=== PATIENT | male | born 1955 | race Caucasian/White ===

== ENCOUNTER 2016-07-30 19:26 | Inpatient (IN) | payer MEDICARE, MEDICAID ==
[~2016-07-30] VITALS: Ht 175.3 cm; Wt 71.2 kg
[~2016-07-30 19:26] MED LIST: ASACOL400 MG PO; COLCRYS0.6 M1 PO; D5 1/2NS 1,000 ML IV SCH; HYDROCODON-ACE1 EA15 ORAL; LAMICTAL25 MG PO; LIPITOR10 MG PO; NORCO 5-325 TA1 EACH ORAL; NORVIR100 MG PO; PREVACID15 MG PO; SERTRALINE HCL100 MG PO; WELLBUTRIN100 MG PO; [UNRECOGNIZED DRUG - OTHER] BC
[2016-07-30 20:40] VITALS: BP 137/92
[2016-07-30 21:03] LABS: ALBUMIN/GLOBULIN RATIO 0.7 (1.0-2.7); CALCIUM 9.9 mg/dL (8.6-10.2); CREATININE 1.8 mg/dL (0.7-1.2); GLOMERULAR FILTRATION RATE 38.3 mL/min (>60); POTASSIUM 4.4 mEQ/L (3.4-4.9); TOTAL PROTEIN 7.9 g/dL (6.6-8.7)
[2016-07-30 21:04] LABS: BASOPHILS % (AUTO) 0.8 % (0.0-2.0); EOSINOPHILS % (AUTO) 0.1 % (0.0-3.0); LYMPHOCYTES % (AUTO) 8.9 % (20.0-45.0); MEAN CORPUSCULAR HEMOGLOBIN 31.4 PG (27.0-31.0); MEAN CORPUSCULAR HGB CONC 34.1 G/DL (32.0-36.0); MEAN CORPUSCULAR VOLUME 92 FL (80-99); MEAN PLATELET VOLUME 6.9 FL (6.5-10.1); MONOCYTES % (AUTO) 8.9 % (1.0-10.0); NEUTROPHILS % (AUTO) 81.2 % (45.0-75.0); PLATELET COUNT 182 K/UL (150-450); RED BLOOD COUNT 4.84 M/UL (4.70-6.10); RED CELL DISTRIBUTION WIDTH 12.5 % (11.6-14.8); WHITE BLOOD COUNT 11.1 K/UL (4.8-10.8)
--- NOTE | 2016-07-30 21:12 | Emergency Room Report ---
History of Present Illness General Chief Complaint: Abdominal Pain Source: Patient (DILANCHUKC Mcclain D.O.) Present Illness HPI This patient presents with nausea, vomiting and abdominal pain. Shortly after arrival he also developed diffuse watery diarrhea. The patient states that one week ago he underwent an elective hernia repair at [facility]. He states that mesh was placed in his abdomen time. He states that about 2 days after being discharged he developed abdominal pain. He states that he then was seen at [facility] while hospital. He states he underwent a CT was told that his bowel was bruised and bleeding. He also states there was some finding on his heart. He states he was in a have to wear a mask for 2 days and so he left AGAINST MEDICAL ADVICE. (CHUCK KONG D.O.) Allergies: Coded Allergies: PENICILLINS (Verified Allergy, Intermediate, 07/30/16) SULFA (SULFONAMIDE ANTIBIOTICS) (Verified Allergy, Intermediate, ITCHING, 07/30/16) Patient History Past Medical History: see triage record, asthma, GERD, psych hx - Bipolar, HIV - viral load undetectable, CD4 300s Past Surgical History: other - hernia repair 1 week ago Social History: Denies: alcohol use, drug use, smoking Reviewed Nursing Documentation: PMH: Agreed, PSxH: Agreed (CHUCK KONG D.O. ) Nursing Documentation-PMH Hx Cardiac Problems: No - HIV+ Hx Hypertension: No - Gout Hx Asthma: Yes Hx Cancer: No Hx Neurological Problems: No (CHUCK KONG D.O.) Review of Systems All Other Systems: negative except mentioned in HPI (CHUCK KONG D.O.) Physical Exam Vital Signs Date Time Temp Pulse Resp B/P Pulse Ox O2 Delivery O2 Flow Rate FiO2 07/30/16 19:36 98.2 105 35 156/88 90 07/30/16 20:40 Nasal Cannula 2.0 Sp02 EP Interpretation: reviewed, normal General Appearance: no apparent distress, alert, GCS 15, non-toxic Head: normocephalic, atraumatic Eyes: bilateral eye PERRL, bilateral eye normal inspection ENT: hearing grossly normal, normal pharynx, no angioedema, normal voice Neck: full range of motion, supple/symm/no masses Respiratory: chest non-tender, lungs clear, normal breath sounds, speaking full sentences Cardiovascular #1: regular rate, rhythm, no edema Gastrointestinal: normal bowel sounds, distended, tenderness - diffusely. + ecchymosis, some erythema in upper abdomen Rectal: deferred Musculoskeletal: back normal, gait/station normal, normal range of motion, non- tender Neurologic: alert, oriented x3, responsive, motor strength/tone normal, sensory intact, speech normal Psychiatric: judgement/insight normal, memory normal, mood/affect normal, no suicidal/homicidal ideation Skin: normal color, no rash, warm/dry, well hydrated (CHUCK KONG D.O.) Medical Decision Making Diagnostic Impression: Primary Impression: Pancreatitis Qualified Codes: K85.80 - Other acute pancreatitis without necrosis or infection Additional Impressions: Pneumatosis intestinalis Ischemia, bowel ER Course This patient presents with abdominal pain, vomiting and diffuse diarrhea. And concerned about this patient's abdominal exam. He is tender to palpation and it is distended. The patient does have stable vital signs and a reassuring laboratory workup. Low, he does have an elevated lipase consistent with pancreatitis. However, very concerned abdominal exam on this patient. Especially, given his recent history of surgery an admission to another hospital and then leaving AGAINST MEDICAL ADVICE. He medical record from [facility] and [facility] has been requested but has not been obtained at the time of this dictation. Also, the patient is awaiting CT of the abdomen and pelvis at the time of this dictation. I did go ahead and give broad-spectrum antibiotics to cover anaerobes as a precaution. I also gave her IV fluids. Anticipate admission. Labs Test 07/30/16 20:34 White Blood Count 11.1 K/UL (4.8-10.8) Red Blood Count 4.84 M/UL (4.70-6.10) Hemoglobin 15.2 G/DL (14.2-18.0) Hematocrit 44.6 % (42.0-52.0) Mean Corpuscular Volume 92 FL (80-99) Mean Corpuscular Hemoglobin 31.4 PG (27.0-31.0) Mean Corpuscular Hemoglobin Concent 34.1 G/DL (32.0-36.0) Red Cell Distribution Width 12.5 % (11.6-14.8) Platelet Count 182 K/UL (150-450) Mean Platelet Volume 6.9 FL (6.5-10.1) Neutrophils (%) (Auto) 81.2 % (45.0-75.0) Lymphocytes (%) (Auto) 8.9 % (20.0-45.0) Monocytes (%) (Auto) 8.9 % (1.0-10.0) Eosinophils (%) (Auto) 0.1 % (0.0-3.0) Basophils (%) (Auto) 0.8 % (0.0-2.0) Sodium Level 135 mEQ/L (135-145) Potassium Level 4.4 mEQ/L (3.4-4.9) Chloride Level 93 mEQ/L (98-107) Carbon Dioxide Level 23 mEQ/L (20-30) Anion Gap 19 (5-15) Blood Urea Nitrogen 39 mg/dL (7-23) Creatinine 1.8 mg/dL (0.7-1.2) Estimat Glomerular Filtration Rate 38.3 mL/min (>60) Glucose Level 172 mg/dL (74-106) Calcium Level 9.9 mg/dL (8.6-10.2) Total Bilirubin 0.9 mg/dL (0.0-1.2) Aspartate Amino Transf (AST/SGOT) 30 U/L (5-40) Alanine Aminotransferase (ALT/SGPT) 15 U/L (3-41) Alkaline Phosphatase 68 U/L (40-129) Total Protein 7.9 g/dL (6.6-8.7) Albumin 3.4 g/dL (3.5-5.2) Globulin 4.5 g/dL Albumin/Globulin Ratio 0.7 (1.0-2.7) Lipase 440 U/L (< 60) (CHUCK KONG D.O.) ER Course Received signout from Dr Mota to followup CTAP Results from Dr Yne - pneumotosis intestinalis of prox small bowel, stomach, portal venous gas and mesnteric gas, bowel ischemia. Large anterior fluid follection I added on lactate Coags and T&S Ordered Dr Gilmore from [facility] consulted, is bedside at 10pm. Endorsed findings to Dr Brown as admitting hospitalist at 10pm as well. (ALESHIA MORILLO M.D.) Chest X-Ray Diagnostic Results Chest X-Ray Ordered: Yes # of Views/Limited/Complete: 1 View, Limited Interpretation: no consolidation, no effusion, no pneumothorax, no acute cardiopulmonary disease Indication: Other - pt reports "heart problem" Impression: No acute disease Date Electronically Signed: Jul 31, 2016 Time Electronically Signed: 07:08 Interpreting ER Physician: Sabina (CHUCK KONG D.O.) CT/MRI/US Diagnostic Results CT/MRI/US Diagnostic Results : Imaging Test Ordered: CT abd/pelvis Impression Pending. See official report. (CHUCK KONG D.O.) Last Vital Signs Date Time Temp Pulse Resp B/P Pulse Ox O2 Delivery O2 Flow Rate FiO2 07/30/16 20:40 98.2 97 23 137/92 90 Nasal Cannula 2.0 (CHUCK KONG D.O.) Status: improved (ALESHIA MORILLO M.D.) Disposition: ADMITTED INPATIENT Condition: Critical Referrals: NON PHYSICIAN (PCP) CHUCK KONG D.O. Jul 30, 2016 21:12 ALESHIA MORILLO M.D. Jul 30, 2016 22:23
[2016-07-30] MEDS ORDERED: metroNIDAZOLE 500mg 100 ML IVPB ONE (21:15)
[2016-07-30] MEDS ORDERED: Miralax 17gm pkt ORAL PRN (21:45)
[2016-07-30] MEDS ORDERED: Metoclopramide 10mg/2ml Inj IVP PRN (21:45)
[2016-07-30] MEDS ORDERED: Mylanta II UD 30ml ORAL PRN (21:45)
[2016-07-30] MEDS ORDERED: Morphine Sulfate 2mg/ml Inj IVP PRN (21:45)
[2016-07-30] MEDS ORDERED: LORazepam Inj 2mg/ml 1ml IV PRN (21:45)
[2016-07-30] MEDS ORDERED: Nitroglycerin Subl 0.4mg tab (Bottle Of 25) SL PRN (21:45)
[2016-07-30 21:55] VITALS: BP 128/94
[2016-07-30] MEDS ORDERED: Amikacin Rx to dose MISC PRN (22:15)
[2016-07-30 23:04] LABS: TROPONIN I < 0.30 ng/mL (<=0.30)
[2016-07-30 23:44] LABS: APPEARANCE,URINE CLEAR; KETONES,URINE NEGATIVE (NEGATIVE); LEUKOCYTE ESTERASE ,URINE 1+ (NEGATIVE); NITRITE,URINE NEGATIVE (NEGATIVE); PH,URINE 5 (4.5-8.0); PROTEIN,URINE 2+ (NEGATIVE); UROBILINOGEN,URINE 1 MG/DL (0.0-1.0)
[2016-07-30 23:54] LABS: BACTERIA,URINE FEW /HPF; RBC,URINE 0-2 /HPF (0 - 0); WBC,URINE 0-2 /HPF (0 - 0)
[2016-07-30 23:55] VITALS: BP 120/88
[2016-07-30 23:55] LABS: COARSE GRANULAR CASTS,URINE 0-2 /LPF; ICTOTEST NEGATIVE
--- NOTE | 2016-07-30 23:58 | General Progress Note ---
Progress Note Progress Note Chart reviewed, pt examined. Pt has probable intestinal ischemia and/or infarction. He will undergo an exploratory laparotomy, possible intestinal resection, possible colostomy. The nature, risks and benefits were discussed. Dejuan Gilmore MD Jul 30, 2016 23:58
[2016-07-31] VITALS (38 sets, daily range): BP systolic 87–166; BP diastolic 48–85
--- NOTE | 2016-07-31 00:46 | Pre-Procedure Note/Attestation ---
Pre-Procedure Note/Attestation Complete Prior to Procedure Planned Procedure: not applicable Procedure Narrative: exploratory laparotomy, intestinal resection, possible colostomy, possible open abdomen Indications for Procedure Pre-Operative Diagnosis: acute abdomen, pneumatosis intestinalis, pylephlebitis Attestation I attest that I discussed the nature of the procedure; its benefits; risks and complications; and alternatives (and the risks and benefits of such alternatives ), prior to the procedure, with the patient (or the patient's legal pharmaceutical representative). I attest that, if there was a reasonable possibility of needing a blood transfusion, the patient (or the patient's legal pharmaceutical representative) was given the [place] Department [employer] standardized written summary, pursuant to the Chema Amanda Blood Safety Act ([place] Health and Safety Code # 1645, as amended). I attest that I re-evaluated the patient just prior to the surgery and that there has been no change in the patient's H&P, except as documented below:none Dejuan Gilmore MD Jul 31, 2016 00:45
[2016-07-31] MEDS ORDERED: LR 1000ml ONE (00:55)
[2016-07-31] MEDS ORDERED: Propofol 10mg/ml 20ml IV ONE (00:55)
[2016-07-31] MEDS ORDERED: Ketamine 500mg Inj ONE (00:55)
[2016-07-31] MEDS ORDERED: Nimbex 2mg/ml Inj 10ML IVP ONE (00:55)
[2016-07-31] MEDS ORDERED: Lidocaine 1% MPF 10mg/ml 5ml ONE (00:55)
[2016-07-31] MEDS ORDERED: Midazolam 2mg/2ml Inj ONE (00:55)
[2016-07-31] MEDS ORDERED: NS IV SCH (01:00)
[2016-07-31] MEDS ORDERED: AMIKACIN IV SCH (01:00)
--- NOTE | 2016-07-31 01:40 | Anethesia Preoperative Eval ---
Anesthesia Pre-op PMH/ROS General Date of Evaluation: Jul 31, 2016 Time of Evaluation: 00:56 Anesthesiologist: Abbie ASA Score: ASA 4 - Emergency Mallampati Score Class I : Soft palate, uvula, fauces, pillars visible Class II: Soft palate, uvula, fauces visible Class III: Soft palate, base of uvula visible Class IV: Only hard plate visible Mallampati Classification: Class II Surgeon: Mando Diagnosis: Abd Pain Surgical Procedure: Exploratory Laprotomy Anesthesia History: none Family History: no anesthesia problems Allergies: Coded Allergies: PENICILLINS (Verified Allergy, Intermediate, 07/30/16) SULFA (SULFONAMIDE ANTIBIOTICS) (Verified Allergy, Intermediate, ITCHING, 07/30/16) Medications: see eMAR Past Medical History Cardiovascular: Reports: HTN, other - HL Pulmonary: Reports: asthma Gastrointestinal/Genitourinary: Reports: GERD Neurologic/Psychiatric: Reports: depression/anxiety HEENT: Reports: cataract (L), cataract (R) Hematology/Immune: Reports: other - HIV PSxH Narrative: B Cat Ext IOL, Bilateral Arthroscopy somewhere Anesthesia Pre-op Phys. Exam Physician Exam Last Vital Signs Date Time Temp Pulse Resp B/P Pulse Ox O2 Delivery O2 Flow Rate FiO2 07/31/16 01:02 98.2 90 23 120/88 96 Nasal Cannula 2.0 Constitutional: NAD Neurologic: CN 2-12 intact Cardiovascular: RRR Respiratory: CTA Gastrointestinal: S/NT/ND Airway Exam Mallampati Score: Class II MO: limited ROM: limited Teeth: intact Anesthesia Pre-op A/P Labs Hematology Test 07/30/16 20:34 White Blood Count 11.1 K/UL (4.8-10.8) H Red Blood Count 4.84 M/UL (4.70-6.10) Hemoglobin 15.2 G/DL (14.2-18.0) Hematocrit 44.6 % (42.0-52.0) Mean Corpuscular Volume 92 FL (80-99) Mean Corpuscular Hemoglobin 31.4 PG (27.0-31.0) H Mean Corpuscular Hemoglobin Concent 34.1 G/DL (32.0-36.0) Red Cell Distribution Width 12.5 % (11.6-14.8) Platelet Count 182 K/UL (150-450) Mean Platelet Volume 6.9 FL (6.5-10.1) Neutrophils (%) (Auto) 81.2 % (45.0-75.0) H Lymphocytes (%) (Auto) 8.9 % (20.0-45.0) L Monocytes (%) (Auto) 8.9 % (1.0-10.0) Eosinophils (%) (Auto) 0.1 % (0.0-3.0) Basophils (%) (Auto) 0.8 % (0.0-2.0) Chemistry Test 07/30/16 20:34 07/30/16 22:40 Sodium Level 135 mEQ/L (135-145) Potassium Level 4.4 mEQ/L (3.4-4.9) Chloride Level 93 mEQ/L (98-107) L Carbon Dioxide Level 23 mEQ/L (20-30) Anion Gap 19 (5-15) H Blood Urea Nitrogen 39 mg/dL (7-23) H Creatinine 1.8 mg/dL (0.7-1.2) H Estimat Glomerular Filtration Rate 38.3 mL/min (>60) Glucose Level 172 mg/dL (74-106) H Calcium Level 9.9 mg/dL (8.6-10.2) Total Bilirubin 0.9 mg/dL (0.0-1.2) Aspartate Amino Transf (AST/SGOT) 30 U/L (5-40) Alanine Aminotransferase (ALT/SGPT) 15 U/L (3-41) Alkaline Phosphatase 68 U/L (40-129) Troponin I < 0.30 ng/mL (<=0.30) Total Protein 7.9 g/dL (6.6-8.7) Albumin 3.4 g/dL (3.5-5.2) L Globulin 4.5 g/dL Albumin/Globulin Ratio 0.7 (1.0-2.7) L Lipase 440 U/L (< 60) H Lactic Acid Level 1.80 mmol/L (0.66-2.22) Risk Assessment & Plan Assessment: ASA 4E Plan: GA, BIS, Glidescope Status Change Before Surgery: No Pre-Antibiotics Dru Gram Ancef IV Given Within 1 Hr of Incision: Yes Time Given: 01:16 Fortino Leiva MD Jul 31, 2016 01:40
[2016-07-31] MEDS ORDERED: LR 1000ml 1,000 ML IVLG SCH (01:48)
[2016-07-31] MEDS ORDERED: NS Irrig 1000ml IRRIG ONE (01:52)
--- NOTE | 2016-07-31 01:55 | Immediate Post-Op Evaluation ---
Immediate Post-Op Evalulation Immediate Post-Op Evalulation Procedure: Exploratory Laparotomy, Small Bowel Resection Date of Evaluation: Jul 31, 2016 Time of Evaluation: 03:30 IV Fluids: 1000 LR Blood Products: 0 Estimated Blood Loss: 100 Urinary Output: 300 Blood Pressure Systolic: 135 Blood Pressure Diastolic: 76 Pulse Rate: 86 Respiratory Rate: 10 - Vent O2 Sat by Pulse Oximetry: 98 Temperature (Fahrenheit): 97.6 Pain Score (1-10): 0 Nausea: No Vomiting: No Complications 0 Patient Status: no response, patent, ventilated, none Hydration Status: adequate Dru Gram Ancef IV Given Within 1 Hr of Incision: Yes Time Given: 01:16 Fortino Leiva MD Jul 31, 2016 01:55
[2016-07-31] MEDS ORDERED: Norco 7.5mg/325mg tab ORAL PRN (02:00)
[2016-07-31] MEDS ORDERED: fentaNYL 100 mcg/2 mL IV PRN (02:00)
[2016-07-31] MEDS ORDERED: LORazepam Inj 2mg/ml 1ml IV PRN (02:00)
[2016-07-31] MEDS ORDERED: Midazolam 2mg/2ml Inj IVP PRN (02:00)
[2016-07-31] MEDS ORDERED: Oxycodone/Acetaminophen 5-325 ORAL PRN (02:00)
[2016-07-31] MEDS ORDERED: Meperidine 25mg/0.5ml Inj (FOR RIGORS ONLY) IV PRN (02:00)
[2016-07-31] MEDS ORDERED: Atropine Inj 1mg/10ml Syr IV PRN (02:00)
[2016-07-31] MEDS ORDERED: Norco 5mg/325mg tab ORAL PRN (02:00)
[2016-07-31] MEDS ORDERED: DiphenhydrAMINE 50mg/ml Inj IVP PRN (02:00)
[2016-07-31] MEDS ORDERED: D5 1/2NS w/KCl 20mEq 1,000 ML IV SCH (03:14)
--- NOTE | 2016-07-31 03:15 | Consultation ---
DATE OF CONSULTATION: 07/30/2016 SURGICAL CONSULTATION CONSULTING PHYSICIAN: Dejuan Gilmore M.D. REASON FOR CONSULTATION: Abdominal pain six days post laparoscopic inguinal hernia repair. HISTORY OF PRESENT ILLNESS: This 61-year-old white male with human immunodeficiency virus positive underwent a laparoscopic-robotic left inguinal hernia repaired six days ago. The patient discharged on the same day of surgery. He developed severe abdominal pain afterwards prompting admission to [facility]. At [facility], a CT scan of the abdomen allegedly showed some bruising and bleeding of the intestine. He was told he had some abnormality in his heart and was advised to wear mask for two days. The patient left against medical advice. Two days ago, he presented to the emergency room with symptoms of an intestinal obstruction to induce vomiting. He developed diarrhea earlier today. PAST MEDICAL HISTORY: Significant for bipolar disorder. He has been HIV positive for 35 years. His viral load is undetectable, CD4 is in the 300s. The patient also had back surgery seven weeks ago. ALLERGIES: To penicillin and sulfa. MEDICATIONS: Included Lipitor 10 mg daily, Wellbutrin 100 mg daily, colchicine 0.6 mg twice a day for gout, Captiva 5/325 mg q.6 hours as needed pain, Lamictal 25 mg daily, Prevacid 15 mg daily, Asacol 400 mg twice a day, Norvir 100 mg twice a day, and Zoloft mg daily. SOCIAL HISTORY: Tobacco, none. Alcohol, none. Occupation, disabled due to back problems. FAMILY HISTORY: Noncontributory. REVIEW OF SYSTEMS: Negative for asthma or angina. PHYSICAL EXAMINATION: GENERAL: Reveals a thin white male with abdominal distention. VITAL SIGNS: Temperature 98.2, blood pressure 128/94, pulse 94, and respirations 23. HEENT: Normocephalic. Pupils are equal and reactive to light. There is no scleral icterus. NECK: Supple without adenopathy. LUNGS: Clear. HEART: Showed a regular rhythm. ABDOMEN: Abdomen was distended. There is some erythema in the epigastric area. There are multiple laparoscopy puncture wounds noted. There was tenderness in the upper abdomen, the tenderness is less in the lower quadrant. EXTREMITIES: Showed no clubbing, cyanosis, or edema. LABORATORY AND DIAGNOSTIC DATA: Laboratory studies: CBC showed a white blood count of 11,100, hemoglobin 15.2 g%, hematocrit 44.6%, and platelet count 182,000. Clinical chemistry showed a sodium of 135, potassium 4.4, chloride 93, bicarbonate 23, BUN 39, creatinine 1.8, and glucose 172. Lactic acid is 1.8. Total bilirubin 0.9, SGOT 15, SGPT 30, and alkaline phosphatase 68. Lipase elevated to 440. CT scan of the abdomen and pelvis showed pneumatosis along the duodenum and proximal jejunum. There was air in the portal vein extending to the liver and there was a large fluid collection in the upper abdomen worrisome for an abscess. IMPRESSION: Six days status post laparoscopic-robotic left inguinal hernia repair, possible ischemic bowel, and possible intra-abdominal abscess. PLAN: The patient will be taken to the operating room for exploratory laparotomy and possible intestinal resection. He has also been counseled the need for a temporary colostomy ____ colon be involved in this process. The patient was also explained the possibility of bleeding the abdomen open temporarily for 24 to 48 hours if necessary. Dejuan Gilmore M.D. DR: CHERI JOB#: [id number] CC:
--- NOTE | 2016-07-31 03:25 | Brief Operative Note ---
Immediate Post Operative Note Operative Note Chief Complaint: severe abdominal pain, nausea, diarrhea Pre-op Diagnosis: Peritonitis, Intra-abdominal abscess, Sepsis, Pneumatosis Procedure: Exploratory laparotomy, abdominal washout, resection of infected omentum, small bowel resection, lysis of adhesions Post-op Diagnosis: intraabdominal abscess, small bowel obstruction, intraabdominal adhesions, small bowel perforation. Findings: other - large epigastric intra abdominal abscess which was walled off by omentum, mid small bowel obstruction secondary to adhesions formed by intestinal perforation, small bowel resection performed with side to side anastomosis, abdomen washed out. Surgeon: Mando Locksmith: Abril Anesthesiologist: Rey Anesthesia: general Specimen: yes - perforated small bowel / infected omentum Complications: none Condition: stable Fluids: see anesthesia records Estimated Blood Loss: volume - 100cc Drains: none Implant(s) used?: No Luis Felipe Samuels Jul 31, 2016 03:25
[2016-07-31] MEDS: Hydromorphone 0.5mg/0.5ml inj IVP PRN ×2 (03:47→04:41)
--- NOTE | 2016-07-31 04:30 | Operative Note - Dictated ---
DATE OF OPERATION: 07/31/2016 PREOPERATIVE DIAGNOSES: Acute abdomen, pneumatosis intestinalis and pylephlebitis. POSTOPERATIVE DIAGNOSES: Acute abdomen, pneumatosis intestinalis and pylephlebitis. PROCEDURE: Exploratory laparotomy, drainage of abdominal abscess, lysis of adhesions, partial omentectomy and partial small-bowel resection. SURGEON: Dejuan Gilmore M.D. CORE DRILLER HELPER: Luis Felipe Samuels M.D. ANESTHESIA: General endotracheal. ANESTHESIOLOGIST: Fortino Leiva M.D. INDICATIONS FOR SURGERY: This is a 61-year-old white male, underwent a laparoscopic-robotic left inguinal hernia repair six days prior to this surgery. The procedure was uneventful. The patient was discharged to home the same day. He developed severe abdominal pain shortly after discharge and presented to the [facility] emergency room where he was hospitalized for 4 days. He underwent a CT scan of the abdomen in that facility and was told he had some hemorrhage around the intestine. The patient was also told that he had some cardiac issue and it was recommended that he go on supplemental oxygen for 2 days. The patient left the hospital against medical advice. After 4 days, he had persistent pain as well as symptoms of intestinal obstruction. He tried to induce vomiting. He developed diarrhea shortly after arrival to the emergency room. A CT scan was taken in the emergency room showed evidence of pneumatosis intestinalis involving the duodenum and proximal jejunum. He was also found to have elements of pylephlebitis with air in the portal venous system extending into the liver. He was advised to undergo an exploratory laparotomy. OPERATIVE FINDINGS: Exploration of the abdominal cavity revealed a large abscess in the epigastric area and the abscess that formed a rind abutting the left subhepatic space. The proximal small bowel was dilated consistent with an obstruction. The mid small bowel had an area of matted intestines. The dissection of this area revealed an area of perforation. The remainder of the intestines appeared viable. There were no ischemic changes. The gallbladder had a pliable wall and there were some dusky changes on the left lobe of the liver consistent with the affect of the pylephlebitis. The cecum was viable. The appendix was normal in size and texture. There was no evidence of pelvic abscess. Inspection of the left side of the pelvis reveals a beautifully placed mesh. OPERATIVE TECHNIQUE: With the patient in the supine position after induction of adequate general endotracheal anesthesia, abdomen was prepped and draped in sterile fashion. A time-out was called. A midline incision was made in the upper abdomen. The subcutaneous tissue was divided by sharp dissection with a scalpel. Several bleeding points were cauterized. The rectus fascia was incised in the midline. The peritoneum was elevated and incised and causing entry into the abscess. Copious amounts of foul-smelling fluid were aspirated. Cultures were obtained. The incision was extended inferiorly below the umbilicus. The abscess rind was bluntly dissected. The involved omentum and the abscess was resected. The avascular plane off of the transverse colon was divided by electrocautery. The vascular strands off of the greater curvature of the stomach were clamped, divided and ligated with 2-0 silk. A generous portion of the omentum was excised. The transverse colon was mobilized superiorly. The small bowel was then carefully eviscerated and the proximal small bowel was quite dilated. There was a segment of matted small bowel in the distal jejunum. This was slowly dissected. The interloop adhesions were taken down. During this maneuver, the area of perforation was identified. The perforation was controlled with 3-0 silk and figure of 8 suture. The bowel was dissected distally until the terminal ileum was identified and a 15 cm segment of small bowel involving the area of perforation was excised. A functional end-to-end anastomosis was created with the GULSHAN stapler. The adjacent small bowel mesenteries intended for resection were carefully scored. Numerous vascular pedicles were clamped and divided. The segment of bowel was removed. The rent in the mesentery was closed with a running 3-0 silk suture. The anastomosis was inspected and was found to be patent. The abdomen was copiously irrigated with normal saline. The rectus fascia and peritoneum was reapproximated with a running #1 looped PDS suture. The subcutaneous tissue was irrigated. The skin was loosely approximated with stainless steel gely. Sterile dressings were applied. The needle, sponge and instrument counts were correct. The patient tolerated the procedure well and was returned to the intensive care unit intubated in stable condition. Estimated blood loss is 100 mL. Dejuan Gilmore M.D. DR: DELMI JOB#: [id number] CC:
[2016-07-31] MEDS ORDERED: Amikacin 500mg/2mL Inj ONE (05:22)
[2016-07-31 05:26] LABS: BASOPHILS % (AUTO) 0.5 % (0.0-2.0); EOSINOPHILS % (AUTO) 0.1 % (0.0-3.0); LYMPHOCYTES % (AUTO) 10.8 % (20.0-45.0); MEAN CORPUSCULAR HEMOGLOBIN 31.1 PG (27.0-31.0); MEAN CORPUSCULAR HGB CONC 33.2 G/DL (32.0-36.0); MEAN CORPUSCULAR VOLUME 94 FL (80-99); MEAN PLATELET VOLUME 7.2 FL (6.5-10.1); MONOCYTES % (AUTO) 5.9 % (1.0-10.0); NEUTROPHILS % (AUTO) 82.7 % (45.0-75.0); PLATELET COUNT 235 K/UL (150-450); RED BLOOD COUNT 5.02 M/UL (4.70-6.10); RED CELL DISTRIBUTION WIDTH 12.7 % (11.6-14.8); WHITE BLOOD COUNT 12.7 K/UL (4.8-10.8)
[2016-07-31 05:52] LABS: ALBUMIN/GLOBULIN RATIO 0.6 (1.0-2.7); CALCIUM 8.4 mg/dL (8.6-10.2); CREATININE 1.7 mg/dL (0.7-1.2); GLOMERULAR FILTRATION RATE 40.9 mL/min (>60); POTASSIUM 5.5 mEQ/L (3.4-4.9); TOTAL PROTEIN 5.9 g/dL (6.6-8.7)
[2016-07-31] MEDS ORDERED: Vancomycin 1 GM in D5W 275 ML IVPB SCH (06:00)
[2016-07-31] MEDS ORDERED: Aztreonam Inj 1 GM in NS 55 ML IVPB SCH (06:00)
[2016-07-31] MEDS ORDERED: metroNIDAZOLE 500mg 100 ML IVPB SCH (06:00)
[2016-07-31] MEDS: Vancomycin 1.5 GM in D5W 325 ML IVPB SCH ×3 (06:39→18:26)
--- NOTE | 2016-07-31 06:44 | 48 Hour Post Anesthesia Eval ---
Post Anesthesia Evaluation Procedure: Exploratory Laparotomy, Small Bowel Resection Date of Evaluation: Jul 31, 2016 Time of Evaluation: 06:42 Blood Pressure Systolic: 118 0: 72 Pulse Rate: 96 Respiratory Rate: 16 - Still intubated, Breathing on own. Temperature (Fahrenheit): 98.4 O2 Sat by Pulse Oximetry: 97 Airway: patent Nausea: No Vomiting: No Pain Intensity: 2 Hydration Status: adequate Cardiopulmonary Status: Stable Mental Status/LOC: patient returned to baseline Follow-up Care/Observations: 0 Post-Anesthesia Complications: 0 Follow-up care needed: N/A Fortino Leiva MD Jul 31, 2016 06:44
[2016-07-31 08:13] LABS: ABG PCO2 45.2 mmHg (35.0-45.0)
[2016-07-31 08:14] LABS: ABG BASE EXCESS -5.9
[2016-07-31 08:15] LABS: ABG ALLEN TEST POSITIVE
[2016-07-31] MEDS ORDERED: Heparin 2000 units/Ns 1000ml IV PRN (08:15)
[2016-07-31] MEDS ORDERED: Lidocaine 1% Plain 30 ml INJ PRN (08:15)
[2016-07-31] MEDS ORDERED: Sodium Bicarbonate 4% 2.4meq/5ml vial IV PRN (08:30)
[2016-07-31] MEDS: metroNIDAZOLE 500mg 100 ML IVPB SCH ×3 (08:38→23:34)
[2016-07-31] MEDS ORDERED: Heparin 5000 units/ml inj SUBQ SCH (09:00)
[2016-07-31] MEDS ORDERED: Pantoprazole Inj IV SCH (09:00)
--- NOTE | 2016-07-31 09:03 | Consultation ---
Consult Note Consult Note ID DIC # [id number] SANTANA HAGER M.D. Jul 31, 2016 09:03
--- NOTE | 2016-07-31 09:23 | Diagnostic Imaging Report ---
Indications: COUGH Technique: Portable AP chest Findings: Comparison: None Suboptimal inspiration limits evaluation. Linear densities in both lung bases. Cardiac silhouette obscured. Pulmonary vasculature within normal limits. No obvious pleural abnormality. Gaseous distention of stomach and bowel in upper abdomen. IMPRESSION: Pulmonary bibasal subsegmental atelectasis No other evidence of acute cardiopulmonary disease, limited as described. Basal abnormalities may be missed. Nonspecific gaseous distention of GI tract
[2016-07-31] MEDS: Morphine Sulfate 2mg/ml Inj IVP PRN ×4 (10:10→18:25)
[2016-07-31] MEDS: LORazepam Inj 2mg/ml 1ml IV PRN ×4 (10:10→18:25)
[2016-07-31] MEDS: Aztreonam Inj 1 GM in NS 55 ML IVPB SCH ×2 (10:11→18:26)
--- NOTE | 2016-07-31 10:32 | General Progress Note ---
Progress Note Progress Note Surgery: Patient seen and examined at bedside. Doing okay since surgery. Afebrile, tachycardic, boarder line BP. Likely hypovolemic and needs more fluid resuscitation. Appreciate ICU care and management NPO IV fluids IV Abx NG tube Owens Hold anti-coagulation for first 24hrs post op PRN dressing changes Wean vent as tolerated Luis Felipe Samuels Jul 31, 2016 10:32
--- NOTE | 2016-07-31 10:47 | History and Physical ---
History of Present Illness General Date patient seen: Jul 31, 2016 Reason for Hospitalization: Abdominal Pain Present Illness HPI 61 year male with hx of HIV , recent hernia repair at another facility, presented to [facility] with abdominal pain. He underwent laparotomy showing abscess formation around a rupture of small bowl. He is currently intubated, sedated in ICU. Allergies: Coded Allergies: PENICILLINS (Verified Allergy, Intermediate, 07/30/16) SULFA (SULFONAMIDE ANTIBIOTICS) (Verified Allergy, Intermediate, ITCHING, 07/30/16) Medication History Scheduled Atorvastatin Calcium* (Lipitor*), 10 MG PO DAILY, (Reported) Bupropion HCl (Wellbutrin), 150 MG PO DAILY, (Reported) Colchicine (Colcrys), 0.6 MG PO BID Lamotrigine* (Lamictal*), 25 MG PO DAILY, (Reported) Lansoprazole* (Prevacid*), 15 MG PO DAILY, (Reported) Mesalamine* (Asacol*), 400 MG PO BID, (Reported) Ritonavir* (Norvir*), 100 MG PO DAILY, (Reported) Sertraline Hcl* (Zoloft*), 200 MG PO DAILY, (Reported) Scheduled PRN Hydrocodone Bit/Acetaminophen 5-325* ([place] 5-325*), 1 TAB ORAL Q6H PRN for For Pain Hydrocodone/Acetaminophen 5-325* (Hydrocodone/Acetaminophen 5-325*), 1 TAB ORAL Q6H PRN for For Pain Miscellaneous Medications [Issentriss], BC, (Reported) Patient History Healthcare decision maker self Resuscitation status Full Code Advanced Directive on File No Past Medical/Surgical History Past Medical/Surgical History: (1) HIV disease Review of Systems All Other Systems: negative except mentioned in HPI Physical Exam General Appearance: WD/WN Lines, tubes and drains: peripheral, central line HEENT: normocephalic, atraumatic Neck: non-tender Respiratory/Chest: chest wall non-tender, lungs clear Cardiovascular/Chest: normal peripheral pulses, normal rate Abdomen: hypoactive bowel sounds Genitourinary/Rectal: normal genital exam, normal rectal exam, heme negative stool Extremities: normal range of motion, non-tender Skin Exam: normal pigmentation Last 24 Hour Vital Signs Date Time Temp Pulse Resp B/P Pulse Ox O2 Delivery O2 Flow Rate FiO2 07/31/16 10:00 114 39 146/78 98 Mechanical Ventilator 100 07/31/16 09:00 100 07/31/16 09:00 112 36 107/62 97 Mechanical Ventilator 100 07/31/16 08:34 113 32 100 07/31/16 08:00 112 07/31/16 08:00 98.7 112 32 114/58 98 Mechanical Ventilator 100 07/31/16 08:00 20 07/31/16 07:14 109 35 100 07/31/16 07:00 109 32 110/61 95 Mechanical Ventilator 100 07/31/16 07:00 20 07/31/16 06:45 110 32 115/75 95 Mechanical Ventilator 100 07/31/16 06:44 96 16 97 07/31/16 06:30 110 32 118/70 95 Mechanical Ventilator 100 07/31/16 06:15 105 28 110/68 95 Mechanical Ventilator 100 07/31/16 06:00 103 30 120/66 96 Mechanical Ventilator 100 07/31/16 06:00 26 07/31/16 05:30 106 25 113/60 96 Mechanical Ventilator 100 07/31/16 05:15 102 22 87/49 96 Mechanical Ventilator 100 07/31/16 05:01 25 07/31/16 05:00 105 26 127/51 95 Mechanical Ventilator 100 07/31/16 04:55 105 31 100 07/31/16 04:30 98.6 110 25 128/70 95 Mechanical Ventilator 100 07/31/16 04:16 110 32 100 07/31/16 04:08 102 26 121/73 96 Mechanical Ventilator 100 07/31/16 04:07 97.1 07/31/16 04:05 100.0 07/31/16 04:00 105 07/31/16 04:00 98.1 102 25 136/65 96 Mechanical Ventilator 100 07/31/16 04:00 100 07/31/16 03:55 102 20 147/71 97 Mechanical Ventilator 100 07/31/16 03:45 102 15 152/71 98 Mechanical Ventilator 100 07/31/16 03:40 103 14 166/70 98 Mechanical Ventilator 100 07/31/16 03:30 101 15 163/71 99 Mechanical Ventilator 100 07/31/16 03:20 101 10 157/72 98 Mechanical Ventilator 100 07/31/16 03:20 100.0 07/31/16 03:15 100 10 162/85 98 Mechanical Ventilator 100 07/31/16 03:14 86 10 98 07/31/16 03:09 40.0 07/31/16 03:09 98.4 102 10 126/55 98 Mechanical Ventilator 40 07/31/16 03:09 95 07/31/16 01:02 98.2 90 23 120/88 96 Nasal Cannula 2.0 07/30/16 23:55 98.2 90 23 120/88 96 Nasal Cannula 2.0 07/30/16 21:55 98.2 94 23 128/94 96 Nasal Cannula 2.0 07/30/16 20:40 98.2 97 23 137/92 90 Nasal Cannula 2.0 07/30/16 19:36 98.2 105 35 156/88 90 Intake and Output 07/30/16 07/31/16 19:00 07:00 Intake Total 3752.5 ml Output Total 380 ml Balance 3372.5 ml Intake IV Total 3752.5 ml Output Urine Total 280 ml Estimated Blood Loss 100 ml Laboratory Tests Test 07/30/16 20:34 07/30/16 22:40 07/30/16 23:30 07/31/16 04:30 White Blood Count 11.1 K/UL (4.8-10.8) H 12.7 K/UL (4.8-10.8) H Red Blood Count 4.84 M/UL (4.70-6.10) 5.02 M/UL (4.70-6.10) Hemoglobin 15.2 G/DL (14.2-18.0) 15.6 G/DL (14.2-18.0) Hematocrit 44.6 % (42.0-52.0) 47.0 % (42.0-52.0) Mean Corpuscular Volume 92 FL (80-99) 94 FL (80-99) Mean Corpuscular Hemoglobin 31.4 PG (27.0-31.0) H 31.1 PG (27.0-31.0) H Mean Corpuscular Hemoglobin Concent 34.1 G/DL (32.0-36.0) 33.2 G/DL (32.0-36.0) Red Cell Distribution Width 12.5 % (11.6-14.8) 12.7 % (11.6-14.8) Platelet Count 182 K/UL (150-450) 235 K/UL (150-450) Mean Platelet Volume 6.9 FL (6.5-10.1) 7.2 FL (6.5-10.1) Neutrophils (%) (Auto) 81.2 % (45.0-75.0) H 82.7 % (45.0-75.0) H Lymphocytes (%) (Auto) 8.9 % (20.0-45.0) L 10.8 % (20.0-45.0) L Monocytes (%) (Auto) 8.9 % (1.0-10.0) 5.9 % (1.0-10.0) Eosinophils (%) (Auto) 0.1 % (0.0-3.0) 0.1 % (0.0-3.0) Basophils (%) (Auto) 0.8 % (0.0-2.0) 0.5 % (0.0-2.0) Sodium Level 135 mEQ/L (135-145) 140 mEQ/L (135-145) Potassium Level 4.4 mEQ/L (3.4-4.9) 5.5 mEQ/L (3.4-4.9) H Chloride Level 93 mEQ/L (98-107) L 102 mEQ/L (98-107) Carbon Dioxide Level 23 mEQ/L (20-30) 20 mEQ/L (20-30) Anion Gap 19 (5-15) H 18 (5-15) H Blood Urea Nitrogen 39 mg/dL (7-23) H 39 mg/dL (7-23) H Creatinine 1.8 mg/dL (0.7-1.2) H 1.7 mg/dL (0.7-1.2) H Estimat Glomerular Filtration Rate 38.3 mL/min (>60) 40.9 mL/min (>60) Glucose Level 172 mg/dL (74-106) H 226 mg/dL (74-106) H Calcium Level 9.9 mg/dL (8.6-10.2) 8.4 mg/dL (8.6-10.2) L Total Bilirubin 0.9 mg/dL (0.0-1.2) 0.6 mg/dL (0.0-1.2) Aspartate Amino Transf (AST/SGOT) 30 U/L (5-40) 47 U/L (5-40) H Alanine Aminotransferase (ALT/SGPT) 15 U/L (3-41) 21 U/L (3-41) Alkaline Phosphatase 68 U/L (40-129) 55 U/L (40-129) Troponin I < 0.30 ng/mL (<=0.30) Total Protein 7.9 g/dL (6.6-8.7) 5.9 g/dL (6.6-8.7) L Albumin 3.4 g/dL (3.5-5.2) L 2.4 g/dL (3.5-5.2) L Globulin 4.5 g/dL 3.5 g/dL Albumin/Globulin Ratio 0.7 (1.0-2.7) L 0.6 (1.0-2.7) L Lipase 440 U/L (< 60) H 183 U/L (< 60) H Lactic Acid Level 1.80 mmol/L (0.66-2.22) Urine Color Yellow Urine Appearance Clear Urine pH 5 (4.5-8.0) Urine Specific [place] 1.025 (1.005-1.035) Urine Protein 2+ (NEGATIVE) H Urine Glucose (UA) Negative (NEGATIVE) Urine Ketones Negative (NEGATIVE) Urine Occult Blood Negative (NEGATIVE) Urine Nitrite Negative (NEGATIVE) Urine Bilirubin 1+ (NEGATIVE) H Urine Ictotest Negative Urine Urobilinogen 1 MG/DL (0.0-1.0) H Urine Leukocyte Esterase 1+ (NEGATIVE) H Urine RBC 0-2 /HPF (0 - 0) H Urine WBC 0-2 /HPF (0 - 0) Urine Squamous Epithelial Cells None /LPF (NONE/OCC) Urine Bacteria Few /HPF (NONE) Urine Coarse Granular Casts 0-2 /LPF (NONE) H Activated Partial Thromboplast Time 33 SEC (23-33) Triglycerides Level 98 mg/dL (< 150) Amylase Level 176 U/L (10-110) H Test 07/31/16 06:30 07/31/16 10:25 Arterial Blood pH 7.280 (7.350-7.450) Arterial Blood Partial Pressure CO2 45.2 mmHg (35.0-45.0) H Arterial Blood Partial Pressure O2 330.9 mmHg (75.0-100.0) H Arterial Blood HCO3 20.8 mmol/L (22.0-26.0) L Arterial Blood Oxygen Saturation 99.4 % (92.0-98.0) H Arterial Blood Base Excess -5.9 Romero Test Positive Vancomycin Level Trough Pending Microbiology Date/Time Source Procedure Growth Status 07/30/16 23:25 Stool Clostridium difficile Toxin Assay - Final Complete Height (Feet): 5 Height (Inches): 9.00 Weight (Pounds): 174 Medications Current Medications Medications (Trade) Dose Ordered Sig/Ernie Route PRN Reason Start Time Stop Time Status Last Admin Dose Admin Aztreonam 1 gm/ Sodium Chloride 55 ml @ 110 mls/hr Q8HR@0200,1000,1800 IVPB 07/31/16 10:00 08/07/16 09:59 07/31/16 10:11 Chlorhexidine Gluconate (Mame-Hex 2%) 1 applic DAILY TOPIC 07/31/16 18:00 08/30/16 17:59 Dextrose (Dextrose 50%) STAT PRN IV Hypoglycemia 07/30/16 21:45 08/29/16 21:44 Dextrose/ Electrolytes 1,000 ml @ 125 mls/hr Q8H IV 07/31/16 03:14 08/30/16 03:13 07/31/16 04:40 Heparin Sodium/ Sodium Chloride (Heparin 2000 units/Ns 1000ml premix) 2,000 unit ONCE PRN IV PICC PLACEMENT 07/31/16 08:15 08/01/16 23:59 Lidocaine HCl (Xylocaine 1% 30ml) 30 ml ONCE PRN INJ PICC PLACEMENT 07/31/16 08:15 08/01/16 23:59 Lorazepam (Ativan 2mg/ml 1ml) 2 mg Q2H PRN IV agitation 07/31/16 09:00 08/07/16 08:59 07/31/16 10:10 Metronidazole (Flagyl) 100 ml @ 100 mls/hr Q8HR@0730,1530,2330 IVPB 07/31/16 08:00 08/07/16 07:59 07/31/16 08:38 Morphine Sulfate (Morphine Sulfate) 2 mg Q2H PRN IVP Severe Pain (Pain Scale 7-10) 07/31/16 09:00 08/07/16 08:59 07/31/16 10:10 Nitroglycerin (Ntg) 0.4 mg Q5M X 3 DOSES PRN SL Prn Chest Pain 07/30/16 21:45 08/29/16 21:44 Ondansetron HCl (Zofran) 4 mg Q6H PRN IVP Nausea & Vomiting 07/30/16 21:45 08/29/16 21:44 Pantoprazole (Protonix) 40 mg DAILY IV 07/31/16 09:00 08/30/16 08:59 07/31/16 08:38 Promethazine HCl 25 mg 25 mg EVERY 8 HOURS PRN IV refractory nausea 07/30/16 21:45 08/29/16 21:44 Propofol 100 ml @ 0 mls/hr Q24H IV 07/31/16 03:30 08/02/16 03:29 07/31/16 05:01 Sodium Bicarbonate (Sodium Bicarbonate 4%) 5 ml ONCE PRN IV PICC PLACEMENT 07/31/16 08:30 08/01/16 23:59 Vancomycin HCl 1.5 gm/Dextrose 325 ml @ 162.5 mls/ hr Q12H IVPB 07/30/16 23:00 08/04/16 22:59 07/31/16 06:39 Assessment/Plan Problem List: (1) Acute respiratory failure ICD Codes: J96.00 - Acute respiratory failure, unspecified whether with hypoxia or hypercapnia SNOMED: 39081783 (2) Sepsis ICD Codes: A41.9 - Sepsis, unspecified organism SNOMED: 96487514 (3) Intra-abdominal abscess ICD Codes: K65.1 - Peritoneal abscess SNOMED: 48179336 (4) ATN (acute tubular necrosis) ICD Codes: N17.0 - Acute kidney failure with tubular necrosis SNOMED: 51201038 (5) HIV disease ICD Codes: B20 - Human immunodeficiency virus [HIV] disease SNOMED: 33427268 Assessment/Plan IV fluids IV antibioitcs support BP if needed dvt prophylaxis NG suction NPO pain management extubate when vital signs are more stable CHAS WALLACE Jul 31, 2016 10:47
[2016-07-31] MEDS: D5 1/2NS 1,000 ML IV SCH ×2 (11:00→18:26)
[2016-07-31] MEDS ORDERED: Vancomycin 1.5 GM in D5W 325 ML IVPB SCH (11:30)
--- NOTE | 2016-07-31 11:41 | GI Initial Consult Note ---
Lita Hebert NTomasz 07/31/16 1140: History of Present Illness General Date patient seen: Jul 31, 2016 Time patient seen: 11:39 Reason for Hospitalization: Abdominal Pain Referring physician: CHAS MORALES Reason for Consultation: ABDOMINAL PAIN Present Illness HPI This patient presents with nausea, vomiting and abdominal pain. Shortly after arrival he also developed diffuse watery diarrhea. The patient states that one week ago he underwent an elective hernia repair at [facility]. He states that mesh was placed in his abdomen time. He states that about 2 days after being discharged he developed abdominal pain. He states that he then was seen at [facility] while hospital. He states he underwent a CT was told that his bowel was bruised and bleeding. He also states there was some finding on his heart. He states he was in a have to wear a mask for 2 days and so he left AGAINST MEDICAL ADVICE. GI Consult. HPI as noted above. GI consulted for abdominal pain. ROS limited , patient presents today s/p SB resection currently in ICU being followed by surgery. Labs show leukocytosis and elevated lipase levels. Operative Note Chief Complaint: severe abdominal pain, nausea, diarrhea Pre-op Diagnosis: Peritonitis, Intra-abdominal abscess, Sepsis, Pneumatosis Procedure: Exploratory laparotomy, abdominal washout, resection of infected omentum, small bowel resection, lysis of adhesions Post-op Diagnosis: intraabdominal abscess, small bowel obstruction, intraabdominal adhesions, small bowel perforation. Luis Felipe Samuels - Jul 31, 2016 03:25 Home Meds Active Scripts Hydrocodone/Acetaminophen 5-325* (HYDROCODONE/ACETAMINOPHEN 5-325*) 1 Each Tablet, 1 TAB ORAL Q6H Y for For Pain, #30 TAB Prov:SANDRO HEBERT M.D. 01/11/15 Hydrocodone Bit/Acetaminophen 5-325* (NORCO 5-325*) 1 Each Tablet, 1 TAB ORAL Q6H Y for For Pain, #20 TAB Prov:BOOM CHAMPION M.D. 09/19/13 Colchicine (COLCRYS) 0.6 Mg Tablet, 0.6 MG PO BID, #30 TAB Prov:BOOM CHAMPION M.D. 09/19/13 Reported Medications Atorvastatin Calcium* (LIPITOR*) 10 Mg Tablet, 10 MG PO DAILY, #10 TAB Take 1 tablet by mouth every day. 12/29/11 Lansoprazole* (PREVACID*) 15 Mg Capsule.dr, 15 MG PO DAILY, #10 CAP Take 1 capsule by mouth every day. 12/29/11 Mesalamine* (ASACOL*) 400 Mg Tabec, 400 MG PO BID 12/29/11 Ritonavir* (NORVIR*) 100 Mg Capsule, 100 MG PO DAILY, #10 CAP Take 1 capsule by mouth 2 times a day. 12/29/11 [Issentriss] No Conflict Check, BC 12/29/11 Lamotrigine* (LAMICTAL*) 25 Mg Tablet, 25 MG PO DAILY, #10 TAB Take 1 tablet by mouth every day. 12/29/11 Bupropion HCl (Wellbutrin) 100 Mg Tab, 150 MG PO DAILY, #10 TAB Take 1 tablet by mouth every day. 12/29/11 Sertraline Hcl* (ZOLOFT*) 100 Mg Tablet, 200 MG PO DAILY 12/29/11 Med list reviewed/reconciled: Yes Allergies: Coded Allergies: PENICILLINS (Verified Allergy, Intermediate, 07/30/16) SULFA (SULFONAMIDE ANTIBIOTICS) (Verified Allergy, Intermediate, ITCHING, 07/30/16) Patient History Limited by: medical condition History Provided By: Medical Record PMH Narrative Past Medical History: see triage record, asthma, GERD, psych hx - Bipolar, HIV - viral load undetectable, CD4 300s Past Surgical History: other - hernia repair 1 week ago Social History: Denies: alcohol use, drug use, smoking Nursing Documentation-H Hx Cardiac Problems: No - HIV+ Hx Hypertension: No - Gout Hx Asthma: Yes Hx Cancer: No Hx Neurological Problems: No Review of Systems All Other Systems: limited Physical Exam Vital Signs Date Time Temp Pulse Resp B/P Pulse Ox O2 Delivery O2 Flow Rate FiO2 07/30/16 19:36 98.2 105 35 156/88 90 07/30/16 20:40 Nasal Cannula 2.0 07/31/16 03:09 40 Sp02 EP Interpretation: reviewed Labs Laboratory Tests Test 07/30/16 20:34 07/30/16 22:40 07/30/16 23:30 07/31/16 04:30 White Blood Count 11.1 K/UL (4.8-10.8) H 12.7 K/UL (4.8-10.8) H Red Blood Count 4.84 M/UL (4.70-6.10) 5.02 M/UL (4.70-6.10) Hemoglobin 15.2 G/DL (14.2-18.0) 15.6 G/DL (14.2-18.0) Hematocrit 44.6 % (42.0-52.0) 47.0 % (42.0-52.0) Mean Corpuscular Volume 92 FL (80-99) 94 FL (80-99) Mean Corpuscular Hemoglobin 31.4 PG (27.0-31.0) H 31.1 PG (27.0-31.0) H Mean Corpuscular Hemoglobin Concent 34.1 G/DL (32.0-36.0) 33.2 G/DL (32.0-36.0) Red Cell Distribution Width 12.5 % (11.6-14.8) 12.7 % (11.6-14.8) Platelet Count 182 K/UL (150-450) 235 K/UL (150-450) Mean Platelet Volume 6.9 FL (6.5-10.1) 7.2 FL (6.5-10.1) Neutrophils (%) (Auto) 81.2 % (45.0-75.0) H 82.7 % (45.0-75.0) H Lymphocytes (%) (Auto) 8.9 % (20.0-45.0) L 10.8 % (20.0-45.0) L Monocytes (%) (Auto) 8.9 % (1.0-10.0) 5.9 % (1.0-10.0) Eosinophils (%) (Auto) 0.1 % (0.0-3.0) 0.1 % (0.0-3.0) Basophils (%) (Auto) 0.8 % (0.0-2.0) 0.5 % (0.0-2.0) Sodium Level 135 mEQ/L (135-145) 140 mEQ/L (135-145) Potassium Level 4.4 mEQ/L (3.4-4.9) 5.5 mEQ/L (3.4-4.9) H Chloride Level 93 mEQ/L (98-107) L 102 mEQ/L (98-107) Carbon Dioxide Level 23 mEQ/L (20-30) 20 mEQ/L (20-30) Anion Gap 19 (5-15) H 18 (5-15) H Blood Urea Nitrogen 39 mg/dL (7-23) H 39 mg/dL (7-23) H Creatinine 1.8 mg/dL (0.7-1.2) H 1.7 mg/dL (0.7-1.2) H Estimat Glomerular Filtration Rate 38.3 mL/min (>60) 40.9 mL/min (>60) Glucose Level 172 mg/dL (74-106) H 226 mg/dL (74-106) H Calcium Level 9.9 mg/dL (8.6-10.2) 8.4 mg/dL (8.6-10.2) L Total Bilirubin 0.9 mg/dL (0.0-1.2) 0.6 mg/dL (0.0-1.2) Aspartate Amino Transf (AST/SGOT) 30 U/L (5-40) 47 U/L (5-40) H Alanine Aminotransferase (ALT/SGPT) 15 U/L (3-41) 21 U/L (3-41) Alkaline Phosphatase 68 U/L (40-129) 55 U/L (40-129) Troponin I < 0.30 ng/mL (<=0.30) Total Protein 7.9 g/dL (6.6-8.7) 5.9 g/dL (6.6-8.7) L Albumin 3.4 g/dL (3.5-5.2) L 2.4 g/dL (3.5-5.2) L Globulin 4.5 g/dL 3.5 g/dL Albumin/Globulin Ratio 0.7 (1.0-2.7) L 0.6 (1.0-2.7) L Lipase 440 U/L (< 60) H 183 U/L (< 60) H Lactic Acid Level 1.80 mmol/L (0.66-2.22) Urine Color Yellow Urine Appearance Clear Urine pH 5 (4.5-8.0) Urine Specific [place] 1.025 (1.005-1.035) Urine Protein 2+ (NEGATIVE) H Urine Glucose (UA) Negative (NEGATIVE) Urine Ketones Negative (NEGATIVE) Urine Occult Blood Negative (NEGATIVE) Urine Nitrite Negative (NEGATIVE) Urine Bilirubin 1+ (NEGATIVE) H Urine Ictotest Negative Urine Urobilinogen 1 MG/DL (0.0-1.0) H Urine Leukocyte Esterase 1+ (NEGATIVE) H Urine RBC 0-2 /HPF (0 - 0) H Urine WBC 0-2 /HPF (0 - 0) Urine Squamous Epithelial Cells None /LPF (NONE/OCC) Urine Bacteria Few /HPF (NONE) Urine Coarse Granular Casts 0-2 /LPF (NONE) H Activated Partial Thromboplast Time 33 SEC (23-33) Triglycerides Level 98 mg/dL (< 150) Amylase Level 176 U/L (10-110) H Test 07/31/16 06:30 07/31/16 10:25 Arterial Blood pH 7.280 (7.350-7.450) Arterial Blood Partial Pressure CO2 45.2 mmHg (35.0-45.0) H Arterial Blood Partial Pressure O2 330.9 mmHg (75.0-100.0) H Arterial Blood HCO3 20.8 mmol/L (22.0-26.0) L Arterial Blood Oxygen Saturation 99.4 % (92.0-98.0) H Arterial Blood Base Excess -5.9 Romero Test Positive Vancomycin Level Trough 13.6 ug/mL (5.0-12.0) H General Appearance: no apparent distress Head: normocephalic EENT: normal ENT inspection Neck: supple Respiratory: other - 2LNC Cardiovascular: normal rate Gastrointestinal: normal inspection, non tender, soft, ngt Rectal: deferred Neurologic: alert Skin: normal color, no rash, warm/dry Lymphatic: normal inspection, no adenopathy Current Medications Current Medications Medications (Trade) Dose Ordered Sig/Ernie Route PRN Reason Start Time Stop Time Status Last Admin Dose Admin Aztreonam 1 gm/ Sodium Chloride 55 ml @ 110 mls/hr Q8HR@0200,1000,1800 IVPB 07/31/16 10:00 08/07/16 09:59 07/31/16 10:11 Chlorhexidine Gluconate (Mame-Hex 2%) 1 applic DAILY TOPIC 07/31/16 18:00 08/30/16 17:59 Dextrose (Dextrose 50%) STAT PRN IV Hypoglycemia 07/30/16 21:45 08/29/16 21:44 Dextrose/Sodium Chloride 1,000 ml @ 125 mls/hr Q8H IV 07/31/16 11:00 08/30/16 10:59 07/31/16 11:00 Heparin Sodium/ Sodium Chloride (Heparin 2000 units/Ns 1000ml premix) 2,000 unit ONCE PRN IV PICC PLACEMENT 07/31/16 08:15 08/01/16 23:59 Lidocaine HCl (Xylocaine 1% 30ml) 30 ml ONCE PRN INJ PICC PLACEMENT 07/31/16 08:15 08/01/16 23:59 Lorazepam (Ativan 2mg/ml 1ml) 2 mg Q2H PRN IV agitation 07/31/16 09:00 08/07/16 08:59 07/31/16 10:10 Metronidazole (Flagyl) 100 ml @ 100 mls/hr Q8HR@0730,1530,2330 IVPB 07/31/16 08:00 08/07/16 07:59 07/31/16 08:38 Morphine Sulfate (Morphine Sulfate) 2 mg Q2H PRN IVP Severe Pain (Pain Scale 7-10) 07/31/16 09:00 08/07/16 08:59 07/31/16 10:10 Nitroglycerin (Ntg) 0.4 mg Q5M X 3 DOSES PRN SL Prn Chest Pain 07/30/16 21:45 08/29/16 21:44 Ondansetron HCl (Zofran) 4 mg Q6H PRN IVP Nausea & Vomiting 07/30/16 21:45 08/29/16 21:44 Pantoprazole (Protonix) 40 mg DAILY IV 07/31/16 09:00 08/30/16 08:59 07/31/16 08:38 Promethazine HCl 25 mg 25 mg EVERY 8 HOURS PRN IV refractory nausea 07/30/16 21:45 08/29/16 21:44 Propofol 100 ml @ 0 mls/hr Q24H IV 07/31/16 03:30 08/02/16 03:29 07/31/16 05:01 Sodium Bicarbonate 5 ml 5 ml ONCE PRN IV PICC PLACEMENT 07/31/16 08:30 08/01/16 23:59 Vancomycin HCl (Vanco rx to dose) 1 ea DAILY PRN MISC . 07/31/16 11:30 08/30/16 11:29 Vancomycin HCl/ Dextrose (Vancomycin/D5W) 325 ml @ 162.5 mls/ hr Q12HR@0600,1800 IVPB 07/31/16 18:00 08/05/16 17:59 GI: Plan Problems: (1) Intra-abdominal abscess (2) Pancreatitis (3) Ischemia, bowel Plan s/p Exploratory laparotomy, drainage of abdominal abscess, lysis of adhesions, partial omentectomy and partial small-bowel resection. cdiff negative defer GI procedures at this time fu with surgical recs NPO + IVFs abx NGT fu labs outpatient colonoscopy Discussed with Dr. Florence. Thank you for referring this patient, we will follow. ISRAEL FLORENCE 08/06/16 1234: History of Present Illness General Reason for Hospitalization: Abdominal Pain Present Illness Home Meds Active Scripts Hydrocodone/Acetaminophen 5-325* (HYDROCODONE/ACETAMINOPHEN 5-325*) 1 Each Tablet, 1 TAB ORAL Q6H Y for For Pain, #30 TAB Prov:SANDRO HEBERT M.D. 01/11/15 Hydrocodone Bit/Acetaminophen 5-325* (NORCO 5-325*) 1 Each Tablet, 1 TAB ORAL Q6H Y for For Pain, #20 TAB Prov:BOOM CHAMPION M.D. 09/19/13 Colchicine (COLCRYS) 0.6 Mg Tablet, 0.6 MG PO BID, #30 TAB Prov:BOOM CHAMPION M.D. 09/19/13 Reported Medications Atorvastatin Calcium* (LIPITOR*) 10 Mg Tablet, 10 MG PO DAILY, #10 TAB Take 1 tablet by mouth every day. 12/29/11 Lansoprazole* (PREVACID*) 15 Mg Capsule.dr, 15 MG PO DAILY, #10 CAP Take 1 capsule by mouth every day. 12/29/11 Mesalamine* (ASACOL*) 400 Mg Tabec, 400 MG PO BID 12/29/11 Ritonavir* (NORVIR*) 100 Mg Capsule, 100 MG PO DAILY, #10 CAP Take 1 capsule by mouth 2 times a day. 12/29/11 [Issentriss] No Conflict Check, BC 12/29/11 Lamotrigine* (LAMICTAL*) 25 Mg Tablet, 25 MG PO DAILY, #10 TAB Take 1 tablet by mouth every day. 12/29/11 Bupropion HCl (Wellbutrin) 100 Mg Tab, 150 MG PO DAILY, #10 TAB Take 1 tablet by mouth every day. 12/29/11 Sertraline Hcl* (ZOLOFT*) 100 Mg Tablet, 200 MG PO DAILY 12/29/11 Allergies: Coded Allergies: PENICILLINS (Verified Allergy, Intermediate, 07/30/16) SULFA (SULFONAMIDE ANTIBIOTICS) (Verified Allergy, Intermediate, ITCHING, 07/30/16) GI: Plan Plan The patient was seen and examined at bedside and all new and available data was reviewed in the patients chart. I agree with the above findings, impression and plan. (Patient seen earlier today. Signature stamp does not reflect patient encounter time.). -Lora Collins MDh Jacobo Barr Jul 31, 2016 11:40 ISRAEL FLORENCE Aug 06, 2016 12:34
[2016-07-31 12:24] LABS: ABG ALLEN TEST POSITIVE; ABG BASE EXCESS -6.4; ABG PCO2 40.2 mmHg (35.0-45.0)
--- NOTE | 2016-07-31 14:44 | Consultation ---
Consult Note Consult Note asked to eval for oliguria seen post op ICU Rm : B on vent Tachypneic Low BP Sedated Post-op Diagnosis: intraabdominal abscess, small bowel obstruction, intraabdominal adhesions, small bowel perforation. Findings: large epigastric intra abdominal abscess which was walled off by omentum, mid small bowel obstruction secondary to adhesions formed by intestinal perforation , small bowel resection performed with side to side anastomosis, abdomen washed out. . Assessment/Plan status: Acute renal failure and Oliguria due to low BP , post OP- Respiratory failure, on Vent intraabdominal abscess, small bowel obstruction, intraabdominal adhesions, small bowel perforation. Plan; Post Op care- Hydrate- Weaning as possible- Avoid nephrotoxics Per orders AYDE SERNA Jul 31, 2016 14:44
--- NOTE | 2016-07-31 18:15 | Consultation ---
DATE OF CONSULTATION: INFECTIOUS DISEASES CONSULTATION CONSULTING PHYSICIAN: Mauro White M.D. REQUESTING PHYSICIAN: Amanda Brown M.D REASON FOR CONSULTATION: Evaluation of the patient for intra-abdominal sepsis and antibiotic management. HISTORY OF PRESENT ILLNESS: The patient is a 61-year-old male, with multiple medical problems as listed below, who was admitted to this medical center for abdominal pain. The patient underwent laparoscopic-robotic left inguinal hernia repair six days ago and was discharged. Apparently, the patient was admitted later to [facility] with abdominal pain, was found to have some hemorrhage and the patient left the [facility] against medical advice. In the emergency room here, CT scan showed evidence of pneumatosis intestinalis, involving the duodenum and proximal jejunum and the patient underwent exploratory laparotomy and was found to have large abscess in the epigastric area and underwent partial omentectomy and partial small-bowel resection. The patient currently has been admitted in the ICU. Infectious Diseases consultation has been requested for further evaluation of the patient antibiotic management. PAST MEDICAL HISTORY: 1. Bipolar disorder. 2. HIV (reportedly the patient's undetectable viral load and CD4 count was 300). MEDICATIONS: Completely not available (apparently, the patient is on Isentress and ritonavir). In the hospital, the patient is receiving IV aztreonam, Flagyl and amikacin. ALLERGIES: To penicillin and sulfa. REVIEW OF SYSTEMS: Unobtainable. PHYSICAL EXAMINATION: GENERAL: Reveals a thin white male with abdominal distention. VITAL SIGNS: Temperature 98.3 degrees, pulse 86, respirations 18, blood pressure 118/70, and T-max 97.1 degrees. HEENT: Mild pale conjunctivae. No icterus. NECK: No lymphadenopathy. CHEST: Grossly intact. HEART: S1 and S2. ABDOMEN: The patient has a midline incision scar with dressing EXTREMITIES: No cyanosis at this time. NEUROLOGIC: Awake. LABORATORY AND DIAGNOSTIC DATA: White blood cell count of ___, hemoglobin 15.6, and platelet count 235,000. UA unremarkable. BUN [address] scan of the abdomen results is not available. Cultures from the abdominal abscess is pending. is pending. ASSESSMENT: The patient is a 61-year-old male with: 1. Intra-abdominal sepsis. 2. Status post perforation of small bowel. 3. Leukocytosis. 4. Rule out bacteremia. 5. Human immunodeficiency virus with undetectable viral load and CD4 count was 300. 6. Status post hernia repair. 7. Bipolar disorder. PLAN: 1. We will continue the patient on aztreonam, Flagyl and vancomycin, hold amikacin. 2. Monitor CBC. 3. Monitor BMP. 4. Monitor intra-abdominal abscess cultures. 5. Possible extubation today. 6. The patient's labs were reviewed for further recommendation. Thank you, Dr. Brown, for allowing me to participate in the care of this patient. I will follow the patient with you during this hospitalization. Mauro White M.D. DR: Barrera JOB#: [id number] CC:
[2016-07-31] MEDS: Dyna-Hex 2% Top Sol 8oz TOPIC SCH (18:25)
[2016-07-31] MEDS: Pantoprazole Inj IV SCH (18:25)
[2016-08-01] VITALS (44 sets, daily range): BP systolic 90–136; BP diastolic 46–93
[2016-08-01] MEDS: LORazepam Inj 2mg/ml 1ml IV PRN ×2 (01:05→07:51)
[2016-08-01] MEDS: Aztreonam Inj 1 GM in NS 55 ML IVPB SCH ×2 (02:03→11:38)
[2016-08-01] MEDS: D5 1/2NS 1,000 ML IV SCH ×3 (03:00→19:00)
[2016-08-01 05:27] LABS: MEAN CORPUSCULAR HEMOGLOBIN 30.2 PG (27.0-31.0); MEAN CORPUSCULAR HGB CONC 31.8 G/DL (32.0-36.0); MEAN CORPUSCULAR VOLUME 95 FL (80-99); MEAN PLATELET VOLUME 6.6 FL (6.5-10.1); PLATELET COUNT 141 K/UL (150-450); WHITE BLOOD COUNT 15.1 K/UL (4.8-10.8)
[2016-08-01 05:46] LABS: ALANINE AMINOTRANSFERASE 14 U/L (3-41); ALBUMIN/GLOBULIN RATIO 0.6 (1.0-2.7); ANION GAP 14 (5-15); ASPARTATE AMINO TRANSFERASE 35 U/L (5-40); CALCIUM 7.5 mg/dL (8.6-10.2); CARBON DIOXIDE 21 mEQ/L (20-30); CHLORIDE 106 mEQ/L (98-107); CHOLESTEROL 61 mg/dL (< 200); CHOLESTEROL/HDL RATIO 3.2 (3.3-4.4); CREATININE 2.3 mg/dL (0.7-1.2); CRP QUANT 34.5 mg/dL (< 0.5); GLOMERULAR FILTRATION RATE 28.9 mL/min (>60); HEMOLYSIS 5; LDL CHOLESTEROL (CALC.) 29 mg/dL (60-99); LIPASE 177 U/L (< 60); MAGNESIUM 1.9 mg/dL (1.7-2.5); PHOSPHORUS 3.9 mg/dL (2.5-4.8); POTASSIUM 5.6 mEQ/L (3.4-4.9); SODIUM 141 mEQ/L (135-145); TOTAL PROTEIN 5.5 g/dL (6.6-8.7); URIC ACID 10.3 mg/dL (3.0-7.5)
[2016-08-01 05:49] LABS: AMMONIA 48 umol/L (16-60)
[2016-08-01 05:51] LABS: TROPONIN I < 0.30 ng/mL (<=0.30)
[2016-08-01 05:58] LABS: THYROID STIMULATING HORMONE 0.925 uIU/mL (0.300-4.500)
[2016-08-01] MEDS: Vancomycin 1.5 GM in D5W 325 ML IVPB SCH (06:00)
[2016-08-01] MEDS ORDERED: Calcium Gluconate 1gm in NS 110ml IVPB ONE (06:45)
[2016-08-01 06:52] LABS: HEMOGLOBIN A1C 4.8 % (< 6.0)
[2016-08-01] MEDS ORDERED: Calcium Gluconate 1gm/10ml vial IVP ONE (07:00)
[2016-08-01] MEDS: metroNIDAZOLE 500mg 100 ML IVPB SCH ×3 (07:58→22:21)
[2016-08-01] MEDS: Pantoprazole Inj IV SCH ×2 (09:08→17:33)
[2016-08-01] MEDS: Dyna-Hex 2% Top Sol 8oz TOPIC SCH (09:08)
[2016-08-01] MEDS: Morphine Sulfate 2mg/ml Inj IVP PRN (09:10)
--- NOTE | 2016-08-01 09:13 | Pulmonolgy Critical Care Note ---
Critical Care - Asmt/Plan Problems: (1) Acute respiratory failure (2) Pneumatosis intestinalis (3) Anemia (4) ATN (acute tubular necrosis) (5) Sepsis (6) Intra-abdominal abscess (7) HIV disease Respiratory: monitor respiratory rate, adjust FIO2, CXR, ABG Cardiac: continue to monitor HR/BP Renal: F/U I&O, keep IV fluid Infectious Disease: check cultures Gastrointestinal: hold feedings Endocrine: check HgA1C, continue sliding scale insulin Hematologic: monitor H/H, transfuse if hgb<8.5 Neurologic: PRN Morphine, keep patient comfortable Affect: PRN ativan Prophylaxis: Protonix Notes Reviewed: cardio, renal Discussed with: nurses, consultants, case finisherlegal operations manager - Objective Last 24 Hour Vital Signs Date Time Temp Pulse Resp B/P Pulse Ox O2 Delivery O2 Flow Rate FiO2 08/01/16 08:00 114 08/01/16 08:00 114 38 122/67 96 Mechanical Ventilator 40 08/01/16 08:00 50 08/01/16 07:00 100.9 117 37 119/67 95 Mechanical Ventilator 40 08/01/16 06:02 114 34 118/65 97 Mechanical Ventilator 40 08/01/16 06:00 28 08/01/16 05:30 113 34 118/65 97 Mechanical Ventilator 40 08/01/16 05:01 112 38 40 08/01/16 05:00 113 34 118/65 97 Mechanical Ventilator 40 08/01/16 04:30 113 30 116/60 97 Mechanical Ventilator 40 08/01/16 04:00 100.4 116 30 136/65 97 Mechanical Ventilator 40 08/01/16 04:00 36 08/01/16 04:00 115 08/01/16 04:00 50 08/01/16 03:30 116 34 134/65 100 Mechanical Ventilator 40 08/01/16 03:26 115 37 40 08/01/16 03:00 34 08/01/16 03:00 114 28 125/61 97 Mechanical Ventilator 40 08/01/16 02:30 116 28 122/46 97 Mechanical Ventilator 40 08/01/16 02:00 114 28 116/46 97 Mechanical Ventilator 40 08/01/16 02:00 30 08/01/16 01:34 114 36 40 08/01/16 01:30 112 28 124/56 97 Mechanical Ventilator 40 08/01/16 01:00 100.0 115 28 120/65 97 Mechanical Ventilator 40 08/01/16 01:00 5 08/01/16 00:30 114 33 120/60 100 Mechanical Ventilator 40 08/01/16 00:00 115 08/01/16 00:00 50 08/01/16 00:00 30 08/01/16 00:00 114 28 114/68 97 Mechanical Ventilator 40 07/31/16 23:30 111 34 120/65 97 Mechanical Ventilator 40 07/31/16 23:20 112 35 40 07/31/16 23:00 111 28 112/67 97 Mechanical Ventilator 40 07/31/16 23:00 30 07/31/16 22:30 107 27 126/56 97 Mechanical Ventilator 40 07/31/16 22:00 107 27 117/68 97 Mechanical Ventilator 40 07/31/16 22:00 28 07/31/16 21:30 11 27 120/58 97 Mechanical Ventilator 40 07/31/16 21:27 99.0 07/31/16 21:02 103 28 40 07/31/16 21:00 104 27 104/58 97 Mechanical Ventilator 40 07/31/16 21:00 30 07/31/16 20:57 30 07/31/16 20:30 107 30 116/76 97 Mechanical Ventilator 40 07/31/16 20:00 99.0 107 30 116/76 97 Mechanical Ventilator 40 07/31/16 20:00 50 07/31/16 20:00 107 07/31/16 19:00 106 38 110/72 97 Mechanical Ventilator 40 07/31/16 18:43 107 38 40 07/31/16 18:00 105 39 121/82 97 Mechanical Ventilator 40 07/31/16 17:00 107 38 112/67 100 Mechanical Ventilator 40 07/31/16 16:39 109 40 40 07/31/16 16:00 50 07/31/16 16:00 99.1 115 41 116/70 92 Mechanical Ventilator 40 07/31/16 16:00 112 07/31/16 15:20 119 45 40 07/31/16 15:00 117 41 109/73 92 Mechanical Ventilator 40 07/31/16 14:00 114 35 104/69 93 Mechanical Ventilator 100 07/31/16 13:16 113 39 40 07/31/16 13:00 114 35 111/61 100 Mechanical Ventilator 100 07/31/16 12:00 98.9 114 41 116/48 100 Mechanical Ventilator 100 07/31/16 12:00 50 07/31/16 12:00 115 07/31/16 11:00 115 35 146/78 100 Mechanical Ventilator 100 07/31/16 10:53 115 39 100 07/31/16 10:00 114 39 146/78 98 Mechanical Ventilator 100 HEENT: atraumatic Neck: full ROM Lungs: chest wall tender Heart: HR/BP unstable Abdomen: soft, active bowel sounds Extremities: edema Decubiti: location Micro: Microbiology Date/Time Source Procedure Growth Status 07/30/16 23:25 Stool Clostridium difficile Toxin Assay - Final Complete 07/31/16 02:15 Abdominal Abscess Gram Stain - Final Resulted 07/31/16 02:15 Abdominal Abscess Aerobic Culture Pending Resulted 07/31/16 02:15 Abdominal Abscess Anaerobic Culture Pending Resulted Accucheck: 169 Critical Care - Subjective ROS Limited/Unobtainable: Yes Condition: critical EKG Rhythm: Sinus Rhythm FI02: 40 Vent Support Breath Rate: 10 Vent Support Mode: AC Vent Tidal Volume: 500 Sputum Amount: None PEEP: 5.0 PIP: 23 I&O: Intake and Output 07/31/16 08/01/16 19:00 07:00 Intake Total 1782.5 ml 1612 ml Output Total 940 ml 700 ml Balance 842.5 ml 912 ml Intake IV Total 1782.5 ml 1612 ml Output Urine Total 890 ml 700 ml Gastric Drainage Total 50 ml CXR: no change ET-Tube: 7.5 ET Position: 22 CHAS WALLACE Aug 01, 2016 09:13
--- NOTE | 2016-08-01 09:34 | Diagnostic Imaging Report ---
Indications: Long-term central IV access required for multiple medications. Technique: The procedure indications, risks, and alternatives were explained to the patient's family who understands and gives consent to proceed. Procedure was performed at bedside. Strict aseptic technique was utilized, including hand washing, use of hat and mask, use of sterile gown and gloves, sterile ultrasound gel and probe cover, prepping of right arm skin with 2% chlorhexidine solution, and application of full body sterile barrier over this area. Skin and subcutaneous soft tissues were infiltrated with 1% lidocaine and sodium bicarbonate. A small dermatotomy was made, through which the larger of two patent, adequate size right brachial veins was punctured percutaneously under direct sonographic guidance with a 21-gauge needle. Exchange was made over a 0.018 inch guidewire for a 5 Iranian peel-away sheath. A [employer] Power-PICC 5 Iranian dual lumen central venous catheter was cut to 40 cm, then advanced through the sheath over the guidewire. Guidewire and sheath were removed. Both catheter ports were aspirated, then flushed with heparinized saline. Catheter was secured the skin with adhesive dressing. Patient tolerated procedure well without immediate complications. Followup chest radiograph performed. Findings: Comparison: Chest radiograph 07/30/16 Both ports aspirate and flush freely. Followup chest radiograph demonstrates tip of PICC at or near the SVC-right atrial junction. Endotracheal tube has been placed, tip 8-9 cm above hetal. Nasogastric tube has been placed, tip off edge of image, well below diaphragm. Linear and patchy opacities persist in right lung base. Left costophrenic angle excluded from image. No other change. IMPRESSION: Bedside placement of peripherally inserted central venous catheter via right brachial vein, working well, adequately positioned, may be used Endotracheal tube placed, high in position, recommend advancement 3-4 cm Nasogastric tube in stomach Persistent atelectasis right lung base.
--- NOTE | 2016-08-01 09:34 | Diagnostic Imaging Report ---
Indications: Abdominal pain and distention, nausea and vomiting, diarrhea, status post herniorrhaphy one week prior Technique: Continuous helical CT imaging of the abdomen and pelvis was performed with automatic exposure control on a Siemens sensation [address] scanner. Axial, coronal, sagittal images reconstructed at 3 mm slice thickness. No IV contrast was administered due to elevated BUN and creatinine levels. No oral contrast was administered per requesting physician's order, reason unstated. CTDI volume(s): 16 mGy Total DLP: 1067 mGy-cm Findings: Comparison: None Lack of IV and currently administered oral contrast limits evaluation. Multiple proximal small bowel loops are dilated with diffuse intramural gas, intraluminal air-fluid levels. Distal small bowel loops are nondilated and without intramural gas. No obvious mural thickening. Stomach is distended, gas and fluid-filled. Large loculated gas and fluid collection resides in the anterior peritoneal cavity, extending from the epigastric region nearly to the level of the umbilicus. It measures 17 x 7.5 x 22 cm. Small amount of free fluid in pelvis. No free air demonstrated. Gas and feces, and oral contrast scattered throughout nondilated colon to rectum. Multiple colonic diverticula. No obvious mural thickening or pneumatosis. Gas is present extensively throughout the intrahepatic portal venous branches mild stranding surrounds both kidneys. Punctate calcification in lower pole of right kidney. Scattered arterial mural calcifications. Vascular patency indeterminate. Asymmetric soft tissue swelling and increased attenuation in subcutaneous soft tissues of the left inguinal region. Fusion hardware within the L3-4 disc space protrudes anteriorly. Bilateral pedicle screws at L3 and L4. Fusion hardware within L4-5 and L5-S1 disc spaces. Laminectomy defects at L4 and L5. Multilevel disc space narrowing with marginal osteophyte formation throughout the lumbar and lower thoracic spine. Remainder visualized abdominopelvic anatomy demonstrates no other obvious acute abnormality. Linear and patchy consolidative opacities in the dependent portions both lung bases. Small calcified nodule in right lung base. Small right pleural effusion. Impression: Small bowel findings suspicious for ischemia/infarction. Associated portal venous gas portends a poor prognosis. 22 cm loculated gas and fluid collection in anterior peritoneal cavity may represent contained perforation or abscess Minimal ascites likely secondary to above Small nonobstructing right kidney stone Bilateral perinephric stranding suggests nephropathy Colonic diverticulosis Soft tissue changes in left inguinal region compatible with given surgical history Degenerative spondylosis Previous lumbar fusions and laminectomies Pulmonary bibasal atelectasis. Superimposed pneumonia not excludable. Small right pleural effusion This correlates with Dr. Yen's preliminary report, which indicates that critical results were communicated to ER physician at time of report.
--- NOTE | 2016-08-01 10:00 | General Progress Note ---
Assessment/Plan Status: deteriorating - renal parameters Assessment/Plan status: Acute renal failure and Oliguria due to - low BP , post OP- Amikacin and VancoMycin- On going sepsis Respiratory failure, on Vent intraabdominal abscess, small bowel obstruction, intraabdominal adhesions, small bowel perforation. Plan; Post Op care- Hydrate- monitor renal parameters Weaning as possible- Avoid nephrotoxics Per orders Subjective ROS Limited/Unobtainable: Yes Allergies: Coded Allergies: PENICILLINS (Verified Allergy, Intermediate, 07/30/16) SULFA (SULFONAMIDE ANTIBIOTICS) (Verified Allergy, Intermediate, ITCHING, 07/30/16) Objective Last 24 Hour Vital Signs Date Time Temp Pulse Resp B/P Pulse Ox O2 Delivery O2 Flow Rate FiO2 08/01/16 09:15 121 37 40 08/01/16 08:00 114 08/01/16 08:00 114 38 122/67 96 Mechanical Ventilator 40 08/01/16 08:00 50 08/01/16 07:00 100.9 117 37 119/67 95 Mechanical Ventilator 40 08/01/16 06:55 117 37 40 08/01/16 06:02 114 34 118/65 97 Mechanical Ventilator 40 08/01/16 06:00 28 08/01/16 05:30 113 34 118/65 97 Mechanical Ventilator 40 08/01/16 05:01 112 38 40 08/01/16 05:00 113 34 118/65 97 Mechanical Ventilator 40 08/01/16 04:30 113 30 116/60 97 Mechanical Ventilator 40 08/01/16 04:00 100.4 116 30 136/65 97 Mechanical Ventilator 40 08/01/16 04:00 36 08/01/16 04:00 115 08/01/16 04:00 50 08/01/16 03:30 116 34 134/65 100 Mechanical Ventilator 40 08/01/16 03:26 115 37 40 08/01/16 03:00 34 08/01/16 03:00 114 28 125/61 97 Mechanical Ventilator 40 08/01/16 02:30 116 28 122/46 97 Mechanical Ventilator 40 08/01/16 02:00 114 28 116/46 97 Mechanical Ventilator 40 08/01/16 02:00 30 08/01/16 01:34 114 36 40 08/01/16 01:30 112 28 124/56 97 Mechanical Ventilator 40 08/01/16 01:00 100.0 115 28 120/65 97 Mechanical Ventilator 40 08/01/16 01:00 5 08/01/16 00:30 114 33 120/60 100 Mechanical Ventilator 40 08/01/16 00:00 115 08/01/16 00:00 50 08/01/16 00:00 30 08/01/16 00:00 114 28 114/68 97 Mechanical Ventilator 40 07/31/16 23:30 111 34 120/65 97 Mechanical Ventilator 40 07/31/16 23:20 112 35 40 07/31/16 23:00 111 28 112/67 97 Mechanical Ventilator 40 07/31/16 23:00 30 07/31/16 22:30 107 27 126/56 97 Mechanical Ventilator 40 07/31/16 22:00 107 27 117/68 97 Mechanical Ventilator 40 07/31/16 22:00 28 07/31/16 21:30 11 27 120/58 97 Mechanical Ventilator 40 07/31/16 21:27 99.0 07/31/16 21:02 103 28 40 07/31/16 21:00 104 27 104/58 97 Mechanical Ventilator 40 07/31/16 21:00 30 07/31/16 20:57 30 07/31/16 20:30 107 30 116/76 97 Mechanical Ventilator 40 07/31/16 20:00 99.0 107 30 116/76 97 Mechanical Ventilator 40 07/31/16 20:00 50 07/31/16 20:00 107 07/31/16 19:00 106 38 110/72 97 Mechanical Ventilator 40 07/31/16 18:43 107 38 40 07/31/16 18:00 105 39 121/82 97 Mechanical Ventilator 40 07/31/16 17:00 107 38 112/67 100 Mechanical Ventilator 40 07/31/16 16:39 109 40 40 07/31/16 16:00 50 07/31/16 16:00 99.1 115 41 116/70 92 Mechanical Ventilator 40 07/31/16 16:00 112 07/31/16 15:20 119 45 40 07/31/16 15:00 117 41 109/73 92 Mechanical Ventilator 40 07/31/16 14:00 114 35 104/69 93 Mechanical Ventilator 100 07/31/16 13:16 113 39 40 07/31/16 13:00 114 35 111/61 100 Mechanical Ventilator 100 07/31/16 12:00 98.9 114 41 116/48 100 Mechanical Ventilator 100 07/31/16 12:00 50 07/31/16 12:00 115 07/31/16 11:00 115 35 146/78 100 Mechanical Ventilator 100 07/31/16 10:53 115 39 100 07/31/16 10:00 114 39 146/78 98 Mechanical Ventilator 100 Intake and Output 07/31/16 08/01/16 19:00 07:00 Intake Total 1782.5 ml 1612 ml Output Total 940 ml 700 ml Balance 842.5 ml 912 ml Intake IV Total 1782.5 ml 1612 ml Output Urine Total 890 ml 700 ml Gastric Drainage Total 50 ml Laboratory Tests 07/31/16 10:25: Vancomycin Level Trough 13.6H 07/31/16 12:06: Arterial Blood pH 7.300L, Arterial Blood Partial Pressure CO2 40.2, Arterial Blood Partial Pressure O2 142.2H, Arterial Blood HCO3 19.5L, Arterial Blood Oxygen Saturation 98.5H, Arterial Blood Base Excess -6.4, Romero Test Positive 07/31/16 13:00: Amikacin Level Trough 8.0L 08/01/16 04:15: White Blood Count 15.1H, Red Blood Count 3.80L, Hemoglobin 11.5L, Hematocrit 36.1L, Mean Corpuscular Volume 95, Mean Corpuscular Hemoglobin 30.2, Mean Corpuscular Hemoglobin Concent 31.8L, Red Cell Distribution Width 13.0, Platelet Count 141L, Mean Platelet Volume 6.6, Neutrophils (%) (Auto) , Lymphocytes (%) (Auto) , Monocytes (%) (Auto) , Eosinophils (%) (Auto) , Basophils (%) (Auto) , Sodium Level 141, Potassium Level 5.6H, Chloride Level 106, Carbon Dioxide Level 21, Anion Gap 14, Blood Urea Nitrogen 55H, Creatinine 2.3H, Estimat Glomerular Filtration Rate 28.9, Glucose Level 169H, Hemoglobin A1c 4.8, Uric Acid 10.3H, Calcium Level 7.5L, Phosphorus Level 3.9, Magnesium Level 1.9, Total Bilirubin 0.4, Gamma Glutamyl Transpeptidase 11, Aspartate Amino Transf (AST/SGOT) 35, Alanine Aminotransferase (ALT/SGPT) 14, Alkaline Phosphatase 46, Ammonia 48, Total Creatine Kinase 126, Troponin I < 0.30, C- Reactive Protein, Quantitative 34.5H, Pro-B-Type Natriuretic Peptide 268H, Total Protein 5.5L, Albumin 2.1L, Globulin 3.4, Albumin/Globulin Ratio 0.6L, Triglycerides Level 66, Cholesterol Level 61, LDL Cholesterol 29L, HDL Cholesterol 19, Cholesterol/HDL Ratio 3.2L, Lipase 177H, Thyroid Stimulating Hormone (TSH) 0.925 Height (Feet): 5 Height (Inches): 9.00 Weight (Pounds): 175 General Appearance: mild distress, other - on vent Cardiovascular: bradycardia Respiratory/Chest: decreased breath sounds, other - tachypneic Abdomen: distended, other - silent AYDE SERNA Aug 01, 2016 10:00
[2016-08-01] MEDS ORDERED: Tubing IV Secondary IV ONE (10:24)
[2016-08-01] MEDS ORDERED: D5 1/2NS 1000ml IV ONE (10:24)
--- NOTE | 2016-08-01 10:49 | GI Progress Note ---
Assessment/Plan Problems: (1) Hypoalbuminemia ICD Codes: E88.09 - Other disorders of plasma-protein metabolism, not elsewhere classified SNOMED: 287030803 (2) Anemia ICD Codes: D64.9 - Anemia, unspecified SNOMED: 811093297 (3) Pancreatitis ICD Codes: K85.90 - Acute pancreatitis without necrosis or infection, unspecified SNOMED: 36130264 Qualifiers: Qualified Codes: K85.80 - Other acute pancreatitis without necrosis or infection (4) Intra-abdominal abscess ICD Codes: K65.1 - Peritoneal abscess SNOMED: 16751012 (5) Ischemia, bowel ICD Codes: K55.9 - Vascular disorder of intestine, unspecified SNOMED: 99503558 Status: unchanged Status Narrative Discussed with Dr. Sheikh. Assessment/Plan s/p Exploratory laparotomy, drainage of abdominal abscess, lysis of adhesions, partial omentectomy and partial small-bowel resection. cdiff negative defer GI procedures at this time fu with surgical recs NPO + IVFs abx ppi NGT fu labs outpatient colonoscopy Subjective Subjective limited Objective Last 24 Hour Vital Signs Date Time Temp Pulse Resp B/P Pulse Ox O2 Delivery O2 Flow Rate FiO2 08/01/16 10:39 117 36 40 08/01/16 09:15 121 37 40 08/01/16 08:00 114 08/01/16 08:00 114 38 122/67 96 Mechanical Ventilator 40 08/01/16 08:00 50 08/01/16 07:00 100.9 117 37 119/67 95 Mechanical Ventilator 40 08/01/16 06:55 117 37 40 08/01/16 06:02 114 34 118/65 97 Mechanical Ventilator 40 08/01/16 06:00 28 08/01/16 05:30 113 34 118/65 97 Mechanical Ventilator 40 08/01/16 05:01 112 38 40 08/01/16 05:00 113 34 118/65 97 Mechanical Ventilator 40 08/01/16 04:30 113 30 116/60 97 Mechanical Ventilator 40 08/01/16 04:00 100.4 116 30 136/65 97 Mechanical Ventilator 40 08/01/16 04:00 36 08/01/16 04:00 115 08/01/16 04:00 50 08/01/16 03:30 116 34 134/65 100 Mechanical Ventilator 40 08/01/16 03:26 115 37 40 08/01/16 03:00 34 08/01/16 03:00 114 28 125/61 97 Mechanical Ventilator 40 08/01/16 02:30 116 28 122/46 97 Mechanical Ventilator 40 08/01/16 02:00 114 28 116/46 97 Mechanical Ventilator 40 08/01/16 02:00 30 08/01/16 01:34 114 36 40 08/01/16 01:30 112 28 124/56 97 Mechanical Ventilator 40 08/01/16 01:00 100.0 115 28 120/65 97 Mechanical Ventilator 40 08/01/16 01:00 5 08/01/16 00:30 114 33 120/60 100 Mechanical Ventilator 40 08/01/16 00:00 115 08/01/16 00:00 50 08/01/16 00:00 30 08/01/16 00:00 114 28 114/68 97 Mechanical Ventilator 40 07/31/16 23:30 111 34 120/65 97 Mechanical Ventilator 40 07/31/16 23:20 112 35 40 07/31/16 23:00 111 28 112/67 97 Mechanical Ventilator 40 07/31/16 23:00 30 07/31/16 22:30 107 27 126/56 97 Mechanical Ventilator 40 07/31/16 22:00 107 27 117/68 97 Mechanical Ventilator 40 07/31/16 22:00 28 07/31/16 21:30 11 27 120/58 97 Mechanical Ventilator 40 07/31/16 21:27 99.0 07/31/16 21:02 103 28 40 07/31/16 21:00 104 27 104/58 97 Mechanical Ventilator 40 07/31/16 21:00 30 07/31/16 20:57 30 07/31/16 20:30 107 30 116/76 97 Mechanical Ventilator 40 07/31/16 20:00 99.0 107 30 116/76 97 Mechanical Ventilator 40 07/31/16 20:00 50 07/31/16 20:00 107 07/31/16 19:00 106 38 110/72 97 Mechanical Ventilator 40 07/31/16 18:43 107 38 40 07/31/16 18:00 105 39 121/82 97 Mechanical Ventilator 40 07/31/16 17:00 107 38 112/67 100 Mechanical Ventilator 40 07/31/16 16:39 109 40 40 07/31/16 16:00 50 07/31/16 16:00 99.1 115 41 116/70 92 Mechanical Ventilator 40 07/31/16 16:00 112 07/31/16 15:20 119 45 40 07/31/16 15:00 117 41 109/73 92 Mechanical Ventilator 40 07/31/16 14:00 114 35 104/69 93 Mechanical Ventilator 100 07/31/16 13:16 113 39 40 07/31/16 13:00 114 35 111/61 100 Mechanical Ventilator 100 07/31/16 12:00 98.9 114 41 116/48 100 Mechanical Ventilator 100 07/31/16 12:00 50 07/31/16 12:00 115 07/31/16 11:00 115 35 146/78 100 Mechanical Ventilator 100 07/31/16 10:53 115 39 100 Intake and Output 07/31/16 08/01/16 19:00 07:00 Intake Total 1782.5 ml 1612 ml Output Total 940 ml 700 ml Balance 842.5 ml 912 ml Intake IV Total 1782.5 ml 1612 ml Output Urine Total 890 ml 700 ml Gastric Drainage Total 50 ml Laboratory Tests Test 07/31/16 12:06 07/31/16 13:00 08/01/16 04:15 Arterial Blood pH 7.300 (7.350-7.450) Arterial Blood Partial Pressure CO2 40.2 mmHg (35.0-45.0) Arterial Blood Partial Pressure O2 142.2 mmHg (75.0-100.0) H Arterial Blood HCO3 19.5 mmol/L (22.0-26.0) L Arterial Blood Oxygen Saturation 98.5 % (92.0-98.0) H Arterial Blood Base Excess -6.4 Romero Test Positive Amikacin Level Trough 8.0 ug/mL (10.0-15.0) L White Blood Count 15.1 K/UL (4.8-10.8) H Red Blood Count 3.80 M/UL (4.70-6.10) L Hemoglobin 11.5 G/DL (14.2-18.0) L Hematocrit 36.1 % (42.0-52.0) L Mean Corpuscular Volume 95 FL (80-99) Mean Corpuscular Hemoglobin 30.2 PG (27.0-31.0) Mean Corpuscular Hemoglobin Concent 31.8 G/DL (32.0-36.0) L Red Cell Distribution Width 13.0 % (11.6-14.8) Platelet Count 141 K/UL (150-450) L Mean Platelet Volume 6.6 FL (6.5-10.1) Neutrophils (%) (Auto) % (45.0-75.0) Lymphocytes (%) (Auto) % (20.0-45.0) Monocytes (%) (Auto) % (1.0-10.0) Eosinophils (%) (Auto) % (0.0-3.0) Basophils (%) (Auto) % (0.0-2.0) Sodium Level 141 mEQ/L (135-145) Potassium Level 5.6 mEQ/L (3.4-4.9) H Chloride Level 106 mEQ/L (98-107) Carbon Dioxide Level 21 mEQ/L (20-30) Anion Gap 14 (5-15) Blood Urea Nitrogen 55 mg/dL (7-23) H Creatinine 2.3 mg/dL (0.7-1.2) H Estimat Glomerular Filtration Rate 28.9 mL/min (>60) Glucose Level 169 mg/dL (74-106) H Hemoglobin A1c 4.8 % (< 6.0) Uric Acid 10.3 mg/dL (3.0-7.5) H Calcium Level 7.5 mg/dL (8.6-10.2) L Phosphorus Level 3.9 mg/dL (2.5-4.8) Magnesium Level 1.9 mg/dL (1.7-2.5) Total Bilirubin 0.4 mg/dL (0.0-1.2) Gamma Glutamyl Transpeptidase 11 U/L (8-61) Aspartate Amino Transf (AST/SGOT) 35 U/L (5-40) Alanine Aminotransferase (ALT/SGPT) 14 U/L (3-41) Alkaline Phosphatase 46 U/L (40-129) Ammonia 48 umol/L (16-60) Total Creatine Kinase 126 U/L (38-174) Troponin I < 0.30 ng/mL (<=0.30) C-Reactive Protein, Quantitative 34.5 mg/dL (< 0.5) H Pro-B-Type Natriuretic Peptide 268 pg/mL (0-125) H Total Protein 5.5 g/dL (6.6-8.7) L Albumin 2.1 g/dL (3.5-5.2) L Globulin 3.4 g/dL Albumin/Globulin Ratio 0.6 (1.0-2.7) L Triglycerides Level 66 mg/dL (< 150) Cholesterol Level 61 mg/dL (< 200) LDL Cholesterol 29 mg/dL (60-99) L HDL Cholesterol 19 mg/dL (> 60) Cholesterol/HDL Ratio 3.2 (3.3-4.4) L Lipase 177 U/L (< 60) H Thyroid Stimulating Hormone (TSH) 0.925 uIU/mL (0.300-4.500) Height (Feet): 5 Height (Inches): 9.00 Weight (Pounds): 175 General Appearance: lethargic, mild distress Cardiovascular: normal rate Respiratory/Chest: other - mech vent Abdominal Exam: incision site Lita Parsons N.P. Aug 01, 2016 10:49
--- NOTE | 2016-08-01 11:20 | Diagnostic Imaging Report ---
Indications: DYSPNEA Technique: Portable AP chest Findings: Comparison: 07/30/16 Nasogastric tube has been placed, tip in the region of the proximal aspect of the stomach, proximal side-port in the region of the distal thoracic esophagus or esophagogastric junction. Gaseous distention of the stomach has resolved. PICC has been placed via right upper extremity, tip at level of SVC-right atrial junction. Bibasal linear densities, superimposed right basal patchy opacity persists, unchanged. Cardiomediastinal silhouette stable. No new abnormality identified. IMPRESSION: Placement of nasogastric tube, tip in stomach, bladder decompressed. Recommend advancement additional 5 cm. Placement of PICC, in good position Stable pulmonary bibasal subsegmental atelectasis. Superimposed pneumonia right lung base not excludable.
--- NOTE | 2016-08-01 12:13 | General Surgery Progress Note ---
General Surgery-Progress Note Subjective Symptoms: pain same Objective Last 24 Hour Vital Signs Date Time Temp Pulse Resp B/P Pulse Ox O2 Delivery O2 Flow Rate FiO2 08/01/16 11:00 114 38 113/52 96 Mechanical Ventilator 40 08/01/16 10:39 117 36 40 08/01/16 10:30 114 38 113/52 98 Mechanical Ventilator 40 08/01/16 10:00 114 38 111/57 98 Mechanical Ventilator 40 08/01/16 09:30 115 37 115/50 96 Mechanical Ventilator 40 08/01/16 09:15 121 37 40 08/01/16 09:00 116 38 111/55 96 Mechanical Ventilator 40 08/01/16 08:30 118 38 113/61 96 Mechanical Ventilator 40 08/01/16 08:00 114 08/01/16 08:00 114 38 122/67 96 Mechanical Ventilator 40 08/01/16 08:00 50 08/01/16 07:00 100.9 117 37 119/67 95 Mechanical Ventilator 40 08/01/16 06:55 117 37 40 08/01/16 06:02 114 34 118/65 97 Mechanical Ventilator 40 08/01/16 06:00 28 08/01/16 05:30 113 34 118/65 97 Mechanical Ventilator 40 08/01/16 05:01 112 38 40 08/01/16 05:00 113 34 118/65 97 Mechanical Ventilator 40 08/01/16 04:30 113 30 116/60 97 Mechanical Ventilator 40 08/01/16 04:00 100.4 116 30 136/65 97 Mechanical Ventilator 40 08/01/16 04:00 36 08/01/16 04:00 115 08/01/16 04:00 50 08/01/16 03:30 116 34 134/65 100 Mechanical Ventilator 40 08/01/16 03:26 115 37 40 08/01/16 03:00 34 08/01/16 03:00 114 28 125/61 97 Mechanical Ventilator 40 08/01/16 02:30 116 28 122/46 97 Mechanical Ventilator 40 08/01/16 02:00 114 28 116/46 97 Mechanical Ventilator 40 08/01/16 02:00 30 08/01/16 01:34 114 36 40 08/01/16 01:30 112 28 124/56 97 Mechanical Ventilator 40 08/01/16 01:00 100.0 115 28 120/65 97 Mechanical Ventilator 40 08/01/16 01:00 5 08/01/16 00:30 114 33 120/60 100 Mechanical Ventilator 40 08/01/16 00:00 115 08/01/16 00:00 50 08/01/16 00:00 30 08/01/16 00:00 114 28 114/68 97 Mechanical Ventilator 40 07/31/16 23:30 111 34 120/65 97 Mechanical Ventilator 40 07/31/16 23:20 112 35 40 07/31/16 23:00 111 28 112/67 97 Mechanical Ventilator 40 07/31/16 23:00 30 07/31/16 22:30 107 27 126/56 97 Mechanical Ventilator 40 07/31/16 22:00 107 27 117/68 97 Mechanical Ventilator 40 07/31/16 22:00 28 07/31/16 21:30 11 27 120/58 97 Mechanical Ventilator 40 07/31/16 21:27 99.0 07/31/16 21:02 103 28 40 07/31/16 21:00 104 27 104/58 97 Mechanical Ventilator 40 07/31/16 21:00 30 07/31/16 20:57 30 07/31/16 20:30 107 30 116/76 97 Mechanical Ventilator 40 07/31/16 20:00 99.0 107 30 116/76 97 Mechanical Ventilator 40 07/31/16 20:00 50 07/31/16 20:00 107 07/31/16 19:00 106 38 110/72 97 Mechanical Ventilator 40 07/31/16 18:43 107 38 40 07/31/16 18:00 105 39 121/82 97 Mechanical Ventilator 40 07/31/16 17:00 107 38 112/67 100 Mechanical Ventilator 40 07/31/16 16:39 109 40 40 07/31/16 16:00 50 07/31/16 16:00 99.1 115 41 116/70 92 Mechanical Ventilator 40 07/31/16 16:00 112 07/31/16 15:20 119 45 40 07/31/16 15:00 117 41 109/73 92 Mechanical Ventilator 40 07/31/16 14:00 114 35 104/69 93 Mechanical Ventilator 100 07/31/16 13:16 113 39 40 07/31/16 13:00 114 35 111/61 100 Mechanical Ventilator 100 I&O Intake and Output 07/31/16 08/01/16 19:00 07:00 Intake Total 1782.5 ml 1612 ml Output Total 940 ml 700 ml Balance 842.5 ml 912 ml Intake IV Total 1782.5 ml 1612 ml Output Urine Total 890 ml 700 ml Gastric Drainage Total 50 ml Dressing: dry Wound: clean Drains: none Cardiovascular: RSR Respiratory: clear Abdomen: soft Extremities: no edema Laboratory Tests Test 07/31/16 13:00 08/01/16 04:15 Amikacin Level Trough 8.0 ug/mL (10.0-15.0) L White Blood Count 15.1 K/UL (4.8-10.8) H Red Blood Count 3.80 M/UL (4.70-6.10) L Hemoglobin 11.5 G/DL (14.2-18.0) L Hematocrit 36.1 % (42.0-52.0) L Mean Corpuscular Volume 95 FL (80-99) Mean Corpuscular Hemoglobin 30.2 PG (27.0-31.0) Mean Corpuscular Hemoglobin Concent 31.8 G/DL (32.0-36.0) L Red Cell Distribution Width 13.0 % (11.6-14.8) Platelet Count 141 K/UL (150-450) L Mean Platelet Volume 6.6 FL (6.5-10.1) Neutrophils (%) (Auto) % (45.0-75.0) Lymphocytes (%) (Auto) % (20.0-45.0) Monocytes (%) (Auto) % (1.0-10.0) Eosinophils (%) (Auto) % (0.0-3.0) Basophils (%) (Auto) % (0.0-2.0) Sodium Level 141 mEQ/L (135-145) Potassium Level 5.6 mEQ/L (3.4-4.9) H Chloride Level 106 mEQ/L (98-107) Carbon Dioxide Level 21 mEQ/L (20-30) Anion Gap 14 (5-15) Blood Urea Nitrogen 55 mg/dL (7-23) H Creatinine 2.3 mg/dL (0.7-1.2) H Estimat Glomerular Filtration Rate 28.9 mL/min (>60) Glucose Level 169 mg/dL (74-106) H Hemoglobin A1c 4.8 % (< 6.0) Uric Acid 10.3 mg/dL (3.0-7.5) H Calcium Level 7.5 mg/dL (8.6-10.2) L Phosphorus Level 3.9 mg/dL (2.5-4.8) Magnesium Level 1.9 mg/dL (1.7-2.5) Total Bilirubin 0.4 mg/dL (0.0-1.2) Gamma Glutamyl Transpeptidase 11 U/L (8-61) Aspartate Amino Transf (AST/SGOT) 35 U/L (5-40) Alanine Aminotransferase (ALT/SGPT) 14 U/L (3-41) Alkaline Phosphatase 46 U/L (40-129) Ammonia 48 umol/L (16-60) Total Creatine Kinase 126 U/L (38-174) Troponin I < 0.30 ng/mL (<=0.30) C-Reactive Protein, Quantitative 34.5 mg/dL (< 0.5) H Pro-B-Type Natriuretic Peptide 268 pg/mL (0-125) H Total Protein 5.5 g/dL (6.6-8.7) L Albumin 2.1 g/dL (3.5-5.2) L Globulin 3.4 g/dL Albumin/Globulin Ratio 0.6 (1.0-2.7) L Triglycerides Level 66 mg/dL (< 150) Cholesterol Level 61 mg/dL (< 200) LDL Cholesterol 29 mg/dL (60-99) L HDL Cholesterol 19 mg/dL (> 60) Cholesterol/HDL Ratio 3.2 (3.3-4.4) L Lipase 177 U/L (< 60) H Thyroid Stimulating Hormone (TSH) 0.925 uIU/mL (0.300-4.500) Additional Comments Pt continues septic, now spiking temp to 103, C diff toxin from admission was negative Assessment Post-op Diagnosis small bowel perforation from laparoscopic hernia repair with resulting intraabdominal abscess and partial small bowel obstruction Additional Comments Pt has ongoing respiratory insufficiency and renal compromise Plan Additional Comments continue supportive measures, follow up on OR cultures Dejuan Gilmore MD Aug 01, 2016 12:13
[2016-08-01] MEDS: Acetaminophen (Non formulary) 100 ML IV SCH (17:33)
[2016-08-01] MEDS: Aztreonam Inj 0.5 GM in NS 55 ML IVPB SCH (18:21)
--- NOTE | 2016-08-01 21:15 | Infectious Diseases Prog Note ---
Assessment/Plan Assessment/Plan A: The patient is a 61-year-old male, with intra-abdominal sepsis / large abscess Leukocytosis SP laparoscopic-robotic left inguinal hernia repair six days ago Pneumatosis intestinalis ( duodenum and proximal jejunum ) SP exploratory laparotomy and partial omentectomy and partial small-bowel resection Bipolar disorder. HIV (reportedly the patient's undetectable viral load and CD4 count was 300). PLAN: 1. We will continue the patient on aztreonam, Flagyl and vancomycin d# 2 Monitor CBC Monitor BMP. Monitor intra-abdominal abscess cultures. . Subjective Allergies: Coded Allergies: PENICILLINS (Verified Allergy, Intermediate, 07/30/16) SULFA (SULFONAMIDE ANTIBIOTICS) (Verified Allergy, Intermediate, ITCHING, 07/30/16) Subjective fever is improving Objective Vital Signs Last 24 Hour Vital Signs Date Time Temp Pulse Resp B/P Pulse Ox O2 Delivery O2 Flow Rate FiO2 08/01/16 20:39 84 26 40 08/01/16 20:30 99.5 84 24 99/59 99 Mechanical Ventilator 40 08/01/16 20:00 50 08/01/16 20:00 99.5 90 24 103/58 99 Mechanical Ventilator 40 08/01/16 20:00 24 08/01/16 20:00 90 08/01/16 19:30 84 25 120/69 99 Mechanical Ventilator 40 08/01/16 19:00 84 25 99/59 99 Mechanical Ventilator 40 08/01/16 18:57 25 08/01/16 18:45 82 24 40 08/01/16 18:32 98.5 08/01/16 18:00 98.5 83 27 103/58 100 Mechanical Ventilator 40 08/01/16 17:33 99.0 08/01/16 17:00 84 24 40 08/01/16 17:00 96.6 84 24 104/66 100 Mechanical Ventilator 40 08/01/16 16:30 96.9 87 31 96/58 95 Mechanical Ventilator 40 08/01/16 16:00 97.1 87 31 91/73 95 Mechanical Ventilator 40 08/01/16 16:00 50 08/01/16 16:00 91 08/01/16 15:30 99.9 104 31 96/58 95 Mechanical Ventilator 40 08/01/16 15:17 110 34 40 08/01/16 15:00 100.0 102 33 106/58 95 Mechanical Ventilator 40 08/01/16 14:30 102.1 106 33 98/49 95 Mechanical Ventilator 40 08/01/16 14:00 104.3 111 34 98/49 95 Mechanical Ventilator 40 08/01/16 13:30 104.8 111 38 124/93 95 Mechanical Ventilator 40 08/01/16 13:04 117 38 40 08/01/16 13:00 106.0 114 38 97/50 95 Mechanical Ventilator 40 08/01/16 12:30 114 38 97/49 95 Mechanical Ventilator 40 08/01/16 12:00 114 08/01/16 12:00 50 08/01/16 12:00 103.0 115 38 99/50 95 Mechanical Ventilator 40 08/01/16 11:30 114 38 102/51 96 Mechanical Ventilator 40 08/01/16 11:00 114 38 113/52 96 Mechanical Ventilator 40 08/01/16 10:39 117 36 40 08/01/16 10:30 114 38 113/52 98 Mechanical Ventilator 40 08/01/16 10:00 114 38 111/57 98 Mechanical Ventilator 40 08/01/16 09:30 115 37 115/50 96 Mechanical Ventilator 40 08/01/16 09:15 121 37 40 08/01/16 09:00 116 38 111/55 96 Mechanical Ventilator 40 08/01/16 08:30 118 38 113/61 96 Mechanical Ventilator 40 08/01/16 08:00 114 08/01/16 08:00 114 38 122/67 96 Mechanical Ventilator 40 08/01/16 08:00 50 08/01/16 07:00 100.9 117 37 119/67 95 Mechanical Ventilator 40 08/01/16 06:55 117 37 40 08/01/16 06:02 114 34 118/65 97 Mechanical Ventilator 40 08/01/16 06:00 28 08/01/16 05:30 113 34 118/65 97 Mechanical Ventilator 40 08/01/16 05:01 112 38 40 08/01/16 05:00 113 34 118/65 97 Mechanical Ventilator 40 08/01/16 04:30 113 30 116/60 97 Mechanical Ventilator 40 08/01/16 04:00 100.4 116 30 136/65 97 Mechanical Ventilator 40 08/01/16 04:00 36 08/01/16 04:00 115 08/01/16 04:00 50 08/01/16 03:30 116 34 134/65 100 Mechanical Ventilator 40 08/01/16 03:26 115 37 40 08/01/16 03:00 34 08/01/16 03:00 114 28 125/61 97 Mechanical Ventilator 40 08/01/16 02:30 116 28 122/46 97 Mechanical Ventilator 40 08/01/16 02:00 114 28 116/46 97 Mechanical Ventilator 40 08/01/16 02:00 30 08/01/16 01:34 114 36 40 08/01/16 01:30 112 28 124/56 97 Mechanical Ventilator 40 08/01/16 01:00 100.0 115 28 120/65 97 Mechanical Ventilator 40 08/01/16 01:00 5 08/01/16 00:30 114 33 120/60 100 Mechanical Ventilator 40 08/01/16 00:00 115 08/01/16 00:00 50 08/01/16 00:00 30 08/01/16 00:00 114 28 114/68 97 Mechanical Ventilator 40 07/31/16 23:30 111 34 120/65 97 Mechanical Ventilator 40 07/31/16 23:20 112 35 40 07/31/16 23:00 111 28 112/67 97 Mechanical Ventilator 40 07/31/16 23:00 30 07/31/16 22:30 107 27 126/56 97 Mechanical Ventilator 40 07/31/16 22:00 107 27 117/68 97 Mechanical Ventilator 40 07/31/16 22:00 28 07/31/16 21:30 11 27 120/58 97 Mechanical Ventilator 40 07/31/16 21:27 99.0 Height (Feet): 5 Height (Inches): 9.00 Weight (Pounds): 175 HEENT: anicteric Respiratory/Chest: no respiratory distress Cardiovascular: regular rhythm Abdomen: soft, non tender Microbiology Date/Time Source Procedure Growth Status 07/30/16 23:25 Stool Clostridium difficile Toxin Assay - Final Complete 07/31/16 02:15 Abdominal Abscess Gram Stain - Final Resulted 07/31/16 02:15 Aerobic Culture - Preliminary Staphylococcus Sp Coag Neg Resulted 07/31/16 02:15 Abdominal Abscess Anaerobic Culture Pending Resulted 07/30/16 22:22 Rectum VRE Culture - Final NO VANCOMYCIN RESISTANT ENTEROCOCCUS ... Complete Laboratory Tests Test 08/01/16 04:15 White Blood Count 15.1 K/UL (4.8-10.8) H Red Blood Count 3.80 M/UL (4.70-6.10) L Hemoglobin 11.5 G/DL (14.2-18.0) L Hematocrit 36.1 % (42.0-52.0) L Mean Corpuscular Volume 95 FL (80-99) Mean Corpuscular Hemoglobin 30.2 PG (27.0-31.0) Mean Corpuscular Hemoglobin Concent 31.8 G/DL (32.0-36.0) L Red Cell Distribution Width 13.0 % (11.6-14.8) Platelet Count 141 K/UL (150-450) L Mean Platelet Volume 6.6 FL (6.5-10.1) Neutrophils (%) (Auto) % (45.0-75.0) Lymphocytes (%) (Auto) % (20.0-45.0) Monocytes (%) (Auto) % (1.0-10.0) Eosinophils (%) (Auto) % (0.0-3.0) Basophils (%) (Auto) % (0.0-2.0) Sodium Level 141 mEQ/L (135-145) Potassium Level 5.6 mEQ/L (3.4-4.9) H Chloride Level 106 mEQ/L (98-107) Carbon Dioxide Level 21 mEQ/L (20-30) Anion Gap 14 (5-15) Blood Urea Nitrogen 55 mg/dL (7-23) H Creatinine 2.3 mg/dL (0.7-1.2) H Estimat Glomerular Filtration Rate 28.9 mL/min (>60) Glucose Level 169 mg/dL (74-106) H Hemoglobin A1c 4.8 % (< 6.0) Uric Acid 10.3 mg/dL (3.0-7.5) H Calcium Level 7.5 mg/dL (8.6-10.2) L Phosphorus Level 3.9 mg/dL (2.5-4.8) Magnesium Level 1.9 mg/dL (1.7-2.5) Total Bilirubin 0.4 mg/dL (0.0-1.2) Gamma Glutamyl Transpeptidase 11 U/L (8-61) Aspartate Amino Transf (AST/SGOT) 35 U/L (5-40) Alanine Aminotransferase (ALT/SGPT) 14 U/L (3-41) Alkaline Phosphatase 46 U/L (40-129) Ammonia 48 umol/L (16-60) Total Creatine Kinase 126 U/L (38-174) Troponin I < 0.30 ng/mL (<=0.30) C-Reactive Protein, Quantitative 34.5 mg/dL (< 0.5) H Pro-B-Type Natriuretic Peptide 268 pg/mL (0-125) H Total Protein 5.5 g/dL (6.6-8.7) L Albumin 2.1 g/dL (3.5-5.2) L Globulin 3.4 g/dL Albumin/Globulin Ratio 0.6 (1.0-2.7) L Triglycerides Level 66 mg/dL (< 150) Cholesterol Level 61 mg/dL (< 200) LDL Cholesterol 29 mg/dL (60-99) L HDL Cholesterol 19 mg/dL (> 60) Cholesterol/HDL Ratio 3.2 (3.3-4.4) L Lipase 177 U/L (< 60) H Thyroid Stimulating Hormone (TSH) 0.925 uIU/mL (0.300-4.500) Current Medications Medications (Trade) Dose Ordered Sig/Ernie Route PRN Reason Start Time Stop Time Status Last Admin Dose Admin Acetaminophen (OFIRMEV IV (Non formulary)) 100 ml @ 400 mls/hr Q6HR IV 08/01/16 18:00 08/03/16 12:14 08/01/16 17:33 Aztreonam 0.5 gm/ Sodium Chloride 55 ml @ 110 mls/hr Q8HR@0200,1000,1800 IVPB 08/01/16 18:00 08/08/16 17:59 08/01/16 18:21 Chlorhexidine Gluconate 1 applic 1 applic DAILY TOPIC 07/31/16 18:00 08/30/16 17:59 08/01/16 09:08 Dextrose (Dextrose 50%) STAT PRN IV Hypoglycemia 07/30/16 21:45 08/29/16 21:44 Dextrose/Sodium Chloride (D5 0.45% NS) 1,000 ml @ 125 mls/hr Q8H IV 07/31/16 11:00 08/30/16 10:59 08/01/16 19:00 Fentanyl Citrate 1000 mcg/Sodium Chloride 100 ml @ 0 mls/hr Q24H IV 07/31/16 20:00 08/07/16 19:59 08/01/16 18:57 Lorazepam (Ativan 2mg/ml 1ml) 2 mg Q2H PRN IV agitation 07/31/16 09:00 08/07/16 08:59 08/01/16 07:51 Metronidazole 100 ml @ 100 mls/hr Q8HR IVPB 08/01/16 14:00 08/08/16 13:59 08/01/16 14:27 Morphine Sulfate (Morphine Sulfate) 2 mg Q2H PRN IVP Severe Pain (Pain Scale 7-10) 07/31/16 09:00 08/07/16 08:59 08/01/16 09:10 Nitroglycerin (Ntg) 0.4 mg Q5M X 3 DOSES PRN SL Prn Chest Pain 07/30/16 21:45 08/29/16 21:44 Ondansetron HCl (Zofran) 4 mg Q6H PRN IVP Nausea & Vomiting 07/30/16 21:45 08/29/16 21:44 07/31/16 18:25 Pantoprazole 40 mg 40 mg BID IV 07/31/16 18:00 08/30/16 17:59 08/01/16 17:33 Promethazine HCl (Phenergan) 25 mg EVERY 8 HOURS PRN IV refractory nausea 07/30/16 21:45 08/29/16 21:44 Vancomycin HCl (Vanco rx to dose) 1 ea DAILY PRN MISC . 07/31/16 11:30 08/30/16 11:29 SANTANA HAGER M.D. Aug 01, 2016 21:15
[2016-08-02] VITALS (47 sets, daily range): BP systolic 97–150; BP diastolic 51–72
[2016-08-02] MEDS: Acetaminophen (Non formulary) 100 ML IV SCH ×4 (00:24→17:57)
[2016-08-02] MEDS: Aztreonam Inj 0.5 GM in NS 55 ML IVPB SCH ×2 (01:52→09:50)
[2016-08-02] MEDS: D5 1/2NS 1,000 ML IV SCH ×3 (01:58→12:25)
[2016-08-02 05:07] LABS: MEAN CORPUSCULAR HEMOGLOBIN 32.5 PG (27.0-31.0); MEAN CORPUSCULAR VOLUME 96 FL (80-99); MEAN PLATELET VOLUME 7.5 FL (6.5-10.1); PLATELET COUNT 90 K/UL (150-450); RED BLOOD COUNT 2.83 M/UL (4.70-6.10); RED CELL DISTRIBUTION WIDTH 12.9 % (11.6-14.8); WHITE BLOOD COUNT 11.5 K/UL (4.8-10.8)
[2016-08-02] MEDS: Morphine Sulfate 2mg/ml Inj IVP PRN ×4 (05:23→22:40)
[2016-08-02 05:28] LABS: ALBUMIN/GLOBULIN RATIO 0.6 (1.0-2.7); CALCIUM 6.9 mg/dL (8.6-10.2); CREATININE 1.6 mg/dL (0.7-1.2); GLOMERULAR FILTRATION RATE 43.9 mL/min (>60); MAGNESIUM 2.2 mg/dL (1.7-2.5); PHOSPHORUS 2.9 mg/dL (2.5-4.8); POTASSIUM 4.4 mEQ/L (3.4-4.9); TOTAL PROTEIN 4.6 g/dL (6.6-8.7)
[2016-08-02] MEDS: metroNIDAZOLE 500mg 100 ML IVPB SCH ×3 (06:00→21:56)
[2016-08-02] MEDS ORDERED: Vancomycin 1250mg/D5W 275ml IVPB ONE ×2 (06:00)
--- NOTE | 2016-08-02 06:38 | Emergency Room Report ---
History of Present Illness General Chief Complaint: Abdominal Pain Source: Medical Record Present Illness HPI This patient was made it to ICU for ischemic bowel an exploratory surgery. He was intubated. I was called to evaluate the patient because he has bitten his ET tube. Respiratory therapist had a hard time suctioning it. On my arrival, it appeared that the tube was kinked and a suction catheter was unable to pass through it. I was able to pass a bougie through it however. Because of this, I elect to change the endotracheal tube. This was done over the bougie and patient tolerated procedure without a problem. Allergies: Coded Allergies: PENICILLINS (Verified Allergy, Intermediate, 07/30/16) SULFA (SULFONAMIDE ANTIBIOTICS) (Verified Allergy, Intermediate, ITCHING, 07/30/16) Nursing Documentation-[facility] Past Medical History Deferred: Pt Cognitively Impaired Hx Cardiac Problems: No Hx Hypertension: No - Gout Hx Asthma: Yes Hx Cancer: No Hx Gastrointestinal Problems: Yes Hx Neurological Problems: No Physical Exam Vital Signs Date Time Temp Pulse Resp B/P Pulse Ox O2 Delivery O2 Flow Rate FiO2 07/30/16 19:36 98.2 105 35 156/88 90 07/30/16 20:40 Nasal Cannula 2.0 07/31/16 03:09 40 Procedures Intubation Intubation : Consent: Emergent Intubation Method: orotracheal Tube Size (cm): 7.5 Medications: Etomidate, Succinylcholine Breath Sounds after Intubation: equal Intubation Complications: no complications Post Intubation Xray: Yes Progress/Xray Impression: Endotracheal tube in good position Attempts: One Patient Tolerated: Well Complications: None Progress Patient was given etomidate and succinylcholine. I inserted the bougie to the old endotracheal tube. Blue was deflated and then the tube removed. I placed another 7.5 endotracheal tube with a bougie. It was inflated and securing to place at a 4 cm the lip. There was good breath sounds bilaterally. There was condensation in the tube. No sound at the epigastric area. Good CO2 color changes. Chest x-ray ordered. She tolerated procedure without a problem. Medical Decision Making Diagnostic Impression: Primary Impression: Pancreatitis Qualified Codes: K85.80 - Other acute pancreatitis without necrosis or infection Additional Impressions: Ischemia, bowel Pneumatosis intestinalis Chest X-Ray Diagnostic Results Chest X-Ray Ordered: Yes # of Views/Limited/Complete: 1 View Interpretation: no effusion, no pneumothorax, other - Endotracheal tube in good position. Atelectasis versus infiltrate in The left lower lobe. Indication: Shortness of Breath Impression: Other - Successful endotracheal tube insertion. No pneumothorax. Date Electronically Signed: Aug 02, 2016 Time Electronically Signed: 06:37 Interpreting ER Physician: Duane Parsons MD Last Vital Signs Date Time Temp Pulse Resp B/P Pulse Ox O2 Delivery O2 Flow Rate FiO2 08/02/16 05:30 92 20 40 08/02/16 03:00 112/63 100 Mechanical Ventilator 08/02/16 00:24 97.5 07/31/16 04:05 100.0 Status: improved Disposition: ADMITTED INPATIENT Condition: Critical Referrals: NON PHYSICIAN (PCP) DUANE PARSONS M.D. Aug 02, 2016 06:38
[2016-08-02 07:54] LABS: ABG ALLEN TEST POSITIVE; ABG BASE EXCESS -3.3; ABG PCO2 42.1 mmHg (35.0-45.0)
[2016-08-02 08:05] LABS: BAND NEUTROPHILS % (MANUAL) 0 % (0-8); BASOPHILS % (MANUAL) 0 % (0-2); EOSINOPHILS % (MANUAL) 1 % (0-3); LYMPHOCYTES % (MANUAL) 9 % (20-45); NEUTROPHILS % (MANUAL) 88 % (45-75); PLATELET ESTIMATE DECREASED; PLATELET MORPHOLOGY NORMAL; TOTAL CELLS COUNTED 100
--- NOTE | 2016-08-02 08:40 | Pulmonolgy Critical Care Note ---
Critical Care - Asmt/Plan Assessment/Plan: ASSESSMENT acute respiratory failure requiring intubation sepsis intraabdominal abscess SB perforation 2 to recent laparoscopic hernia repair, resulting in intraabdominal abscess and SB obstruction SB obstruction s/p 07/31 exp lap with drainage of intraabdominal abscess, lysis of adhesions, partial omentectomy and partial SB resection hx of recent laparoscopic left inguinal hernia repair ARF possible PNA anemia pancreatitis HIV status bipolar disorder PLAN OF CARE ICU status IVF NPO NGT to suction -500 cc last night surgery follows, wound care abx, ID follows peritoneal fluid+ SCON abx as per ID management vent support, pulmonary toilet weaning when ready, but not now no signs of respiratory distress on current settings CXR with possible PNA, fup CXR and ABG in am pain management still on fentanyl gtt nephro follows renal parameters improving creat trending down but Na up monitor renal parameters and lytes, replace as needed avoid nephrotoxic GI follows defer any GI procedures at this time trend lipase stool C dif negative HH with trend down anemia work up stool OB monitor HH and transfuse prn outpt colonoscopy if survives ART therapy on hold, resume when start eating SCD for DVT prophylaxis case discussed and evaluated by supervising physician Critical Care - Objective Last 24 Hour Vital Signs Date Time Temp Pulse Resp B/P Pulse Ox O2 Delivery O2 Flow Rate FiO2 08/02/16 08:08 30 08/02/16 08:00 50 08/02/16 08:00 98.9 87 25 125/60 99 Mechanical Ventilator 40 08/02/16 08:00 82 08/02/16 07:30 82 21 112/61 98 Mechanical Ventilator 40 08/02/16 07:00 98.8 82 21 116/58 98 Mechanical Ventilator 40 08/02/16 07:00 23 08/02/16 06:47 83 21 40 08/02/16 06:30 88 26 107/56 100 Mechanical Ventilator 40 08/02/16 06:00 16 08/02/16 06:00 91 26 117/63 100 Mechanical Ventilator 40 08/02/16 05:30 92 20 40 08/02/16 05:30 93 26 125/72 100 Mechanical Ventilator 40 08/02/16 05:00 93 26 125/72 100 Mechanical Ventilator 40 08/02/16 05:00 22 08/02/16 04:30 78 21 122/65 100 Mechanical Ventilator 40 08/02/16 04:00 78 08/02/16 04:00 50 08/02/16 04:00 20 08/02/16 04:00 98.6 78 22 106/53 100 Mechanical Ventilator 40 08/02/16 03:30 78 20 104/60 100 Mechanical Ventilator 40 08/02/16 03:02 78 20 40 08/02/16 03:00 75 19 112/63 100 Mechanical Ventilator 40 08/02/16 03:00 20 08/02/16 02:30 75 19 103/54 100 Mechanical Ventilator 40 08/02/16 02:00 75 17 97/62 100 Mechanical Ventilator 40 08/02/16 02:00 17 08/02/16 01:30 76 17 100/51 100 Mechanical Ventilator 40 08/02/16 01:07 74 24 40 08/02/16 01:00 17 08/02/16 01:00 78 17 97/62 100 Mechanical Ventilator 40 08/02/16 00:30 79 19 112/67 100 Mechanical Ventilator 40 08/02/16 00:24 97.5 08/02/16 00:00 50 08/02/16 00:00 17 08/02/16 00:00 97.5 77 17 112/57 100 Mechanical Ventilator 40 08/02/16 00:00 77 08/01/16 23:30 77 18 105/47 100 Mechanical Ventilator 40 08/01/16 23:00 108 19 90/47 100 Mechanical Ventilator 40 08/01/16 23:00 107 16 40 08/01/16 23:00 20 08/01/16 22:30 80 19 90/47 100 Mechanical Ventilator 40 08/01/16 22:00 88 19 91/46 100 Mechanical Ventilator 40 08/01/16 22:00 22 08/01/16 21:30 93 19 99/59 100 Mechanical Ventilator 40 08/01/16 21:00 97.5 97 20 105/48 100 Mechanical Ventilator 40 08/01/16 21:00 20 08/01/16 20:39 84 26 40 08/01/16 20:30 99.5 84 24 99/59 99 Mechanical Ventilator 40 08/01/16 20:00 50 08/01/16 20:00 99.5 90 24 103/58 99 Mechanical Ventilator 40 08/01/16 20:00 24 08/01/16 20:00 90 08/01/16 19:30 84 25 120/69 99 Mechanical Ventilator 40 08/01/16 19:00 84 25 99/59 99 Mechanical Ventilator 40 1617 18:57 25 17 18:45 82 24 40 1617 18:32 98.5 08/01/16 18:00 98.5 83 27 103/58 100 Mechanical Ventilator 40 17 17:33 99.0 08/01/16 17:00 84 24 40 08/01/16 17:00 96.6 84 24 104/66 100 Mechanical Ventilator 40 08/01/16 16:30 96.9 87 31 96/58 95 Mechanical Ventilator 40 08/01/16 16:00 97.1 87 31 91/73 95 Mechanical Ventilator 40 08/01/16 16:00 50 08/01/16 16:00 91 08/01/16 15:30 99.9 104 31 96/58 95 Mechanical Ventilator 40 08/01/16 15:17 110 34 40 08/01/16 15:00 100.0 102 33 106/58 95 Mechanical Ventilator 40 08/01/16 14:30 102.1 106 33 98/49 95 Mechanical Ventilator 40 08/01/16 14:00 104.3 111 34 98/49 95 Mechanical Ventilator 40 08/01/16 13:30 104.8 111 38 124/93 95 Mechanical Ventilator 40 08/01/16 13:04 117 38 40 08/01/16 13:00 106.0 114 38 97/50 95 Mechanical Ventilator 40 08/01/16 12:30 114 38 97/49 95 Mechanical Ventilator 40 08/01/16 12:00 114 08/01/16 12:00 50 08/01/16 12:00 103.0 115 38 99/50 95 Mechanical Ventilator 40 08/01/16 11:30 114 38 102/51 96 Mechanical Ventilator 40 08/01/16 11:00 114 38 113/52 96 Mechanical Ventilator 40 08/01/16 10:39 117 36 40 08/01/16 10:30 114 38 113/52 98 Mechanical Ventilator 40 08/01/16 10:00 114 38 111/57 98 Mechanical Ventilator 40 08/01/16 09:30 115 37 115/50 96 Mechanical Ventilator 40 08/01/16 09:15 121 37 40 08/01/16 09:00 116 38 111/55 96 Mechanical Ventilator 40 08/01/16 08:30 118 38 113/61 96 Mechanical Ventilator 40 Status: sedated Condition: critical HEENT: atraumatic, normocephalic, other - OP with ET in palce, intact, NGT to suction Lungs: clear Heart: HR/BP stable, regular, other - RUE PICC intact Abdomen: soft, non-tender, other - surgical wound with dressing C/D/I Extremities: no C/C/E, other - SCD on Micro: Microbiology Date/Time Source Procedure Growth Status 07/30/16 23:25 Stool Clostridium difficile Toxin Assay - Final Complete 07/31/16 02:15 Abdominal Abscess Gram Stain - Final Resulted 07/31/16 02:15 Aerobic Culture - Preliminary Staphylococcus Sp Coag Neg Resulted 07/31/16 02:15 Abdominal Abscess Anaerobic Culture - Preliminary Resulted 07/30/16 22:22 Rectum VRE Culture - Final NO VANCOMYCIN RESISTANT ENTEROCOCCUS ... Complete Accucheck: 179 Critical Care - Subjective ROS Limited/Unobtainable: Yes Interval Events: leukocytosis trending down, 08/01 fevers up to 106, currently low garde 99.6 renal parameters improving, creat trending down, but Na up remains intubated, no signs of respiratory distress on current settings NGT-500 cc last night cooling blanket on Condition: critical IV Access: PICC - RUE EKG Rhythm: Sinus Rhythm FI02: 30 Vent Support Breath Rate: 10 Vent Support Mode: AC Vent Tidal Volume: 500 Sputum Amount: Scant PEEP: 5.0 PIP: 11 Fluids: D51/2 NS at 125 Drips: Fentanyl gtt at 60 mcg/hr I&O: Intake and Output 08/01/16 08/02/16 19:00 07:00 Intake Total 1036 ml 2027 ml Output Total 1080 ml 1270 ml Balance -44 ml 757 ml Intake IV Total 1036 ml 2027 ml Output Urine Total 1080 ml 1170 ml Gastric Drainage Total 100 ml CXR: CXR 08/01 Stable pulmonary bibasal subsegmental atelectasis. Superimposed pneumonia right lung base not excludable. CXR 08/02 Stable perihilar and basilar atelectasis versus infiltrates. Right PICC line tip projecting over the right atrium may be pulled back 9 cm. ET-Tube: 7.5 ET Position: 25 Licha Swartz NP ([facility]) Aug 02, 2016 08:40
[2016-08-02] MEDS: Dyna-Hex 2% Top Sol 8oz TOPIC SCH (08:52)
[2016-08-02] MEDS: Pantoprazole Inj IV SCH ×2 (08:52→18:00)
[2016-08-02] MEDS ORDERED: D5 1/2NS 1000ml IV ONE (09:33)
[2016-08-02] MEDS ORDERED: Sterile Water Irrig 1000ml IRRIG ONE (09:33)
--- NOTE | 2016-08-02 09:34 | Diagnostic Imaging Report ---
Indication: Abnormal chest sounds Technique: XRAY CHEST 1 V Comparison: 08/02/16 at 0605 hrs. Findings: Endotracheal tube, nasogastric tube and right PICC line are unchanged. The right PICC line projects over the right atrium. Cardiomediastinal silhouette is stable. Mild perihilar and basilar atelectasis versus infiltrates are again noted. Impression: Stable perihilar and basilar atelectasis versus infiltrates. Right PICC line tip projecting over the right atrium may be pulled back 9 cm. Other stable findings as above.
--- NOTE | 2016-08-02 09:53 | Diagnostic Imaging Report ---
Indication: Status post intubation Technique: XRAY CHEST 1 V Comparison: 08/01/16 Findings: Endotracheal tube is now present with tip 6 cm above the hetal and may be advanced 2 cm. Nasogastric tube is within the stomach. Right PICC line tip projects over the right atrium. The heart and lungs are stable. Impression: Status post intubation with endotracheal tube tip 6 cm above the hetal and may be advanced 2 cm. Right PICC line tip projecting over the right atrium should be pulled back approximately 9 cm.
[2016-08-02 10:21] LABS: HEMOLYSIS 1; IRON 10 ug/dL (59-158); TOTAL IRON BINDING CAPACITY 128 ug/dL (250-400)
[2016-08-02 10:34] LABS: FERRITIN 343 ng/mL (10-230)
[2016-08-02] MEDS ORDERED: DuoNeb 0.5-3(2.5)mg/3ml neb HHN PRN (13:00)
--- NOTE | 2016-08-02 13:42 | General Progress Note ---
Assessment/Plan Assessment/Plan Assessment (1) Hypoalbuminemia ICD Codes: E88.09 - Other disorders of plasma-protein metabolism, not elsewhere classified SNOMED: 652525406 (2) Anemia ICD Codes: D64.9 - Anemia, unspecified SNOMED: 632748579 (3) Pancreatitis ICD Codes: K85.90 - Acute pancreatitis without necrosis or infection, unspecified SNOMED: 77452890 Qualifiers: Qualified Codes: K85.80 - Other acute pancreatitis without necrosis or infection (4) Intra-abdominal abscess ICD Codes: K65.1 - Peritoneal abscess SNOMED: 55230421 (5) Ischemia, bowel ICD Codes: K55.9 - Vascular disorder of intestine, unspecified SNOMED: 73792409 Status: unchanged Recommendations s/p Exploratory laparotomy, drainage of abdominal abscess, lysis of adhesions, partial omentectomy and partial small-bowel resection. cdiff negative defer GI procedures at this time fu with surgical recs NPO + IVFs abx ppi NGT fu labs outpatient colonoscopy Subjective Allergies: Coded Allergies: PENICILLINS (Verified Allergy, Intermediate, 07/30/16) SULFA (SULFONAMIDE ANTIBIOTICS) (Verified Allergy, Intermediate, ITCHING, 07/30/16) Subjective Seen in ICU intubated d/w RN off of all pressors Objective Last 24 Hour Vital Signs Date Time Temp Pulse Resp B/P Pulse Ox O2 Delivery O2 Flow Rate FiO2 08/02/16 12:40 82 22 30 08/02/16 12:30 79 19 111/66 95 Mechanical Ventilator 30 08/02/16 12:00 82 08/02/16 12:00 50 08/02/16 11:00 82 20 107/56 97 Mechanical Ventilator 30 08/02/16 10:32 88 24 30 08/02/16 10:30 82 20 114/61 96 Mechanical Ventilator 30 08/02/16 10:00 95 22 116/67 95 Mechanical Ventilator 30 08/02/16 09:30 81 21 107/55 95 Mechanical Ventilator 30 08/02/16 09:00 82 22 107/54 95 Mechanical Ventilator 30 08/02/16 08:36 90 30 30 08/02/16 08:30 86 22 115/60 98 Mechanical Ventilator 30 08/02/16 08:08 30 08/02/16 08:00 50 08/02/16 08:00 98.9 87 25 125/60 99 Mechanical Ventilator 40 08/02/16 08:00 82 08/02/16 07:30 82 21 112/61 98 Mechanical Ventilator 40 08/02/16 07:00 98.8 82 21 116/58 98 Mechanical Ventilator 40 08/02/16 07:00 23 08/02/16 06:47 83 21 40 08/02/16 06:30 88 26 107/56 100 Mechanical Ventilator 40 08/02/16 06:00 16 08/02/16 06:00 91 26 117/63 100 Mechanical Ventilator 40 08/02/16 05:30 92 20 40 08/02/16 05:30 93 26 125/72 100 Mechanical Ventilator 40 08/02/16 05:00 93 26 125/72 100 Mechanical Ventilator 40 08/02/16 05:00 22 08/02/16 04:30 78 21 122/65 100 Mechanical Ventilator 40 08/02/16 04:00 78 08/02/16 04:00 50 08/02/16 04:00 20 08/02/16 04:00 98.6 78 22 106/53 100 Mechanical Ventilator 40 08/02/16 03:30 78 20 104/60 100 Mechanical Ventilator 40 08/02/16 03:02 78 20 40 08/02/16 03:00 75 19 112/63 100 Mechanical Ventilator 40 08/02/16 03:00 20 08/02/16 02:30 75 19 103/54 100 Mechanical Ventilator 40 08/02/16 02:00 75 17 97/62 100 Mechanical Ventilator 40 08/02/16 02:00 17 08/02/16 01:30 76 17 100/51 100 Mechanical Ventilator 40 08/02/16 01:07 74 24 40 08/02/16 01:00 17 08/02/16 01:00 78 17 97/62 100 Mechanical Ventilator 40 08/02/16 00:30 79 19 112/67 100 Mechanical Ventilator 40 08/02/16 00:24 97.5 08/02/16 00:00 50 08/02/16 00:00 17 08/02/16 00:00 97.5 77 17 112/57 100 Mechanical Ventilator 40 08/02/16 00:00 77 08/01/16 23:30 77 18 105/47 100 Mechanical Ventilator 40 08/01/16 23:00 108 19 90/47 100 Mechanical Ventilator 40 08/01/16 23:00 107 16 40 08/01/16 23:00 20 08/01/16 22:30 80 19 90/47 100 Mechanical Ventilator 40 08/01/16 22:00 88 19 91/46 100 Mechanical Ventilator 40 08/01/16 22:00 22 08/01/16 21:30 93 19 99/59 100 Mechanical Ventilator 40 08/01/16 21:00 97.5 97 20 105/48 100 Mechanical Ventilator 40 08/01/16 21:00 20 08/01/16 20:39 84 26 40 08/01/16 20:30 99.5 84 24 99/59 99 Mechanical Ventilator 40 08/01/16 20:00 50 08/01/16 20:00 99.5 90 24 103/58 99 Mechanical Ventilator 40 08/01/16 20:00 24 08/01/16 20:00 90 08/01/16 19:30 84 25 120/69 99 Mechanical Ventilator 40 08/01/16 19:00 84 25 99/59 99 Mechanical Ventilator 40 08/01/16 18:57 25 08/01/16 18:45 82 24 40 08/01/16 18:32 98.5 08/01/16 18:00 98.5 83 27 103/58 100 Mechanical Ventilator 40 08/01/16 17:33 99.0 08/01/16 17:00 84 24 40 08/01/16 17:00 96.6 84 24 104/66 100 Mechanical Ventilator 40 08/01/16 16:30 96.9 87 31 96/58 95 Mechanical Ventilator 40 08/01/16 16:00 97.1 87 31 91/73 95 Mechanical Ventilator 40 08/01/16 16:00 50 08/01/16 16:00 91 08/01/16 15:30 99.9 104 31 96/58 95 Mechanical Ventilator 40 08/01/16 15:17 110 34 40 08/01/16 15:00 100.0 102 33 106/58 95 Mechanical Ventilator 40 08/01/16 14:30 102.1 106 33 98/49 95 Mechanical Ventilator 40 08/01/16 14:00 104.3 111 34 98/49 95 Mechanical Ventilator 40 Intake and Output 08/01/16 08/02/16 19:00 07:00 Intake Total 1036 ml 2027 ml Output Total 1650 ml 1270 ml Balance -614 ml 757 ml Intake IV Total 1036 ml 2027 ml Output Urine Total 1150 ml 1170 ml Gastric Drainage Total 500 ml 100 ml Laboratory Tests 08/02/16 04:10: White Blood Count 11.5H, Red Blood Count 2.83L, Hemoglobin 9.2L, Hematocrit 27.0L, Mean Corpuscular Volume 96, Mean Corpuscular Hemoglobin 32.5H, Mean Corpuscular Hemoglobin Concent 34.0, Red Cell Distribution Width 12.9, Platelet Count 90L, Mean Platelet Volume 7.5, Neutrophils (%) (Auto) , Lymphocytes (%) ( Auto) , Monocytes (%) (Auto) , Eosinophils (%) (Auto) , Basophils (%) (Auto) , Neutrophils % (Manual) [Pending], Lymphocytes % (Manual) [Pending], Platelet Estimate [Pending], Platelet Morphology [Pending], Sodium Level 148H, Potassium Level 4.4, Chloride Level 113H, Carbon Dioxide Level 21, Anion Gap 14, Blood Urea Nitrogen 49H, Creatinine 1.6H, Estimat Glomerular Filtration Rate 43.9, Glucose Level 146H, Calcium Level 6.9L, Phosphorus Level 2.9, Magnesium Level 2.2, Total Bilirubin 0.3, Aspartate Amino Transf (AST/SGOT) 49H, Alanine Aminotransferase (ALT/SGPT) 14, Alkaline Phosphatase 37L, Total Protein 4.6L, Albumin 1.8L, Globulin 2.8, Albumin/Globulin Ratio 0.6L, Random Vancomycin Level 9.8 Height (Feet): 5 Height (Inches): 9.00 Weight (Pounds): 179 Objective WDWN NCAT supple CTA RRR flat abd, (+) midline surgical scar no edema neuro restrained MIKE HARRIS Aug 02, 2016 13:42
--- NOTE | 2016-08-02 14:17 | General Progress Note ---
Progress Note Progress Note Surgery: patient seen and examined at bedside. no acute events. alert, responsive, follows command. Intubated on vents. Mild sedation as appropriate for comfort. Afebrile now, HD stable, leukocytosis improved to 12k today, UOP improved, labs improving. NG tube output appropriate Midline wound c/d/i. abdomen soft, mild distention, tender on palpation as anticipated given recent surgery Continue current care and management NPO, IV fluids, IV Abx NG tube Owens for UOP monitoring Wean vent and sedation as tolerated Repeat AM labs. Luis Felipe Samuels Aug 02, 2016 14:17
--- NOTE | 2016-08-02 16:07 | General Progress Note ---
Assessment/Plan Status: unchanged Status Narrative Cr lower Assessment/Plan status: Acute renal failure and Oliguria due to - low BP , post OP- Amikacin and VancoMycin- Ongoing sepsis Respiratory failure, on Vent intraabdominal abscess, small bowel obstruction, intraabdominal adhesions, small bowel perforation. Plan; Post Op care- Hydrate- monitor renal parameters Weaning as possible- Avoid nephrotoxics Per orders Subjective ROS Limited/Unobtainable: Yes Allergies: Coded Allergies: PENICILLINS (Verified Allergy, Intermediate, 07/30/16) SULFA (SULFONAMIDE ANTIBIOTICS) (Verified Allergy, Intermediate, ITCHING, 07/30/16) Objective Last 24 Hour Vital Signs Date Time Temp Pulse Resp B/P Pulse Ox O2 Delivery O2 Flow Rate FiO2 08/02/16 15:30 88 29 123/56 94 Mechanical Ventilator 30 08/02/16 15:00 92 29 136/71 96 Mechanical Ventilator 30 08/02/16 14:48 94 30 30 08/02/16 14:30 79 27 131/65 96 Mechanical Ventilator 30 08/02/16 14:12 29 08/02/16 14:00 79 19 117/68 95 Mechanical Ventilator 30 08/02/16 13:30 79 19 118/61 95 Mechanical Ventilator 30 08/02/16 13:00 79 19 111/66 95 Mechanical Ventilator 30 08/02/16 12:40 82 22 30 08/02/16 12:30 79 19 111/66 95 Mechanical Ventilator 30 08/02/16 12:00 99.1 78 18 118/61 97 Mechanical Ventilator 30 08/02/16 12:00 82 08/02/16 12:00 50 08/02/16 11:30 76 18 97/67 97 Mechanical Ventilator 30 08/02/16 11:00 82 20 107/56 97 Mechanical Ventilator 30 08/02/16 10:32 88 24 30 08/02/16 10:30 82 20 114/61 96 Mechanical Ventilator 30 08/02/16 10:00 95 22 116/67 95 Mechanical Ventilator 30 08/02/16 09:30 81 21 107/55 95 Mechanical Ventilator 30 08/02/16 09:00 82 22 107/54 95 Mechanical Ventilator 30 08/02/16 08:36 90 30 30 08/02/16 08:30 86 22 115/60 98 Mechanical Ventilator 30 08/02/16 08:08 30 08/02/16 08:00 50 08/02/16 08:00 98.9 87 25 125/60 99 Mechanical Ventilator 40 08/02/16 08:00 82 08/02/16 07:30 82 21 112/61 98 Mechanical Ventilator 40 08/02/16 07:00 98.8 82 21 116/58 98 Mechanical Ventilator 40 08/02/16 07:00 23 08/02/16 06:47 83 21 40 08/02/16 06:30 88 26 107/56 100 Mechanical Ventilator 40 08/02/16 06:00 16 08/02/16 06:00 91 26 117/63 100 Mechanical Ventilator 40 08/02/16 05:30 92 20 40 08/02/16 05:30 93 26 125/72 100 Mechanical Ventilator 40 08/02/16 05:00 93 26 125/72 100 Mechanical Ventilator 40 08/02/16 05:00 22 08/02/16 04:30 78 21 122/65 100 Mechanical Ventilator 40 08/02/16 04:00 78 08/02/16 04:00 50 08/02/16 04:00 20 08/02/16 04:00 98.6 78 22 106/53 100 Mechanical Ventilator 40 08/02/16 03:30 78 20 104/60 100 Mechanical Ventilator 40 08/02/16 03:02 78 20 40 08/02/16 03:00 75 19 112/63 100 Mechanical Ventilator 40 08/02/16 03:00 20 08/02/16 02:30 75 19 103/54 100 Mechanical Ventilator 40 08/02/16 02:00 75 17 97/62 100 Mechanical Ventilator 40 08/02/16 02:00 17 08/02/16 01:30 76 17 100/51 100 Mechanical Ventilator 40 08/02/16 01:07 74 24 40 08/02/16 01:00 17 08/02/16 01:00 78 17 97/62 100 Mechanical Ventilator 40 08/02/16 00:30 79 19 112/67 100 Mechanical Ventilator 40 08/02/16 00:24 97.5 08/02/16 00:00 50 08/02/16 00:00 17 08/02/16 00:00 97.5 77 17 112/57 100 Mechanical Ventilator 40 08/02/16 00:00 77 08/01/16 23:30 77 18 105/47 100 Mechanical Ventilator 40 08/01/16 23:00 108 19 90/47 100 Mechanical Ventilator 40 08/01/16 23:00 107 16 40 08/01/16 23:00 20 08/01/16 22:30 80 19 90/47 100 Mechanical Ventilator 40 08/01/16 22:00 88 19 91/46 100 Mechanical Ventilator 40 08/01/16 22:00 22 08/01/16 21:30 93 19 99/59 100 Mechanical Ventilator 40 08/01/16 21:00 97.5 97 20 105/48 100 Mechanical Ventilator 40 08/01/16 21:00 20 08/01/16 20:39 84 26 40 08/01/16 20:30 99.5 84 24 99/59 99 Mechanical Ventilator 40 08/01/16 20:00 50 08/01/16 20:00 99.5 90 24 103/58 99 Mechanical Ventilator 40 08/01/16 20:00 24 08/01/16 20:00 90 08/01/16 19:30 84 25 120/69 99 Mechanical Ventilator 40 08/01/16 19:00 84 25 99/59 99 Mechanical Ventilator 40 08/01/16 18:57 25 08/01/16 18:45 82 24 40 08/01/16 18:32 98.5 08/01/16 18:00 98.5 83 27 103/58 100 Mechanical Ventilator 40 08/01/16 17:33 99.0 08/01/16 17:00 84 24 40 08/01/16 17:00 96.6 84 24 104/66 100 Mechanical Ventilator 40 08/01/16 16:30 96.9 87 31 96/58 95 Mechanical Ventilator 40 Intake and Output 08/01/16 08/02/16 19:00 07:00 Intake Total 1036 ml 2027 ml Output Total 1650 ml 1270 ml Balance -614 ml 757 ml Intake IV Total 1036 ml 2027 ml Output Urine Total 1150 ml 1170 ml Gastric Drainage Total 500 ml 100 ml Laboratory Tests 08/02/16 04:10: White Blood Count 11.5H, Red Blood Count 2.83L, Hemoglobin 9.2L, Hematocrit 27.0L, Mean Corpuscular Volume 96, Mean Corpuscular Hemoglobin 32.5H, Mean Corpuscular Hemoglobin Concent 34.0, Red Cell Distribution Width 12.9, Platelet Count 90L, Mean Platelet Volume 7.5, Neutrophils (%) (Auto) , Lymphocytes (%) ( Auto) , Monocytes (%) (Auto) , Eosinophils (%) (Auto) , Basophils (%) (Auto) , Neutrophils % (Manual) [Pending], Lymphocytes % (Manual) [Pending], Platelet Estimate [Pending], Platelet Morphology [Pending], Sodium Level 148H, Potassium Level 4.4, Chloride Level 113H, Carbon Dioxide Level 21, Anion Gap 14, Blood Urea Nitrogen 49H, Creatinine 1.6H, Estimat Glomerular Filtration Rate 43.9, Glucose Level 146H, Calcium Level 6.9L, Phosphorus Level 2.9, Magnesium Level 2.2, Total Bilirubin 0.3, Aspartate Amino Transf (AST/SGOT) 49H, Alanine Aminotransferase (ALT/SGPT) 14, Alkaline Phosphatase 37L, Total Protein 4.6L, Albumin 1.8L, Globulin 2.8, Albumin/Globulin Ratio 0.6L, Random Vancomycin Level 9.8 Height (Feet): 5 Height (Inches): 9.00 Weight (Pounds): 179 General Appearance: mild distress Cardiovascular: tachycardia Respiratory/Chest: decreased breath sounds Abdomen: distended AYDE SERNA Aug 02, 2016 16:07
[2016-08-02] MEDS: LORazepam Inj 2mg/ml 1ml IV PRN ×2 (16:57→21:01)
[2016-08-02] MEDS: Aztreonam Inj 1 GM in NS 55 ML IVPB SCH (17:58)
--- NOTE | 2016-08-02 19:45 | Infectious Diseases Prog Note ---
Assessment/Plan Assessment/Plan A: The patient is a 61-year-old male, with intra-abdominal sepsis / large abscess Wnd Cx : CoNS Leukocytosis improving SP laparoscopic-robotic left inguinal hernia repair six days ago Pneumatosis intestinalis ( duodenum and proximal jejunum ) SP exploratory laparotomy and partial omentectomy and partial small-bowel resection Bipolar disorder. HIV (reportedly the patient's undetectable viral load and CD4 count was 300). PLAN: 1. We will continue the patient on aztreonam, Flagyl and vancomycin d# 3 / 10 Monitor CBC Monitor BMP. Monitor intra-abdominal abscess cultures. . Subjective Allergies: Coded Allergies: PENICILLINS (Verified Allergy, Intermediate, 07/30/16) SULFA (SULFONAMIDE ANTIBIOTICS) (Verified Allergy, Intermediate, ITCHING, 07/30/16) Subjective on vent , SP low grade fever Objective Vital Signs Last 24 Hour Vital Signs Date Time Temp Pulse Resp B/P Pulse Ox O2 Delivery O2 Flow Rate FiO2 08/02/16 19:30 84 23 118/62 97 Mechanical Ventilator 30 08/02/16 19:11 86 22 30 08/02/16 19:00 89 24 122/61 97 Mechanical Ventilator 30 08/02/16 19:00 24 08/02/16 18:56 98.1 08/02/16 18:30 83 23 110/64 95 Mechanical Ventilator 30 08/02/16 17:57 100.0 08/02/16 17:30 85 21 111/61 93 Mechanical Ventilator 30 08/02/16 17:16 88 22 30 08/02/16 17:00 95 29 150/67 94 Mechanical Ventilator 30 08/02/16 16:30 89 25 118/60 96 Mechanical Ventilator 30 08/02/16 16:00 98.2 86 22 119/63 96 Mechanical Ventilator 30 08/02/16 16:00 30 08/02/16 16:00 83 08/02/16 15:30 88 29 123/56 94 Mechanical Ventilator 30 08/02/16 15:00 92 29 136/71 96 Mechanical Ventilator 30 08/02/16 14:48 94 30 30 08/02/16 14:30 79 27 131/65 96 Mechanical Ventilator 30 08/02/16 14:12 29 08/02/16 14:00 79 19 117/68 95 Mechanical Ventilator 30 08/02/16 13:30 79 19 118/61 95 Mechanical Ventilator 30 08/02/16 13:00 79 19 111/66 95 Mechanical Ventilator 30 08/02/16 12:40 82 22 30 08/02/16 12:30 79 19 111/66 95 Mechanical Ventilator 30 08/02/16 12:00 99.1 78 18 118/61 97 Mechanical Ventilator 30 08/02/16 12:00 82 08/02/16 12:00 50 08/02/16 11:30 76 18 97/67 97 Mechanical Ventilator 30 08/02/16 11:00 82 20 107/56 97 Mechanical Ventilator 30 08/02/16 10:32 88 24 30 08/02/16 10:30 82 20 114/61 96 Mechanical Ventilator 30 08/02/16 10:00 95 22 116/67 95 Mechanical Ventilator 30 08/02/16 09:30 81 21 107/55 95 Mechanical Ventilator 30 08/02/16 09:00 82 22 107/54 95 Mechanical Ventilator 30 08/02/16 08:36 90 30 30 08/02/16 08:30 86 22 115/60 98 Mechanical Ventilator 30 08/02/16 08:08 30 08/02/16 08:00 50 08/02/16 08:00 98.9 87 25 125/60 99 Mechanical Ventilator 40 08/02/16 08:00 82 08/02/16 07:30 82 21 112/61 98 Mechanical Ventilator 40 08/02/16 07:00 98.8 82 21 116/58 98 Mechanical Ventilator 40 08/02/16 07:00 23 08/02/16 06:47 83 21 40 08/02/16 06:30 88 26 107/56 100 Mechanical Ventilator 40 08/02/16 06:00 16 08/02/16 06:00 91 26 117/63 100 Mechanical Ventilator 40 08/02/16 05:30 92 20 40 08/02/16 05:30 93 26 125/72 100 Mechanical Ventilator 40 08/02/16 05:00 93 26 125/72 100 Mechanical Ventilator 40 08/02/16 05:00 22 08/02/16 04:30 78 21 122/65 100 Mechanical Ventilator 40 17 04:00 78 08/02/16 04:00 50 08/02/16 04:00 20 08/02/16 04:00 98.6 78 22 106/53 100 Mechanical Ventilator 40 08/02/16 03:30 78 20 104/60 100 Mechanical Ventilator 40 08/02/16 03:02 78 20 40 08/02/16 03:00 75 19 112/63 100 Mechanical Ventilator 40 08/02/16 03:00 20 08/02/16 02:30 75 19 103/54 100 Mechanical Ventilator 40 08/02/16 02:00 75 17 97/62 100 Mechanical Ventilator 40 08/02/16 02:00 17 08/02/16 01:30 76 17 100/51 100 Mechanical Ventilator 40 08/02/16 01:07 74 24 40 08/02/16 01:00 17 08/02/16 01:00 78 17 97/62 100 Mechanical Ventilator 40 08/02/16 00:30 79 19 112/67 100 Mechanical Ventilator 40 08/02/16 00:24 97.5 08/02/16 00:00 50 08/02/16 00:00 17 08/02/16 00:00 97.5 77 17 112/57 100 Mechanical Ventilator 40 08/02/16 00:00 77 08/01/16 23:30 77 18 105/47 100 Mechanical Ventilator 40 08/01/16 23:00 108 19 90/47 100 Mechanical Ventilator 40 08/01/16 23:00 107 16 40 08/01/16 23:00 20 08/01/16 22:30 80 19 90/47 100 Mechanical Ventilator 40 08/01/16 22:00 88 19 91/46 100 Mechanical Ventilator 40 08/01/16 22:00 22 08/01/16 21:30 93 19 99/59 100 Mechanical Ventilator 40 08/01/16 21:00 97.5 97 20 105/48 100 Mechanical Ventilator 40 08/01/16 21:00 20 08/01/16 20:39 84 26 40 08/01/16 20:30 99.5 84 24 99/59 99 Mechanical Ventilator 40 08/01/16 20:00 50 08/01/16 20:00 99.5 90 24 103/58 99 Mechanical Ventilator 40 08/01/16 20:00 24 08/01/16 20:00 90 Height (Feet): 5 Height (Inches): 9.00 Weight (Pounds): 179 HEENT: anicteric Respiratory/Chest: no respiratory distress Cardiovascular: regularly irregular Abdomen: non distended Microbiology Date/Time Source Procedure Growth Status 07/30/16 22:22 Nasal Nares MRSA Culture - Final NO METHICILLIN RESISTANT STAPH AUREUS... Complete 07/30/16 23:25 Stool Clostridium difficile Toxin Assay - Final Complete 07/31/16 02:15 Abdominal Abscess Gram Stain - Final Resulted 07/31/16 02:15 Aerobic Culture - Preliminary Staphylococcus Sp Coag Neg Resulted 07/31/16 02:15 Abdominal Abscess Anaerobic Culture - Preliminary Resulted 07/30/16 22:22 Rectum VRE Culture - Final NO VANCOMYCIN RESISTANT ENTEROCOCCUS ... Complete Laboratory Tests Test 08/02/16 04:10 08/02/16 07:45 08/02/16 10:25 White Blood Count 11.5 K/UL (4.8-10.8) H Red Blood Count 2.83 M/UL (4.70-6.10) L Hemoglobin 9.2 G/DL (14.2-18.0) L Hematocrit 27.0 % (42.0-52.0) L Mean Corpuscular Volume 96 FL (80-99) Mean Corpuscular Hemoglobin 32.5 PG (27.0-31.0) H Mean Corpuscular Hemoglobin Concent 34.0 G/DL (32.0-36.0) Red Cell Distribution Width 12.9 % (11.6-14.8) Platelet Count 90 K/UL (150-450) L Mean Platelet Volume 7.5 FL (6.5-10.1) Neutrophils (%) (Auto) % (45.0-75.0) Lymphocytes (%) (Auto) % (20.0-45.0) Monocytes (%) (Auto) % (1.0-10.0) Eosinophils (%) (Auto) % (0.0-3.0) Basophils (%) (Auto) % (0.0-2.0) Differential Total Cells Counted 100 Neutrophils % (Manual) 88 % (45-75) H Lymphocytes % (Manual) 9 % (20-45) L Monocytes % (Manual) 2 % (1-10) Eosinophils % (Manual) 1 % (0-3) Basophils % (Manual) 0 % (0-2) Band Neutrophils 0 % (0-8) Platelet Estimate Decreased L Platelet Morphology Normal Red Blood Cell Morphology Normal Sodium Level 148 mEQ/L (135-145) H Potassium Level 4.4 mEQ/L (3.4-4.9) Chloride Level 113 mEQ/L (98-107) H Carbon Dioxide Level 21 mEQ/L (20-30) Anion Gap 14 (5-15) Blood Urea Nitrogen 49 mg/dL (7-23) H Creatinine 1.6 mg/dL (0.7-1.2) H Estimat Glomerular Filtration Rate 43.9 mL/min (>60) Glucose Level 146 mg/dL (74-106) H Calcium Level 6.9 mg/dL (8.6-10.2) L Phosphorus Level 2.9 mg/dL (2.5-4.8) Magnesium Level 2.2 mg/dL (1.7-2.5) Iron Level 10 ug/dL (59-158) L Total Iron Binding Capacity 128 ug/dL (250-400) L Percent Iron Saturation 8 % (15-50) L Unsaturated Iron Binding 118 ug/dL (112-346) Ferritin 343 ng/mL (10-230) H Total Bilirubin 0.3 mg/dL (0.0-1.2) Aspartate Amino Transf (AST/SGOT) 49 U/L (5-40) H Alanine Aminotransferase (ALT/SGPT) 14 U/L (3-41) Alkaline Phosphatase 37 U/L (40-129) L Total Protein 4.6 g/dL (6.6-8.7) L Albumin 1.8 g/dL (3.5-5.2) L Globulin 2.8 g/dL Albumin/Globulin Ratio 0.6 (1.0-2.7) L Vitamin B12 Level 680 pg/mL (211-946) Random Vancomycin Level 9.8 ug/mL Arterial Blood pH 7.340 (7.350-7.450) Arterial Blood Partial Pressure CO2 42.1 mmHg (35.0-45.0) Arterial Blood Partial Pressure O2 117.4 mmHg (75.0-100.0) H Arterial Blood HCO3 22.3 mmol/L (22.0-26.0) Arterial Blood Oxygen Saturation 97.7 % (92.0-98.0) Arterial Blood Base Excess -3.3 Romero Test Positive RBC Folate Hemolysate Pending Red Blood Cell Folate Pending Current Medications Medications (Trade) Dose Ordered Sig/Ernie Route PRN Reason Start Time Stop Time Status Last Admin Dose Admin Acetaminophen (OFIRMEV IV (Non formulary)) 100 ml @ 400 mls/hr Q6HR IV 08/01/16 18:00 08/03/16 12:14 08/02/16 17:57 Albuterol/ Ipratropium 3 ml 3 ml Q4H PRN HHN Shortness of Breath 08/02/16 13:00 08/07/16 12:59 Aztreonam 1 gm/ Sodium Chloride 55 ml @ 110 mls/hr Q8HR@0200,1000,1800 IVPB 08/02/16 18:00 08/08/16 17:59 08/02/16 17:58 Chlorhexidine Gluconate 1 applic 1 applic DAILY TOPIC 07/31/16 18:00 08/30/16 17:59 08/02/16 08:52 Dextrose (Dextrose 50%) STAT PRN IV Hypoglycemia 07/30/16 21:45 08/29/16 21:44 Dextrose/Sodium Chloride (D5 0.45% NS) 1,000 ml @ 125 mls/hr Q8H IV 07/31/16 11:00 08/30/16 10:59 08/02/16 12:25 Fentanyl Citrate 1000 mcg/Sodium Chloride 100 ml @ 0 mls/hr Q24H IV 07/31/16 20:00 08/07/16 19:59 08/02/16 14:12 Lorazepam (Ativan 2mg/ml 1ml) 2 mg Q2H PRN IV agitation 07/31/16 09:00 08/07/16 08:59 08/02/16 16:57 Metronidazole 100 ml @ 100 mls/hr Q8HR IVPB 08/01/16 14:00 08/08/16 13:59 08/02/16 15:08 Morphine Sulfate (Morphine Sulfate) 2 mg Q2H PRN IVP Severe Pain (Pain Scale 7-10) 07/31/16 09:00 08/07/16 08:59 08/02/16 14:16 Nitroglycerin (Ntg) 0.4 mg Q5M X 3 DOSES PRN SL Prn Chest Pain 07/30/16 21:45 08/29/16 21:44 Ondansetron HCl (Zofran) 4 mg Q6H PRN IVP Nausea & Vomiting 07/30/16 21:45 08/29/16 21:44 07/31/16 18:25 Pantoprazole 40 mg 40 mg BID IV 07/31/16 18:00 08/30/16 17:59 08/02/16 18:00 Promethazine HCl (Phenergan) 25 mg EVERY 8 HOURS PRN IV refractory nausea 07/30/16 21:45 08/29/16 21:44 Vancomycin HCl (Vanco rx to dose) 1 ea DAILY PRN MISC . 07/31/16 11:30 08/30/16 11:29 Vancomycin HCl/ Dextrose (Vancomycin/D5W) 275 ml @ 183.708 mls/hr Q12HR@0800,1999 IVPB 08/02/16 20:00 08/07/16 19:59 SANTANA HAGER M.D. Aug 02, 2016 19:45
[2016-08-02] MEDS: Vancomycin 750mg/D5W 275ml IVPB SCH ×2 (20:36)
[2016-08-03] VITALS (45 sets, daily range): BP systolic 91–153; BP diastolic 41–84
[2016-08-03] MEDS: Acetaminophen (Non formulary) 100 ML IV SCH ×3 (00:18→12:00)
[2016-08-03] MEDS: LORazepam Inj 2mg/ml 1ml IV PRN ×6 (00:51→20:26)
[2016-08-03] MEDS: Aztreonam Inj 1 GM in NS 55 ML IVPB SCH ×3 (01:57→14:40)
[2016-08-03] MEDS: D5 1/2NS 1,000 ML IV SCH (02:57)
[2016-08-03] MEDS: Morphine Sulfate 2mg/ml Inj IVP PRN ×2 (03:12→18:36)
[2016-08-03 05:18] LABS: MEAN CORPUSCULAR HEMOGLOBIN 30.8 PG (27.0-31.0); MEAN CORPUSCULAR HGB CONC 32.2 G/DL (32.0-36.0); MEAN CORPUSCULAR VOLUME 96 FL (80-99); MEAN PLATELET VOLUME 6.9 FL (6.5-10.1); PLATELET COUNT 110 K/UL (150-450); RED BLOOD COUNT 3.08 M/UL (4.70-6.10); RED CELL DISTRIBUTION WIDTH 13.3 % (11.6-14.8); WHITE BLOOD COUNT 10.3 K/UL (4.8-10.8)
[2016-08-03 05:20] LABS: PHOSPHORUS 2.1 mg/dL (2.5-4.8); URIC ACID 8.1 mg/dL (3.0-7.5)
[2016-08-03 05:27] LABS: ALANINE AMINOTRANSFERASE 16 U/L (3-41); ALBUMIN/GLOBULIN RATIO 0.8 (1.0-2.7); ANION GAP 12 (5-15); ASPARTATE AMINO TRANSFERASE 45 U/L (5-40); CALCIUM 7.3 mg/dL (8.6-10.2); CARBON DIOXIDE 24 mEQ/L (20-30); CHLORIDE 111 mEQ/L (98-107); CREATININE 1.2 mg/dL (0.7-1.2); GLOMERULAR FILTRATION RATE > 60 mL/min (>60); HEMOLYSIS 3; POTASSIUM 4.1 mEQ/L (3.4-4.9); SODIUM 147 mEQ/L (135-145); TOTAL PROTEIN 4.4 g/dL (6.6-8.7)
[2016-08-03] MEDS: metroNIDAZOLE 500mg 100 ML IVPB SCH ×3 (05:58→21:41)
--- NOTE | 2016-08-03 07:24 | Infectious Diseases Prog Note ---
Assessment/Plan Assessment/Plan A; Intraabdominal abscess, Polymicrobial Small bowel perforation HIV Acute renal failure improving Anemia P; Continue Vancomycin, Flagyl & Azactam Subjective ROS Limited/Unobtainable: Yes Constitutional: Reports: fever, other - low grade [id number] Allergies: Coded Allergies: PENICILLINS (Verified Allergy, Intermediate, 07/30/16) SULFA (SULFONAMIDE ANTIBIOTICS) (Verified Allergy, Intermediate, ITCHING, 07/30/16) Objective Vital Signs Last 24 Hour Vital Signs Date Time Temp Pulse Resp B/P Pulse Ox O2 Delivery O2 Flow Rate FiO2 08/03/16 06:54 95 23 30 08/03/16 06:30 95 22 128/62 96 Mechanical Ventilator 30 08/03/16 06:00 95 22 111/63 96 Mechanical Ventilator 30 08/03/16 06:00 22 08/03/16 05:57 99.6 08/03/16 05:30 93 23 128/62 95 Mechanical Ventilator 30 08/03/16 05:26 98 29 30 08/03/16 05:12 99.6 08/03/16 05:00 29 08/03/16 05:00 98 29 153/84 93 Mechanical Ventilator 30 08/03/16 04:37 26 08/03/16 04:30 91 24 114/59 93 Mechanical Ventilator 30 08/03/16 04:00 99.6 91 24 114/62 93 Mechanical Ventilator 30 08/03/16 04:00 22 08/03/16 04:00 91 08/03/16 04:00 30 08/03/16 03:30 93 21 128/65 94 Mechanical Ventilator 30 08/03/16 03:27 98.0 08/03/16 03:20 103 31 30 08/03/16 03:00 98 32 135/75 94 Mechanical Ventilator 30 08/03/16 03:00 28 08/03/16 02:30 98 26 124/62 99 Mechanical Ventilator 30 08/03/16 02:00 84 21 108/56 95 Mechanical Ventilator 30 08/03/16 02:00 22 08/03/16 01:30 87 23 113/43 97 Mechanical Ventilator 30 08/03/16 01:21 85 21 30 08/03/16 01:00 26 08/03/16 01:00 86 23 101/60 96 Mechanical Ventilator 30 08/03/16 00:50 98.0 6/18/17 00:30 86 21 109/53 97 Mechanical Ventilator 30 18/17 00:18 98.0 1817 00:00 97.8 92 24 115/65 96 Mechanical Ventilator 30 1817 00:00 92 1817 00:00 30 17 00:00 24 08/02/16 23:30 92 25 124/57 96 Mechanical Ventilator 30 08/02/16 23:26 90 28 30 17 23:00 92 24 128/63 97 Mechanical Ventilator 30 17 23:00 24 08/02/16 22:30 85 21 108/59 97 Mechanical Ventilator 30 08/02/16 22:00 84 22 108/59 96 Mechanical Ventilator 30 08/02/16 21:30 86 21 111/57 96 Mechanical Ventilator 30 08/02/16 21:06 91 22 30 08/02/16 21:00 29 08/02/16 21:00 91 29 115/59 100 Mechanical Ventilator 30 08/02/16 20:30 89 24 127/62 96 Mechanical Ventilator 30 08/02/16 20:00 98.0 85 24 111/60 94 Mechanical Ventilator 30 08/02/16 20:00 24 17 20:00 85 08/02/16 20:00 30 08/02/16 19:30 84 23 118/62 97 Mechanical Ventilator 30 08/02/16 19:11 86 22 30 17 19:00 89 24 122/61 97 Mechanical Ventilator 30 17 19:00 24 08/02/16 18:30 83 23 110/64 95 Mechanical Ventilator 30 17 17:57 100.0 17 17:30 85 21 111/61 93 Mechanical Ventilator 30 08/02/17 17:16 88 22 30 08/02/17 17:00 95 29 150/67 94 Mechanical Ventilator 30 17 16:30 89 25 118/60 96 Mechanical Ventilator 30 17 16:00 98.2 86 22 119/63 96 Mechanical Ventilator 30 17/17 16:00 30 17/17 16:00 83 1717 15:30 88 29 123/56 94 Mechanical Ventilator 30 17/17 15:00 92 29 136/71 96 Mechanical Ventilator 30 6/17/17 14:48 94 30 30 08/02/16 14:30 79 27 131/65 96 Mechanical Ventilator 30 08/02/16 14:12 29 08/02/16 14:00 79 19 117/68 95 Mechanical Ventilator 30 08/02/16 13:30 79 19 118/61 95 Mechanical Ventilator 30 08/02/16 13:00 79 19 111/66 95 Mechanical Ventilator 30 08/02/16 12:40 82 22 30 08/02/16 12:30 79 19 111/66 95 Mechanical Ventilator 30 08/02/16 12:00 99.1 78 18 118/61 97 Mechanical Ventilator 30 08/02/16 12:00 82 08/02/16 12:00 50 08/02/16 11:30 76 18 97/67 97 Mechanical Ventilator 30 08/02/16 11:00 82 20 107/56 97 Mechanical Ventilator 30 08/02/16 10:32 88 24 30 08/02/16 10:30 82 20 114/61 96 Mechanical Ventilator 30 08/02/16 10:00 95 22 116/67 95 Mechanical Ventilator 30 08/02/16 09:30 81 21 107/55 95 Mechanical Ventilator 30 08/02/16 09:00 82 22 107/54 95 Mechanical Ventilator 30 08/02/16 08:36 90 30 30 08/02/16 08:30 86 22 115/60 98 Mechanical Ventilator 30 08/02/16 08:08 30 08/02/16 08:00 50 08/02/16 08:00 98.9 87 25 125/60 99 Mechanical Ventilator 40 08/02/16 08:00 82 08/02/16 07:30 82 21 112/61 98 Mechanical Ventilator 40 Height (Feet): 5 Height (Inches): 9.00 Weight (Pounds): 195 HEENT: other - orally intubated Respiratory/Chest: lungs clear, other - on ventilator Cardiovascular: normal rate Abdomen: distended, other - NG tube, midline surgical gely are clean Extremities: no edema, other - R arm PICC line Neurologic/Psychiatric: disoriented, other - on restraint Microbiology Date/Time Source Procedure Growth Status 08/01/16 16:55 Blood Blood Culture - Preliminary NO GROWTH AFTER 24 HOURS Resulted 08/01/16 16:30 Blood Blood Culture - Preliminary NO GROWTH AFTER 24 HOURS Resulted Laboratory Tests Test 08/02/16 07:45 08/02/16 10:25 08/03/16 04:00 Arterial Blood pH 7.340 (7.350-7.450) Arterial Blood Partial Pressure CO2 42.1 mmHg (35.0-45.0) Arterial Blood Partial Pressure O2 117.4 mmHg (75.0-100.0) H Arterial Blood HCO3 22.3 mmol/L (22.0-26.0) Arterial Blood Oxygen Saturation 97.7 % (92.0-98.0) Arterial Blood Base Excess -3.3 Romero Test Positive RBC Folate Hemolysate Pending Red Blood Cell Folate Pending White Blood Count 10.3 K/UL (4.8-10.8) Red Blood Count 3.08 M/UL (4.70-6.10) L Hemoglobin 9.5 G/DL (14.2-18.0) L Hematocrit 29.4 % (42.0-52.0) L Mean Corpuscular Volume 96 FL (80-99) Mean Corpuscular Hemoglobin 30.8 PG (27.0-31.0) Mean Corpuscular Hemoglobin Concent 32.2 G/DL (32.0-36.0) Red Cell Distribution Width 13.3 % (11.6-14.8) Platelet Count 110 K/UL (150-450) L Mean Platelet Volume 6.9 FL (6.5-10.1) Neutrophils (%) (Auto) % (45.0-75.0) Lymphocytes (%) (Auto) % (20.0-45.0) Monocytes (%) (Auto) % (1.0-10.0) Eosinophils (%) (Auto) % (0.0-3.0) Basophils (%) (Auto) % (0.0-2.0) Neutrophils % (Manual) Pending Lymphocytes % (Manual) Pending Platelet Estimate Pending Platelet Morphology Pending Sodium Level 147 mEQ/L (135-145) H Potassium Level 4.1 mEQ/L (3.4-4.9) Chloride Level 111 mEQ/L (98-107) H Carbon Dioxide Level 24 mEQ/L (20-30) Anion Gap 12 (5-15) Blood Urea Nitrogen 24 mg/dL (7-23) #H Creatinine 1.2 mg/dL (0.7-1.2) Estimat Glomerular Filtration Rate > 60 mL/min (>60) Glucose Level 137 mg/dL (74-106) H Uric Acid 8.1 mg/dL (3.0-7.5) H Calcium Level 7.3 mg/dL (8.6-10.2) L Phosphorus Level 2.1 mg/dL (2.5-4.8) L Magnesium Level 2.0 mg/dL (1.7-2.5) Total Bilirubin 0.4 mg/dL (0.0-1.2) Aspartate Amino Transf (AST/SGOT) 45 U/L (5-40) H Alanine Aminotransferase (ALT/SGPT) 16 U/L (3-41) Alkaline Phosphatase 48 U/L (40-129) C-Reactive Protein, Quantitative 14.0 mg/dL (< 0.5) H Pro-B-Type Natriuretic Peptide 967 pg/mL (0-125) H Total Protein 4.4 g/dL (6.6-8.7) L Albumin 2.0 g/dL (3.5-5.2) L Globulin 2.4 g/dL Albumin/Globulin Ratio 0.8 (1.0-2.7) L Current Medications Medications (Trade) Dose Ordered Sig/Ernie Route PRN Reason Start Time Stop Time Status Last Admin Dose Admin Acetaminophen (OFIRMEV IV (Non formulary)) 100 ml @ 400 mls/hr Q6HR IV 08/01/16 18:00 08/03/16 12:14 08/03/16 05:57 Albuterol/ Ipratropium 3 ml 3 ml Q4H PRN HHN Shortness of Breath 08/02/16 13:00 08/07/16 12:59 Aztreonam 1 gm/ Sodium Chloride 55 ml @ 110 mls/hr Q8HR@0200,1000,1800 IVPB 08/02/16 18:00 08/08/16 17:59 08/03/16 01:57 Chlorhexidine Gluconate 1 applic 1 applic DAILY TOPIC 07/31/16 18:00 08/30/16 17:59 08/02/16 08:52 Dextrose (Dextrose 50%) STAT PRN IV Hypoglycemia 07/30/16 21:45 08/29/16 21:44 Dextrose/Sodium Chloride (D5 0.45% NS) 1,000 ml @ 125 mls/hr Q8H IV 07/31/16 11:00 08/30/16 10:59 08/03/16 02:57 Fentanyl Citrate 1000 mcg/Sodium Chloride 100 ml @ 0 mls/hr Q24H IV 07/31/16 20:00 08/07/16 19:59 08/03/16 04:37 Lorazepam (Ativan 2mg/ml 1ml) 2 mg Q2H PRN IV agitation 07/31/16 09:00 08/07/16 08:59 08/03/16 03:27 Metronidazole 100 ml @ 100 mls/hr Q8HR IVPB 08/01/16 14:00 08/08/16 13:59 08/03/16 05:58 Morphine Sulfate (Morphine Sulfate) 2 mg Q2H PRN IVP Severe Pain (Pain Scale 7-10) 07/31/16 09:00 08/07/16 08:59 08/03/16 03:12 Nitroglycerin (Ntg) 0.4 mg Q5M X 3 DOSES PRN SL Prn Chest Pain 07/30/16 21:45 08/29/16 21:44 Ondansetron HCl (Zofran) 4 mg Q6H PRN IVP Nausea & Vomiting 07/30/16 21:45 08/29/16 21:44 07/31/16 18:25 Pantoprazole 40 mg 40 mg BID IV 07/31/16 18:00 08/30/16 17:59 08/02/16 18:00 Promethazine HCl (Phenergan) 25 mg EVERY 8 HOURS PRN IV refractory nausea 07/30/16 21:45 08/29/16 21:44 Vancomycin HCl (Vanco rx to dose) 1 ea DAILY PRN MISC . 07/31/16 11:30 08/30/16 11:29 Vancomycin HCl/ Dextrose (Vancomycin/D5W) 275 ml @ 183.708 mls/hr Q12HR@0800,2000 IVPB 08/02/16 20:00 08/07/16 19:59 08/02/16 20:36 ADRIAN BAY Aug 03, 2016 07:24
--- NOTE | 2016-08-03 09:12 | Pulmonolgy Critical Care Note ---
Critical Care - Asmt/Plan Assessment/Plan: ASSESSMENT acute respiratory failure requiring intubation sepsis intraabdominal abscess SB perforation 2 to recent laparoscopic hernia repair, resulting in intraabdominal abscess and SB obstruction SB obstruction s/p 07/31 exp lap with drainage of intraabdominal abscess, lysis of adhesions, partial omentectomy and partial SB resection hx of recent laparoscopic left inguinal hernia repair ARF possible PNA anemia pancreatitis HIV status bipolar disorder PLAN OF CARE ICU status IVF NPO NGT to suction -200 cc last night surgery follows, wound care abx, ID follows fup with final results of peritoneal fluid cx abx as per ID management vent support, pulmonary toilet weaning when ready, but not now no signs of respiratory distress on current settings CXR with possible PNA, ABG this am stable on current settings, keep as is and titrate as needed fup CXR and ABG in am pain management still on fentanyl gtt nephro follows renal parameters improving creat trending down monitor renal parameters and lytes, replace as needed avoid nephrotoxic GI follows defer any GI procedures at this time trend lipase stool C dif negative HH with trend down anemia work up with low iron, Venofer x 1 today monitor HH, transfuse prn, stable this am , no further trend down stool OB outpt colonoscopy if survives ART therapy on hold, resume when start eating SCD for DVT prophylaxis case discussed and evaluated by supervising physician Critical Care - Objective Last 24 Hour Vital Signs Date Time Temp Pulse Resp B/P Pulse Ox O2 Delivery O2 Flow Rate FiO2 08/03/16 09:01 102 26 30 08/03/16 08:01 99.8 95 21 115/59 99 Mechanical Ventilator 10.0 30 95 08/03/16 08:00 96 08/03/16 08:00 30 08/03/16 06:54 95 23 30 08/03/16 06:30 95 22 128/62 96 Mechanical Ventilator 30 08/03/16 06:00 95 22 111/63 96 Mechanical Ventilator 30 08/03/16 06:00 22 08/03/16 05:57 99.6 08/03/16 05:30 93 23 128/62 95 Mechanical Ventilator 30 08/03/16 05:26 98 29 30 08/03/16 05:12 99.6 08/03/16 05:00 29 08/03/16 05:00 98 29 153/84 93 Mechanical Ventilator 30 08/03/16 04:37 26 18 04:30 91 24 114/59 93 Mechanical Ventilator 30 1817 04:00 99.6 91 24 114/62 93 Mechanical Ventilator 30 18/17 04:00 22 1817 04:00 91 1817 04:00 30 08/03/16 03:30 93 21 128/65 94 Mechanical Ventilator 30 18 03:27 98.0 18 03:20 103 31 30 08/03/16 03:00 98 32 135/75 94 Mechanical Ventilator 30 1817 03:00 28 08/03/16 02:30 98 26 124/62 99 Mechanical Ventilator 30 08/03/16 02:00 84 21 108/56 95 Mechanical Ventilator 30 08/03/16 02:00 22 08/03/16 01:30 87 23 113/43 97 Mechanical Ventilator 30 08/03/16 01:21 85 21 30 17 01:00 26 08/03/16 01:00 86 23 101/60 96 Mechanical Ventilator 30 08/03/16 00:50 98.0 08/03/16 00:30 86 21 109/53 97 Mechanical Ventilator 30 08/03/16 00:18 98.0 08/03/16 00:00 97.8 92 24 115/65 96 Mechanical Ventilator 30 08/03/16 00:00 92 18 00:00 30 08/03/16 00:00 24 08/02/16 23:30 92 25 124/57 96 Mechanical Ventilator 30 08/02/16 23:26 90 28 30 08/02/16 23:00 92 24 128/63 97 Mechanical Ventilator 30 08/02/16 23:00 24 08/02/16 22:30 85 21 108/59 97 Mechanical Ventilator 30 08/02/16 22:00 84 22 108/59 96 Mechanical Ventilator 30 08/02/16 21:30 86 21 111/57 96 Mechanical Ventilator 30 08/02/16 21:06 91 22 30 08/02/16 21:00 29 08/02/16 21:00 91 29 115/59 100 Mechanical Ventilator 30 08/02/ 20:30 89 24 127/62 96 Mechanical Ventilator 30 08/02/16 20:00 98.0 85 24 111/60 94 Mechanical Ventilator 30 08/02/16 20:00 24 08/02/16 20:00 85 08/02/16 20:00 30 08/02/16 19:30 84 23 118/62 97 Mechanical Ventilator 30 08/02/16 19:11 86 22 30 08/02/16 19:00 89 24 122/61 97 Mechanical Ventilator 30 08/02/16 19:00 24 08/02/16 18:30 83 23 110/64 95 Mechanical Ventilator 30 08/02/16 17:57 100.0 08/02/16 17:30 85 21 111/61 93 Mechanical Ventilator 30 08/02/16 17:16 88 22 30 08/02/16 17:00 95 29 150/67 94 Mechanical Ventilator 30 08/02/16 16:30 89 25 118/60 96 Mechanical Ventilator 30 08/02/16 16:00 98.2 86 22 119/63 96 Mechanical Ventilator 30 08/02/16 16:00 30 08/02/16 16:00 83 08/02/16 15:30 88 29 123/56 94 Mechanical Ventilator 30 08/02/16 15:00 92 29 136/71 96 Mechanical Ventilator 30 08/02/16 14:48 94 30 30 08/02/16 14:30 79 27 131/65 96 Mechanical Ventilator 30 08/02/16 14:12 29 08/02/16 14:00 79 19 117/68 95 Mechanical Ventilator 30 08/02/16 13:30 79 19 118/61 95 Mechanical Ventilator 30 08/02/16 13:00 79 19 111/66 95 Mechanical Ventilator 30 08/02/16 12:40 82 22 30 08/02/16 12:30 79 19 111/66 95 Mechanical Ventilator 30 08/02/16 12:00 99.1 78 18 118/61 97 Mechanical Ventilator 30 08/02/16 12:00 82 08/02/16 12:00 50 08/02/16 11:30 76 18 97/67 97 Mechanical Ventilator 30 08/02/16 11:00 82 20 107/56 97 Mechanical Ventilator 30 08/02/16 10:32 88 24 30 08/02/16 10:30 82 20 114/61 96 Mechanical Ventilator 30 08/02/16 10:00 95 22 116/67 95 Mechanical Ventilator 30 08/02/16 09:30 81 21 107/55 95 Mechanical Ventilator 30 Objective: Status: sedated Condition: critical HEENT: atraumatic, normocephalic, OP with ET in place, intact, NGT to suction Lungs: clear Heart: HR/BP stable, regular, RUE PICC intact Abdomen: soft, non-tender, surgical wound with dressing C/D/I Extremities: no C/C/E, other - SCD on Micro: Microbiology Date/Time Source Procedure Growth Status 08/01/16 16:55 Blood Blood Culture - Preliminary NO GROWTH AFTER 24 HOURS Resulted 08/01/16 16:30 Blood Blood Culture - Preliminary NO GROWTH AFTER 24 HOURS Resulted Accucheck: 179 Critical Care - Subjective ROS Limited/Unobtainable: Yes Interval Events: still intermittent fevers, leukocytosis resolved ABG this am stable no signs of respiratory distress on current settings Condition: critical IV Access: PICC - RUE intact EKG Rhythm: Sinus Rhythm FI02: 30 Vent Support Breath Rate: 10 Vent Support Mode: AC Vent Tidal Volume: 500 Sputum Amount: Small PEEP: 5.0 PIP: 8 Fluids: D51/2 NS at 125 Drips: fentanyl gtt at 60 I&O: Intake and Output 08/02/16 08/03/16 19:00 07:00 Intake Total 359 ml 1940.000 ml Output Total 1305 ml 1040 ml Balance -946 ml 900.000 ml Intake IV Total 359 ml 1940.000 ml Output Urine Total 1305 ml 840 ml Gastric Drainage Total 200 ml CXR: 08/02 Stable perihilar and basilar atelectasis versus infiltrates. ET-Tube: 7.5 ET Position: 25 Maxime (Randyvirt[facility] voorheesLicha Jackson NP Aug 03, 2016 09:12
[2016-08-03] MEDS: Vancomycin 750mg/D5W 275ml IVPB SCH ×4 (09:20→20:26)
[2016-08-03] MEDS ORDERED: Sodium Phosphate 30 MM in NS 275 ML IVPB ONE (09:30)
[2016-08-03] MEDS: Pantoprazole Inj IV SCH ×2 (09:37→17:41)
[2016-08-03] MEDS: Dyna-Hex 2% Top Sol 8oz TOPIC SCH (09:38)
[2016-08-03 09:47] LABS: ABG ALLEN TEST POSITIVE; ABG BASE EXCESS 1.9
[2016-08-03 10:23] LABS: LYMPHOCYTES % (MANUAL) 4 % (20-45); NEUTROPHILS % (MANUAL) 94 % (45-75); TOTAL CELLS COUNTED 100
[2016-08-03 10:26] LABS: BAND NEUTROPHILS % (MANUAL) 0 % (0-8); BASOPHILS % (MANUAL) 0 % (0-2); EOSINOPHILS % (MANUAL) 0 % (0-3); HYPOCHROMASIA 1+; PLATELET ESTIMATE DECREASED; PLATELET MORPHOLOGY NORMAL
[2016-08-03] MEDS ORDERED: Iron Sucrose 100 MG in NS 55 ML IVPB ONE (11:00)
--- NOTE | 2016-08-03 11:07 | General Progress Note ---
Assessment/Plan Assessment/Plan Assessment (1) Hypoalbuminemia ICD Codes: E88.09 - Other disorders of plasma-protein metabolism, not elsewhere classified SNOMED: 456658800 (2) Anemia ICD Codes: D64.9 - Anemia, unspecified SNOMED: 572156431 (3) Pancreatitis ICD Codes: K85.90 - Acute pancreatitis without necrosis or infection, unspecified SNOMED: 68293382 Qualifiers: Qualified Codes: K85.80 - Other acute pancreatitis without necrosis or infection (4) Intra-abdominal abscess ICD Codes: K65.1 - Peritoneal abscess SNOMED: 89503077 (5) Ischemia, bowel ICD Codes: K55.9 - Vascular disorder of intestine, unspecified SNOMED: 34998404 Status: unchanged Recommendations s/p Exploratory laparotomy, drainage of abdominal abscess, lysis of adhesions, partial omentectomy and partial small-bowel resection. c diff negative defer GI procedures at this time fu with surgical recs NPO + IVFs abx ppi NGT -- eventual diet per surgery fu labs outpatient colonoscopy Subjective Allergies: Coded Allergies: PENICILLINS (Verified Allergy, Intermediate, 07/30/16) SULFA (SULFONAMIDE ANTIBIOTICS) (Verified Allergy, Intermediate, ITCHING, 07/30/16) Subjective Seen in ICU intubated d/w RN agitated Objective Last 24 Hour Vital Signs Date Time Temp Pulse Resp B/P Pulse Ox O2 Delivery O2 Flow Rate FiO2 08/03/16 10:30 107 30 138/76 96 Mechanical Ventilator 10.0 30 08/03/16 10:00 106 28 126/69 96 Mechanical Ventilator 10.0 30 08/03/16 09:30 101 25 123/72 96 Mechanical Ventilator 10.0 30 101 08/03/16 09:10 101 26 125/76 96 Mechanical Ventilator 10.0 30 101 08/03/16 09:01 102 26 30 08/03/16 08:01 99.8 95 21 115/59 99 Mechanical Ventilator 10.0 30 95 08/03/16 08:00 96 08/03/16 08:00 30 08/03/16 06:54 95 23 30 08/03/16 06:30 95 22 128/62 96 Mechanical Ventilator 30 08/03/16 06:00 95 22 111/63 96 Mechanical Ventilator 30 08/03/16 06:00 22 08/03/16 05:57 99.6 08/03/16 05:30 93 23 128/62 95 Mechanical Ventilator 30 6/18/17 05:26 98 29 30 6/18/17 05:12 99.6 6/18/17 05:00 29 618/17 05:00 98 29 153/84 93 Mechanical Ventilator 30 6/18/17 04:37 26 6/18/17 04:30 91 24 114/59 93 Mechanical Ventilator 30 618/17 04:00 99.6 91 24 114/62 93 Mechanical Ventilator 30 618/17 04:00 22 618/17 04:00 91 618/17 04:00 30 618/17 03:30 93 21 128/65 94 Mechanical Ventilator 30 618/17 03:27 98.0 618/17 03:20 103 31 30 618/17 03:00 98 32 135/75 94 Mechanical Ventilator 30 618/17 03:00 28 08/03/17 02:30 98 26 124/62 99 Mechanical Ventilator 30 618/17 02:00 84 21 108/56 95 Mechanical Ventilator 30 618/17 02:00 22 618/17 01:30 87 23 113/43 97 Mechanical Ventilator 30 618/17 01:21 85 21 30 618/17 01:00 26 618/17 01:00 86 23 101/60 96 Mechanical Ventilator 30 618/17 00:50 98.0 618/17 00:30 86 21 109/53 97 Mechanical Ventilator 30 618/17 00:18 98.0 18/17 00:00 97.8 92 24 115/65 96 Mechanical Ventilator 30 618/17 00:00 92 618/17 00:00 30 618/17 00:00 24 08/02/16 23:30 92 25 124/57 96 Mechanical Ventilator 30 6/17 23:26 90 28 30 6/17 23:00 92 24 128/63 97 Mechanical Ventilator 30 6/ 23:00 24 617 22:30 85 21 108/59 97 Mechanical Ventilator 30 6/ 22:00 84 22 108/59 96 Mechanical Ventilator 30 6/ 21:30 86 21 111/57 96 Mechanical Ventilator 30 6/ 21:06 91 22 30 6/ 21:00 29 08/02/16 21:00 91 29 115/59 100 Mechanical Ventilator 30 08/02/16 20:30 89 24 127/62 96 Mechanical Ventilator 30 08/02/16 20:00 98.0 85 24 111/60 94 Mechanical Ventilator 30 08/02/16 20:00 24 08/02/16 20:00 85 08/02/16 20:00 30 08/02/16 19:30 84 23 118/62 97 Mechanical Ventilator 30 08/02/16 19:11 86 22 30 08/02/16 19:00 89 24 122/61 97 Mechanical Ventilator 30 08/02/16 19:00 24 08/02/16 18:30 83 23 110/64 95 Mechanical Ventilator 30 08/02/16 17:57 100.0 08/02/16 17:30 85 21 111/61 93 Mechanical Ventilator 30 08/02/16 17:16 88 22 30 08/02/16 17:00 95 29 150/67 94 Mechanical Ventilator 30 08/02/16 16:30 89 25 118/60 96 Mechanical Ventilator 30 08/02/16 16:00 98.2 86 22 119/63 96 Mechanical Ventilator 30 08/02/16 16:00 30 08/02/16 16:00 83 08/02/16 15:30 88 29 123/56 94 Mechanical Ventilator 30 08/02/16 15:00 92 29 136/71 96 Mechanical Ventilator 30 08/02/16 14:48 94 30 30 08/02/16 14:30 79 27 131/65 96 Mechanical Ventilator 30 08/02/16 14:12 29 08/02/16 14:00 79 19 117/68 95 Mechanical Ventilator 30 08/02/16 13:30 79 19 118/61 95 Mechanical Ventilator 30 08/02/16 13:00 79 19 111/66 95 Mechanical Ventilator 30 08/02/16 12:40 82 22 30 08/02/16 12:30 79 19 111/66 95 Mechanical Ventilator 30 08/02/16 12:00 99.1 78 18 118/61 97 Mechanical Ventilator 30 08/02/16 12:00 82 08/02/16 12:00 50 08/02/16 11:30 76 18 97/67 97 Mechanical Ventilator 30 Intake and Output 08/02/16 08/03/16 19:00 07:00 Intake Total 359 ml 1940.000 ml Output Total 1305 ml 940 ml Balance -946 ml 1000.000 ml Intake IV Total 359 ml 1940.000 ml Output Urine Total 1305 ml 840 ml Gastric Drainage Total 100 ml Laboratory Tests 08/03/16 04:00: White Blood Count 10.3, Red Blood Count 3.08L, Hemoglobin 9.5L, Hematocrit 29.4L , Mean Corpuscular Volume 96, Mean Corpuscular Hemoglobin 30.8, Mean Corpuscular Hemoglobin Concent 32.2, Red Cell Distribution Width 13.3, Platelet Count 110L, Mean Platelet Volume 6.9, Neutrophils (%) (Auto) , Lymphocytes (%) ( Auto) , Monocytes (%) (Auto) , Eosinophils (%) (Auto) , Basophils (%) (Auto) , Differential Total Cells Counted 100, Neutrophils % (Manual) 94H, Lymphocytes % (Manual) 4L, Monocytes % (Manual) 2, Eosinophils % (Manual) 0, Basophils % ( Manual) 0, Band Neutrophils 0, Platelet Estimate DecreasedL, Platelet Morphology Normal, Hypochromasia 1+, Sodium Level 147H, Potassium Level 4.1, Chloride Level 111H, Carbon Dioxide Level 24, Anion Gap 12, Blood Urea Nitrogen 24#H, Creatinine 1.2, Estimat Glomerular Filtration Rate > 60, Glucose Level 137H, Uric Acid 8.1H, Calcium Level 7.3L, Phosphorus Level 2.1L, Magnesium Level 2.0, Total Bilirubin 0.4, Aspartate Amino Transf (AST/SGOT) 45H, Alanine Aminotransferase (ALT/SGPT) 16, Alkaline Phosphatase 48, C-Reactive Protein, Quantitative 14.0H, Pro-B-Type Natriuretic Peptide 967H, Total Protein 4.4L, Albumin 2.0L, Globulin 2.4, Albumin/Globulin Ratio 0.8L 08/03/16 09:15: Arterial Blood pH 7.451H, Arterial Blood Partial Pressure CO2 38.0, Arterial Blood Partial Pressure O2 87.3, Arterial Blood HCO3 25.9, Arterial Blood Oxygen Saturation 96.0, Arterial Blood Base Excess 1.9, Romero Test Positive Height (Feet): 5 Height (Inches): 9.00 Weight (Pounds): 195 Objective WDWN NCAT supple CTA RRR flat abd, (+) midline surgical scar no edema neuro restrained MIKE HARRIS Aug 03, 2016 11:07
[2016-08-03] MEDS ORDERED: Zemuron 50mg/5ml Inj IV ONE (11:26)
--- NOTE | 2016-08-03 13:47 | General Progress Note ---
Progress Note Progress Note Surgery: Patient seen and examined at bedside. No acute events. low grade fever 100.6. labs improving (leukocytosis resolved, Cr improved), exam stable. ABG good. Midline wound with some erythema so gely removed to evaluate wound. wound clean, fascia intact, no drainage noted. packing and dressings applied. s/p ex-lap with evacuation of abscess, abdominal washout, small bowel resection , partial omentectomy for perforated viscus -Continue with ICU care and management. appreciate ICU team care -NPO with IV fluids -IV Abx -wean vent and sedation as tolerated -packing and dressings to midline wound BID. Luis Felipe Samuels Aug 03, 2016 13:47
[2016-08-03] MEDS ORDERED: Tubing IV Secondary IV ONE ×2 (15:55→16:04)
[2016-08-03] MEDS ORDERED: D5 1/2NS 1000ml IV ONE (15:55)
--- NOTE | 2016-08-03 18:00 | Cardiology Report ---
APPROVED REPORT EXAM: Two-dimensional and M-mode echocardiogram with Doppler and color Doppler. INDICATION Tachycardia M-Mode DIMENSIONS IVSd0.8 (0.7-1.1cm)Left Atrium (MM)4.1 (1.6-4.0cm) LVDd3.9 (3.5-5.6cm)Aortic Root3.2 (2.0-3.7cm) PWd0.8 (0.7-1.1cm)Aortic Cusp Exc.1.8 (1.5-2.0cm) LVDs2.5 (2.5-4.0cm) PWs0.9 cm Technically difficult study due to poor acoustic windows. Normal left ventricular chamber size, systolic function and wall motion. Left ventricular ejection fraction estimated to be 60-65%. Mild left ventricular hypertrophy. No evidence of pericardial fat or effusion. Right cardiac chamber sizes are within normal limits. Mild left atrial enlargement by 2D. Focal aortic valve sclerosis with adequate cusp excursion Thickened mitral valve leaflets with normal excursion. Mild mitral annulus and aortic root calcification. Pulmonic valve not well visualized. Normal tricuspid valve structure. IVC not obtainable. A color flow and spectral Doppler study was performed and revealed: No aortic regurgitation. No mitral regurgitation. Left ventricular diastolic dysfunction grade 1. No tricuspid regurgitation. Tricuspid systolic velocities suggests peak right ventricular systolic pressure of 16 mmHg
[2016-08-03] MEDS ORDERED: Acetaminophen (Non formulary) 100 ML IV SCH (20:00)
[2016-08-04] VITALS (47 sets, daily range): BP systolic 90–161; BP diastolic 47–89
[2016-08-04] MEDS: Aztreonam Inj 1 GM in NS 55 ML IVPB SCH ×3 (02:16→17:12)
[2016-08-04] MEDS: LORazepam Inj 2mg/ml 1ml IV PRN ×4 (03:34→23:04)
[2016-08-04] MEDS: Morphine Sulfate 2mg/ml Inj IVP PRN ×2 (03:42→18:43)
[2016-08-04] MEDS: Dyna-Hex 2% Top Sol 8oz TOPIC SCH ×2 (04:28→20:13)
[2016-08-04 05:15] LABS: MEAN CORPUSCULAR HEMOGLOBIN 30.8 PG (27.0-31.0); MEAN CORPUSCULAR HGB CONC 32.6 G/DL (32.0-36.0); MEAN CORPUSCULAR VOLUME 94 FL (80-99); MEAN PLATELET VOLUME 7.6 FL (6.5-10.1); PLATELET COUNT 194 K/UL (150-450); RED BLOOD COUNT 3.55 M/UL (4.70-6.10); RED CELL DISTRIBUTION WIDTH 13.5 % (11.6-14.8)
[2016-08-04 05:21] LABS: WHITE BLOOD COUNT 27.1 K/UL (4.8-10.8)
[2016-08-04 05:24] LABS: ALANINE AMINOTRANSFERASE 18 U/L (3-41); ALBUMIN/GLOBULIN RATIO 0.6 (1.0-2.7); ANION GAP 10 (5-15); ASPARTATE AMINO TRANSFERASE 48 U/L (5-40); CALCIUM 7.5 mg/dL (8.6-10.2); CARBON DIOXIDE 27 mEQ/L (20-30); CHLORIDE 110 mEQ/L (98-107); CREATININE 1.1 mg/dL (0.7-1.2); GLOMERULAR FILTRATION RATE > 60 mL/min (>60); HEMOLYSIS 3; SODIUM 147 mEQ/L (135-145); TOTAL PROTEIN 5.6 g/dL (6.6-8.7)
[2016-08-04] MEDS: metroNIDAZOLE 500mg 100 ML IVPB SCH ×3 (05:33→22:03)
[2016-08-04] MEDS: Vancomycin 1250mg in D5W 275ml IVPB SCH ×2 (05:55→17:12)
[2016-08-04] MEDS: Pantoprazole Inj IV SCH ×2 (08:33→17:12)
[2016-08-04 08:34] LABS: BAND NEUTROPHILS % (MANUAL) 0 % (0-8); BASOPHILS % (MANUAL) 0 % (0-2); EOSINOPHILS % (MANUAL) 2 % (0-3); HYPOCHROMASIA 1+; LYMPHOCYTES % (MANUAL) 6 % (20-45); NEUTROPHILS % (MANUAL) 87 % (45-75); PLATELET ESTIMATE ADEQUATE; PLATELET MORPHOLOGY NORMAL; TOTAL CELLS COUNTED 100
--- NOTE | 2016-08-04 08:41 | Diagnostic Imaging Report ---
Indication: Chest pain Technique: XRAY CHEST 1 V Comparison: 08/02/16 Findings: Endotracheal tube, nasogastric tube and right PICC line are again noted. The right PICC line has been repositioned now with tip projecting over the SVC/atrial junction. There is atelectasis or infiltrate in the right base. Left basilar atelectasis is noted. Osseous structures are stable. Impression: Satisfactory repositioning of the right PICC line. Redemonstration of right basilar atelectasis versus infiltrate.
[2016-08-04 09:04] LABS: ABG ALLEN TEST POSITIVE; ABG BASE EXCESS 3.2; ABG PCO2 42.3 mmHg (35.0-45.0)
--- NOTE | 2016-08-04 09:17 | Infectious Diseases Prog Note ---
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 HIV (reportedly the patient's undetectable viral load and CD4 count was 300). PLAN: l continue the patient on aztreonam, Flagyl and vancomycin d# 5 / 10 Monitor CBC Monitor BMP. Monitor cx ( Bl, Ur, SP ) CT of C/A/P w contrast ro Abscess DW Nephro . Subjective Allergies: Coded Allergies: PENICILLINS (Verified Allergy, Intermediate, 07/30/16) SULFA (SULFONAMIDE ANTIBIOTICS) (Verified Allergy, Intermediate, ITCHING, 07/30/16) Subjective on vent , WBC increased Objective Vital Signs Last 24 Hour Vital Signs Date Time Temp Pulse Resp B/P Pulse Ox O2 Delivery O2 Flow Rate FiO2 08/04/16 08:33 89 17 30 08/04/16 08:30 88 20 93/60 96 Mechanical Ventilator 30 08/04/16 08:00 90 08/04/16 08:00 30 08/04/16 08:00 20 08/04/16 08:00 99.0 87 19 100/56 98 Mechanical Ventilator 30 08/04/16 07:30 120 20 110/57 96 Mechanical Ventilator 30 08/04/16 07:00 90 19 104/57 96 Mechanical Ventilator 30 08/04/16 07:00 23 08/04/16 07:00 21 08/04/16 06:32 95 19 30 08/04/16 06:30 87 19 100/54 96 Mechanical Ventilator 30 08/04/16 06:00 90 20 100/54 96 Mechanical Ventilator 30 08/04/16 06:00 24 08/04/16 05:30 94 21 99/57 95 Mechanical Ventilator 30 08/04/16 05:05 114 30 30 08/04/16 05:00 24 08/04/16 05:00 103 24 104/57 95 Mechanical Ventilator 30 08/04/16 04:30 98.7 103 24 119/76 93 Mechanical Ventilator 30 08/04/16 04:12 97.8 08/04/16 04:00 102 26 154/89 98 Mechanical Ventilator 30 08/04/16 04:00 23 08/04/16 04:00 91 08/04/16 04:00 30 08/04/16 03:30 102 26 154/89 98 Mechanical Ventilator 30 08/04/16 03:18 103 31 30 08/04/16 03:00 103 26 154/89 98 Mechanical Ventilator 30 08/04/16 03:00 23 08/04/16 02:30 100 26 129/79 98 Mechanical Ventilator 30 08/04/16 02:00 100 26 129/79 97 Mechanical Ventilator 30 08/04/16 02:00 22 08/04/16 01:30 100 26 99/56 96 Mechanical Ventilator 30 08/04/16 01:00 23 08/04/16 01:00 100 25 100/52 96 Mechanical Ventilator 30 08/04/16 00:43 104 24 30 08/04/16 00:30 99 25 98/55 96 Mechanical Ventilator 30 08/04/16 00:00 97.8 88 23 90/47 96 Mechanical Ventilator 30 08/04/16 00:00 30 08/04/16 00:00 26 08/04/16 00:00 90 08/03/16 23:30 87 23 91/41 95 Mechanical Ventilator 30 08/03/16 23:00 87 24 101/50 95 Mechanical Ventilator 30 08/03/16 23:00 25 08/03/16 22:50 88 25 30 08/03/16 22:30 87 24 95/49 94 Mechanical Ventilator 30 08/03/16 22:12 97.5 08/03/16 22:00 87 25 95/49 93 Mechanical Ventilator 30 08/03/16 22:00 26 17 21:42 20 61817 21:30 85 25 95/58 96 Mechanical Ventilator 30 08/03/16 21:25 97.5 61817 21:07 86 24 30 1817 21:00 86 25 95/58 94 Mechanical Ventilator 30 08/03/16 21:00 26 17 20:30 92 25 93/56 94 Mechanical Ventilator 30 18 20:26 98.0 618/17 20:00 30 1817 20:00 25 61817 20:00 117 1817 20:00 98.0 117 24 111/61 94 Mechanical Ventilator 30 6/18/17 19:30 109 24 130/59 94 Mechanical Ventilator 30 6/18/17 19:05 107 32 30 6/18/17 19:00 108 32 151/68 92 Mechanical Ventilator 30 6/18/17 19:00 24 6/18/17 18:30 122 35 146/78 97 Mechanical Ventilator 30 6/18/17 18:00 89 21 123/64 99 Mechanical Ventilator 30 6/18/17 18:00 25 6/18/17 17:30 88 24 116/66 97 Mechanical Ventilator 30 6/18/17 17:06 88 23 30 6/18/17 17:00 90 23 111/65 100 Mechanical Ventilator 30 6/18/17 17:00 24 6/18/17 16:30 90 25 111/65 98 Mechanical Ventilator 30 6/18/17 16:00 30 6/18/17 16:00 24 6/18/17 16:00 89 6/18/17 16:00 98.1 88 24 112/61 98 Mechanical Ventilator 30 6/18/17 15:30 100 19 126/70 98 Mechanical Ventilator 30 6/18/17 15:12 83 21 30 6/18/17 15:00 84 20 122/63 100 Mechanical Ventilator 30 6/18/17 15:00 23 6/18/17 14:30 102 27 112/57 97 Mechanical Ventilator 30 6/18/17 14:00 31 6/18/17 14:00 101 26 118/68 97 Mechanical Ventilator 30 6/18/17 13:30 112 32 122/68 95 Mechanical Ventilator 30 6/18/17 13:00 98 30 122/63 95 Mechanical Ventilator 30 6/18/17 13:00 31 6/18/17 12:59 104 33 30 6/18/17 12:30 100.6 101 30 130/67 95 Mechanical Ventilator 30 6/18/17 12:00 102 28 117/63 95 Mechanical Ventilator 30 6/18/17 12:00 90 6/18/17 12:00 30 6/18/17 12:00 29 6/18/17 11:30 101 30 115/64 95 Mechanical Ventilator 30 6/18/17 11:29 102 35 30 6/18/17 11:00 30 6/18/17 11:00 102 28 132/63 95 Mechanical Ventilator 30 6/18/17 10:30 107 30 138/76 96 Mechanical Ventilator 10.0 30 08/03/16 10:00 106 28 126/69 96 Mechanical Ventilator 10.0 30 08/03/16 10:00 25 08/03/16 09:30 101 25 123/72 96 Mechanical Ventilator 10.0 30 101 Height (Feet): 5 Height (Inches): 9.00 Weight (Pounds): 187 HEENT: anicteric Respiratory/Chest: lungs clear Cardiovascular: normal rate Abdomen: no organomegaly Microbiology Date/Time Source Procedure Growth Status 08/01/16 16:55 Blood Blood Culture - Preliminary NO GROWTH AFTER 48 HOURS Resulted 08/01/16 16:30 Blood Blood Culture - Preliminary NO GROWTH AFTER 48 HOURS Resulted Laboratory Tests Test 08/03/16 19:40 08/04/16 04:30 08/04/16 08:33 Vancomycin Level Trough 7.4 ug/mL (5.0-12.0) White Blood Count 27.1 K/UL (4.8-10.8) #*H Red Blood Count 3.55 M/UL (4.70-6.10) L Hemoglobin 10.9 G/DL (14.2-18.0) L Hematocrit 33.6 % (42.0-52.0) L Mean Corpuscular Volume 94 FL (80-99) Mean Corpuscular Hemoglobin 30.8 PG (27.0-31.0) Mean Corpuscular Hemoglobin Concent 32.6 G/DL (32.0-36.0) Red Cell Distribution Width 13.5 % (11.6-14.8) Platelet Count 194 K/UL (150-450) # Mean Platelet Volume 7.6 FL (6.5-10.1) Neutrophils (%) (Auto) % (45.0-75.0) Lymphocytes (%) (Auto) % (20.0-45.0) Monocytes (%) (Auto) % (1.0-10.0) Eosinophils (%) (Auto) % (0.0-3.0) Basophils (%) (Auto) % (0.0-2.0) Differential Total Cells Counted 100 Neutrophils % (Manual) 87 % (45-75) H Lymphocytes % (Manual) 6 % (20-45) L Monocytes % (Manual) 5 % (1-10) Eosinophils % (Manual) 2 % (0-3) Basophils % (Manual) 0 % (0-2) Band Neutrophils 0 % (0-8) Platelet Estimate Adequate Platelet Morphology Normal Hypochromasia 1+ Sodium Level 147 mEQ/L (135-145) H Potassium Level 4.0 mEQ/L (3.4-4.9) Chloride Level 110 mEQ/L (98-107) H Carbon Dioxide Level 27 mEQ/L (20-30) Anion Gap 10 (5-15) Blood Urea Nitrogen 18 mg/dL (7-23) Creatinine 1.1 mg/dL (0.7-1.2) Estimat Glomerular Filtration Rate > 60 mL/min (>60) Glucose Level 130 mg/dL (74-106) H Calcium Level 7.5 mg/dL (8.6-10.2) L Total Bilirubin 0.5 mg/dL (0.0-1.2) Aspartate Amino Transf (AST/SGOT) 48 U/L (5-40) H Alanine Aminotransferase (ALT/SGPT) 18 U/L (3-41) Alkaline Phosphatase 71 U/L (40-129) Total Protein 5.6 g/dL (6.6-8.7) L Albumin 2.2 g/dL (3.5-5.2) L Globulin 3.4 g/dL Albumin/Globulin Ratio 0.6 (1.0-2.7) L Arterial Blood pH 7.427 (7.350-7.450) Arterial Blood Partial Pressure CO2 42.3 mmHg (35.0-45.0) Arterial Blood Partial Pressure O2 306.0 mmHg (75.0-100.0) H Arterial Blood HCO3 27.9 mmol/L (22.0-26.0) H Arterial Blood Oxygen Saturation 98.8 % (92.0-98.0) H Arterial Blood Base Excess 3.2 Romero Test Positive Current Medications Medications (Trade) Dose Ordered Sig/Ernie Route PRN Reason Start Time Stop Time Status Last Admin Dose Admin Albuterol/ Ipratropium 3 ml 3 ml Q4H PRN HHN Shortness of Breath 08/02/16 13:00 08/07/16 12:59 Aztreonam 1 gm/ Sodium Chloride 55 ml @ 110 mls/hr Q8HR@0200,1000,1800 IVPB 08/02/16 18:00 08/08/16 17:59 08/04/16 02:16 Chlorhexidine Gluconate (Mame-Hex 2%) 1 applic DAILY TOPIC 07/31/16 18:00 08/30/16 17:59 08/04/16 04:28 Dextrose 1,000 ml @ 75 mls/hr [id number] IV 08/03/16 08:15 09/02/16 08:14 08/03/16 21:35 Dextrose (Dextrose 50%) STAT PRN IV Hypoglycemia 07/30/16 21:45 08/29/16 21:44 Fentanyl Citrate 1000 mcg/Sodium Chloride 100 ml @ 0 mls/hr Q24H IV 07/31/16 20:00 08/07/16 19:59 08/03/16 21:42 Lorazepam (Ativan 2mg/ml 1ml) 2 mg Q2H PRN IV agitation 07/31/16 09:00 08/07/16 08:59 08/04/16 03:34 Metronidazole (Flagyl) 100 ml @ 100 mls/hr Q8HR IVPB 08/01/16 14:00 08/08/16 13:59 08/04/16 05:33 Morphine Sulfate (Morphine Sulfate) 2 mg Q2H PRN IVP Severe Pain (Pain Scale 7-10) 07/31/16 09:00 08/07/16 08:59 08/04/16 03:42 Nitroglycerin (Ntg) 0.4 mg Q5M X 3 DOSES PRN SL Prn Chest Pain 07/30/16 21:45 08/29/16 21:44 Ondansetron HCl (Zofran) 4 mg Q6H PRN IVP Nausea & Vomiting 07/30/16 21:45 08/29/16 21:44 07/31/16 18:25 Pantoprazole 40 mg 40 mg BID IV 07/31/16 18:00 08/30/16 17:59 08/04/16 08:33 Promethazine HCl (Phenergan) 25 mg EVERY 8 HOURS PRN IV refractory nausea 07/30/16 21:45 08/29/16 21:44 Vancomycin HCl (Vanco rx to dose) 1 ea DAILY PRN MISC . 07/31/16 11:30 08/30/16 11:29 Vancomycin HCl/ Dextrose (Vancomycin/D5W) 275 ml @ 183.708 mls/hr Q12H IVPB 08/04/16 06:00 08/09/16 05:59 08/04/16 05:55 SANTANA HAGER M.D. Aug 04, 2016 09:17
[2016-08-04 10:14] LABS: MAGNESIUM 1.9 mg/dL (1.7-2.5); PHOSPHORUS 3.2 mg/dL (2.5-4.8); URIC ACID 6.4 mg/dL (3.0-7.5)
--- NOTE | 2016-08-04 10:27 | GI Progress Note ---
Assessment/Plan Problems: (1) Hypoalbuminemia ICD Codes: E88.09 - Other disorders of plasma-protein metabolism, not elsewhere classified SNOMED: 758008515 (2) Anemia ICD Codes: D64.9 - Anemia, unspecified SNOMED: 406119468 (3) Pancreatitis ICD Codes: K85.90 - Acute pancreatitis without necrosis or infection, unspecified SNOMED: 96321882 Qualifiers: Qualified Codes: K85.80 - Other acute pancreatitis without necrosis or infection (4) Intra-abdominal abscess ICD Codes: K65.1 - Peritoneal abscess SNOMED: 29812783 (5) Ischemia, bowel ICD Codes: K55.9 - Vascular disorder of intestine, unspecified SNOMED: 12562795 Status: unchanged Status Narrative Discussed with Dr. Sheikh. Assessment/Plan s/p Exploratory laparotomy, drainage of abdominal abscess, lysis of adhesions, partial omentectomy and partial small-bowel resection. cdiff negative defer GI procedures at this time fu with surgical recs NPO + IVFs abx ppi NGT -- per surgery fu labs outpatient colonoscopy Subjective Subjective limited Objective Last 24 Hour Vital Signs Date Time Temp Pulse Resp B/P Pulse Ox O2 Delivery O2 Flow Rate FiO2 08/04/16 10:00 88 20 105/58 98 Mechanical Ventilator 30 08/04/16 09:30 89 21 101/60 98 Mechanical Ventilator 30 08/04/16 09:00 87 21 98/65 95 Mechanical Ventilator 30 08/04/16 08:33 89 17 30 08/04/16 08:30 88 20 93/60 96 Mechanical Ventilator 30 08/04/16 08:00 90 08/04/16 08:00 30 08/04/16 08:00 20 08/04/16 08:00 99.0 87 19 100/56 98 Mechanical Ventilator 30 08/04/16 07:30 120 20 110/57 96 Mechanical Ventilator 30 08/04/16 07:00 90 19 104/57 96 Mechanical Ventilator 30 08/04/16 07:00 23 08/04/16 07:00 21 08/04/16 06:32 95 19 30 08/04/16 06:30 87 19 100/54 96 Mechanical Ventilator 30 08/04/16 06:00 90 20 100/54 96 Mechanical Ventilator 30 08/04/16 06:00 24 08/04/16 05:30 94 21 99/57 95 Mechanical Ventilator 30 08/04/16 05:05 114 30 30 08/04/16 05:00 24 08/04/16 05:00 103 24 104/57 95 Mechanical Ventilator 30 08/04/16 04:30 98.7 103 24 119/76 93 Mechanical Ventilator 30 08/04/16 04:12 97.8 08/04/16 04:00 102 26 154/89 98 Mechanical Ventilator 30 08/04/16 04:00 23 08/04/16 04:00 91 08/04/16 04:00 30 08/04/16 03:30 102 26 154/89 98 Mechanical Ventilator 30 08/04/16 03:18 103 31 30 08/04/16 03:00 103 26 154/89 98 Mechanical Ventilator 30 08/04/16 03:00 23 08/04/16 02:30 100 26 129/79 98 Mechanical Ventilator 30 08/04/16 02:00 100 26 129/79 97 Mechanical Ventilator 30 08/04/16 02:00 22 08/04/16 01:30 100 26 99/56 96 Mechanical Ventilator 30 08/04/16 01:00 23 08/04/16 01:00 100 25 100/52 96 Mechanical Ventilator 30 08/04/16 00:43 104 24 30 08/04/16 00:30 99 25 98/55 96 Mechanical Ventilator 30 08/04/16 00:00 97.8 88 23 90/47 96 Mechanical Ventilator 30 08/04/16 00:00 30 08/04/16 00:00 26 08/04/16 00:00 90 08/03/16 23:30 87 23 91/41 95 Mechanical Ventilator 30 08/03/16 23:00 87 24 101/50 95 Mechanical Ventilator 30 08/03/16 23:00 25 08/03/16 22:50 88 25 30 08/03/16 22:30 87 24 95/49 94 Mechanical Ventilator 30 08/03/16 22:12 97.5 08/03/16 22:00 87 25 95/49 93 Mechanical Ventilator 30 08/03/16 22:00 26 08/03/16 21:42 20 08/03/16 21:30 85 25 95/58 96 Mechanical Ventilator 30 08/03/16 21:25 97.5 08/03/16 21:07 86 24 30 08/03/16 21:00 86 25 95/58 94 Mechanical Ventilator 30 6/18/17 21:00 26 6/18/17 20:30 92 25 93/56 94 Mechanical Ventilator 30 6/18/17 20:26 98.0 6/18/17 20:00 30 6/18/17 20:00 25 6/18/17 20:00 117 6/18/17 20:00 98.0 117 24 111/61 94 Mechanical Ventilator 30 6/18/17 19:30 109 24 130/59 94 Mechanical Ventilator 30 6/18/17 19:05 107 32 30 6/18/17 19:00 108 32 151/68 92 Mechanical Ventilator 30 6/18/17 19:00 24 6/18/17 18:30 122 35 146/78 97 Mechanical Ventilator 30 6/18/17 18:00 89 21 123/64 99 Mechanical Ventilator 30 6/18/17 18:00 25 6/18/17 17:30 88 24 116/66 97 Mechanical Ventilator 30 6/18/17 17:06 88 23 30 6/18/17 17:00 90 23 111/65 100 Mechanical Ventilator 30 6/18/17 17:00 24 6/18/17 16:30 90 25 111/65 98 Mechanical Ventilator 30 6/18/17 16:00 30 6/18/17 16:00 24 6/18/17 16:00 89 6/18/17 16:00 98.1 88 24 112/61 98 Mechanical Ventilator 30 6/18/17 15:30 100 19 126/70 98 Mechanical Ventilator 30 6/18/17 15:12 83 21 30 6/18/17 15:00 84 20 122/63 100 Mechanical Ventilator 30 6/18/17 15:00 23 6/18/17 14:30 102 27 112/57 97 Mechanical Ventilator 30 6/18/17 14:00 31 6/18/17 14:00 101 26 118/68 97 Mechanical Ventilator 30 6/18/17 13:30 112 32 122/68 95 Mechanical Ventilator 30 6/18/17 13:00 98 30 122/63 95 Mechanical Ventilator 30 6/18/17 13:00 31 6/18/17 12:59 104 33 30 6/18/17 12:30 100.6 101 30 130/67 95 Mechanical Ventilator 30 6/18/17 12:00 102 28 117/63 95 Mechanical Ventilator 30 6/18/17 12:00 90 6/18/17 12:00 30 08/03/16 12:00 29 08/03/16 11:30 101 30 115/64 95 Mechanical Ventilator 30 08/03/16 11:29 102 35 30 08/03/16 11:00 30 08/03/16 11:00 102 28 132/63 95 Mechanical Ventilator 30 08/03/16 10:30 107 30 138/76 96 Mechanical Ventilator 10.0 30 Intake and Output 08/03/16 08/04/16 19:00 07:00 Intake Total 1219.0 ml 1797.708 ml Output Total 595 ml 450 ml Balance 624.0 ml 1347.708 ml Intake IV Total 1219.0 ml 1797.708 ml Output Urine Total 595 ml 450 ml Laboratory Tests Test 08/03/16 19:40 08/04/16 04:30 08/04/16 08:33 Vancomycin Level Trough 7.4 ug/mL (5.0-12.0) White Blood Count 27.1 K/UL (4.8-10.8) #*H Red Blood Count 3.55 M/UL (4.70-6.10) L Hemoglobin 10.9 G/DL (14.2-18.0) L Hematocrit 33.6 % (42.0-52.0) L Mean Corpuscular Volume 94 FL (80-99) Mean Corpuscular Hemoglobin 30.8 PG (27.0-31.0) Mean Corpuscular Hemoglobin Concent 32.6 G/DL (32.0-36.0) Red Cell Distribution Width 13.5 % (11.6-14.8) Platelet Count 194 K/UL (150-450) # Mean Platelet Volume 7.6 FL (6.5-10.1) Neutrophils (%) (Auto) % (45.0-75.0) Lymphocytes (%) (Auto) % (20.0-45.0) Monocytes (%) (Auto) % (1.0-10.0) Eosinophils (%) (Auto) % (0.0-3.0) Basophils (%) (Auto) % (0.0-2.0) Differential Total Cells Counted 100 Neutrophils % (Manual) 87 % (45-75) H Lymphocytes % (Manual) 6 % (20-45) L Monocytes % (Manual) 5 % (1-10) Eosinophils % (Manual) 2 % (0-3) Basophils % (Manual) 0 % (0-2) Band Neutrophils 0 % (0-8) Platelet Estimate Adequate Platelet Morphology Normal Hypochromasia 1+ Sodium Level 147 mEQ/L (135-145) H Potassium Level 4.0 mEQ/L (3.4-4.9) Chloride Level 110 mEQ/L (98-107) H Carbon Dioxide Level 27 mEQ/L (20-30) Anion Gap 10 (5-15) Blood Urea Nitrogen 18 mg/dL (7-23) Creatinine 1.1 mg/dL (0.7-1.2) Estimat Glomerular Filtration Rate > 60 mL/min (>60) Glucose Level 130 mg/dL (74-106) H Uric Acid 6.4 mg/dL (3.0-7.5) Calcium Level 7.5 mg/dL (8.6-10.2) L Phosphorus Level 3.2 mg/dL (2.5-4.8) Magnesium Level 1.9 mg/dL (1.7-2.5) Total Bilirubin 0.5 mg/dL (0.0-1.2) Aspartate Amino Transf (AST/SGOT) 48 U/L (5-40) H Alanine Aminotransferase (ALT/SGPT) 18 U/L (3-41) Alkaline Phosphatase 71 U/L (40-129) Total Protein 5.6 g/dL (6.6-8.7) L Albumin 2.2 g/dL (3.5-5.2) L Globulin 3.4 g/dL Albumin/Globulin Ratio 0.6 (1.0-2.7) L Arterial Blood pH 7.427 (7.350-7.450) Arterial Blood Partial Pressure CO2 42.3 mmHg (35.0-45.0) Arterial Blood Partial Pressure O2 306.0 mmHg (75.0-100.0) H Arterial Blood HCO3 27.9 mmol/L (22.0-26.0) H Arterial Blood Oxygen Saturation 98.8 % (92.0-98.0) H Arterial Blood Base Excess 3.2 Romero Test Positive Height (Feet): 5 Height (Inches): 9.00 Weight (Pounds): 187 General Appearance: no apparent distress Cardiovascular: normal rate Respiratory/Chest: other - mech vent Abdominal Exam: incision site - surgical Parsons,Lita Jacobo N.P. Aug 04, 2016 10:27
--- NOTE | 2016-08-04 10:53 | General Progress Note ---
Assessment/Plan Status: stable - from renal stand, deteriorating - from infectious stand Status Narrative sharp rise in WBCs Assessment/Plan status: Acute renal failure and Oliguria due to - low BP , post OP- Amikacin and VancoMycin- Ongoing sepsis Respiratory failure, on Vent intraabdominal abscess, small bowel obstruction, intraabdominal adhesions, small bowel perforation. Plan; Post Op care- Hydrate- monitor renal parameters- Per ID- Weaning as possible- Avoid nephrotoxics Per orders Subjective ROS Limited/Unobtainable: Yes Allergies: Coded Allergies: PENICILLINS (Verified Allergy, Intermediate, 07/30/16) SULFA (SULFONAMIDE ANTIBIOTICS) (Verified Allergy, Intermediate, ITCHING, 07/30/16) Objective Last 24 Hour Vital Signs Date Time Temp Pulse Resp B/P Pulse Ox O2 Delivery O2 Flow Rate FiO2 08/04/16 10:30 88 19 104/66 98 Mechanical Ventilator 30 08/04/16 10:00 18 08/04/16 10:00 88 20 105/58 98 Mechanical Ventilator 30 08/04/16 09:30 89 21 101/60 98 Mechanical Ventilator 30 08/04/16 09:00 87 21 98/65 95 Mechanical Ventilator 30 08/04/16 09:00 19 08/04/16 08:33 89 17 30 08/04/16 08:30 88 20 93/60 96 Mechanical Ventilator 30 08/04/16 08:00 90 08/04/16 08:00 30 08/04/16 08:00 20 08/04/16 08:00 99.0 87 19 100/56 98 Mechanical Ventilator 30 08/04/16 07:30 120 20 110/57 96 Mechanical Ventilator 30 08/04/16 07:00 90 19 104/57 96 Mechanical Ventilator 30 08/04/16 07:00 23 08/04/16 07:00 21 08/04/16 06:32 95 19 30 08/04/16 06:30 87 19 100/54 96 Mechanical Ventilator 30 08/04/16 06:00 90 20 100/54 96 Mechanical Ventilator 30 08/04/16 06:00 24 08/04/16 05:30 94 21 99/57 95 Mechanical Ventilator 30 08/04/16 05:05 114 30 30 08/04/16 05:00 24 08/04/16 05:00 103 24 104/57 95 Mechanical Ventilator 30 08/04/16 04:30 98.7 103 24 119/76 93 Mechanical Ventilator 30 08/04/16 04:12 97.8 08/04/16 04:00 102 26 154/89 98 Mechanical Ventilator 30 08/04/16 04:00 23 08/04/16 04:00 91 08/04/16 04:00 30 08/04/16 03:30 102 26 154/89 98 Mechanical Ventilator 30 08/04/16 03:18 103 31 30 08/04/16 03:00 103 26 154/89 98 Mechanical Ventilator 30 08/04/16 03:00 23 08/04/16 02:30 100 26 129/79 98 Mechanical Ventilator 30 08/04/16 02:00 100 26 129/79 97 Mechanical Ventilator 30 08/04/16 02:00 22 08/04/16 01:30 100 26 99/56 96 Mechanical Ventilator 30 08/04/16 01:00 23 08/04/16 01:00 100 25 100/52 96 Mechanical Ventilator 30 08/04/16 00:43 104 24 30 08/04/16 00:30 99 25 98/55 96 Mechanical Ventilator 30 08/04/16 00:00 97.8 88 23 90/47 96 Mechanical Ventilator 30 08/04/16 00:00 30 08/04/16 00:00 26 08/04/16 00:00 90 18 23:30 87 23 91/41 95 Mechanical Ventilator 30 08/03/16 23:00 87 24 101/50 95 Mechanical Ventilator 30 1817 23:00 25 1817 22:50 88 25 30 17 22:30 87 24 95/49 94 Mechanical Ventilator 30 08/03/16 22:12 97.5 61817 22:00 87 25 95/49 93 Mechanical Ventilator 30 1817 22:00 26 618/17 21:42 20 618/17 21:30 85 25 95/58 96 Mechanical Ventilator 30 61817 21:25 97.5 618/17 21:07 86 24 30 618/17 21:00 86 25 95/58 94 Mechanical Ventilator 30 618/17 21:00 26 618/17 20:30 92 25 93/56 94 Mechanical Ventilator 30 618/17 20:26 98.0 618/17 20:00 30 6/18/17 20:00 25 6/18/17 20:00 117 6/18/17 20:00 98.0 117 24 111/61 94 Mechanical Ventilator 30 6/18/17 19:30 109 24 130/59 94 Mechanical Ventilator 30 6/18/17 19:05 107 32 30 6/18/17 19:00 108 32 151/68 92 Mechanical Ventilator 30 6/18/17 19:00 24 6/18/17 18:30 122 35 146/78 97 Mechanical Ventilator 30 6/18/17 18:00 89 21 123/64 99 Mechanical Ventilator 30 6/18/17 18:00 25 6/18/17 17:30 88 24 116/66 97 Mechanical Ventilator 30 6/18/17 17:06 88 23 30 6/18/17 17:00 90 23 111/65 100 Mechanical Ventilator 30 6/18/17 17:00 24 6/18/17 16:30 90 25 111/65 98 Mechanical Ventilator 30 6/18/17 16:00 30 6/18/17 16:00 24 6/18/17 16:00 89 6/18/17 16:00 98.1 88 24 112/61 98 Mechanical Ventilator 30 6/18/17 15:30 100 19 126/70 98 Mechanical Ventilator 30 6/18/17 15:12 83 21 30 6/18/17 15:00 84 20 122/63 100 Mechanical Ventilator 30 6/18/17 15:00 23 6/18/17 14:30 102 27 112/57 97 Mechanical Ventilator 30 6/18/17 14:00 31 6/18/17 14:00 101 26 118/68 97 Mechanical Ventilator 30 6/18/17 13:30 112 32 122/68 95 Mechanical Ventilator 30 6/18/17 13:00 98 30 122/63 95 Mechanical Ventilator 30 6/18/17 13:00 31 6/18/17 12:59 104 33 30 6/18/17 12:30 100.6 101 30 130/67 95 Mechanical Ventilator 30 6/18/17 12:00 102 28 117/63 95 Mechanical Ventilator 30 6/18/17 12:00 90 6/18/17 12:00 30 6/18/17 12:00 29 6/18/17 11:30 101 30 115/64 95 Mechanical Ventilator 30 6/18/17 11:29 102 35 30 6/18/17 11:00 30 6/18/17 11:00 102 28 132/63 95 Mechanical Ventilator 30 Intake and Output 08/03/16 08/04/16 19:00 07:00 Intake Total 1219.0 ml 1797.708 ml Output Total 595 ml 450 ml Balance 624.0 ml 1347.708 ml Intake IV Total 1219.0 ml 1797.708 ml Output Urine Total 595 ml 450 ml Laboratory Tests 08/03/16 19:40: Vancomycin Level Trough 7.4 08/04/16 04:30: White Blood Count 27.1#*H, Red Blood Count 3.55L, Hemoglobin 10.9L, Hematocrit 33.6L, Mean Corpuscular Volume 94, Mean Corpuscular Hemoglobin 30.8, Mean Corpuscular Hemoglobin Concent 32.6, Red Cell Distribution Width 13.5, Platelet Count 194#, Mean Platelet Volume 7.6, Neutrophils (%) (Auto) , Lymphocytes (%) ( Auto) , Monocytes (%) (Auto) , Eosinophils (%) (Auto) , Basophils (%) (Auto) , Differential Total Cells Counted 100, Neutrophils % (Manual) 87H, Lymphocytes % (Manual) 6L, Monocytes % (Manual) 5, Eosinophils % (Manual) 2, Basophils % ( Manual) 0, Band Neutrophils 0, Platelet Estimate Adequate, Platelet Morphology Normal, Hypochromasia 1+, Sodium Level 147H, Potassium Level 4.0, Chloride Level 110H, Carbon Dioxide Level 27, Anion Gap 10, Blood Urea Nitrogen 18, Creatinine 1.1, Estimat Glomerular Filtration Rate > 60, Glucose Level 130H, Uric Acid 6.4, Calcium Level 7.5L, Phosphorus Level 3.2, Magnesium Level 1.9, Total Bilirubin 0.5, Aspartate Amino Transf (AST/SGOT) 48H, Alanine Aminotransferase (ALT/SGPT) 18, Alkaline Phosphatase 71, Total Protein 5.6L, Albumin 2.2L, Globulin 3.4, Albumin/Globulin Ratio 0.6L 08/04/16 08:33: Arterial Blood pH 7.427, Arterial Blood Partial Pressure CO2 42.3, Arterial Blood Partial Pressure O2 306.0H, Arterial Blood HCO3 27.9H, Arterial Blood Oxygen Saturation 98.8H, Arterial Blood Base Excess 3.2, Romero Test Positive Height (Feet): 5 Height (Inches): 9.00 Weight (Pounds): 187 General Appearance: no apparent distress, lethargic Cardiovascular: tachycardia Respiratory/Chest: decreased breath sounds Abdomen: distended Objective no other changes in PE AYDE SERNA Aug 04, 2016 10:53
--- NOTE | 2016-08-04 11:09 | General Progress Note ---
Progress Note Progress Note Surgery: patient seen and examined at bedside. no acute events. resting on vent. responsive to commands. Afebrile, HD stable, NG tube output minimal, UOP good. Midline wound clean and dry with dressings Significant jump in leukocytosis today to 27k. etiology unknown at this time. Continue current care NPO IV fluids IV Abx NG tube wet to dry BID to midline wound trend labs wean to extubate today. Luis Felipe Samuels Aug 04, 2016 11:09
--- NOTE | 2016-08-04 11:13 | Pulmonolgy Critical Care Note ---
Critical Care - Asmt/Plan Problems: (1) Sepsis (2) ATN (acute tubular necrosis) (3) Acute respiratory failure (4) Intra-abdominal abscess (5) HIV disease (6) Pneumatosis intestinalis Respiratory: monitor respiratory rate, adjust FIO2, CXR, weaning trial Cardiac: continue to monitor HR/BP Renal: F/U I&O, keep IV fluid, increase IV fluid, check electrolytes Infectious Disease: check cultures, continue antibiotics, other - continue Aztreonam, flagyl, vanco for now Gastrointestinal: continue feedings/current rate Endocrine: monitor blood sugar, oral diabetic meds, oral thyroid meds Hematologic: monitor H/H, transfuse if hgb<8.5 Neurologic: PRN Morphine, keep patient comfortable Affect: PRN ativan Notes Reviewed: deli/bakery associate, cardio, renal Discussed with: nurses, consultants, window caseroff track betting manager - Objective Last 24 Hour Vital Signs Date Time Temp Pulse Resp B/P Pulse Ox O2 Delivery O2 Flow Rate FiO2 08/04/16 11:04 29 08/04/16 11:01 30 08/04/16 11:00 90 23 129/60 98 Mechanical Ventilator 30 08/04/16 10:30 88 19 104/66 98 Mechanical Ventilator 30 08/04/16 10:00 18 08/04/16 10:00 88 20 105/58 98 Mechanical Ventilator 30 08/04/16 09:30 89 21 101/60 98 Mechanical Ventilator 30 08/04/16 09:00 87 21 98/65 95 Mechanical Ventilator 30 08/04/16 09:00 19 08/04/16 08:33 89 17 30 08/04/16 08:30 88 20 93/60 96 Mechanical Ventilator 30 08/04/16 08:00 90 08/04/16 08:00 30 08/04/16 08:00 20 08/04/16 08:00 99.0 87 19 100/56 98 Mechanical Ventilator 30 08/04/16 07:30 120 20 110/57 96 Mechanical Ventilator 30 08/04/16 07:00 90 19 104/57 96 Mechanical Ventilator 30 08/04/16 07:00 23 08/04/16 07:00 21 08/04/16 06:32 95 19 30 08/04/16 06:30 87 19 100/54 96 Mechanical Ventilator 30 08/04/16 06:00 90 20 100/54 96 Mechanical Ventilator 30 08/04/16 06:00 24 08/04/16 05:30 94 21 99/57 95 Mechanical Ventilator 30 08/04/16 05:05 114 30 30 08/04/16 05:00 24 08/04/16 05:00 103 24 104/57 95 Mechanical Ventilator 30 08/04/16 04:30 98.7 103 24 119/76 93 Mechanical Ventilator 30 08/04/16 04:12 97.8 08/04/16 04:00 102 26 154/89 98 Mechanical Ventilator 30 08/04/16 04:00 23 08/04/16 04:00 91 08/04/16 04:00 30 08/04/16 03:30 102 26 154/89 98 Mechanical Ventilator 30 08/04/16 03:18 103 31 30 08/04/16 03:00 103 26 154/89 98 Mechanical Ventilator 30 08/04/16 03:00 23 08/04/16 02:30 100 26 129/79 98 Mechanical Ventilator 30 08/04/16 02:00 100 26 129/79 97 Mechanical Ventilator 30 08/04/16 02:00 22 08/04/16 01:30 100 26 99/56 96 Mechanical Ventilator 30 08/04/16 01:00 23 08/04/16 01:00 100 25 100/52 96 Mechanical Ventilator 30 08/04/16 00:43 104 24 30 08/04/16 00:30 99 25 98/55 96 Mechanical Ventilator 30 08/04/16 00:00 97.8 88 23 90/47 96 Mechanical Ventilator 30 08/04/16 00:00 30 08/04/16 00:00 26 08/04/16 00:00 90 08/03/16 23:30 87 23 91/41 95 Mechanical Ventilator 30 08/03/16 23:00 87 24 101/50 95 Mechanical Ventilator 30 08/03/16 23:00 25 08/03/16 22:50 88 25 30 08/03/16 22:30 87 24 95/49 94 Mechanical Ventilator 30 08/03/16 22:12 97.5 08/03/16 22:00 87 25 95/49 93 Mechanical Ventilator 30 08/03/16 22:00 26 08/03/16 21:42 20 08/03/16 21:30 85 25 95/58 96 Mechanical Ventilator 30 08/03/16 21:25 97.5 6/18/17 21:07 86 24 30 6/18/17 21:00 86 25 95/58 94 Mechanical Ventilator 30 6/18/17 21:00 26 6/18/17 20:30 92 25 93/56 94 Mechanical Ventilator 30 6/18/17 20:26 98.0 6/18/17 20:00 30 6/18/17 20:00 25 6/18/17 20:00 117 6/18/17 20:00 98.0 117 24 111/61 94 Mechanical Ventilator 30 6/18/17 19:30 109 24 130/59 94 Mechanical Ventilator 30 6/18/17 19:05 107 32 30 6/18/17 19:00 108 32 151/68 92 Mechanical Ventilator 30 6/18/17 19:00 24 6/18/17 18:30 122 35 146/78 97 Mechanical Ventilator 30 6/18/17 18:00 89 21 123/64 99 Mechanical Ventilator 30 6/18/17 18:00 25 6/18/17 17:30 88 24 116/66 97 Mechanical Ventilator 30 6/18/17 17:06 88 23 30 6/18/17 17:00 90 23 111/65 100 Mechanical Ventilator 30 6/18/17 17:00 24 6/18/17 16:30 90 25 111/65 98 Mechanical Ventilator 30 6/18/17 16:00 30 6/18/17 16:00 24 6/18/17 16:00 89 6/18/17 16:00 98.1 88 24 112/61 98 Mechanical Ventilator 30 6/18/17 15:30 100 19 126/70 98 Mechanical Ventilator 30 6/18/17 15:12 83 21 30 6/18/17 15:00 84 20 122/63 100 Mechanical Ventilator 30 6/18/17 15:00 23 6/18/17 14:30 102 27 112/57 97 Mechanical Ventilator 30 6/18/17 14:00 31 6/18/17 14:00 101 26 118/68 97 Mechanical Ventilator 30 6/18/17 13:30 112 32 122/68 95 Mechanical Ventilator 30 6/18/17 13:00 98 30 122/63 95 Mechanical Ventilator 30 6/18/17 13:00 31 6/18/17 12:59 104 33 30 6/18/17 12:30 100.6 101 30 130/67 95 Mechanical Ventilator 30 6/18/17 12:00 102 28 117/63 95 Mechanical Ventilator 30 08/03/16 12:00 90 08/03/16 12:00 30 08/03/16 12:00 29 08/03/16 11:30 101 30 115/64 95 Mechanical Ventilator 30 08/03/16 11:29 102 35 30 Status: sedated Condition: critical HEENT: atraumatic Neck: full ROM Heart: HR/BP stable, regular Abdomen: non-tender, active bowel sounds Extremities: no C/C/E, edema Decubiti: stage Micro: Microbiology Date/Time Source Procedure Growth Status 08/01/16 16:55 Blood Blood Culture - Preliminary NO GROWTH AFTER 48 HOURS Resulted 08/01/16 16:30 Blood Blood Culture - Preliminary NO GROWTH AFTER 48 HOURS Resulted Accucheck: 179 Critical Care - Subjective ROS Limited/Unobtainable: No ICU Day: 5 Intubation Day: 5 Condition: critical EKG Rhythm: Sinus Rhythm FI02: 30 Vent Support Breath Rate: 10 Vent Support Mode: CPAP Vent Tidal Volume: 500 Sputum Amount: Moderate PEEP: 5.0 PIP: 11 Fluids: 1/2 NS 75 cc.hour Drips: Fentanyl I&O: Intake and Output 08/03/16 08/04/16 19:00 07:00 Intake Total 1219.0 ml 1797.708 ml Output Total 595 ml 450 ml Balance 624.0 ml 1347.708 ml Intake IV Total 1219.0 ml 1797.708 ml Output Urine Total 595 ml 450 ml CXR: ET tube in good position ET-Tube: 7.5 ET Position: 24 Labs: Laboratory Tests Test 08/03/16 19:40 08/04/16 04:30 08/04/16 08:33 Vancomycin Level Trough 7.4 ug/mL (5.0-12.0) White Blood Count 27.1 K/UL (4.8-10.8) #*H Red Blood Count 3.55 M/UL (4.70-6.10) L Hemoglobin 10.9 G/DL (14.2-18.0) L Hematocrit 33.6 % (42.0-52.0) L Mean Corpuscular Volume 94 FL (80-99) Mean Corpuscular Hemoglobin 30.8 PG (27.0-31.0) Mean Corpuscular Hemoglobin Concent 32.6 G/DL (32.0-36.0) Red Cell Distribution Width 13.5 % (11.6-14.8) Platelet Count 194 K/UL (150-450) # Mean Platelet Volume 7.6 FL (6.5-10.1) Neutrophils (%) (Auto) % (45.0-75.0) Lymphocytes (%) (Auto) % (20.0-45.0) Monocytes (%) (Auto) % (1.0-10.0) Eosinophils (%) (Auto) % (0.0-3.0) Basophils (%) (Auto) % (0.0-2.0) Differential Total Cells Counted 100 Neutrophils % (Manual) 87 % (45-75) H Lymphocytes % (Manual) 6 % (20-45) L Monocytes % (Manual) 5 % (1-10) Eosinophils % (Manual) 2 % (0-3) Basophils % (Manual) 0 % (0-2) Band Neutrophils 0 % (0-8) Platelet Estimate Adequate Platelet Morphology Normal Hypochromasia 1+ Sodium Level 147 mEQ/L (135-145) H Potassium Level 4.0 mEQ/L (3.4-4.9) Chloride Level 110 mEQ/L (98-107) H Carbon Dioxide Level 27 mEQ/L (20-30) Anion Gap 10 (5-15) Blood Urea Nitrogen 18 mg/dL (7-23) Creatinine 1.1 mg/dL (0.7-1.2) Estimat Glomerular Filtration Rate > 60 mL/min (>60) Glucose Level 130 mg/dL (74-106) H Uric Acid 6.4 mg/dL (3.0-7.5) Calcium Level 7.5 mg/dL (8.6-10.2) L Phosphorus Level 3.2 mg/dL (2.5-4.8) Magnesium Level 1.9 mg/dL (1.7-2.5) Total Bilirubin 0.5 mg/dL (0.0-1.2) Aspartate Amino Transf (AST/SGOT) 48 U/L (5-40) H Alanine Aminotransferase (ALT/SGPT) 18 U/L (3-41) Alkaline Phosphatase 71 U/L (40-129) Total Protein 5.6 g/dL (6.6-8.7) L Albumin 2.2 g/dL (3.5-5.2) L Globulin 3.4 g/dL Albumin/Globulin Ratio 0.6 (1.0-2.7) L Arterial Blood pH 7.427 (7.350-7.450) Arterial Blood Partial Pressure CO2 42.3 mmHg (35.0-45.0) Arterial Blood Partial Pressure O2 306.0 mmHg (75.0-100.0) H Arterial Blood HCO3 27.9 mmol/L (22.0-26.0) H Arterial Blood Oxygen Saturation 98.8 % (92.0-98.0) H Arterial Blood Base Excess 3.2 Romero Test Positive CHAS WALLACE Aug 04, 2016 11:13
--- NOTE | 2016-08-04 12:26 | Diagnostic Imaging Report ---
Indications: Shortness of breath Technique: Portable AP chest Findings: Comparison: 08/03/16 Linear and hazy opacities persist in the right lung base, decreased. Right costophrenic angle blunting decreased. Left lung and pleura remain clear. Cardiomediastinal silhouette stable. Lines and tubes remain in place.. IMPRESSION: Decrease in right lung base atelectasis and superimposed infiltrate, adjacent pleural effusion compatible with resolving pneumonia
[2016-08-04 15:15] LABS: APPEARANCE,URINE SLIGHTLY CLOUDY; KETONES,URINE 1+ (NEGATIVE); LEUKOCYTE ESTERASE ,URINE 2+ (NEGATIVE); NITRITE,URINE NEGATIVE (NEGATIVE); PH,URINE 5 (4.5-8.0); PROTEIN,URINE 2+ (NEGATIVE); UROBILINOGEN,URINE NORMAL MG/DL (0.0-1.0)
[2016-08-04 15:23] LABS: ICTOTEST NEGATIVE
[2016-08-04 15:36] LABS: BACTERIA,URINE MODERATE /HPF
[2016-08-04] MEDS ORDERED: Tubing IV Secondary IV ONE ×2 (15:52→16:32)
[2016-08-04] MEDS ORDERED: D5 1/2NS 1000ml IV ONE (16:32)
[2016-08-04 18:30] LABS: MEAN CORPUSCULAR HEMOGLOBIN 30.6 PG (27.0-31.0); MEAN CORPUSCULAR HGB CONC 32.8 G/DL (32.0-36.0); MEAN CORPUSCULAR VOLUME 94 FL (80-99); MEAN PLATELET VOLUME 7.9 FL (6.5-10.1); PLATELET COUNT 138 K/UL (150-450); RED BLOOD COUNT 3.08 M/UL (4.70-6.10); RED CELL DISTRIBUTION WIDTH 13.2 % (11.6-14.8); WHITE BLOOD COUNT 16.6 K/UL (4.8-10.8)
[2016-08-04 18:31] LABS: BASOPHILS % (AUTO) 0.3 % (0.0-2.0); EOSINOPHILS % (AUTO) 0.4 % (0.0-3.0); LYMPHOCYTES % (AUTO) 5.5 % (20.0-45.0); MONOCYTES % (AUTO) 2.2 % (1.0-10.0); NEUTROPHILS % (AUTO) 91.6 % (45.0-75.0)
[2016-08-04] MEDS: Heparin 5000 units/ml inj SUBQ SCH (20:53)
[2016-08-05] VITALS (48 sets, daily range): BP systolic 90–167; BP diastolic 45–79
[2016-08-05] MEDS: Aztreonam Inj 1 GM in NS 55 ML IVPB SCH ×3 (02:07→18:18)
[2016-08-05 04:55] LABS: MEAN CORPUSCULAR HEMOGLOBIN 30.1 PG (27.0-31.0); MEAN CORPUSCULAR HGB CONC 31.9 G/DL (32.0-36.0); MEAN CORPUSCULAR VOLUME 94 FL (80-99); MEAN PLATELET VOLUME 7.9 FL (6.5-10.1); PLATELET COUNT 171 K/UL (150-450); RED BLOOD COUNT 2.99 M/UL (4.70-6.10); RED CELL DISTRIBUTION WIDTH 13.5 % (11.6-14.8)
[2016-08-05 05:18] LABS: MAGNESIUM 1.9 mg/dL (1.7-2.5)
[2016-08-05 05:20] LABS: ALANINE AMINOTRANSFERASE 16 U/L (3-41); ALBUMIN/GLOBULIN RATIO 0.5 (1.0-2.7); ANION GAP 12 (5-15); ASPARTATE AMINO TRANSFERASE 39 U/L (5-40); CALCIUM 7.2 mg/dL (8.6-10.2); CARBON DIOXIDE 27 mEQ/L (20-30); CHLORIDE 108 mEQ/L (98-107); GLOMERULAR FILTRATION RATE > 60 mL/min (>60); HEMOLYSIS 2; POTASSIUM 3.9 mEQ/L (3.4-4.9); SODIUM 147 mEQ/L (135-145); TOTAL PROTEIN 4.9 g/dL (6.6-8.7)
[2016-08-05] MEDS: LORazepam Inj 2mg/ml 1ml IV PRN ×2 (05:22→22:47)
[2016-08-05] MEDS: Vancomycin 1250mg in D5W 275ml IVPB SCH ×2 (05:51→18:20)
[2016-08-05] MEDS: metroNIDAZOLE 500mg 100 ML IVPB SCH ×3 (05:51→22:16)
[2016-08-05 08:09] LABS: ABG ALLEN TEST POSITIVE; ABG BASE EXCESS 2.7; ABG PCO2 42.6 mmHg (35.0-45.0)
[2016-08-05] MEDS ORDERED: Haloperidol 5mg/ml Inj IVPB PRN (08:45)
[2016-08-05] MEDS: Pantoprazole Inj IV SCH ×2 (08:48→18:20)
[2016-08-05] MEDS: Heparin 5000 units/ml inj SUBQ SCH ×2 (08:49→20:40)
--- NOTE | 2016-08-05 09:03 | Pulmonolgy Critical Care Note ---
Critical Care - Asmt/Plan Problems: (1) Acute respiratory failure (2) Pneumatosis intestinalis (3) Anemia (4) ATN (acute tubular necrosis) (5) Sepsis (6) Intra-abdominal abscess (7) HIV disease Respiratory: monitor respiratory rate, adjust FIO2, CXR, weaning trial - today , other Cardiac: continue to monitor HR/BP Renal: F/U I&O, keep IV fluid Infectious Disease: check cultures Gastrointestinal: continue feedings/current rate Endocrine: monitor blood sugar, check HgA1C, continue sliding scale insulin Hematologic: monitor H/H, transfuse if hgb<8.5 Neurologic: PRN Ativan, keep patient comfortable Prophylaxis: Protonix, Heparin Notes Reviewed: feather separator, ID Discussed with: nurses, consultants, trimming casersupplier quality engineering manager - Objective Last 24 Hour Vital Signs Date Time Temp Pulse Resp B/P Pulse Ox O2 Delivery O2 Flow Rate FiO2 08/05/16 08:45 117 26 30 08/05/16 08:30 49 20 123/57 96 Mechanical Ventilator 30 08/05/16 08:00 102 08/05/16 08:00 30 08/05/16 08:00 99.5 102 28 123/57 96 Mechanical Ventilator 30 08/05/16 07:30 115 22 146/70 94 Mechanical Ventilator 30 08/05/16 07:10 101 30 30 08/05/16 07:00 103 20 126/65 96 Mechanical Ventilator 30 08/05/16 06:30 103 20 123/64 94 Mechanical Ventilator 30 08/05/16 06:00 106 23 123/64 94 Mechanical Ventilator 30 08/05/16 05:35 109 32 30 08/05/16 05:30 108 23 119/70 96 Mechanical Ventilator 30 08/05/16 05:00 107 22 144/79 99 Mechanical Ventilator 30 08/05/16 04:30 97 24 134/70 99 Mechanical Ventilator 30 08/05/16 04:00 30 08/05/16 04:00 97.7 89 23 112/46 99 Mechanical Ventilator 30 08/05/16 04:00 91 08/05/16 03:30 89 23 121/55 99 Mechanical Ventilator 30 08/05/16 03:00 22 08/05/16 03:00 87 21 114/45 99 Mechanical Ventilator 30 08/05/16 02:43 84 19 30 08/05/16 02:38 97.7 08/05/16 02:30 86 21 115/60 100 Mechanical Ventilator 30 08/05/16 02:08 20 08/05/16 02:00 86 21 114/67 100 Mechanical Ventilator 30 08/05/16 02:00 22 08/05/16 01:30 81 19 108/57 100 Mechanical Ventilator 30 08/05/16 01:16 91 20 30 08/05/16 01:00 83 19 91/55 98 Mechanical Ventilator 30 08/05/16 01:00 20 08/05/16 00:30 83 20 106/56 98 Mechanical Ventilator 30 08/05/16 00:00 30 08/05/16 00:00 22 08/05/16 00:00 97.6 87 21 100/55 97 Mechanical Ventilator 30 08/05/16 00:00 88 08/04/16 23:32 89 21 30 08/04/16 23:30 88 21 113/59 97 Mechanical Ventilator 30 08/04/16 23:00 90 20 152/67 96 Mechanical Ventilator 30 08/04/16 23:00 24 08/04/16 22:30 94 24 152/67 99 Mechanical Ventilator 30 08/04/16 22:03 102 20 30 08/04/16 22:00 97.9 82 19 131/58 98 Mechanical Ventilator 30 08/04/16 22:00 19 08/04/16 21:30 83 19 102/57 98 Mechanical Ventilator 30 08/04/16 21:00 99.5 87 21 96/60 96 Mechanical Ventilator 30 08/04/16 21:00 21 08/04/16 20:30 95 21 98/59 95 Mechanical Ventilator 30 08/04/16 20:03 114 32 30 08/04/16 20:00 30 08/04/16 20:00 33 08/04/16 20:00 100.0 105 21 103/58 95 Mechanical Ventilator 30 08/04/16 20:00 117 08/04/16 19:30 119 21 157/58 95 Mechanical Ventilator 30 08/04/16 19:13 99.0 08/04/16 19:00 99 19 161/71 99 Mechanical Ventilator 30 08/04/16 19:00 18 08/04/16 18:30 99 19 125/55 99 Mechanical Ventilator 30 08/04/16 18:00 17 08/04/16 18:00 97 20 108/60 99 Mechanical Ventilator 30 08/04/16 17:30 96 21 106/59 99 Mechanical Ventilator 30 08/04/16 17:03 83 19 30 08/04/16 17:00 84 19 114/58 98 Mechanical Ventilator 30 08/04/16 17:00 20 08/04/16 16:30 85 19 106/55 98 Mechanical Ventilator 30 08/04/16 16:00 30 08/04/16 16:00 99.2 82 20 108/57 99 Mechanical Ventilator 30 08/04/16 16:00 20 08/04/16 16:00 82 08/04/16 15:30 84 19 101/52 98 Mechanical Ventilator 30 08/04/16 15:00 20 08/04/16 15:00 80 20 121/64 98 Mechanical Ventilator 30 08/04/16 14:42 92 20 30 08/04/16 14:30 93 21 118/68 98 Mechanical Ventilator 30 08/04/16 14:00 24 08/04/16 14:00 109 20 128/77 98 Mechanical Ventilator 30 08/04/16 13:30 126 21 139/77 98 Mechanical Ventilator 30 08/04/16 13:00 25 08/04/16 13:00 99.4 82 21 139/77 98 Mechanical Ventilator 30 08/04/16 12:30 80 22 149/81 98 Mechanical Ventilator 30 08/04/16 12:15 109 28 30 08/04/16 12:00 30 08/04/16 12:00 19 08/04/16 12:00 86 08/04/16 11:30 95 23 121/66 98 Mechanical Ventilator 30 08/04/16 11:04 29 08/04/16 11:01 30 08/04/16 11:00 89 23 30 08/04/16 11:00 90 23 129/60 98 Mechanical Ventilator 30 08/04/16 10:30 88 19 104/66 98 Mechanical Ventilator 30 08/04/16 10:00 18 08/04/16 10:00 88 20 105/58 98 Mechanical Ventilator 30 08/04/16 09:30 89 21 101/60 98 Mechanical Ventilator 30 Status: awake Condition: critical Lungs: clear Heart: HR/BP stable, HR/BP unstable Abdomen: soft, non-tender, feeding tube Extremities: edema Decubiti: location Micro: Microbiology Date/Time Source Procedure Growth Status 08/04/16 15:00 Urine,Clean Catch Urine Culture - Preliminary NO GROWTH Resulted Accucheck: 179 Critical Care - Subjective ICU Day: 6 Condition: critical EKG Rhythm: Sinus Rhythm FI02: 30 Vent Support Breath Rate: 10 Vent Support Mode: AC Vent Tidal Volume: 500 Sputum Amount: Moderate PEEP: 5.0 PIP: 15 Fluids: d5w at 75 cc.hour Drips: fentanyl drip I&O: Intake and Output 08/04/16 08/05/16 19:00 07:00 Intake Total 1475.29 ml 1422.708 ml Output Total 740 ml 570 ml Balance 735.29 ml 852.708 ml Intake IV Total 1475.29 ml 1422.708 ml Output Urine Total 740 ml 570 ml CXR: ET in good position ET-Tube: 7.5 ET Position: 25 Labs: Laboratory Tests Test 08/04/16 15:00 08/04/16 18:00 08/05/16 04:00 08/05/16 08:02 Urine Color Brown Urine Appearance Slightly cloudy Urine pH 5 (4.5-8.0) Urine Specific [place] 1.015 (1.005-1.035) Urine Protein 2+ (NEGATIVE) H Urine Glucose (UA) Negative (NEGATIVE) Urine Ketones 1+ (NEGATIVE) H Urine Occult Blood 2+ (NEGATIVE) H Urine Nitrite Negative (NEGATIVE) Urine Bilirubin 1+ (NEGATIVE) H Urine Ictotest Negative Urine Urobilinogen Normal MG/DL (0.0-1.0) Urine Leukocyte Esterase 2+ (NEGATIVE) H Urine RBC 5-10 /HPF (0 - 0) H Urine WBC 2-4 /HPF (0 - 0) Urine Squamous Epithelial Cells None /LPF (NONE/OCC) Urine Bacteria Moderate /HPF (NONE) H White Blood Count 16.6 K/UL (4.8-10.8) H 12.0 K/UL (4.8-10.8) H Red Blood Count 3.08 M/UL (4.70-6.10) L 2.99 M/UL (4.70-6.10) L Hemoglobin 9.4 G/DL (14.2-18.0) L 9.0 G/DL (14.2-18.0) L Hematocrit 28.8 % (42.0-52.0) L 28.2 % (42.0-52.0) L Mean Corpuscular Volume 94 FL (80-99) 94 FL (80-99) Mean Corpuscular Hemoglobin 30.6 PG (27.0-31.0) 30.1 PG (27.0-31.0) Mean Corpuscular Hemoglobin Concent 32.8 G/DL (32.0-36.0) 31.9 G/DL (32.0-36.0) L Red Cell Distribution Width 13.2 % (11.6-14.8) 13.5 % (11.6-14.8) Platelet Count 138 K/UL (150-450) L 171 K/UL (150-450) Mean Platelet Volume 7.9 FL (6.5-10.1) 7.9 FL (6.5-10.1) Neutrophils (%) (Auto) 91.6 % (45.0-75.0) H % (45.0-75.0) Lymphocytes (%) (Auto) 5.5 % (20.0-45.0) L % (20.0-45.0) Monocytes (%) (Auto) 2.2 % (1.0-10.0) % (1.0-10.0) Eosinophils (%) (Auto) 0.4 % (0.0-3.0) % (0.0-3.0) Basophils (%) (Auto) 0.3 % (0.0-2.0) % (0.0-2.0) Sodium Level 147 mEQ/L (135-145) H Potassium Level 3.9 mEQ/L (3.4-4.9) Chloride Level 108 mEQ/L (98-107) H Carbon Dioxide Level 27 mEQ/L (20-30) Anion Gap 12 (5-15) Blood Urea Nitrogen 16 mg/dL (7-23) Creatinine 1.0 mg/dL (0.7-1.2) Estimat Glomerular Filtration Rate > 60 mL/min (>60) Glucose Level 117 mg/dL (74-106) H Calcium Level 7.2 mg/dL (8.6-10.2) L Phosphorus Level 2.0 mg/dL (2.5-4.8) L Magnesium Level 1.9 mg/dL (1.7-2.5) Total Bilirubin 0.4 mg/dL (0.0-1.2) Aspartate Amino Transf (AST/SGOT) 39 U/L (5-40) Alanine Aminotransferase (ALT/SGPT) 16 U/L (3-41) Alkaline Phosphatase 58 U/L (40-129) Total Protein 4.9 g/dL (6.6-8.7) L Albumin 1.8 g/dL (3.5-5.2) L Globulin 3.1 g/dL Albumin/Globulin Ratio 0.5 (1.0-2.7) L Arterial Blood pH 7.426 (7.350-7.450) Arterial Blood Partial Pressure CO2 42.6 mmHg (35.0-45.0) Arterial Blood Partial Pressure O2 80.7 mmHg (75.0-100.0) Arterial Blood HCO3 27.4 mmol/L (22.0-26.0) H Arterial Blood Oxygen Saturation 95.6 % (92.0-98.0) Arterial Blood Base Excess 2.7 Romero Test Positive CHAS WALLACE Aug 05, 2016 09:03
[2016-08-05] MEDS: Morphine Sulfate 2mg/ml Inj IVP PRN ×2 (09:09→18:08)
--- NOTE | 2016-08-05 09:34 | General Progress Note ---
Assessment/Plan Status: unchanged Status Narrative WBC lower- Cr stable Assessment/Plan Status: Acute renal failure and Oliguria due to - low BP , post OP- Amikacin and VancoMycin- Ongoing sepsis Respiratory failure, on Vent intraabdominal abscess, small bowel obstruction, intraabdominal adhesions, small bowel perforation. Plan; K Phos IV Post Op care- Hydrate- monitor renal parameters- Per ID- Weaning as possible- Avoid nephrotoxics Per orders Subjective ROS Limited/Unobtainable: Yes Allergies: Coded Allergies: PENICILLINS (Verified Allergy, Intermediate, 07/30/16) SULFA (SULFONAMIDE ANTIBIOTICS) (Verified Allergy, Intermediate, ITCHING, 07/30/16) Objective Last 24 Hour Vital Signs Date Time Temp Pulse Resp B/P Pulse Ox O2 Delivery O2 Flow Rate FiO2 08/05/16 09:00 142 29 126/74 99 Mechanical Ventilator 30 08/05/16 08:45 117 26 30 08/05/16 08:30 49 20 123/57 96 Mechanical Ventilator 30 08/05/16 08:00 102 08/05/16 08:00 30 08/05/16 08:00 99.5 102 28 123/57 96 Mechanical Ventilator 30 08/05/16 07:30 115 22 146/70 94 Mechanical Ventilator 30 08/05/16 07:10 101 30 30 08/05/16 07:00 103 20 126/65 96 Mechanical Ventilator 30 08/05/16 06:30 103 20 123/64 94 Mechanical Ventilator 30 08/05/16 06:00 106 23 123/64 94 Mechanical Ventilator 30 08/05/16 05:35 109 32 30 08/05/16 05:30 108 23 119/70 96 Mechanical Ventilator 30 08/05/16 05:00 107 22 144/79 99 Mechanical Ventilator 30 08/05/16 04:30 97 24 134/70 99 Mechanical Ventilator 30 08/05/16 04:00 30 08/05/16 04:00 97.7 89 23 112/46 99 Mechanical Ventilator 30 08/05/16 04:00 91 08/05/16 03:30 89 23 121/55 99 Mechanical Ventilator 30 08/05/16 03:00 22 08/05/16 03:00 87 21 114/45 99 Mechanical Ventilator 30 08/05/16 02:43 84 19 30 08/05/16 02:38 97.7 08/05/16 02:30 86 21 115/60 100 Mechanical Ventilator 30 08/05/16 02:08 20 08/05/16 02:00 86 21 114/67 100 Mechanical Ventilator 30 08/05/16 02:00 22 08/05/16 01:30 81 19 108/57 100 Mechanical Ventilator 30 08/05/16 01:16 91 20 30 08/05/16 01:00 83 19 91/55 98 Mechanical Ventilator 30 08/05/16 01:00 20 08/05/16 00:30 83 20 106/56 98 Mechanical Ventilator 30 08/05/16 00:00 30 08/05/16 00:00 22 08/05/16 00:00 97.6 87 21 100/55 97 Mechanical Ventilator 30 08/05/16 00:00 88 08/04/16 23:32 89 21 30 08/04/16 23:30 88 21 113/59 97 Mechanical Ventilator 30 08/04/16 23:00 90 20 152/67 96 Mechanical Ventilator 30 08/04/16 23:00 24 08/04/16 22:30 94 24 152/67 99 Mechanical Ventilator 30 08/04/16 22:03 102 20 30 08/04/16 22:00 97.9 82 19 131/58 98 Mechanical Ventilator 30 08/04/16 22:00 19 08/04/16 21:30 83 19 102/57 98 Mechanical Ventilator 30 08/04/16 21:00 99.5 87 21 96/60 96 Mechanical Ventilator 30 08/04/16 21:00 21 08/04/16 20:30 95 21 98/59 95 Mechanical Ventilator 30 08/04/16 20:03 114 32 30 08/04/16 20:00 30 08/04/16 20:00 33 08/04/16 20:00 100.0 105 21 103/58 95 Mechanical Ventilator 30 08/04/16 20:00 117 08/04/16 19:30 119 21 157/58 95 Mechanical Ventilator 30 08/04/16 19:13 99.0 08/04/16 19:00 99 19 161/71 99 Mechanical Ventilator 30 08/04/16 19:00 18 08/04/16 18:30 99 19 125/55 99 Mechanical Ventilator 30 08/04/16 18:00 17 08/04/16 18:00 97 20 108/60 99 Mechanical Ventilator 30 08/04/16 17:30 96 21 106/59 99 Mechanical Ventilator 30 08/04/16 17:03 83 19 30 08/04/16 17:00 84 19 114/58 98 Mechanical Ventilator 30 08/04/16 17:00 20 08/04/16 16:30 85 19 106/55 98 Mechanical Ventilator 30 08/04/16 16:00 30 08/04/16 16:00 99.2 82 20 108/57 99 Mechanical Ventilator 30 08/04/16 16:00 20 08/04/16 16:00 82 08/04/16 15:30 84 19 101/52 98 Mechanical Ventilator 30 08/04/16 15:00 20 08/04/16 15:00 80 20 121/64 98 Mechanical Ventilator 30 08/04/16 14:42 92 20 30 08/04/16 14:30 93 21 118/68 98 Mechanical Ventilator 30 08/04/16 14:00 24 08/04/16 14:00 109 20 128/77 98 Mechanical Ventilator 30 08/04/16 13:30 126 21 139/77 98 Mechanical Ventilator 30 08/04/16 13:00 25 08/04/16 13:00 99.4 82 21 139/77 98 Mechanical Ventilator 30 08/04/16 12:30 80 22 149/81 98 Mechanical Ventilator 30 08/04/16 12:15 109 28 30 08/04/16 12:00 30 08/04/16 12:00 19 08/04/16 12:00 86 08/04/16 11:30 95 23 121/66 98 Mechanical Ventilator 30 08/04/16 11:04 29 08/04/16 11:01 30 08/04/16 11:00 89 23 30 08/04/16 11:00 90 23 129/60 98 Mechanical Ventilator 30 08/04/16 10:30 88 19 104/66 98 Mechanical Ventilator 30 08/04/16 10:00 18 08/04/16 10:00 88 20 105/58 98 Mechanical Ventilator 30 Intake and Output 08/04/16 08/05/16 19:00 07:00 Intake Total 1475.29 ml 1422.708 ml Output Total 740 ml 570 ml Balance 735.29 ml 852.708 ml Intake IV Total 1475.29 ml 1422.708 ml Output Urine Total 740 ml 570 ml Laboratory Tests 08/04/16 15:00: Urine Color Brown, Urine Appearance Slightly cloudy, Urine pH 5, Urine Specific [place] 1.015, Urine Protein 2+H, Urine Glucose (UA) Negative, Urine Ketones 1+H , Urine Occult Blood 2+H, Urine Nitrite Negative, Urine Bilirubin 1+H, Urine Ictotest Negative, Urine Urobilinogen Normal, Urine Leukocyte Esterase 2+H, Urine RBC 5-10H, Urine WBC 2-4, Urine Squamous Epithelial Cells None, Urine Bacteria ModerateH 08/04/16 18:00: White Blood Count 16.6H, Red Blood Count 3.08L, Hemoglobin 9.4L, Hematocrit 28.8L, Mean Corpuscular Volume 94, Mean Corpuscular Hemoglobin 30.6, Mean Corpuscular Hemoglobin Concent 32.8, Red Cell Distribution Width 13.2, Platelet Count 138L, Mean Platelet Volume 7.9, Neutrophils (%) (Auto) 91.6H, Lymphocytes (%) (Auto) 5.5L, Monocytes (%) (Auto) 2.2, Eosinophils (%) (Auto) 0.4, Basophils (%) (Auto) 0.3 08/05/16 04:00: White Blood Count 12.0H, Red Blood Count 2.99L, Hemoglobin 9.0L, Hematocrit 28.2L, Mean Corpuscular Volume 94, Mean Corpuscular Hemoglobin 30.1, Mean Corpuscular Hemoglobin Concent 31.9L, Red Cell Distribution Width 13.5, Platelet Count 171, Mean Platelet Volume 7.9, Neutrophils (%) (Auto) , Lymphocytes (%) (Auto) , Monocytes (%) (Auto) , Eosinophils (%) (Auto) , Basophils (%) (Auto) , Sodium Level 147H, Potassium Level 3.9, Chloride Level 108H, Carbon Dioxide Level 27, Anion Gap 12, Blood Urea Nitrogen 16, Creatinine 1.0, Estimat Glomerular Filtration Rate > 60, Glucose Level 117H, Calcium Level 7.2L, Phosphorus Level 2.0L, Magnesium Level 1.9, Total Bilirubin 0.4, Aspartate Amino Transf (AST/SGOT) 39, Alanine Aminotransferase (ALT/SGPT) 16, Alkaline Phosphatase 58, Total Protein 4.9L, Albumin 1.8L, Globulin 3.1, Albumin /Globulin Ratio 0.5L 08/05/16 08:02: Arterial Blood pH 7.426, Arterial Blood Partial Pressure CO2 42.6, Arterial Blood Partial Pressure O2 80.7, Arterial Blood HCO3 27.4H, Arterial Blood Oxygen Saturation 95.6, Arterial Blood Base Excess 2.7, Romero Test Positive Height (Feet): 5 Height (Inches): 9.00 Weight (Pounds): 188 General Appearance: mild distress Cardiovascular: tachycardia Respiratory/Chest: decreased breath sounds Abdomen: distended Objective no other changes in PE AYDE SERNA Aug 05, 2016 09:34
[2016-08-05] MEDS ORDERED: Sodium Phosphate 30 MM in NS 275 ML IV ONE (09:45)
[2016-08-05] MEDS ORDERED: Potassium Phosphate 20 MM in NS 275 ML IV ONE (10:00)
--- NOTE | 2016-08-05 11:08 | Diagnostic Imaging Report ---
Indication: DYSPNEA Technique: One view of the chest Comparison: 08/04/2016 Findings: Stable satisfactory positions of endotracheal tube, nasogastric tube. Right arm PICC has its tip in the right innominate vein. There is persistent right infrahilar infiltrate. Left costophrenic angle is cut off exam. Heart size is normal. Findings are unchanged Impression: Unchanged, over one day, findings as above.
--- NOTE | 2016-08-05 12:03 | General Progress Note ---
Progress Note Progress Note Surgery: Patient seen and examined at bedside. attempted weaning vent this morning but could not tolerate well. eyes open to command but does not follow direction. Afebrile, HD stable, leukocytosis down to 12k today, labs improved. Exam stable. Abdomen soft, distended, tenderness on exam, wound clean with dressings. Appreciate ICU care and management Wean as tolerated Minimize sedation as tolerated Trend labs. will continue to monitor. Luis Felipe Samuels Aug 05, 2016 12:03
--- NOTE | 2016-08-05 13:02 | Infectious Diseases Prog Note ---
Assessment/Plan Assessment/Plan A: The patient is a 61-year-old male, with +ve Blood cx 1/2 ? 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 HIV (reportedly the patient's undetectable viral load and CD4 count was 300). PLAN: continue the patient on aztreonam, Flagyl and vancomycin d# Monitor CBC Monitor BMP. Monitor cx ( Bl, Ur, SP ) repeat BlCx DW Nephro . Subjective Allergies: Coded Allergies: PENICILLINS (Verified Allergy, Intermediate, 07/30/16) SULFA (SULFONAMIDE ANTIBIOTICS) (Verified Allergy, Intermediate, ITCHING, 07/30/16) Subjective on vent , WBC improving , Objective Vital Signs Last 24 Hour Vital Signs Date Time Temp Pulse Resp B/P Pulse Ox O2 Delivery O2 Flow Rate FiO2 08/05/16 12:47 96 27 50 08/05/16 12:03 50 08/05/16 12:00 100 08/05/16 12:00 30 08/05/16 11:00 115 22 131/59 99 Mechanical Ventilator 100 08/05/16 10:55 145 16 100 08/05/16 10:30 97 22 150/67 96 Mechanical Ventilator 30 08/05/16 10:00 89 28 146/70 96 Mechanical Ventilator 30 08/05/16 09:30 94 23 108/52 99 Mechanical Ventilator 30 08/05/16 09:00 142 29 126/74 99 Mechanical Ventilator 30 08/05/16 08:45 117 26 30 08/05/16 08:30 49 20 123/57 96 Mechanical Ventilator 30 08/05/16 08:00 102 08/05/16 08:00 30 08/05/16 08:00 99.5 102 28 123/57 96 Mechanical Ventilator 30 08/05/16 07:30 115 22 146/70 94 Mechanical Ventilator 30 08/05/16 07:10 101 30 30 08/05/16 07:00 103 20 126/65 96 Mechanical Ventilator 30 08/05/16 06:30 103 20 123/64 94 Mechanical Ventilator 30 08/05/16 06:00 106 23 123/64 94 Mechanical Ventilator 30 08/05/16 05:35 109 32 30 08/05/16 05:30 108 23 119/70 96 Mechanical Ventilator 30 08/05/16 05:00 107 22 144/79 99 Mechanical Ventilator 30 08/05/16 04:30 97 24 134/70 99 Mechanical Ventilator 30 08/05/16 04:00 30 08/05/16 04:00 97.7 89 23 112/46 99 Mechanical Ventilator 30 08/05/16 04:00 91 08/05/16 03:30 89 23 121/55 99 Mechanical Ventilator 30 08/05/16 03:00 22 08/05/16 03:00 87 21 114/45 99 Mechanical Ventilator 30 08/05/16 02:43 84 19 30 08/05/16 02:38 97.7 08/05/16 02:30 86 21 115/60 100 Mechanical Ventilator 30 08/05/16 02:08 20 08/05/16 02:00 86 21 114/67 100 Mechanical Ventilator 30 08/05/16 02:00 22 08/05/16 01:30 81 19 108/57 100 Mechanical Ventilator 30 08/05/16 01:16 91 20 30 08/05/16 01:00 83 19 91/55 98 Mechanical Ventilator 30 08/05/16 01:00 20 08/05/16 00:30 83 20 106/56 98 Mechanical Ventilator 30 08/05/16 00:00 30 08/05/16 00:00 22 08/05/16 00:00 97.6 87 21 100/55 97 Mechanical Ventilator 30 08/05/16 00:00 88 08/04/16 23:32 89 21 30 08/04/16 23:30 88 21 113/59 97 Mechanical Ventilator 30 08/04/16 23:00 90 20 152/67 96 Mechanical Ventilator 30 08/04/16 23:00 24 08/04/16 22:30 94 24 152/67 99 Mechanical Ventilator 30 08/04/16 22:03 102 20 30 08/04/16 22:00 97.9 82 19 131/58 98 Mechanical Ventilator 30 08/04/16 22:00 19 08/04/16 21:30 83 19 102/57 98 Mechanical Ventilator 30 08/04/16 21:00 99.5 87 21 96/60 96 Mechanical Ventilator 30 08/04/16 21:00 21 08/04/16 20:30 95 21 98/59 95 Mechanical Ventilator 30 08/04/16 20:03 114 32 30 08/04/16 20:00 30 08/04/16 20:00 33 08/04/16 20:00 100.0 105 21 103/58 95 Mechanical Ventilator 30 08/04/16 20:00 117 08/04/16 19:30 119 21 157/58 95 Mechanical Ventilator 30 08/04/16 19:13 99.0 08/04/16 19:00 99 19 161/71 99 Mechanical Ventilator 30 08/04/16 19:00 18 08/04/16 18:30 99 19 125/55 99 Mechanical Ventilator 30 08/04/16 18:00 17 08/04/16 18:00 97 20 108/60 99 Mechanical Ventilator 30 08/04/16 17:30 96 21 106/59 99 Mechanical Ventilator 30 08/04/16 17:03 83 19 30 08/04/16 17:00 84 19 114/58 98 Mechanical Ventilator 30 08/04/16 17:00 20 08/04/16 16:30 85 19 106/55 98 Mechanical Ventilator 30 08/04/16 16:00 30 08/04/16 16:00 99.2 82 20 108/57 99 Mechanical Ventilator 30 08/04/16 16:00 20 08/04/16 16:00 82 08/04/16 15:30 84 19 101/52 98 Mechanical Ventilator 30 08/04/16 15:00 20 08/04/16 15:00 80 20 121/64 98 Mechanical Ventilator 30 08/04/16 14:42 92 20 30 08/04/16 14:30 93 21 118/68 98 Mechanical Ventilator 30 08/04/16 14:00 24 08/04/16 14:00 109 20 128/77 98 Mechanical Ventilator 30 08/04/16 13:30 126 21 139/77 98 Mechanical Ventilator 30 Height (Feet): 5 Height (Inches): 9.00 Weight (Pounds): 188 HEENT: anicteric Respiratory/Chest: lungs clear Cardiovascular: normal peripheral pulses Abdomen: soft, non tender Microbiology Date/Time Source Procedure Growth Status 08/04/16 06:15 Blood Blood Culture - Preliminary Resulted 08/04/16 15:00 Sputum Gram Stain - Final Resulted 08/04/16 15:00 Sputum Sputum Culture Pending Resulted 08/04/16 15:00 Urine,Clean Catch Urine Culture - Preliminary NO GROWTH Resulted Laboratory Tests Test 08/04/16 15:00 08/04/16 18:00 08/05/16 04:00 08/05/16 08:02 Urine Color Brown Urine Appearance Slightly cloudy Urine pH 5 (4.5-8.0) Urine Specific [place] 1.015 (1.005-1.035) Urine Protein 2+ (NEGATIVE) H Urine Glucose (UA) Negative (NEGATIVE) Urine Ketones 1+ (NEGATIVE) H Urine Occult Blood 2+ (NEGATIVE) H Urine Nitrite Negative (NEGATIVE) Urine Bilirubin 1+ (NEGATIVE) H Urine Ictotest Negative Urine Urobilinogen Normal MG/DL (0.0-1.0) Urine Leukocyte Esterase 2+ (NEGATIVE) H Urine RBC 5-10 /HPF (0 - 0) H Urine WBC 2-4 /HPF (0 - 0) Urine Squamous Epithelial Cells None /LPF (NONE/OCC) Urine Bacteria Moderate /HPF (NONE) H White Blood Count 16.6 K/UL (4.8-10.8) H 12.0 K/UL (4.8-10.8) H Red Blood Count 3.08 M/UL (4.70-6.10) L 2.99 M/UL (4.70-6.10) L Hemoglobin 9.4 G/DL (14.2-18.0) L 9.0 G/DL (14.2-18.0) L Hematocrit 28.8 % (42.0-52.0) L 28.2 % (42.0-52.0) L Mean Corpuscular Volume 94 FL (80-99) 94 FL (80-99) Mean Corpuscular Hemoglobin 30.6 PG (27.0-31.0) 30.1 PG (27.0-31.0) Mean Corpuscular Hemoglobin Concent 32.8 G/DL (32.0-36.0) 31.9 G/DL (32.0-36.0) L Red Cell Distribution Width 13.2 % (11.6-14.8) 13.5 % (11.6-14.8) Platelet Count 138 K/UL (150-450) L 171 K/UL (150-450) Mean Platelet Volume 7.9 FL (6.5-10.1) 7.9 FL (6.5-10.1) Neutrophils (%) (Auto) 91.6 % (45.0-75.0) H % (45.0-75.0) Lymphocytes (%) (Auto) 5.5 % (20.0-45.0) L % (20.0-45.0) Monocytes (%) (Auto) 2.2 % (1.0-10.0) % (1.0-10.0) Eosinophils (%) (Auto) 0.4 % (0.0-3.0) % (0.0-3.0) Basophils (%) (Auto) 0.3 % (0.0-2.0) % (0.0-2.0) Sodium Level 147 mEQ/L (135-145) H Potassium Level 3.9 mEQ/L (3.4-4.9) Chloride Level 108 mEQ/L (98-107) H Carbon Dioxide Level 27 mEQ/L (20-30) Anion Gap 12 (5-15) Blood Urea Nitrogen 16 mg/dL (7-23) Creatinine 1.0 mg/dL (0.7-1.2) Estimat Glomerular Filtration Rate > 60 mL/min (>60) Glucose Level 117 mg/dL (74-106) H Calcium Level 7.2 mg/dL (8.6-10.2) L Phosphorus Level 2.0 mg/dL (2.5-4.8) L Magnesium Level 1.9 mg/dL (1.7-2.5) Total Bilirubin 0.4 mg/dL (0.0-1.2) Aspartate Amino Transf (AST/SGOT) 39 U/L (5-40) Alanine Aminotransferase (ALT/SGPT) 16 U/L (3-41) Alkaline Phosphatase 58 U/L (40-129) Total Protein 4.9 g/dL (6.6-8.7) L Albumin 1.8 g/dL (3.5-5.2) L Globulin 3.1 g/dL Albumin/Globulin Ratio 0.5 (1.0-2.7) L Arterial Blood pH 7.426 (7.350-7.450) Arterial Blood Partial Pressure CO2 42.6 mmHg (35.0-45.0) Arterial Blood Partial Pressure O2 80.7 mmHg (75.0-100.0) Arterial Blood HCO3 27.4 mmol/L (22.0-26.0) H Arterial Blood Oxygen Saturation 95.6 % (92.0-98.0) Arterial Blood Base Excess 2.7 Romero Test Positive Current Medications Medications (Trade) Dose Ordered Sig/Ernie Route PRN Reason Start Time Stop Time Status Last Admin Dose Admin Albuterol/ Ipratropium 3 ml 3 ml Q4H PRN HHN Shortness of Breath 08/02/16 13:00 08/07/16 12:59 Aztreonam 1 gm/ Sodium Chloride 55 ml @ 110 mls/hr Q8HR@0200,1000,1800 IVPB 08/02/16 18:00 08/08/16 17:59 08/05/16 10:12 Chlorhexidine Gluconate (Mame-Hex 2%) 1 applic DAILY TOPIC 07/31/16 18:00 08/30/16 17:59 08/04/16 20:13 Dextrose 1,000 ml @ 75 mls/hr [id number] IV 08/03/16 08:15 09/02/16 08:14 08/05/16 01:01 Dextrose (Dextrose 50%) STAT PRN IV Hypoglycemia 07/30/16 21:45 08/29/16 21:44 Fentanyl Citrate 1000 mcg/Sodium Chloride 100 ml @ 0 mls/hr Q24H IV 07/31/16 20:00 08/07/16 19:59 08/05/16 02:08 Haloperidol Lactate/Dextrose (Haldol/D5W) 56 ml @ 224 mls/hr Q4H PRN IVPB Agitation 08/05/16 09:00 09/04/16 08:59 Heparin Sodium (Porcine) 5000 units 5,000 units EVERY 12 HOURS SUBQ 08/04/16 21:00 09/03/16 20:59 08/05/16 08:49 Lorazepam (Ativan 2mg/ml 1ml) 2 mg Q2H PRN IV agitation 07/31/16 09:00 08/07/16 08:59 08/05/16 05:22 Metronidazole (Flagyl) 100 ml @ 100 mls/hr Q8HR IVPB 08/01/16 14:00 08/08/16 13:59 08/05/16 05:51 Morphine Sulfate (Morphine Sulfate) 2 mg Q2H PRN IVP Severe Pain (Pain Scale 7-10) 07/31/16 09:00 08/07/16 08:59 08/05/16 09:09 Nitroglycerin (Ntg) 0.4 mg Q5M X 3 DOSES PRN SL Prn Chest Pain 07/30/16 21:45 08/29/16 21:44 Ondansetron HCl (Zofran) 4 mg Q6H PRN IVP Nausea & Vomiting 07/30/16 21:45 08/29/16 21:44 07/31/16 18:25 Pantoprazole 40 mg 40 mg BID IV 07/31/16 18:00 08/30/16 17:59 08/05/16 08:48 Potassium Phosphate 20 mm/ Sodium Chloride 281.6667 ml @ 46.944 m... ONCE ONCE IV 08/05/16 10:00 08/05/16 15:59 08/05/16 10:13 Promethazine HCl (Phenergan) 25 mg EVERY 8 HOURS PRN IV refractory nausea 07/30/16 21:45 08/29/16 21:44 Vancomycin HCl (Vanco rx to dose) 1 ea DAILY PRN MISC . 07/31/16 11:30 08/30/16 11:29 Vancomycin HCl/ Dextrose (Vancomycin/D5W) 275 ml @ 183.708 mls/hr Q12H IVPB 08/04/16 06:00 08/09/16 05:59 08/05/16 05:51 SANTANA HAGER M.D. Aug 05, 2016 13:02
[2016-08-05 13:19] LABS: ABG ALLEN TEST POSITIVE; ABG BASE EXCESS 0.3; ABG PCO2 51.2 mmHg (35.0-45.0)
--- NOTE | 2016-08-05 15:17 | GI Progress Note ---
Assessment/Plan Problems: (1) Hypoalbuminemia ICD Codes: E88.09 - Other disorders of plasma-protein metabolism, not elsewhere classified SNOMED: 779545709 (2) Anemia ICD Codes: D64.9 - Anemia, unspecified SNOMED: 692906470 (3) Pancreatitis ICD Codes: K85.90 - Acute pancreatitis without necrosis or infection, unspecified SNOMED: 39408711 Qualifiers: Qualified Codes: K85.80 - Other acute pancreatitis without necrosis or infection (4) Intra-abdominal abscess ICD Codes: K65.1 - Peritoneal abscess SNOMED: 03120677 (5) Ischemia, bowel ICD Codes: K55.9 - Vascular disorder of intestine, unspecified SNOMED: 98321216 Status: progressing, unchanged Status Narrative Discussed with Dr. Shiekh. Assessment/Plan s/p Exploratory laparotomy, drainage of abdominal abscess, lysis of adhesions, partial omentectomy and partial small-bowel resection. cdiff negative defer GI procedures at this time follow surgical recs NPO + IVFs abx ppi NGT -- per surgery fu labs outpatient colonoscopy Subjective Subjective limited, opens eyes Objective Last 24 Hour Vital Signs Date Time Temp Pulse Resp B/P Pulse Ox O2 Delivery O2 Flow Rate FiO2 08/05/16 15:05 83 15 40 08/05/16 14:00 92 20 101/62 98 Mechanical Ventilator 100 08/05/16 13:30 91 20 144/66 97 Mechanical Ventilator 100 08/05/16 13:00 96 30 140/79 97 Mechanical Ventilator 100 08/05/16 12:47 96 27 50 08/05/16 12:30 95 22 135/74 99 Mechanical Ventilator 100 08/05/16 12:03 50 08/05/16 12:00 100 08/05/16 12:00 30 08/05/16 12:00 98.6 97 22 129/64 97 Mechanical Ventilator 100 08/05/16 11:30 104 22 110/59 99 Mechanical Ventilator 100 08/05/16 11:00 115 22 131/59 99 Mechanical Ventilator 100 08/05/16 10:55 145 16 100 08/05/16 10:30 97 22 150/67 96 Mechanical Ventilator 30 08/05/16 10:00 89 28 146/70 96 Mechanical Ventilator 30 08/05/16 09:30 94 23 108/52 99 Mechanical Ventilator 30 08/05/16 09:00 142 29 126/74 99 Mechanical Ventilator 30 08/05/16 08:45 117 26 30 08/05/16 08:30 49 20 123/57 96 Mechanical Ventilator 30 08/05/16 08:00 102 08/05/16 08:00 30 08/05/16 08:00 99.5 102 28 123/57 96 Mechanical Ventilator 30 08/05/16 07:30 115 22 146/70 94 Mechanical Ventilator 30 08/05/16 07:10 101 30 30 08/05/16 07:00 103 20 126/65 96 Mechanical Ventilator 30 08/05/16 06:30 103 20 123/64 94 Mechanical Ventilator 30 08/05/16 06:00 106 23 123/64 94 Mechanical Ventilator 30 08/05/16 05:35 109 32 30 08/05/16 05:30 108 23 119/70 96 Mechanical Ventilator 30 08/05/16 05:00 107 22 144/79 99 Mechanical Ventilator 30 08/05/16 04:30 97 24 134/70 99 Mechanical Ventilator 30 08/05/16 04:00 30 08/05/16 04:00 97.7 89 23 112/46 99 Mechanical Ventilator 30 08/05/16 04:00 91 08/05/16 03:30 89 23 121/55 99 Mechanical Ventilator 30 08/05/16 03:00 22 08/05/16 03:00 87 21 114/45 99 Mechanical Ventilator 30 08/05/16 02:43 84 19 30 08/05/16 02:38 97.7 08/05/16 02:30 86 21 115/60 100 Mechanical Ventilator 30 08/05/16 02:08 20 08/05/16 02:00 86 21 114/67 100 Mechanical Ventilator 30 08/05/16 02:00 22 08/05/16 01:30 81 19 108/57 100 Mechanical Ventilator 30 08/05/16 01:16 91 20 30 08/05/16 01:00 83 19 91/55 98 Mechanical Ventilator 30 08/05/16 01:00 20 08/05/16 00:30 83 20 106/56 98 Mechanical Ventilator 30 08/05/16 00:00 30 08/05/16 00:00 22 08/05/16 00:00 97.6 87 21 100/55 97 Mechanical Ventilator 30 08/05/16 00:00 88 08/04/16 23:32 89 21 30 08/04/16 23:30 88 21 113/59 97 Mechanical Ventilator 30 08/04/16 23:00 90 20 152/67 96 Mechanical Ventilator 30 08/04/16 23:00 24 08/04/16 22:30 94 24 152/67 99 Mechanical Ventilator 30 08/04/16 22:03 102 20 30 08/04/16 22:00 97.9 82 19 131/58 98 Mechanical Ventilator 30 08/04/16 22:00 19 08/04/16 21:30 83 19 102/57 98 Mechanical Ventilator 30 08/04/16 21:00 99.5 87 21 96/60 96 Mechanical Ventilator 30 08/04/16 21:00 21 08/04/16 20:30 95 21 98/59 95 Mechanical Ventilator 30 08/04/16 20:03 114 32 30 08/04/16 20:00 30 08/04/16 20:00 33 08/04/16 20:00 100.0 105 21 103/58 95 Mechanical Ventilator 30 08/04/16 20:00 117 08/04/16 19:30 119 21 157/58 95 Mechanical Ventilator 30 08/04/16 19:13 99.0 08/04/16 19:00 99 19 161/71 99 Mechanical Ventilator 30 08/04/16 19:00 18 08/04/16 18:30 99 19 125/55 99 Mechanical Ventilator 30 08/04/16 18:00 17 08/04/16 18:00 97 20 108/60 99 Mechanical Ventilator 30 08/04/16 17:30 96 21 106/59 99 Mechanical Ventilator 30 08/04/16 17:03 83 19 30 08/04/16 17:00 84 19 114/58 98 Mechanical Ventilator 30 08/04/16 17:00 20 08/04/16 16:30 85 19 106/55 98 Mechanical Ventilator 30 08/04/16 16:00 30 08/04/16 16:00 99.2 82 20 108/57 99 Mechanical Ventilator 30 08/04/16 16:00 20 08/04/16 16:00 82 08/04/16 15:30 84 19 101/52 98 Mechanical Ventilator 30 Intake and Output 08/04/16 08/05/16 19:00 07:00 Intake Total 1475.29 ml 1422.708 ml Output Total 740 ml 570 ml Balance 735.29 ml 852.708 ml Intake IV Total 1475.29 ml 1422.708 ml Output Urine Total 740 ml 570 ml Laboratory Tests Test 08/04/16 18:00 08/05/16 04:00 08/05/16 08:02 08/05/16 12:50 White Blood Count 16.6 K/UL (4.8-10.8) H 12.0 K/UL (4.8-10.8) H Red Blood Count 3.08 M/UL (4.70-6.10) L 2.99 M/UL (4.70-6.10) L Hemoglobin 9.4 G/DL (14.2-18.0) L 9.0 G/DL (14.2-18.0) L Hematocrit 28.8 % (42.0-52.0) L 28.2 % (42.0-52.0) L Mean Corpuscular Volume 94 FL (80-99) 94 FL (80-99) Mean Corpuscular Hemoglobin 30.6 PG (27.0-31.0) 30.1 PG (27.0-31.0) Mean Corpuscular Hemoglobin Concent 32.8 G/DL (32.0-36.0) 31.9 G/DL (32.0-36.0) L Red Cell Distribution Width 13.2 % (11.6-14.8) 13.5 % (11.6-14.8) Platelet Count 138 K/UL (150-450) L 171 K/UL (150-450) Mean Platelet Volume 7.9 FL (6.5-10.1) 7.9 FL (6.5-10.1) Neutrophils (%) (Auto) 91.6 % (45.0-75.0) H % (45.0-75.0) Lymphocytes (%) (Auto) 5.5 % (20.0-45.0) L % (20.0-45.0) Monocytes (%) (Auto) 2.2 % (1.0-10.0) % (1.0-10.0) Eosinophils (%) (Auto) 0.4 % (0.0-3.0) % (0.0-3.0) Basophils (%) (Auto) 0.3 % (0.0-2.0) % (0.0-2.0) Sodium Level 147 mEQ/L (135-145) H Potassium Level 3.9 mEQ/L (3.4-4.9) Chloride Level 108 mEQ/L (98-107) H Carbon Dioxide Level 27 mEQ/L (20-30) Anion Gap 12 (5-15) Blood Urea Nitrogen 16 mg/dL (7-23) Creatinine 1.0 mg/dL (0.7-1.2) Estimat Glomerular Filtration Rate > 60 mL/min (>60) Glucose Level 117 mg/dL (74-106) H Calcium Level 7.2 mg/dL (8.6-10.2) L Phosphorus Level 2.0 mg/dL (2.5-4.8) L Magnesium Level 1.9 mg/dL (1.7-2.5) Total Bilirubin 0.4 mg/dL (0.0-1.2) Aspartate Amino Transf (AST/SGOT) 39 U/L (5-40) Alanine Aminotransferase (ALT/SGPT) 16 U/L (3-41) Alkaline Phosphatase 58 U/L (40-129) Total Protein 4.9 g/dL (6.6-8.7) L Albumin 1.8 g/dL (3.5-5.2) L Globulin 3.1 g/dL Albumin/Globulin Ratio 0.5 (1.0-2.7) L Arterial Blood pH 7.426 (7.350-7.450) 7.334 (7.350-7.450) Arterial Blood Partial Pressure CO2 42.6 mmHg (35.0-45.0) 51.2 mmHg (35.0-45.0) H Arterial Blood Partial Pressure O2 80.7 mmHg (75.0-100.0) 117.2 mmHg (75.0-100.0) H Arterial Blood HCO3 27.4 mmol/L (22.0-26.0) H 26.6 mmol/L (22.0-26.0) H Arterial Blood Oxygen Saturation 95.6 % (92.0-98.0) 97.9 % (92.0-98.0) Arterial Blood Base Excess 2.7 0.3 Romero Test Positive Positive Height (Feet): 5 Height (Inches): 9.00 Weight (Pounds): 188 General Appearance: no apparent distress, alert Cardiovascular: normal rate Respiratory/Chest: no respiratory distress, other - mechanical vent Abdominal Exam: incision site - c/d/i, other - NGT Genitourinary/Rectal: normal rectal exam Extremities: normal range of motion, non-tender Lita Parsons N.P. Aug 05, 2016 15:17
--- NOTE | 2016-08-05 15:28 | Consultation ---
Consult Note Consult Note Cardiology for Dr. Crenshaw Full note dictated # [id number] EYAD DONIS Aug 05, 2016 15:28
[2016-08-05] MEDS: Metoprolol 5mg/5ml Inj IVP SCH ×3 (19:44→19:57)
[2016-08-05 22:56] LABS: TROPONIN I < 0.30 ng/mL (<=0.30)
--- NOTE | 2016-08-05 23:15 | Consultation ---
DATE OF CONSULTATION: 08/05/2016 REASON FOR CONSULT: Atrial flutter and fibrillation. HISTORY OF PRESENT ILLNESS: History is obtained from the chart as the patient is unable to give any history due to sedation and intubation. The patient is a 61-year-old male with HIV positive and with history of bipolar disorder, who was admitted on 07/30/2016 with intra-abdominal sepsis. He had undergone left inguinal hernia repair, laparoscopic robotic 6 days prior to the current admission, was later readmitted with abdominal pain and left [facility] against medical advice. He subsequently presented to [facility] and was found to have a large abscess in the epigastric area. He underwent surgery including omentectomy and partial small-bowel resection. He is currently in the intensive care unit intubated and on mechanical ventilation. Today, he had an episode of atrial fibrillation with rapid ventricular rates to the 130s, which resolved spontaneously after a few minutes. Review of the records show that he also had an episode of atrial flutter on 08/01/2016 also brief, self-limited. There is no history in the chart of the patient having had any previous cardiac disease. He did undergo echocardiography on 08/02/2016, which showed an ejection fraction of 60% to 65%, mild left ventricular hypertrophy and no significant valve lesions. PAST MEDICAL HISTORY: As noted above. Human immunodeficiency virus positive with history of undetectable viral load and CD4 count 300 and history of bipolar disorder. MEDICATIONS: Potassium supplementation, Haldol 5 mg q.4 h hours p.r.n., vancomycin 1.25 g IV q.12 hours, aztreonam 1 g IV every 8 hours, DuoNeb nebulizer every 4 hours p.r.n., metronidazole every 8 hours, fentanyl, Protonix 40 mg IV b.i.d., and Ativan 2 mg IV q. m2 hours p.r.n. ALLERGIES: Penicillin and sulfa. SOCIAL HISTORY: Not obtainable from the patient or chart. REVIEW OF SYSTEMS: Not obtainable from the patient or chart. PHYSICAL EXAMINATION: VITAL SIGNS: Blood pressure is 101/62, pulse 92 regular, respirations 20, and afebrile. Temperature earlier today 99.5 degrees. HEENT: There is an endotracheal tube in place. Oral mucosa moist. NECK: Supple. There is no jugular venous distention. LUNGS: Bilateral scattered rhonchi. No rales or wheezes. HEART: Regular rate and rhythm. S1 and S2 with no murmurs or S3. ABDOMEN: Soft and distended. No bowel sounds. Dressing is midline. EXTREMITIES: No cyanosis, clubbing, or edema. Bilateral SCDs. LABORATORY AND DIAGNOSTIC DATA: Hemoglobin 9.0, white blood count 12,000, and platelets 171,000. Sodium 147, potassium 3.9, chloride 108, bicarbonate 27, BUN 16, and creatinine 1.0. Magnesium is 1.9. Arterial blood gases shows pH 7.33, pCO2 51, PO2 117, and 97% saturation. Abdominal abscess culture from 07/31/2016 grew Staph coag-negative, Klebsiella, bacteroides, and Prevotella denticola. Blood cultures are negative. Urine culture is negative. Sputum is pending. Telemetry shows an episode of atrial fibrillation at a rate of 132 beats per minute. Today, currently normal sinus rhythm. EKG is pending. Chest x-ray shows ET tube and NG tubes in place. Patchy infiltrate at the right base. No effusions. IMPRESSION AND RECOMMENDATIONS: The patient is a 61-year-old man who was admitted with intra-abdominal abscess following hernia surgery and has a history of bipolar disorder and is human immunodeficiency virus positive. He is currently intubated and sedated. He has been on broad-spectrum antibiotics for intra-abdominal sepsis in this setting. He developed atrial fibrillation and flutter with two episodes noted over the past week, which have been self-limited. At this point, I would favor starting low-dose beta-blockers, which will be given intravenously as he is unable to take any oral medications. I would not give anticoagulation given his recent surgery and question of intra-abdominal hemorrhage. We will check EKGs and serial troponin levels to rule out myocardial ischemia or infarction though clinical history to rule out myocardial ischemia or infarction. We will check venous duplex to rule out DVT. Further recommendations will be made based on the patient's clinical course and results of above testing. Armida Sears M.D. DR: YENIFER JOB#: [id number] CC:
[2016-08-06] VITALS (36 sets, daily range): BP systolic 85–169; BP diastolic 43–85
[2016-08-06] MEDS: Aztreonam Inj 1 GM in NS 55 ML IVPB SCH ×3 (02:27→17:17)
[2016-08-06] MEDS: Dyna-Hex 2% Top Sol 8oz TOPIC SCH (03:52)
[2016-08-06] MEDS: metroNIDAZOLE 500mg 100 ML IVPB SCH ×3 (05:47→21:56)
[2016-08-06 06:12] LABS: MEAN CORPUSCULAR HEMOGLOBIN 30.7 PG (27.0-31.0); MEAN CORPUSCULAR HGB CONC 32.8 G/DL (32.0-36.0); MEAN CORPUSCULAR VOLUME 94 FL (80-99); MEAN PLATELET VOLUME 6.8 FL (6.5-10.1); PLATELET COUNT 190 K/UL (150-450); RED BLOOD COUNT 3.01 M/UL (4.70-6.10); RED CELL DISTRIBUTION WIDTH 13.6 % (11.6-14.8); WHITE BLOOD COUNT 12.2 K/UL (4.8-10.8)
[2016-08-06 06:20] LABS: ALANINE AMINOTRANSFERASE 15 U/L (3-41); ALBUMIN/GLOBULIN RATIO 0.5 (1.0-2.7); ANION GAP 10 (5-15); ASPARTATE AMINO TRANSFERASE 29 U/L (5-40); CALCIUM 7.4 mg/dL (8.6-10.2); CARBON DIOXIDE 29 mEQ/L (20-30); CHLORIDE 107 mEQ/L (98-107); GLOMERULAR FILTRATION RATE > 60 mL/min (>60); HEMOLYSIS 4; PHOSPHORUS 2.4 mg/dL (2.5-4.8); POTASSIUM 4.1 mEQ/L (3.4-4.9); SODIUM 146 mEQ/L (135-145)
[2016-08-06] MEDS: Vancomycin 1250mg in D5W 275ml IVPB SCH ×2 (06:49→18:22)
[2016-08-06 08:07] LABS: ABG ALLEN TEST POSITIVE; ABG BASE EXCESS 3.7; ABG PCO2 37.9 mmHg (35.0-45.0)
[2016-08-06] MEDS: Pantoprazole Inj IV SCH ×2 (08:43→21:20)
[2016-08-06] MEDS: Heparin 5000 units/ml inj SUBQ SCH ×2 (08:44→21:21)
[2016-08-06] MEDS: LORazepam Inj 2mg/ml 1ml IV PRN ×2 (09:39→21:41)
--- NOTE | 2016-08-06 10:36 | Pulmonolgy Critical Care Note ---
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 - Objective Last 24 Hour Vital Signs Date Time Temp Pulse Resp B/P Pulse Ox O2 Delivery O2 Flow Rate FiO2 08/06/16 10:00 94 21 108/52 95 Mechanical Ventilator 40 08/06/16 10:00 21 08/06/16 09:30 93 20 133/51 94 Mechanical Ventilator 40 08/06/16 09:05 105 33 45 08/06/16 09:00 105 25 132/64 98 Mechanical Ventilator 40 08/06/16 09:00 24 08/06/16 08:30 106 22 93/69 98 Mechanical Ventilator 40 08/06/16 08:00 92 08/06/16 08:00 40 08/06/16 08:00 23 08/06/16 08:00 98.6 98 21 131/66 98 Mechanical Ventilator 40 08/06/16 07:30 98 22 131/66 98 Mechanical Ventilator 40 08/06/16 07:00 90 20 117/57 98 Mechanical Ventilator 40 08/06/16 06:50 92 30 45 08/06/16 06:30 94 20 123/77 100 Mechanical Ventilator 40 08/06/16 06:00 95 20 118/66 100 Mechanical Ventilator 40 08/06/16 05:30 97 20 139/52 99 Mechanical Ventilator 40 08/06/16 05:23 104 28 45 08/06/16 05:15 97.6 08/06/16 05:00 108 28 163/64 99 Mechanical Ventilator 40 08/06/16 04:45 22 08/06/16 04:30 104 25 131/61 99 Mechanical Ventilator 40 08/06/16 04:00 99 08/06/16 04:00 98.0 99 25 145/63 100 Mechanical Ventilator 40 08/06/16 04:00 40 08/06/16 03:30 93 23 109/59 100 Mechanical Ventilator 40 08/06/16 03:00 82 20 115/52 100 Mechanical Ventilator 40 08/06/16 02:47 94 19 45 08/06/16 02:30 70 18 103/57 100 Mechanical Ventilator 40 08/06/16 02:00 70 17 85/48 100 Mechanical Ventilator 40 08/06/16 01:30 81 17 116/55 100 Mechanical Ventilator 40 08/06/16 01:20 73 18 45 08/06/16 01:00 90 17 135/50 99 Mechanical Ventilator 40 08/06/16 00:30 91 20 113/55 99 Mechanical Ventilator 40 08/06/16 00:00 40 08/06/16 00:00 97.5 92 26 118/50 98 Mechanical Ventilator 40 08/06/16 00:00 95 08/05/16 23:30 85 17 111/56 98 Mechanical Ventilator 40 08/05/16 23:29 90 23 45 08/05/16 23:00 87 19 108/54 98 Mechanical Ventilator 40 08/05/16 22:30 89 24 140/63 98 Mechanical Ventilator 40 08/05/16 22:00 86 25 117/73 99 Mechanical Ventilator 40 08/05/16 21:30 84 21 98/62 98 Mechanical Ventilator 40 08/05/16 21:00 84 23 129/56 98 Mechanical Ventilator 40 08/05/16 20:53 79 37 45 08/05/16 20:30 82 26 120/65 98 Mechanical Ventilator 40 08/05/16 20:00 98.0 81 28 91/48 98 Mechanical Ventilator 40 08/05/16 20:00 40 08/05/16 20:00 82 08/05/16 19:57 85 115/59 08/05/16 19:51 85 113/61 17 19:44 101 142/55 08/05/16 19:33 109 36 40 17 19:30 107 32 142/55 96 Mechanical Ventilator 40 08/05/16 19:00 108 34 130/63 96 Mechanical Ventilator 40 17 19:00 40 17 18:30 102 31 132/63 95 Mechanical Ventilator 40 17 18:00 102 23 167/78 99 Mechanical Ventilator 40 17 17:30 90 17 110/54 99 Mechanical Ventilator 40 08/05/16 17:00 94 23 115/53 99 Mechanical Ventilator 100 08/05/16 16:50 86 13 40 08/05/16 16:30 94 16 103/65 99 Mechanical Ventilator 40 08/05/16 16:00 30 08/05/16 16:00 98.7 86 18 124/57 98 Mechanical Ventilator 100 08/05/16 16:00 84 08/05/16 15:30 88 17 90/59 98 Mechanical Ventilator 100 08/05/16 15:05 83 15 40 08/05/16 15:00 83 25 98/64 98 Mechanical Ventilator 100 08/05/16 14:30 92 20 114/58 98 Mechanical Ventilator 100 08/05/16 14:00 92 20 101/62 98 Mechanical Ventilator 100 08/05/16 13:30 91 20 144/66 97 Mechanical Ventilator 100 08/05/16 13:00 96 30 140/79 97 Mechanical Ventilator 100 08/05/16 12:47 96 27 50 08/05/16 12:30 95 22 135/74 99 Mechanical Ventilator 100 08/05/16 12:03 50 08/05/16 12:00 100 08/05/16 12:00 30 08/05/16 12:00 98.6 97 22 129/64 97 Mechanical Ventilator 100 08/05/16 11:30 104 22 110/59 99 Mechanical Ventilator 100 08/05/16 11:00 115 22 131/59 99 Mechanical Ventilator 100 08/05/16 10:55 145 16 100 Status: sedated Condition: critical HEENT: atraumatic Neck: full ROM Lungs: clear Heart: HR/BP stable, regular Abdomen: soft, non-tender, active bowel sounds Extremities: no C/C/E Decubiti: location Micro: Microbiology Date/Time Source Procedure Growth Status 08/04/16 06:15 Blood Blood Culture - Preliminary Staphylococcus Sp Coag Neg Resulted 08/04/16 06:05 Blood Blood Culture - Preliminary NO GROWTH AFTER 24 HOURS Resulted 08/04/16 15:00 Sputum Gram Stain - Final Resulted 08/04/16 15:00 Sputum Culture - Preliminary Gram Negative Bacillus 1 Peggy Albicans Usual Respiratory Di Resulted 08/04/16 15:00 Urine,Clean Catch Urine Culture - Preliminary NO GROWTH Resulted Accucheck: 179 Critical Care - Subjective ROS Limited/Unobtainable: No ICU Day: 7 Intubation Day: 7 Condition: critical EKG Rhythm: Sinus Rhythm FI02: 40 Vent Support Breath Rate: 10 Vent Support Mode: AC Vent Tidal Volume: 500 Sputum Amount: Moderate PEEP: 5.0 PIP: 25 Fluids: d5w 75 cc.hour I&O: Intake and Output 08/05/16 08/06/16 19:00 07:00 Intake Total 569 ml 1213 ml Output Total 570 ml 430 ml Balance -1 ml 783 ml Intake IV Total 569 ml 1213 ml Output Urine Total 570 ml 430 ml CXR: no change, ET in good position ET-Tube: 7.5 ET Position: 25 Labs: Laboratory Tests Test 08/05/16 12:50 08/05/16 22:00 08/06/16 04:00 08/06/16 08:00 Arterial Blood pH 7.334 (7.350-7.450) 7.477 (7.350-7.450) Arterial Blood Partial Pressure CO2 51.2 mmHg (35.0-45.0) H 37.9 mmHg (35.0-45.0) Arterial Blood Partial Pressure O2 117.2 mmHg (75.0-100.0) H 142.1 mmHg (75.0-100.0) H Arterial Blood HCO3 26.6 mmol/L (22.0-26.0) H 27.4 mmol/L (22.0-26.0) H Arterial Blood Oxygen Saturation 97.9 % (92.0-98.0) 98.4 % (92.0-98.0) H Arterial Blood Base Excess 0.3 3.7 Romero Test Positive Positive Troponin I < 0.30 ng/mL (<=0.30) White Blood Count 12.2 K/UL (4.8-10.8) H Red Blood Count 3.01 M/UL (4.70-6.10) L Hemoglobin 9.3 G/DL (14.2-18.0) L Hematocrit 28.2 % (42.0-52.0) L Mean Corpuscular Volume 94 FL (80-99) Mean Corpuscular Hemoglobin 30.7 PG (27.0-31.0) Mean Corpuscular Hemoglobin Concent 32.8 G/DL (32.0-36.0) Red Cell Distribution Width 13.6 % (11.6-14.8) Platelet Count 190 K/UL (150-450) Mean Platelet Volume 6.8 FL (6.5-10.1) Neutrophils (%) (Auto) % (45.0-75.0) Lymphocytes (%) (Auto) % (20.0-45.0) Monocytes (%) (Auto) % (1.0-10.0) Eosinophils (%) (Auto) % (0.0-3.0) Basophils (%) (Auto) % (0.0-2.0) Sodium Level 146 mEQ/L (135-145) H Potassium Level 4.1 mEQ/L (3.4-4.9) Chloride Level 107 mEQ/L (98-107) Carbon Dioxide Level 29 mEQ/L (20-30) Anion Gap 10 (5-15) Blood Urea Nitrogen 16 mg/dL (7-23) Creatinine 1.0 mg/dL (0.7-1.2) Estimat Glomerular Filtration Rate > 60 mL/min (>60) Glucose Level 120 mg/dL (74-106) H Calcium Level 7.4 mg/dL (8.6-10.2) L Phosphorus Level 2.4 mg/dL (2.5-4.8) L Magnesium Level 2.0 mg/dL (1.7-2.5) Total Bilirubin 0.3 mg/dL (0.0-1.2) Aspartate Amino Transf (AST/SGOT) 29 U/L (5-40) Alanine Aminotransferase (ALT/SGPT) 15 U/L (3-41) Alkaline Phosphatase 56 U/L (40-129) Total Protein 5.0 g/dL (6.6-8.7) L Albumin 1.7 g/dL (3.5-5.2) L Globulin 3.3 g/dL Albumin/Globulin Ratio 0.5 (1.0-2.7) L CHAS WALLACE Aug 06, 2016 10:36
--- NOTE | 2016-08-06 10:50 | General Progress Note ---
Assessment/Plan Status: stable Assessment/Plan Status: Acute renal failure and Oliguria due to - low BP , post OP- Amikacin and VancoMycin- Ongoing sepsis RESOLVED Respiratory failure, on Vent intraabdominal abscess, small bowel obstruction, intraabdominal adhesions, small bowel perforation. Plan; K Phos IV Post Op care- Hydrate- monitor renal parameters- Per ID- Weaning as possible- Avoid nephrotoxics Per orders Subjective ROS Limited/Unobtainable: Yes Allergies: Coded Allergies: PENICILLINS (Verified Allergy, Intermediate, 07/30/16) SULFA (SULFONAMIDE ANTIBIOTICS) (Verified Allergy, Intermediate, ITCHING, 07/30/16) Objective Last 24 Hour Vital Signs Date Time Temp Pulse Resp B/P Pulse Ox O2 Delivery O2 Flow Rate FiO2 08/06/16 10:30 104 21 105/43 95 Mechanical Ventilator 40 08/06/16 10:00 94 21 108/52 95 Mechanical Ventilator 40 08/06/16 10:00 21 08/06/16 09:30 93 20 133/51 94 Mechanical Ventilator 40 08/06/16 09:05 105 33 45 08/06/16 09:00 105 25 132/64 98 Mechanical Ventilator 40 08/06/16 09:00 24 08/06/16 08:30 106 22 93/69 98 Mechanical Ventilator 40 08/06/16 08:00 92 08/06/16 08:00 40 08/06/16 08:00 23 08/06/16 08:00 98.6 98 21 131/66 98 Mechanical Ventilator 40 08/06/16 07:30 98 22 131/66 98 Mechanical Ventilator 40 08/06/16 07:00 90 20 117/57 98 Mechanical Ventilator 40 08/06/16 06:50 92 30 45 08/06/16 06:30 94 20 123/77 100 Mechanical Ventilator 40 08/06/16 06:00 95 20 118/66 100 Mechanical Ventilator 40 08/06/16 05:30 97 20 139/52 99 Mechanical Ventilator 40 08/06/16 05:23 104 28 45 08/06/16 05:15 97.6 08/06/16 05:00 108 28 163/64 99 Mechanical Ventilator 40 08/06/16 04:45 22 08/06/16 04:30 104 25 131/61 99 Mechanical Ventilator 40 08/06/16 04:00 99 08/06/16 04:00 98.0 99 25 145/63 100 Mechanical Ventilator 40 08/06/16 04:00 40 08/06/16 03:30 93 23 109/59 100 Mechanical Ventilator 40 08/06/16 03:00 82 20 115/52 100 Mechanical Ventilator 40 08/06/16 02:47 94 19 45 08/06/16 02:30 70 18 103/57 100 Mechanical Ventilator 40 08/06/16 02:00 70 17 85/48 100 Mechanical Ventilator 40 08/06/16 01:30 81 17 116/55 100 Mechanical Ventilator 40 08/06/16 01:20 73 18 45 08/06/16 01:00 90 17 135/50 99 Mechanical Ventilator 40 08/06/16 00:30 91 20 113/55 99 Mechanical Ventilator 40 08/06/16 00:00 40 08/06/16 00:00 97.5 92 26 118/50 98 Mechanical Ventilator 40 08/06/16 00:00 95 08/05/16 23:30 85 17 111/56 98 Mechanical Ventilator 40 08/05/16 23:29 90 23 45 08/05/16 23:00 87 19 108/54 98 Mechanical Ventilator 40 08/05/16 22:30 89 24 140/63 98 Mechanical Ventilator 40 08/05/16 22:00 86 25 117/73 99 Mechanical Ventilator 40 08/05/16 21:30 84 21 98/62 98 Mechanical Ventilator 40 08/05/16 21:00 84 23 129/56 98 Mechanical Ventilator 40 08/05/16 20:53 79 37 45 08/05/16 20:30 82 26 120/65 98 Mechanical Ventilator 40 08/05/16 20:00 98.0 81 28 91/48 98 Mechanical Ventilator 40 08/05/16 20:00 40 08/05/16 20:00 82 08/05/16 19:57 85 115/59 17 19:51 85 113/61 17 19:44 101 142/55 17 19:33 109 36 40 08/05/17 19:30 107 32 142/55 96 Mechanical Ventilator 40 20/17 19:00 108 34 130/63 96 Mechanical Ventilator 40 20/17 19:00 40 2017 18:30 102 31 132/63 95 Mechanical Ventilator 40 17 18:00 102 23 167/78 99 Mechanical Ventilator 40 08/05/16 17:30 90 17 110/54 99 Mechanical Ventilator 40 08/05/16 17:00 94 23 115/53 99 Mechanical Ventilator 100 08/05/16 16:50 86 13 40 08/05/16 16:30 94 16 103/65 99 Mechanical Ventilator 40 08/05/16 16:00 30 08/05/16 16:00 98.7 86 18 124/57 98 Mechanical Ventilator 100 08/05/16 16:00 84 08/05/16 15:30 88 17 90/59 98 Mechanical Ventilator 100 08/05/16 15:05 83 15 40 08/05/16 15:00 83 25 98/64 98 Mechanical Ventilator 100 08/05/16 14:30 92 20 114/58 98 Mechanical Ventilator 100 08/05/16 14:00 92 20 101/62 98 Mechanical Ventilator 100 08/05/16 13:30 91 20 144/66 97 Mechanical Ventilator 100 08/05/16 13:00 96 30 140/79 97 Mechanical Ventilator 100 08/05/16 12:47 96 27 50 08/05/16 12:30 95 22 135/74 99 Mechanical Ventilator 100 08/05/16 12:03 50 08/05/16 12:00 100 08/05/16 12:00 30 08/05/16 12:00 98.6 97 22 129/64 97 Mechanical Ventilator 100 08/05/16 11:30 104 22 110/59 99 Mechanical Ventilator 100 08/05/16 11:00 115 22 131/59 99 Mechanical Ventilator 100 08/05/16 10:55 145 16 100 Intake and Output 08/05/16 08/06/16 19:00 07:00 Intake Total 569 ml 1213 ml Output Total 570 ml 430 ml Balance -1 ml 783 ml Intake IV Total 569 ml 1213 ml Output Urine Total 570 ml 430 ml Laboratory Tests 08/05/16 12:50: Arterial Blood pH 7.334L, Arterial Blood Partial Pressure CO2 51.2H, Arterial Blood Partial Pressure O2 117.2H, Arterial Blood HCO3 26.6H, Arterial Blood Oxygen Saturation 97.9, Arterial Blood Base Excess 0.3, Romero Test Positive 08/05/16 22:00: Troponin I < 0.30 08/06/16 04:00: White Blood Count 12.2H, Red Blood Count 3.01L, Hemoglobin 9.3L, Hematocrit 28.2L, Mean Corpuscular Volume 94, Mean Corpuscular Hemoglobin 30.7, Mean Corpuscular Hemoglobin Concent 32.8, Red Cell Distribution Width 13.6, Platelet Count 190, Mean Platelet Volume 6.8, Neutrophils (%) (Auto) , Lymphocytes (%) ( Auto) , Monocytes (%) (Auto) , Eosinophils (%) (Auto) , Basophils (%) (Auto) , Sodium Level 146H, Potassium Level 4.1, Chloride Level 107, Carbon Dioxide Level 29, Anion Gap 10, Blood Urea Nitrogen 16, Creatinine 1.0, Estimat Glomerular Filtration Rate > 60, Glucose Level 120H, Calcium Level 7.4L, Phosphorus Level 2.4L, Magnesium Level 2.0, Total Bilirubin 0.3, Aspartate Amino Transf (AST/SGOT) 29, Alanine Aminotransferase (ALT/SGPT) 15, Alkaline Phosphatase 56, Total Protein 5.0L, Albumin 1.7L, Globulin 3.3, Albumin/ Globulin Ratio 0.5L 08/06/16 08:00: Arterial Blood pH 7.477H, Arterial Blood Partial Pressure CO2 37.9, Arterial Blood Partial Pressure O2 142.1H, Arterial Blood HCO3 27.4H, Arterial Blood Oxygen Saturation 98.4H, Arterial Blood Base Excess 3.7, Romero Test Positive Height (Feet): 5 Height (Inches): 9.00 Weight (Pounds): 188 General Appearance: mild distress, agitated Objective no other changes in PE AYDE SERNA Aug 06, 2016 10:50
--- NOTE | 2016-08-06 11:13 | Diagnostic Imaging Report ---
Indication: DYSPNEA Technique: One view of the chest Comparison: 08/05/2016 Findings: Stable satisfactory position of endotracheal and nasogastric tubes. Right arm PICC has its tip projecting at the innominate venous confluence. Right infrahilar infiltrate persists. There is suggestion of slightly increased left infrahilar opacity. Pleural spaces remain clear. The heart size is upper limits of normal. Impression: Stable right-sided infiltrate. Suggestion of new or slightly increased left perihilar infiltrate, over one day Stable tube and line positions, as described
[2016-08-06] MEDS ORDERED: Potassium Phosphate 20 MM in NS 275 ML IV ONE (11:30)
[2016-08-06] MEDS: Haloperidol Lactate 5 MG in D5W 55 ML IVPB PRN ×2 (11:34→23:43)
--- NOTE | 2016-08-06 12:06 | General Progress Note ---
Progress Note Progress Note Surgery: Patient seen and examined at bedside. Still agitated and requiring sedation. When weaning he becomes very agitated. Tolerates vent weaning only for short periods of time. Abdominal wound clean but now has serous drainage likely from ascites. Labs reviewed Appreciate ICU care Wean as tolerated Dressings to midline wound BID and prn when saturated. Luis Felipe Samuels Aug 06, 2016 12:06
[2016-08-06 13:02] LABS: ABG ALLEN TEST POSITIVE; ABG BASE EXCESS 1.9; ABG PCO2 56.6 mmHg (35.0-45.0)
--- NOTE | 2016-08-06 13:11 | Infectious Diseases Prog Note ---
Assessment/Plan Assessment/Plan A: The patient is a 61-year-old male, with ?Pna :Scx: GNR +ve Blood cx 1/2 ? probable PICC infection Low grade fever intra-abdominal sepsis / large abscess Wnd Cx : CoNS , Kelb , Bacteroids, Prevotella Leukocytosis , improving , ( doubt abscess at this time , dw GenSx ) SP laparoscopic-robotic left inguinal hernia repair six days ago Pneumatosis intestinalis ( duodenum and proximal jejunum ) SP exploratory laparotomy and partial omentectomy and partial small-bowel resection LUCY improved Bipolar disorder. HIV (reportedly the patient's undetectable viral load and CD4 count was 300). PLAN: continue the patient on aztreonam, Flagyl and vancomycin d# / Monitor CBC Monitor BMP. Monitor cx ( Bl, Ur, SP ) repeat BlCx DW Nephro DC PICC and send the tip for Cx . Subjective Constitutional: Denies: anorexia, chills, drenching sweats, fatigue, fever, no symptoms, other Allergies: Coded Allergies: PENICILLINS (Verified Allergy, Intermediate, 07/30/16) SULFA (SULFONAMIDE ANTIBIOTICS) (Verified Allergy, Intermediate, ITCHING, 07/30/16) Subjective on vent , WBC improving , Objective Vital Signs Last 24 Hour Vital Signs Date Time Temp Pulse Resp B/P Pulse Ox O2 Delivery O2 Flow Rate FiO2 08/06/16 12:00 98 08/06/16 12:00 104 08/06/16 12:00 98.6 104 23 110/56 94 Mechanical Ventilator 40 08/06/16 12:00 40 08/06/16 11:59 40 08/06/16 11:30 106 29 147/66 96 Mechanical Ventilator 40 08/06/16 11:05 105 27 45 08/06/16 11:00 96 28 123/52 96 Mechanical Ventilator 40 08/06/16 10:30 104 21 105/43 95 Mechanical Ventilator 40 08/06/16 10:00 94 21 108/52 95 Mechanical Ventilator 40 08/06/16 10:00 21 08/06/16 09:30 93 20 133/51 94 Mechanical Ventilator 40 08/06/16 09:05 105 33 45 08/06/16 09:00 105 25 132/64 98 Mechanical Ventilator 40 08/06/16 09:00 24 08/06/16 08:30 106 22 93/69 98 Mechanical Ventilator 40 08/06/16 08:00 92 08/06/16 08:00 40 08/06/16 08:00 23 08/06/16 08:00 98.6 98 21 131/66 98 Mechanical Ventilator 40 08/06/16 07:30 98 22 131/66 98 Mechanical Ventilator 40 08/06/16 07:00 90 20 117/57 98 Mechanical Ventilator 40 08/06/16 06:50 92 30 45 08/06/16 06:30 94 20 123/77 100 Mechanical Ventilator 40 08/06/16 06:00 95 20 118/66 100 Mechanical Ventilator 40 08/06/16 05:30 97 20 139/52 99 Mechanical Ventilator 40 08/06/16 05:23 104 28 45 08/06/16 05:15 97.6 08/06/16 05:00 108 28 163/64 99 Mechanical Ventilator 40 08/06/16 04:45 22 08/06/16 04:30 104 25 131/61 99 Mechanical Ventilator 40 08/06/16 04:00 99 08/06/16 04:00 98.0 99 25 145/63 100 Mechanical Ventilator 40 08/06/16 04:00 40 08/06/16 03:30 93 23 109/59 100 Mechanical Ventilator 40 08/06/16 03:00 82 20 115/52 100 Mechanical Ventilator 40 08/06/16 02:47 94 19 45 08/06/16 02:30 70 18 103/57 100 Mechanical Ventilator 40 08/06/16 02:00 70 17 85/48 100 Mechanical Ventilator 40 08/06/16 01:30 81 17 116/55 100 Mechanical Ventilator 40 08/06/16 01:20 73 18 45 08/06/16 01:00 90 17 135/50 99 Mechanical Ventilator 40 08/06/16 00:30 91 20 113/55 99 Mechanical Ventilator 40 08/06/16 00:00 40 08/06/16 00:00 97.5 92 26 118/50 98 Mechanical Ventilator 40 08/06/16 00:00 95 08/05/16 23:30 85 17 111/56 98 Mechanical Ventilator 40 08/05/16 23:29 90 23 45 08/05/16 23:00 87 19 108/54 98 Mechanical Ventilator 40 08/05/16 22:30 89 24 140/63 98 Mechanical Ventilator 40 08/05/16 22:00 86 25 117/73 99 Mechanical Ventilator 40 08/05/16 21:30 84 21 98/62 98 Mechanical Ventilator 40 08/05/16 21:00 84 23 129/56 98 Mechanical Ventilator 40 08/05/16 20:53 79 37 45 08/05/16 20:30 82 26 120/65 98 Mechanical Ventilator 40 08/05/16 20:00 98.0 81 28 91/48 98 Mechanical Ventilator 40 08/05/16 20:00 40 08/05/16 20:00 82 08/05/16 19:57 85 115/59 08/05/16 19:51 85 113/61 08/05/16 19:44 101 142/55 08/05/16 19:33 109 36 40 08/05/16 19:30 107 32 142/55 96 Mechanical Ventilator 40 08/05/16 19:00 108 34 130/63 96 Mechanical Ventilator 40 08/05/16 19:00 40 08/05/16 18:30 102 31 132/63 95 Mechanical Ventilator 40 08/05/16 18:00 102 23 167/78 99 Mechanical Ventilator 40 08/05/16 17:30 90 17 110/54 99 Mechanical Ventilator 40 08/05/16 17:00 94 23 115/53 99 Mechanical Ventilator 100 08/05/16 16:50 86 13 40 08/05/16 16:30 94 16 103/65 99 Mechanical Ventilator 40 08/05/16 16:00 30 08/05/16 16:00 98.7 86 18 124/57 98 Mechanical Ventilator 100 08/05/16 16:00 84 08/05/16 15:30 88 17 90/59 98 Mechanical Ventilator 100 08/05/16 15:05 83 15 40 08/05/16 15:00 83 25 98/64 98 Mechanical Ventilator 100 08/05/16 14:30 92 20 114/58 98 Mechanical Ventilator 100 08/05/16 14:00 92 20 101/62 98 Mechanical Ventilator 100 08/05/16 13:30 91 20 144/66 97 Mechanical Ventilator 100 Height (Feet): 5 Height (Inches): 9.00 Weight (Pounds): 188 HEENT: mucous membranes moist Respiratory/Chest: respiratory distress Cardiovascular: no gallop/murmur Abdomen: no organomegaly Microbiology Date/Time Source Procedure Growth Status 08/04/16 06:15 Blood Blood Culture - Preliminary Staphylococcus Sp Coag Neg Resulted 08/04/16 06:05 Blood Blood Culture - Preliminary NO GROWTH AFTER 24 HOURS Resulted 08/04/16 15:00 Sputum Gram Stain - Final Resulted 08/04/16 15:00 Sputum Culture - Preliminary Gram Negative Bacillus 1 Peggy Albicans Usual Respiratory Di Resulted 08/04/16 15:00 Urine,Clean Catch Urine Culture - Preliminary NO GROWTH AFTER 24 HOURS Resulted Laboratory Tests Test 08/05/16 22:00 08/06/16 04:00 08/06/16 08:00 08/06/16 12:54 Troponin I < 0.30 ng/mL (<=0.30) White Blood Count 12.2 K/UL (4.8-10.8) H Red Blood Count 3.01 M/UL (4.70-6.10) L Hemoglobin 9.3 G/DL (14.2-18.0) L Hematocrit 28.2 % (42.0-52.0) L Mean Corpuscular Volume 94 FL (80-99) Mean Corpuscular Hemoglobin 30.7 PG (27.0-31.0) Mean Corpuscular Hemoglobin Concent 32.8 G/DL (32.0-36.0) Red Cell Distribution Width 13.6 % (11.6-14.8) Platelet Count 190 K/UL (150-450) Mean Platelet Volume 6.8 FL (6.5-10.1) Neutrophils (%) (Auto) % (45.0-75.0) Lymphocytes (%) (Auto) % (20.0-45.0) Monocytes (%) (Auto) % (1.0-10.0) Eosinophils (%) (Auto) % (0.0-3.0) Basophils (%) (Auto) % (0.0-2.0) Sodium Level 146 mEQ/L (135-145) H Potassium Level 4.1 mEQ/L (3.4-4.9) Chloride Level 107 mEQ/L (98-107) Carbon Dioxide Level 29 mEQ/L (20-30) Anion Gap 10 (5-15) Blood Urea Nitrogen 16 mg/dL (7-23) Creatinine 1.0 mg/dL (0.7-1.2) Estimat Glomerular Filtration Rate > 60 mL/min (>60) Glucose Level 120 mg/dL (74-106) H Calcium Level 7.4 mg/dL (8.6-10.2) L Phosphorus Level 2.4 mg/dL (2.5-4.8) L Magnesium Level 2.0 mg/dL (1.7-2.5) Total Bilirubin 0.3 mg/dL (0.0-1.2) Aspartate Amino Transf (AST/SGOT) 29 U/L (5-40) Alanine Aminotransferase (ALT/SGPT) 15 U/L (3-41) Alkaline Phosphatase 56 U/L (40-129) Total Protein 5.0 g/dL (6.6-8.7) L Albumin 1.7 g/dL (3.5-5.2) L Globulin 3.3 g/dL Albumin/Globulin Ratio 0.5 (1.0-2.7) L Arterial Blood pH 7.477 (7.350-7.450) 7.324 (7.350-7.450) Arterial Blood Partial Pressure CO2 37.9 mmHg (35.0-45.0) 56.6 mmHg (35.0-45.0) *H Arterial Blood Partial Pressure O2 142.1 mmHg (75.0-100.0) H 102.1 mmHg (75.0-100.0) H Arterial Blood HCO3 27.4 mmol/L (22.0-26.0) H 28.8 mmol/L (22.0-26.0) H Arterial Blood Oxygen Saturation 98.4 % (92.0-98.0) H 97.0 % (92.0-98.0) Arterial Blood Base Excess 3.7 1.9 Romero Test Positive Positive Current Medications Medications (Trade) Dose Ordered Sig/Ernie Route PRN Reason Start Time Stop Time Status Last Admin Dose Admin Albuterol/ Ipratropium 3 ml 3 ml Q4H PRN HHN Shortness of Breath 08/02/16 13:00 08/07/16 12:59 Aztreonam 1 gm/ Sodium Chloride 55 ml @ 110 mls/hr Q8HR@0200,1000,1800 IVPB 08/02/16 18:00 08/08/16 17:59 08/06/16 11:06 Chlorhexidine Gluconate (Mame-Hex 2%) 1 applic DAILY TOPIC 07/31/16 18:00 08/30/16 17:59 08/06/16 03:52 Dextrose 1,000 ml @ 50 mls/hr Q20H IV 08/06/16 11:10 09/05/16 11:09 08/06/16 11:06 Dextrose (Dextrose 50%) STAT PRN IV Hypoglycemia 07/30/16 21:45 08/29/16 21:44 Fentanyl Citrate 1000 mcg/Sodium Chloride 100 ml @ 0 mls/hr Q24H IV 07/31/16 20:00 08/07/16 19:59 08/06/16 04:45 Haloperidol Lactate/Dextrose (Haldol/D5W) 56 ml @ 224 mls/hr Q4H PRN IVPB Agitation 08/05/16 09:00 09/04/16 08:59 08/06/16 11:34 Heparin Sodium (Porcine) 5000 units 5,000 units EVERY 12 HOURS SUBQ 08/04/16 21:00 09/03/16 20:59 08/06/16 08:44 Lorazepam (Ativan 2mg/ml 1ml) 2 mg Q2H PRN IV agitation 07/31/16 09:00 08/07/16 08:59 08/06/16 09:39 Metoprolol Tartrate 2.5 mg 2.5 mg Q5MIN X 3 IVP 08/05/16 15:15 09/04/16 15:14 08/05/16 19:57 Metronidazole (Flagyl) 100 ml @ 100 mls/hr Q8HR IVPB 08/01/16 14:00 08/08/16 13:59 08/06/16 05:47 Morphine Sulfate (Morphine Sulfate) 2 mg Q2H PRN IVP Severe Pain (Pain Scale 7-10) 07/31/16 09:00 08/07/16 08:59 08/05/16 18:08 Nitroglycerin (Ntg) 0.4 mg Q5M X 3 DOSES PRN SL Prn Chest Pain 07/30/16 21:45 08/29/16 21:44 Ondansetron HCl (Zofran) 4 mg Q6H PRN IVP Nausea & Vomiting 07/30/16 21:45 08/29/16 21:44 07/31/16 18:25 Pantoprazole 40 mg 40 mg BID IV 07/31/16 18:00 08/30/16 17:59 08/06/16 08:43 Potassium Phosphate/Sodium Chloride (Potassium Phosphate/Sodium Chloride) 281.6667 ml @ 46.944 m... ONCE ONCE IV 08/06/16 11:30 08/06/16 17:29 08/06/16 11:34 Promethazine HCl (Phenergan) 25 mg EVERY 8 HOURS PRN IV refractory nausea 07/30/16 21:45 08/29/16 21:44 Vancomycin HCl (Vanco rx to dose) 1 ea DAILY PRN MISC . 07/31/16 11:30 08/30/16 11:29 Vancomycin HCl/ Dextrose (Vancomycin/D5W) 275 ml @ 183.708 mls/hr Q12H IVPB 08/04/16 06:00 08/09/16 05:59 08/06/16 06:49 SANTANA HAGER M.D. Aug 06, 2016 13:10
[2016-08-06] MEDS: Morphine Sulfate 2mg/ml Inj IVP PRN ×2 (16:35→23:10)
--- NOTE | 2016-08-06 16:35 | Cardiology Report ---
APPROVED REPORT EKG Measurement Heart [id number] Normal sinus rhythm Normal ECG
--- NOTE | 2016-08-06 16:38 | Cardiology Report ---
APPROVED REPORT EKG Measurement Heart [id number] Normal sinus rhythm Low voltage QRS Borderline ECG
[2016-08-06] MEDS ORDERED: Tubing IV Secondary IV ONE (16:43)
[2016-08-06] MEDS ORDERED: Sterile Water Irrig 1000ml IRRIG ONE (16:43)
--- NOTE | 2016-08-06 21:39 | Cardiac Electrophysiology PN ---
Assessment/Plan Problem List: (1) Paroxysmal atrial fibrillation with rapid ventricular response (2) HIV disease (3) Intra-abdominal abscess (4) Sepsis Status: stable, progressing Status Narrative Mr. Lr has not had further episodes of AFL/ AF over past day. He is hypertensive and tachycardic ( sinus tachycardia), awake w/ sedation being weaned t Assessment/Plan Will increase b blockers for better BP control and rate control in case AF should recur. Management of intraabd sepsis, respiratory failure per primary team Subjective ROS Limited/Unobtainable: Yes Subjective Pt awake, on vent. Responds to simple commands Objective Last 24 Hour Vital Signs Date Time Temp Pulse Resp B/P Pulse Ox O2 Delivery O2 Flow Rate FiO2 08/06/16 20:45 82 24 40 08/06/16 19:20 99 36 40 08/06/16 19:00 96 30 131/72 95 Mechanical Ventilator 40 08/06/16 18:00 97 23 135/70 95 Mechanical Ventilator 40 08/06/16 17:06 104 32 40 08/06/16 17:00 98 23 136/61 96 Mechanical Ventilator 40 08/06/16 16:00 40 08/06/16 16:00 98.5 100 23 131/67 95 Mechanical Ventilator 40 08/06/16 16:00 101 08/06/16 16:00 40 08/06/16 15:00 108 23 130/63 96 Mechanical Ventilator 40 08/06/16 14:44 110 31 40 08/06/16 14:00 100 24 138/54 96 Mechanical Ventilator 40 08/06/16 13:09 101 31 40 08/06/16 13:00 106 32 142/69 98 Mechanical Ventilator 40 08/06/16 13:00 40 08/06/16 12:00 98 08/06/16 12:00 104 08/06/16 12:00 98.6 104 23 110/56 94 Mechanical Ventilator 40 08/06/16 12:00 40 08/06/16 11:59 40 08/06/16 11:30 106 29 147/66 96 Mechanical Ventilator 40 08/06/16 11:05 105 27 45 08/06/16 11:00 96 28 123/52 96 Mechanical Ventilator 40 08/06/16 10:30 104 21 105/43 95 Mechanical Ventilator 40 08/06/16 10:00 94 21 108/52 95 Mechanical Ventilator 40 08/06/16 10:00 21 6/21/17 09:30 93 20 133/51 94 Mechanical Ventilator 40 08/06/16 09:05 105 33 45 08/06/16 09:00 105 25 132/64 98 Mechanical Ventilator 40 08/06/16 09:00 24 08/06/16 08:30 106 22 93/69 98 Mechanical Ventilator 40 08/06/16 08:00 92 08/06/16 08:00 40 08/06/16 08:00 23 08/06/16 08:00 98.6 98 21 131/66 98 Mechanical Ventilator 40 08/06/16 07:30 98 22 131/66 98 Mechanical Ventilator 40 08/06/16 07:00 90 20 117/57 98 Mechanical Ventilator 40 08/06/16 06:50 92 30 45 08/06/16 06:30 94 20 123/77 100 Mechanical Ventilator 40 08/06/16 06:00 95 20 118/66 100 Mechanical Ventilator 40 08/06/16 05:30 97 20 139/52 99 Mechanical Ventilator 40 08/06/16 05:23 104 28 45 08/06/16 05:15 97.6 08/06/16 05:00 108 28 163/64 99 Mechanical Ventilator 40 08/06/16 04:45 22 08/06/16 04:30 104 25 131/61 99 Mechanical Ventilator 40 08/06/16 04:00 99 08/06/16 04:00 98.0 99 25 145/63 100 Mechanical Ventilator 40 08/06/16 04:00 40 08/06/16 03:30 93 23 109/59 100 Mechanical Ventilator 40 08/06/16 03:00 82 20 115/52 100 Mechanical Ventilator 40 08/06/16 02:47 94 19 45 08/06/16 02:30 70 18 103/57 100 Mechanical Ventilator 40 08/06/16 02:00 70 17 85/48 100 Mechanical Ventilator 40 08/06/16 01:30 81 17 116/55 100 Mechanical Ventilator 40 08/06/16 01:20 73 18 45 08/06/16 01:00 90 17 135/50 99 Mechanical Ventilator 40 08/06/16 00:30 91 20 113/55 99 Mechanical Ventilator 40 08/06/16 00:00 40 08/06/16 00:00 97.5 92 26 118/50 98 Mechanical Ventilator 40 08/06/16 00:00 95 08/05/16 23:30 85 17 111/56 98 Mechanical Ventilator 40 08/05/16 23:29 90 23 45 08/05/16 23:00 87 19 108/54 98 Mechanical Ventilator 40 08/05/16 22:30 89 24 140/63 98 Mechanical Ventilator 40 08/05/16 22:00 86 25 117/73 99 Mechanical Ventilator 40 General Appearance: WD/WN, alert, on vent EENT: other - et, ng tubes in place Neck: no JVD Rhythm: NSR Cardiovascular: normal rate, regular rhythm Respiratory/Chest: rhonchi - bilaterally, other - rhonchi and transmitted upper airway sounds bilat anteriorly Abdomen: soft, absent bowel sounds, distended, other - midline surgical dressing Extremities: no swelling Intake and Output 08/05/16 08/06/16 19:00 07:00 Intake Total 569 ml 1213 ml Output Total 570 ml 430 ml Balance -1 ml 783 ml Intake IV Total 569 ml 1213 ml Output Urine Total 570 ml 430 ml Laboratory Tests Test 08/05/16 22:00 08/06/16 04:00 08/06/16 08:00 08/06/16 12:54 Troponin I < 0.30 ng/mL (<=0.30) White Blood Count 12.2 K/UL (4.8-10.8) H Red Blood Count 3.01 M/UL (4.70-6.10) L Hemoglobin 9.3 G/DL (14.2-18.0) L Hematocrit 28.2 % (42.0-52.0) L Mean Corpuscular Volume 94 FL (80-99) Mean Corpuscular Hemoglobin 30.7 PG (27.0-31.0) Mean Corpuscular Hemoglobin Concent 32.8 G/DL (32.0-36.0) Red Cell Distribution Width 13.6 % (11.6-14.8) Platelet Count 190 K/UL (150-450) Mean Platelet Volume 6.8 FL (6.5-10.1) Neutrophils (%) (Auto) % (45.0-75.0) Lymphocytes (%) (Auto) % (20.0-45.0) Monocytes (%) (Auto) % (1.0-10.0) Eosinophils (%) (Auto) % (0.0-3.0) Basophils (%) (Auto) % (0.0-2.0) Sodium Level 146 mEQ/L (135-145) H Potassium Level 4.1 mEQ/L (3.4-4.9) Chloride Level 107 mEQ/L (98-107) Carbon Dioxide Level 29 mEQ/L (20-30) Anion Gap 10 (5-15) Blood Urea Nitrogen 16 mg/dL (7-23) Creatinine 1.0 mg/dL (0.7-1.2) Estimat Glomerular Filtration Rate > 60 mL/min (>60) Glucose Level 120 mg/dL (74-106) H Calcium Level 7.4 mg/dL (8.6-10.2) L Phosphorus Level 2.4 mg/dL (2.5-4.8) L Magnesium Level 2.0 mg/dL (1.7-2.5) Total Bilirubin 0.3 mg/dL (0.0-1.2) Aspartate Amino Transf (AST/SGOT) 29 U/L (5-40) Alanine Aminotransferase (ALT/SGPT) 15 U/L (3-41) Alkaline Phosphatase 56 U/L (40-129) Total Protein 5.0 g/dL (6.6-8.7) L Albumin 1.7 g/dL (3.5-5.2) L Globulin 3.3 g/dL Albumin/Globulin Ratio 0.5 (1.0-2.7) L Arterial Blood pH 7.477 (7.350-7.450) 7.324 (7.350-7.450) Arterial Blood Partial Pressure CO2 37.9 mmHg (35.0-45.0) 56.6 mmHg (35.0-45.0) *H Arterial Blood Partial Pressure O2 142.1 mmHg (75.0-100.0) H 102.1 mmHg (75.0-100.0) H Arterial Blood HCO3 27.4 mmol/L (22.0-26.0) H 28.8 mmol/L (22.0-26.0) H Arterial Blood Oxygen Saturation 98.4 % (92.0-98.0) H 97.0 % (92.0-98.0) Arterial Blood Base Excess 3.7 1.9 Romero Test Positive Positive Test 08/06/16 18:30 Vancomycin Level Trough 12.0 ug/mL (5.0-12.0) Microbiology Date/Time Source Procedure Growth Status 08/04/16 06:15 Blood Blood Culture - Preliminary Staphylococcus Sp Coag Neg Resulted 08/04/16 06:05 Blood Blood Culture - Preliminary NO GROWTH AFTER 24 HOURS Resulted 08/04/16 15:00 Sputum Gram Stain - Final Resulted 08/04/16 15:00 Sputum Culture - Preliminary Gram Negative Bacillus 1 Peggy Albicans Usual Respiratory Di Resulted 08/04/16 15:00 Urine,Clean Catch Urine Culture - Preliminary NO GROWTH AFTER 24 HOURS Resulted EYAD DONIS Aug 06, 2016 21:39
[2016-08-06] MEDS: Metoprolol 5mg/5ml Inj IVP SCH (23:14)
[2016-08-06] MEDS ORDERED: Haloperidol 5mg/ml Inj ONE (23:42)
[2016-08-07] VITALS (23 sets, daily range): BP systolic 88–152; BP diastolic 51–87
[2016-08-07] MEDS: Aztreonam Inj 1 GM in NS 55 ML IVPB SCH ×6 (02:24→19:17)
[2016-08-07] MEDS: LORazepam Inj 2mg/ml 1ml IV PRN ×2 (02:36→21:30)
[2016-08-07] MEDS: Metoprolol 5mg/5ml Inj IVP SCH ×5 (05:52→18:34)
[2016-08-07] MEDS: Vancomycin 1250mg in D5W 275ml IVPB SCH ×4 (05:55→19:18)
[2016-08-07] MEDS: metroNIDAZOLE 500mg 100 ML IVPB SCH ×3 (05:56→21:59)
[2016-08-07 05:58] LABS: MEAN CORPUSCULAR HEMOGLOBIN 31.5 PG (27.0-31.0); MEAN CORPUSCULAR VOLUME 95 FL (80-99); MEAN PLATELET VOLUME 6.8 FL (6.5-10.1); PLATELET COUNT 249 K/UL (150-450); RED CELL DISTRIBUTION WIDTH 13.9 % (11.6-14.8); WHITE BLOOD COUNT 9.1 K/UL (4.8-10.8)
[2016-08-07 06:22] LABS: ALANINE AMINOTRANSFERASE 14 U/L (3-41); ALBUMIN/GLOBULIN RATIO 0.5 (1.0-2.7); ANION GAP 10 (5-15); ASPARTATE AMINO TRANSFERASE 27 U/L (5-40); CALCIUM 7.7 mg/dL (8.6-10.2); CARBON DIOXIDE 29 mEQ/L (20-30); CHLORIDE 108 mEQ/L (98-107); GLOMERULAR FILTRATION RATE > 60 mL/min (>60); HEMOLYSIS 3; PHOSPHORUS 1.6 mg/dL (2.5-4.8); POTASSIUM 4.4 mEQ/L (3.4-4.9); SODIUM 147 mEQ/L (135-145); TOTAL PROTEIN 5.4 g/dL (6.6-8.7)
--- NOTE | 2016-08-07 08:48 | Diagnostic Imaging Report ---
Indications: DYSPNEA Technique: Portable AP chest Findings: Comparison: 08/06/16 Linear and patchy opacities persist in both lung bases. No new pulmonary parenchymal abnormalities demonstrated. No pleural disease is evident. Cardiac mediastinal silhouette stable. Lines and tubes remain in place. IMPRESSION: No change from one day prior
[2016-08-07 09:00] LABS: ABG ALLEN TEST POSITIVE; ABG BASE EXCESS 6.2; ABG PCO2 58.3 mmHg (35.0-45.0)
[2016-08-07] MEDS: Pantoprazole Inj IV SCH ×2 (09:29→20:50)
[2016-08-07] MEDS: Heparin 5000 units/ml inj SUBQ SCH ×2 (09:30→20:50)
[2016-08-07] MEDS: Dyna-Hex 2% Top Sol 8oz TOPIC SCH (09:32)
--- NOTE | 2016-08-07 09:45 | General Progress Note ---
Progress Note Progress Note Surgery: Continued to drain ascites overnight. This morning noted that midline wound dehiscence with small bowel exposed. no evisceration. Will need to return to OR for closure of abdomen NPO stop tube feeds will schedule jeremiah Luis Felipe Samuels Aug 07, 2016 09:45
[2016-08-07 09:57] LABS: HEMATOCRIT 27.2 % (37.5-51.0)
--- NOTE | 2016-08-07 10:36 | Pulmonolgy Critical Care Note ---
Critical Care - Asmt/Plan Problems: (1) Acute respiratory failure (2) Pneumatosis intestinalis (3) Anemia (4) ATN (acute tubular necrosis) (5) Sepsis (6) Intra-abdominal abscess (7) HIV disease Respiratory: monitor respiratory rate, adjust FIO2, CXR Cardiac: continue to monitor HR/BP Renal: F/U I&O, check electrolytes Infectious Disease: check cultures, continue antibiotics Gastrointestinal: hold feedings, abdominal imaging, other - going to OR for repaire of dehisence of the surgical wound Hematologic: transfuse if hgb<8.5 Neurologic: PRN Ativan, PRN Morphine, keep patient comfortable Affect: PRN ativan Prophylaxis: Protonix, Heparin Disposition: keep in ICU Time Spent (Minutes): 40 Notes Reviewed: regulatory affairs strategy specialist, cardio, renal Discussed with: nurses, consultants, case sealermanager embalmer funeral director - Objective Last 24 Hour Vital Signs Date Time Temp Pulse Resp B/P Pulse Ox O2 Delivery O2 Flow Rate FiO2 08/07/16 10:00 90 36 133/74 96 Mechanical Ventilator 35 08/07/16 09:07 91 38 35 08/07/16 09:00 92 36 138/70 97 Mechanical Ventilator 35 08/07/16 08:00 99.4 103 22 145/81 96 Mechanical Ventilator 35 08/07/16 08:00 103 08/07/16 08:00 35 08/07/16 07:13 77 29 35 08/07/16 07:00 98 22 95/53 96 Mechanical Ventilator 40 08/07/16 06:00 84 31 147/78 98 Mechanical Ventilator 40 08/07/16 05:52 110 152/68 08/07/16 05:17 105 35 40 08/07/16 05:00 109 34 152/68 98 Mechanical Ventilator 40 08/07/16 04:00 98.1 103 28 129/70 98 Mechanical Ventilator 40 08/07/16 04:00 105 08/07/16 04:00 40 08/07/16 03:15 104 27 40 08/07/16 03:00 101 28 117/51 98 Mechanical Ventilator 40 08/07/16 02:00 92 25 118/60 98 Mechanical Ventilator 40 08/07/16 01:21 80 23 40 08/07/16 01:00 80 24 88/54 97 Mechanical Ventilator 40 08/07/16 00:00 97 08/07/16 00:00 40 08/07/16 00:00 98.0 97 26 126/59 99 Mechanical Ventilator 40 08/07/16 00:00 91 126/59 08/06/16 23:14 102 169/85 08/06/16 23:00 102 26 169/85 94 Mechanical Ventilator 40 08/06/16 22:52 112 35 40 08/06/16 22:00 105 25 131/67 97 Mechanical Ventilator 40 08/06/16 21:00 102 26 166/58 97 Mechanical Ventilator 40 08/06/16 20:45 82 24 40 08/06/16 20:00 99 08/06/16 20:00 40 08/06/16 20:00 98.2 92 25 120/72 98 Mechanical Ventilator 40 08/06/16 19:20 99 36 40 08/06/16 19:00 96 30 131/72 95 Mechanical Ventilator 40 08/06/16 18:00 97 23 135/70 95 Mechanical Ventilator 40 08/06/16 17:06 104 32 40 08/06/16 17:00 98 23 136/61 96 Mechanical Ventilator 40 08/06/16 16:00 40 08/06/16 16:00 98.5 100 23 131/67 95 Mechanical Ventilator 40 08/06/16 16:00 101 08/06/16 16:00 40 08/06/16 15:00 108 23 130/63 96 Mechanical Ventilator 40 08/06/16 14:44 110 31 40 08/06/16 14:00 100 24 138/54 96 Mechanical Ventilator 40 08/06/16 13:09 101 31 40 08/06/16 13:00 106 32 142/69 98 Mechanical Ventilator 40 08/06/16 13:00 40 08/06/16 12:00 98 08/06/16 12:00 104 08/06/16 12:00 98.6 104 23 110/56 94 Mechanical Ventilator 40 08/06/16 12:00 40 08/06/16 11:59 40 08/06/16 11:30 106 29 147/66 96 Mechanical Ventilator 40 08/06/16 11:05 105 27 45 08/06/16 11:00 96 28 123/52 96 Mechanical Ventilator 40 Status: sedated Condition: critical HEENT: atraumatic Lungs: chest wall tender Heart: HR/BP stable, regular Abdomen: soft, active bowel sounds, feeding tube Extremities: edema Micro: Microbiology Date/Time Source Procedure Growth Status 08/05/16 22:00 Blood Blood Culture - Preliminary NO GROWTH AFTER 24 HOURS Resulted 08/04/16 15:00 Sputum Gram Stain - Final Complete 08/04/16 15:00 Sputum Culture - Final Klebsiella Pneumoniae Peggy Albicans Usual Respiratory Di Complete 08/04/16 15:00 Urine,Clean Catch Urine Culture - Final NO GROWTH AFTER 48 HOURS Complete Accucheck: 179 Critical Care - Subjective ROS Limited/Unobtainable: No ICU Day: 8 Intubation Day: 8 Condition: critical EKG Rhythm: Sinus Rhythm FI02: 35 Vent Support Breath Rate: 10 Vent Support Mode: AC Vent Tidal Volume: 500 Sputum Amount: Moderate PEEP: 5.0 PIP: 51 Fluids: d5 w 50 cc.hour Tube Feeding Amount: 0 I&O: Intake and Output 08/06/16 08/07/16 19:00 07:00 Intake Total 1650.120 ml 800 ml Output Total 540 ml 535 ml Balance 1110.120 ml 265 ml Intake Free Water 30 ml IV Total 1610.120 ml 550 ml Tube Feeding 40 ml 220 ml Output Urine Total 540 ml 535 ml CXR: bilateral infiltrate ET-Tube: 7.5 ET Position: 25 Labs: Laboratory Tests Test 08/06/16 12:54 08/06/16 18:30 08/07/16 03:40 08/07/16 04:00 Arterial Blood pH 7.324 (7.350-7.450) 7.360 (7.350-7.450) Arterial Blood Partial Pressure CO2 56.6 mmHg (35.0-45.0) *H 58.3 mmHg (35.0-45.0) *H Arterial Blood Partial Pressure O2 102.1 mmHg (75.0-100.0) H 103.8 mmHg (75.0-100.0) H Arterial Blood HCO3 28.8 mmol/L (22.0-26.0) H 32.9 mmol/L (22.0-26.0) H Arterial Blood Oxygen Saturation 97.0 % (92.0-98.0) 97.1 % (92.0-98.0) Arterial Blood Base Excess 1.9 6.2 Romero Test Positive Positive Vancomycin Level Trough 12.0 ug/mL (5.0-12.0) White Blood Count 9.1 K/UL (4.8-10.8) Red Blood Count 3.20 M/UL (4.70-6.10) L Hemoglobin 10.1 G/DL (14.2-18.0) L Hematocrit 30.5 % (42.0-52.0) L Mean Corpuscular Volume 95 FL (80-99) Mean Corpuscular Hemoglobin 31.5 PG (27.0-31.0) H Mean Corpuscular Hemoglobin Concent 33.0 G/DL (32.0-36.0) Red Cell Distribution Width 13.9 % (11.6-14.8) Platelet Count 249 K/UL (150-450) Mean Platelet Volume 6.8 FL (6.5-10.1) Neutrophils (%) (Auto) % (45.0-75.0) Lymphocytes (%) (Auto) % (20.0-45.0) Monocytes (%) (Auto) % (1.0-10.0) Eosinophils (%) (Auto) % (0.0-3.0) Basophils (%) (Auto) % (0.0-2.0) Sodium Level 147 mEQ/L (135-145) H Potassium Level 4.4 mEQ/L (3.4-4.9) Chloride Level 108 mEQ/L (98-107) H Carbon Dioxide Level 29 mEQ/L (20-30) Anion Gap 10 (5-15) Blood Urea Nitrogen 15 mg/dL (7-23) Creatinine 1.0 mg/dL (0.7-1.2) Estimat Glomerular Filtration Rate > 60 mL/min (>60) Glucose Level 134 mg/dL (74-106) H Calcium Level 7.7 mg/dL (8.6-10.2) L Phosphorus Level 1.6 mg/dL (2.5-4.8) L Magnesium Level 2.0 mg/dL (1.7-2.5) Total Bilirubin 0.4 mg/dL (0.0-1.2) Aspartate Amino Transf (AST/SGOT) 27 U/L (5-40) Alanine Aminotransferase (ALT/SGPT) 14 U/L (3-41) Alkaline Phosphatase 101 U/L (40-129) Total Protein 5.4 g/dL (6.6-8.7) L Albumin 1.9 g/dL (3.5-5.2) L Globulin 3.5 g/dL Albumin/Globulin Ratio 0.5 (1.0-2.7) L CHAS WALLACE Aug 07, 2016 10:36
[2016-08-07] MEDS ORDERED: Sodium Phosphate 30 MM in NS 275 ML IVPB ONE (11:00)
[2016-08-07] MEDS ORDERED: Sodium Phosphate 30 MM in NS 275 ML IV ONE (11:30)
--- NOTE | 2016-08-07 12:59 | GI Progress Note ---
Assessment/Plan Problems: (1) Hypoalbuminemia ICD Codes: E88.09 - Other disorders of plasma-protein metabolism, not elsewhere classified SNOMED: 265679259 (2) Anemia ICD Codes: D64.9 - Anemia, unspecified SNOMED: 849308490 (3) Pancreatitis ICD Codes: K85.90 - Acute pancreatitis without necrosis or infection, unspecified SNOMED: 31032214 Qualifiers: Qualified Codes: K85.80 - Other acute pancreatitis without necrosis or infection (4) Intra-abdominal abscess ICD Codes: K65.1 - Peritoneal abscess SNOMED: 88187612 (5) Ischemia, bowel ICD Codes: K55.9 - Vascular disorder of intestine, unspecified SNOMED: 21302525 Status: not improved Status Narrative Discussed with Dr. Sheikh. Assessment/Plan s/p Exploratory laparotomy, drainage of abdominal abscess, lysis of adhesions, partial omentectomy and partial small-bowel resection. cdiff negative defer GI procedures at this time follow surgical recs >> maintain NPO, pt will require to return to OR for closure of abdomen. IVFs abx ppi NGT -- per surgery fu labs outpatient colonoscopy Subjective Subjective limited, opens eyes Objective Last 24 Hour Vital Signs Date Time Temp Pulse Resp B/P Pulse Ox O2 Delivery O2 Flow Rate FiO2 08/07/16 12:18 97 147/69 08/07/16 12:00 97 08/07/16 12:00 99.6 97 33 147/69 97 Mechanical Ventilator 35 08/07/16 12:00 35 08/07/16 11:00 90 31 139/61 98 Mechanical Ventilator 35 08/07/16 10:00 90 36 133/74 96 Mechanical Ventilator 35 08/07/16 09:07 91 38 35 08/07/16 09:00 92 36 138/70 97 Mechanical Ventilator 35 08/07/16 08:00 99.4 103 22 145/81 96 Mechanical Ventilator 35 08/07/16 08:00 103 08/07/16 08:00 35 08/07/16 07:13 77 29 35 08/07/16 07:00 98 22 95/53 96 Mechanical Ventilator 40 08/07/16 06:00 84 31 147/78 98 Mechanical Ventilator 40 08/07/16 05:52 110 152/68 08/07/16 05:17 105 35 40 08/07/16 05:00 109 34 152/68 98 Mechanical Ventilator 40 08/07/16 04:00 98.1 103 28 129/70 98 Mechanical Ventilator 40 08/07/16 04:00 105 08/07/16 04:00 40 08/07/16 03:15 104 27 40 08/07/16 03:00 101 28 117/51 98 Mechanical Ventilator 40 08/07/16 02:00 92 25 118/60 98 Mechanical Ventilator 40 08/07/16 01:21 80 23 40 08/07/16 01:00 80 24 88/54 97 Mechanical Ventilator 40 08/07/16 00:00 97 08/07/16 00:00 40 08/07/16 00:00 98.0 97 26 126/59 99 Mechanical Ventilator 40 08/07/16 00:00 91 126/59 08/06/16 23:14 102 169/85 08/06/16 23:00 102 26 169/85 94 Mechanical Ventilator 40 08/06/16 22:52 112 35 40 08/06/16 22:00 105 25 131/67 97 Mechanical Ventilator 40 08/06/16 21:00 102 26 166/58 97 Mechanical Ventilator 40 08/06/16 20:45 82 24 40 08/06/16 20:00 99 08/06/16 20:00 40 08/06/16 20:00 98.2 92 25 120/72 98 Mechanical Ventilator 40 08/06/16 19:20 99 36 40 08/06/16 19:00 96 30 131/72 95 Mechanical Ventilator 40 08/06/16 18:00 97 23 135/70 95 Mechanical Ventilator 40 08/06/16 17:06 104 32 40 08/06/16 17:00 98 23 136/61 96 Mechanical Ventilator 40 08/06/16 16:00 40 08/06/16 16:00 98.5 100 23 131/67 95 Mechanical Ventilator 40 08/06/16 16:00 101 08/06/16 16:00 40 08/06/16 15:00 108 23 130/63 96 Mechanical Ventilator 40 08/06/16 14:44 110 31 40 08/06/16 14:00 100 24 138/54 96 Mechanical Ventilator 40 08/06/16 13:09 101 31 40 08/06/16 13:00 106 32 142/69 98 Mechanical Ventilator 40 08/06/16 13:00 40 Intake and Output 08/06/16 08/07/16 19:00 07:00 Intake Total 1650.120 ml 850 ml Output Total 540 ml 535 ml Balance 1110.120 ml 315 ml Intake Free Water 30 ml IV Total 1610.120 ml 600 ml Tube Feeding 40 ml 220 ml Output Urine Total 540 ml 535 ml Laboratory Tests Test 08/06/16 18:30 08/07/16 03:40 08/07/16 04:00 Vancomycin Level Trough 12.0 ug/mL (5.0-12.0) White Blood Count 9.1 K/UL (4.8-10.8) Red Blood Count 3.20 M/UL (4.70-6.10) L Hemoglobin 10.1 G/DL (14.2-18.0) L Hematocrit 30.5 % (42.0-52.0) L Mean Corpuscular Volume 95 FL (80-99) Mean Corpuscular Hemoglobin 31.5 PG (27.0-31.0) H Mean Corpuscular Hemoglobin Concent 33.0 G/DL (32.0-36.0) Red Cell Distribution Width 13.9 % (11.6-14.8) Platelet Count 249 K/UL (150-450) Mean Platelet Volume 6.8 FL (6.5-10.1) Neutrophils (%) (Auto) % (45.0-75.0) Lymphocytes (%) (Auto) % (20.0-45.0) Monocytes (%) (Auto) % (1.0-10.0) Eosinophils (%) (Auto) % (0.0-3.0) Basophils (%) (Auto) % (0.0-2.0) Sodium Level 147 mEQ/L (135-145) H Potassium Level 4.4 mEQ/L (3.4-4.9) Chloride Level 108 mEQ/L (98-107) H Carbon Dioxide Level 29 mEQ/L (20-30) Anion Gap 10 (5-15) Blood Urea Nitrogen 15 mg/dL (7-23) Creatinine 1.0 mg/dL (0.7-1.2) Estimat Glomerular Filtration Rate > 60 mL/min (>60) Glucose Level 134 mg/dL (74-106) H Calcium Level 7.7 mg/dL (8.6-10.2) L Phosphorus Level 1.6 mg/dL (2.5-4.8) L Magnesium Level 2.0 mg/dL (1.7-2.5) Total Bilirubin 0.4 mg/dL (0.0-1.2) Aspartate Amino Transf (AST/SGOT) 27 U/L (5-40) Alanine Aminotransferase (ALT/SGPT) 14 U/L (3-41) Alkaline Phosphatase 101 U/L (40-129) Total Protein 5.4 g/dL (6.6-8.7) L Albumin 1.9 g/dL (3.5-5.2) L Globulin 3.5 g/dL Albumin/Globulin Ratio 0.5 (1.0-2.7) L Arterial Blood pH 7.360 (7.350-7.450) Arterial Blood Partial Pressure CO2 58.3 mmHg (35.0-45.0) *H Arterial Blood Partial Pressure O2 103.8 mmHg (75.0-100.0) H Arterial Blood HCO3 32.9 mmol/L (22.0-26.0) H Arterial Blood Oxygen Saturation 97.1 % (92.0-98.0) Arterial Blood Base Excess 6.2 Romero Test Positive Height (Feet): 5 Height (Inches): 9.00 Weight (Pounds): 189 General Appearance: no apparent distress Cardiovascular: normal rate Respiratory/Chest: normal breath sounds, no respiratory distress Abdominal Exam: soft, distended, other - wound dehesicence Lita Parsons N.P. Aug 07, 2016 12:59
--- NOTE | 2016-08-07 13:33 | General Progress Note ---
Assessment/Plan Status: stable, unchanged Assessment/Plan Status: Acute renal failure and Oliguria due to - low BP , post OP- Amikacin and VancoMycin- Ongoing sepsis RESOLVED Respiratory failure, on Vent intraabdominal abscess, small bowel obstruction, intraabdominal adhesions, small bowel perforation. Plan; Na Phos IV today Post Op care- Hydrate- monitor renal parameters- Per ID- Weaning as possible- Avoid nephrotoxics Per orders Subjective ROS Limited/Unobtainable: Yes Allergies: Coded Allergies: PENICILLINS (Verified Allergy, Intermediate, 07/30/16) SULFA (SULFONAMIDE ANTIBIOTICS) (Verified Allergy, Intermediate, ITCHING, 07/30/16) Objective Last 24 Hour Vital Signs Date Time Temp Pulse Resp B/P Pulse Ox O2 Delivery O2 Flow Rate FiO2 08/07/16 13:00 89 35 146/74 98 Mechanical Ventilator 35 08/07/16 12:18 97 147/69 08/07/16 12:00 97 08/07/16 12:00 99.6 97 33 147/69 97 Mechanical Ventilator 35 08/07/16 12:00 35 08/07/16 11:00 90 31 139/61 98 Mechanical Ventilator 35 08/07/16 10:00 90 36 133/74 96 Mechanical Ventilator 35 08/07/16 09:07 91 38 35 08/07/16 09:00 92 36 138/70 97 Mechanical Ventilator 35 08/07/16 08:00 99.4 103 22 145/81 96 Mechanical Ventilator 35 08/07/16 08:00 103 08/07/16 08:00 35 08/07/16 07:13 77 29 35 08/07/16 07:00 98 22 95/53 96 Mechanical Ventilator 40 08/07/16 06:00 84 31 147/78 98 Mechanical Ventilator 40 08/07/16 05:52 110 152/68 08/07/16 05:17 105 35 40 08/07/16 05:00 109 34 152/68 98 Mechanical Ventilator 40 08/07/16 04:00 98.1 103 28 129/70 98 Mechanical Ventilator 40 08/07/16 04:00 105 08/07/16 04:00 40 08/07/16 03:15 104 27 40 08/07/16 03:00 101 28 117/51 98 Mechanical Ventilator 40 08/07/16 02:00 92 25 118/60 98 Mechanical Ventilator 40 08/07/16 01:21 80 23 40 08/07/16 01:00 80 24 88/54 97 Mechanical Ventilator 40 08/07/16 00:00 97 08/07/16 00:00 40 08/07/16 00:00 98.0 97 26 126/59 99 Mechanical Ventilator 40 08/07/16 00:00 91 126/59 08/06/16 23:14 102 169/85 08/06/16 23:00 102 26 169/85 94 Mechanical Ventilator 40 08/06/16 22:52 112 35 40 08/06/16 22:00 105 25 131/67 97 Mechanical Ventilator 40 08/06/16 21:00 102 26 166/58 97 Mechanical Ventilator 40 08/06/16 20:45 82 24 40 08/06/16 20:00 99 08/06/16 20:00 40 08/06/16 20:00 98.2 92 25 120/72 98 Mechanical Ventilator 40 08/06/16 19:20 99 36 40 08/06/16 19:00 96 30 131/72 95 Mechanical Ventilator 40 08/06/16 18:00 97 23 135/70 95 Mechanical Ventilator 40 08/06/16 17:06 104 32 40 08/06/16 17:00 98 23 136/61 96 Mechanical Ventilator 40 08/06/16 16:00 40 08/06/16 16:00 98.5 100 23 131/67 95 Mechanical Ventilator 40 08/06/16 16:00 101 08/06/16 16:00 40 08/06/16 15:00 108 23 130/63 96 Mechanical Ventilator 40 08/06/16 14:44 110 31 40 08/06/16 14:00 100 24 138/54 96 Mechanical Ventilator 40 Intake and Output 08/06/16 08/07/16 19:00 07:00 Intake Total 1650.120 ml 850 ml Output Total 540 ml 535 ml Balance 1110.120 ml 315 ml Intake Free Water 30 ml IV Total 1610.120 ml 600 ml Tube Feeding 40 ml 220 ml Output Urine Total 540 ml 535 ml Laboratory Tests 08/06/16 18:30: Vancomycin Level Trough 12.0 08/07/16 03:40: White Blood Count 9.1, Red Blood Count 3.20L, Hemoglobin 10.1L, Hematocrit 30.5L , Mean Corpuscular Volume 95, Mean Corpuscular Hemoglobin 31.5H, Mean Corpuscular Hemoglobin Concent 33.0, Red Cell Distribution Width 13.9, Platelet Count 249, Mean Platelet Volume 6.8, Neutrophils (%) (Auto) , Lymphocytes (%) ( Auto) , Monocytes (%) (Auto) , Eosinophils (%) (Auto) , Basophils (%) (Auto) , Sodium Level 147H, Potassium Level 4.4, Chloride Level 108H, Carbon Dioxide Level 29, Anion Gap 10, Blood Urea Nitrogen 15, Creatinine 1.0, Estimat Glomerular Filtration Rate > 60, Glucose Level 134H, Calcium Level 7.7L, Phosphorus Level 1.6L, Magnesium Level 2.0, Total Bilirubin 0.4, Aspartate Amino Transf (AST/SGOT) 27, Alanine Aminotransferase (ALT/SGPT) 14, Alkaline Phosphatase 101, Total Protein 5.4L, Albumin 1.9L, Globulin 3.5, Albumin/ Globulin Ratio 0.5L 08/07/16 04:00: Arterial Blood pH 7.360, Arterial Blood Partial Pressure CO2 58.3*H, Arterial Blood Partial Pressure O2 103.8H, Arterial Blood HCO3 32.9H, Arterial Blood Oxygen Saturation 97.1, Arterial Blood Base Excess 6.2, Romero Test Positive Height (Feet): 5 Height (Inches): 9.00 Weight (Pounds): 189 General Appearance: agitated Neck: limited range of motion Cardiovascular: tachycardia Respiratory/Chest: decreased breath sounds Abdomen: distended Objective no other changes in PE AYDE SERNA Aug 07, 2016 13:33
--- NOTE | 2016-08-07 13:48 | Diagnostic Imaging Report ---
APPROVED REPORT CPT Code: 90104 Present Symptoms Shortness of breath BILATERAL: Imaging reveals a patent deep venous system bilaterally. There is no evidence of thrombus within the femoral, popliteal or tibial segments. The greater saphenous veins are also within normal limits. Doppler indicates normal spontaneous flow within these segments.
[2016-08-07] MEDS: Haloperidol Lactate 5 MG in D5W 55 ML IVPB PRN (15:02)
--- NOTE | 2016-08-07 15:32 | Anethesia Preoperative Eval ---
Anesthesia Pre-op PMH/ROS General Date of Evaluation: Aug 07, 2016 Anesthesiologist: Conrado ASA Score: ASA 4 Mallampati Score Class I : Soft palate, uvula, fauces, pillars visible Class II: Soft palate, uvula, fauces visible Class III: Soft palate, base of uvula visible Class IV: Only hard plate visible Mallampati Classification: Class II Surgeon: Abril Diagnosis: Wound dehisence Surgical Procedure: Ex-lap, debriedment and wound closure Anesthesia History: none Family History: no anesthesia problems Allergies: Coded Allergies: PENICILLINS (Verified Allergy, Intermediate, 07/30/16) SULFA (SULFONAMIDE ANTIBIOTICS) (Verified Allergy, Intermediate, ITCHING, 07/30/16) Medications: see eMAR Past Medical History Cardiovascular: Reports: HTN, other - HLD, Denies: CAD, MO, arrhythmia, valve dz Pulmonary: Reports: asthma, Denies: COPD, MARIANA, other Gastrointestinal/Genitourinary: Reports: GERD, Denies: CRI, ESRD, other Neurologic/Psychiatric: Reports: depression/anxiety, Denies: CVA, TIA, dementia, other Endocrine: Denies: DM, hypothyroidism, other, steroids HEENT: Denies: EKUK (L), EKUK (R), cataract (L), cataract (R), glaucoma, other Hematology/Immune: Reports: anemia, other - HIV, Denies: DVT, bleeding disorder Musculoskeletal/Integumentary: Denies: DDD, DJD, OA, RA, edema, other PSxH Narrative: Bilateral knee arthroscopy, bilateral cataract sx Anesthesia Pre-op Phys. Exam Physician Exam Last Vital Signs Date Time Temp Pulse Resp B/P Pulse Ox O2 Delivery O2 Flow Rate FiO2 08/07/16 15:00 86 31 148/63 95 Mechanical Ventilator 35 08/07/16 12:00 99.6 08/03/16 10:30 10.0 Constitutional: NAD Cardiovascular: RRR Respiratory: CTA, other - on mechanical ventilation Airway Exam Mallampati Score: Class II MO: limited ROM: limited Teeth: intact Anesthesia Pre-op A/P Labs Hematology Test 08/07/16 03:40 White Blood Count 9.1 K/UL (4.8-10.8) Red Blood Count 3.20 M/UL (4.70-6.10) L Hemoglobin 10.1 G/DL (14.2-18.0) L Hematocrit 30.5 % (42.0-52.0) L Mean Corpuscular Volume 95 FL (80-99) Mean Corpuscular Hemoglobin 31.5 PG (27.0-31.0) H Mean Corpuscular Hemoglobin Concent 33.0 G/DL (32.0-36.0) Red Cell Distribution Width 13.9 % (11.6-14.8) Platelet Count 249 K/UL (150-450) Mean Platelet Volume 6.8 FL (6.5-10.1) Neutrophils (%) (Auto) % (45.0-75.0) Lymphocytes (%) (Auto) % (20.0-45.0) Monocytes (%) (Auto) % (1.0-10.0) Eosinophils (%) (Auto) % (0.0-3.0) Basophils (%) (Auto) % (0.0-2.0) Chemistry Test 08/07/16 03:40 Sodium Level 147 mEQ/L (135-145) H Potassium Level 4.4 mEQ/L (3.4-4.9) Chloride Level 108 mEQ/L (98-107) H Carbon Dioxide Level 29 mEQ/L (20-30) Anion Gap 10 (5-15) Blood Urea Nitrogen 15 mg/dL (7-23) Creatinine 1.0 mg/dL (0.7-1.2) Estimat Glomerular Filtration Rate > 60 mL/min (>60) Glucose Level 134 mg/dL (74-106) H Calcium Level 7.7 mg/dL (8.6-10.2) L Phosphorus Level 1.6 mg/dL (2.5-4.8) L Magnesium Level 2.0 mg/dL (1.7-2.5) Total Bilirubin 0.4 mg/dL (0.0-1.2) Aspartate Amino Transf (AST/SGOT) 27 U/L (5-40) Alanine Aminotransferase (ALT/SGPT) 14 U/L (3-41) Alkaline Phosphatase 101 U/L (40-129) Total Protein 5.4 g/dL (6.6-8.7) L Albumin 1.9 g/dL (3.5-5.2) L Globulin 3.5 g/dL Albumin/Globulin Ratio 0.5 (1.0-2.7) L Studies Pre-op Studies: EKG - sr Risk Assessment & Plan Assessment: ASA RANDY Plan: GA Status Change Before Surgery: No Pre-Antibiotics Drug: JUS PACKER M.D. Aug 07, 2016 15:32
[2016-08-07] MEDS ORDERED: Nimbex 2mg/ml Inj 10ML IVP ONE (16:30)
[2016-08-07] MEDS ORDERED: NS Irrig 1000ml ONE (16:30)
[2016-08-07] MEDS ORDERED: Midazolam 2mg/2ml Inj ONE (16:30)
[2016-08-07] MEDS ORDERED: Lidocaine 1% MPF 10mg/ml 5ml ONE (16:30)
[2016-08-07] MEDS ORDERED: Propofol 10mg/ml 20ml IV ONE (17:32)
--- NOTE | 2016-08-07 18:48 | Infectious Diseases Prog Note ---
Assessment/Plan Assessment/Plan A: The patient is a 61-year-old male, with ?Pna :Scx: Kleb +ve Blood cx /2 ? probable PICC infection Low grade fever intra-abdominal sepsis / large abscess Wnd Cx : CoNS , Kelb , Bacteroids, Prevotella Leukocytosis , improving , ( doubt abscess at this time , dw GenSx ) SP laparoscopic-robotic left inguinal hernia repair six days ago Pneumatosis intestinalis ( duodenum and proximal jejunum ) SP Exploratory laparotomy, abdominal washout, abdominal closure 08/07 SP exploratory laparotomy and partial omentectomy and partial small-bowel resection LUCY improved Bipolar disorder. HIV (reportedly the patient's undetectable viral load and CD4 count was 300). PLAN: continue the patient on aztreonam, Flagyl and vancomycin d# / Monitor CBC Monitor BMP. Monitor cx ( Bl, Ur, SP ) repeat BlCx DW GenSx Subjective Allergies: Coded Allergies: PENICILLINS (Verified Allergy, Intermediate, 07/30/16) SULFA (SULFONAMIDE ANTIBIOTICS) (Verified Allergy, Intermediate, ITCHING, 07/30/16) Subjective on vent , WBC improving , Objective Vital Signs Last 24 Hour Vital Signs Date Time Temp Pulse Resp B/P Pulse Ox O2 Delivery O2 Flow Rate FiO2 08/07/16 17:00 86 31 148/63 95 Mechanical Ventilator 35 08/07/16 16:00 35 08/07/16 16:00 99.4 78 24 94/57 96 Mechanical Ventilator 35 08/07/16 16:00 78 08/07/16 15:00 86 31 148/63 95 Mechanical Ventilator 35 08/07/16 14:46 94 35 35 08/07/16 14:00 92 33 149/79 98 Mechanical Ventilator 35 08/07/16 13:06 89 32 35 08/07/16 13:00 89 35 146/74 98 Mechanical Ventilator 35 08/07/16 12:18 97 147/69 08/07/16 12:00 97 08/07/16 12:00 99.6 97 33 147/69 97 Mechanical Ventilator 35 08/07/16 12:00 35 08/07/16 11:00 90 31 139/61 98 Mechanical Ventilator 35 08/07/16 10:59 85 34 35 08/07/16 10:00 90 36 133/74 96 Mechanical Ventilator 35 08/07/16 09:07 91 38 35 08/07/16 09:00 92 36 138/70 97 Mechanical Ventilator 35 08/07/16 08:00 99.4 103 22 145/81 96 Mechanical Ventilator 35 08/07/16 08:00 103 08/07/16 08:00 35 08/07/16 07:13 77 29 35 08/07/16 07:00 98 22 95/53 96 Mechanical Ventilator 40 08/07/16 06:00 84 31 147/78 98 Mechanical Ventilator 40 08/07/16 05:52 110 152/68 08/07/16 05:17 105 35 40 08/07/16 05:00 109 34 152/68 98 Mechanical Ventilator 40 08/07/16 04:00 98.1 103 28 129/70 98 Mechanical Ventilator 40 08/07/16 04:00 105 08/07/16 04:00 40 08/07/16 03:15 104 27 40 08/07/16 03:00 101 28 117/51 98 Mechanical Ventilator 40 08/07/16 02:00 92 25 118/60 98 Mechanical Ventilator 40 08/07/16 01:21 80 23 40 08/07/16 01:00 80 24 88/54 97 Mechanical Ventilator 40 08/07/16 00:00 97 08/07/16 00:00 40 08/07/16 00:00 98.0 97 26 126/59 99 Mechanical Ventilator 40 08/07/16 00:00 91 126/59 08/06/16 23:14 102 169/85 08/06/16 23:00 102 26 169/85 94 Mechanical Ventilator 40 08/06/16 22:52 112 35 40 08/06/16 22:00 105 25 131/67 97 Mechanical Ventilator 40 08/06/16 21:00 102 26 166/58 97 Mechanical Ventilator 40 08/06/16 20:45 82 24 40 08/06/16 20:00 99 08/06/16 20:00 40 08/06/16 20:00 98.2 92 25 120/72 98 Mechanical Ventilator 40 08/06/16 19:20 99 36 40 08/06/16 19:00 96 30 131/72 95 Mechanical Ventilator 40 Height (Feet): 5 Height (Inches): 9.00 Weight (Pounds): 189 HEENT: atraumatic Respiratory/Chest: no respiratory distress Cardiovascular: regularly irregular Abdomen: no organomegaly Microbiology Date/Time Source Procedure Growth Status 08/05/16 22:00 Blood Blood Culture - Preliminary NO GROWTH AFTER 24 HOURS Resulted Laboratory Tests Test 08/07/16 03:40 08/07/16 04:00 White Blood Count 9.1 K/UL (4.8-10.8) Red Blood Count 3.20 M/UL (4.70-6.10) L Hemoglobin 10.1 G/DL (14.2-18.0) L Hematocrit 30.5 % (42.0-52.0) L Mean Corpuscular Volume 95 FL (80-99) Mean Corpuscular Hemoglobin 31.5 PG (27.0-31.0) H Mean Corpuscular Hemoglobin Concent 33.0 G/DL (32.0-36.0) Red Cell Distribution Width 13.9 % (11.6-14.8) Platelet Count 249 K/UL (150-450) Mean Platelet Volume 6.8 FL (6.5-10.1) Neutrophils (%) (Auto) % (45.0-75.0) Lymphocytes (%) (Auto) % (20.0-45.0) Monocytes (%) (Auto) % (1.0-10.0) Eosinophils (%) (Auto) % (0.0-3.0) Basophils (%) (Auto) % (0.0-2.0) Sodium Level 147 mEQ/L (135-145) H Potassium Level 4.4 mEQ/L (3.4-4.9) Chloride Level 108 mEQ/L (98-107) H Carbon Dioxide Level 29 mEQ/L (20-30) Anion Gap 10 (5-15) Blood Urea Nitrogen 15 mg/dL (7-23) Creatinine 1.0 mg/dL (0.7-1.2) Estimat Glomerular Filtration Rate > 60 mL/min (>60) Glucose Level 134 mg/dL (74-106) H Calcium Level 7.7 mg/dL (8.6-10.2) L Phosphorus Level 1.6 mg/dL (2.5-4.8) L Magnesium Level 2.0 mg/dL (1.7-2.5) Total Bilirubin 0.4 mg/dL (0.0-1.2) Aspartate Amino Transf (AST/SGOT) 27 U/L (5-40) Alanine Aminotransferase (ALT/SGPT) 14 U/L (3-41) Alkaline Phosphatase 101 U/L (40-129) Total Protein 5.4 g/dL (6.6-8.7) L Albumin 1.9 g/dL (3.5-5.2) L Globulin 3.5 g/dL Albumin/Globulin Ratio 0.5 (1.0-2.7) L Arterial Blood pH 7.360 (7.350-7.450) Arterial Blood Partial Pressure CO2 58.3 mmHg (35.0-45.0) *H Arterial Blood Partial Pressure O2 103.8 mmHg (75.0-100.0) H Arterial Blood HCO3 32.9 mmol/L (22.0-26.0) H Arterial Blood Oxygen Saturation 97.1 % (92.0-98.0) Arterial Blood Base Excess 6.2 Romero Test Positive Current Medications Medications (Trade) Dose Ordered Sig/Ernie Route PRN Reason Start Time Stop Time Status Last Admin Dose Admin Aztreonam 1 gm/ Sodium Chloride 55 ml @ 110 mls/hr Q8HR@0200,1000,1800 IVPB 08/02/16 18:00 08/08/16 17:59 08/07/16 11:56 Chlorhexidine Gluconate (Mame-Hex 2%) 1 applic DAILY TOPIC 07/31/16 18:00 08/30/16 17:59 08/07/16 09:32 Dextrose (D5W 1000ml) 1,000 ml @ 50 mls/hr Q20H IV 08/06/16 11:10 09/05/16 11:09 08/07/16 08:23 Dextrose (Dextrose 50%) STAT PRN IV Hypoglycemia 07/30/16 21:45 08/29/16 21:44 Haloperidol Lactate 5 mg/ Dextrose 56 ml @ 224 mls/hr Q4H PRN IVPB Agitation 08/05/16 09:00 09/04/16 08:59 08/07/16 15:02 Heparin Sodium (Porcine) 5000 units 5,000 units EVERY 12 HOURS SUBQ 08/04/16 21:00 09/03/16 20:59 08/07/16 09:30 Metoprolol Tartrate (Lopressor) 2.5 mg EVERY 6 HOURS IVP 08/06/16 22:00 09/05/16 21:59 08/07/16 12:18 Metronidazole 100 ml @ 100 mls/hr Q8HR IVPB 08/01/16 14:00 08/08/16 13:59 08/07/16 15:37 Nitroglycerin (Ntg) 0.4 mg Q5M X 3 DOSES PRN SL Prn Chest Pain 07/30/16 21:45 08/29/16 21:44 Ondansetron HCl (Zofran) 4 mg Q6H PRN IVP Nausea & Vomiting 07/30/16 21:45 08/29/16 21:44 07/31/16 18:25 Pantoprazole (Protonix) 40 mg EVERY 12 HOURS IV 08/06/16 21:00 09/05/16 20:59 08/07/16 09:29 Promethazine HCl (Phenergan) 25 mg EVERY 8 HOURS PRN IV refractory nausea 07/30/16 21:45 08/29/16 21:44 Vancomycin HCl 1 ea 1 ea DAILY PRN MISC . 07/31/16 11:30 08/30/16 11:29 Vancomycin HCl/ Dextrose (Vancomycin/D5W) 275 ml @ 183.708 mls/hr Q12H IVPB 08/04/16 06:00 08/09/16 05:59 08/07/16 05:55 SANTANA HAGER M.D. Aug 07, 2016 18:48
--- NOTE | 2016-08-07 18:51 | Brief Operative Note ---
Immediate Post Operative Note Operative Note Pre-op Diagnosis: Fascial Dehiscences Procedure: Exploratory laparotomy, abdominal washout, abdominal closure Post-op Diagnosis: same Post-op Diagnosis: same as pre-op Findings: consistent w/pre-op dx studies Surgeon: Abril Anesthesiologist: Conrado Anesthesia: general Specimen: none Complications: none Condition: stable Fluids: see records Estimated Blood Loss: minimal Drains: LEX Implant(s) used?: No Luis Felipe Samuels Aug 07, 2016 18:51
[2016-08-07] MEDS: D5 1/2NS w/KCl 20mEq 1,000 ML IV SCH (19:14)
--- NOTE | 2016-08-07 20:03 | Immediate Post-Op Evaluation ---
Immediate Post-Op Evalulation Immediate Post-Op Evalulation Procedure: Exploratory Laparotomy, Small Bowel Resection Date of Evaluation: Aug 07, 2016 Time of Evaluation: 18:59 IV Fluids: 1L Blood Products: 0 Estimated Blood Loss: 150 Urinary Output: 80 Blood Pressure Systolic: 104 Blood Pressure Diastolic: 71 Pulse Rate: 76 Respiratory Rate: 15 O2 Sat by Pulse Oximetry: 100 Temperature (Fahrenheit): 97.3 Pain Score (1-10): 0 Nausea: No Vomiting: No Complications 0 Patient Status: no response - sedated, ventilated - baseline, none Hydration Status: adequate Drug: Ancef 2g Given Within 1 Hr of Incision: Yes Time Given: 17:00 JUS RAMIREZ M.D. Aug 07, 2016 20:03
--- NOTE | 2016-08-07 20:56 | Cardiology Progress Note ---
Assessment/Plan Problem List: (1) Paroxysmal atrial fibrillation with rapid ventricular response (2) HIV disease (3) Intra-abdominal abscess (4) Sepsis Status Narrative Mr. Lr is s/p expl lap/ wound closure for dehiscence today. WBC is down and he is currently afebrile. He has not had further AF or AFL episodes. Assessment/Plan Continue b blockers iv for BP control and rate control if AF should occur. Maintain on vent support overnight - ? weaning tomorrow continue broad spectrum iv abx per ID for intrabd sepsis. Followup cultures Labs, cxr, ekg in am. Subjective ROS Limited/Unobtainable: Yes Subjective Pt is seen post-op - sedated/ on vent Objective Last 24 Hour Vital Signs Date Time Temp Pulse Resp B/P Pulse Ox O2 Delivery O2 Flow Rate FiO2 08/07/16 20:03 76 15 100 08/07/16 20:00 97.7 97 32 137/87 96 Mechanical Ventilator 30 08/07/16 20:00 30 08/07/16 19:00 92 31 149/70 100 Mechanical Ventilator 30 08/07/16 18:48 71 14 35 08/07/16 17:00 86 31 148/63 95 Mechanical Ventilator 35 08/07/16 16:00 35 08/07/16 16:00 99.4 78 24 94/57 96 Mechanical Ventilator 35 08/07/16 16:00 78 08/07/16 15:00 86 31 148/63 95 Mechanical Ventilator 35 08/07/16 14:46 94 35 35 08/07/16 14:00 92 33 149/79 98 Mechanical Ventilator 35 08/07/16 13:06 89 32 35 08/07/16 13:00 89 35 146/74 98 Mechanical Ventilator 35 08/07/16 12:18 97 147/69 08/07/16 12:00 97 08/07/16 12:00 99.6 97 33 147/69 97 Mechanical Ventilator 35 08/07/16 12:00 35 08/07/16 11:00 90 31 139/61 98 Mechanical Ventilator 35 08/07/16 10:59 85 34 35 08/07/16 10:00 90 36 133/74 96 Mechanical Ventilator 35 08/07/16 09:07 91 38 35 08/07/16 09:00 92 36 138/70 97 Mechanical Ventilator 35 08/07/16 08:00 99.4 103 22 145/81 96 Mechanical Ventilator 35 08/07/16 08:00 103 08/07/16 08:00 35 08/07/16 07:13 77 29 35 08/07/16 07:00 98 22 95/53 96 Mechanical Ventilator 40 08/07/16 06:00 84 31 147/78 98 Mechanical Ventilator 40 08/07/16 05:52 110 152/68 08/07/16 05:17 105 35 40 08/07/16 05:00 109 34 152/68 98 Mechanical Ventilator 40 08/07/16 04:00 98.1 103 28 129/70 98 Mechanical Ventilator 40 08/07/16 04:00 105 08/07/16 04:00 40 08/07/16 03:15 104 27 40 08/07/16 03:00 101 28 117/51 98 Mechanical Ventilator 40 08/07/16 02:00 92 25 118/60 98 Mechanical Ventilator 40 08/07/16 01:21 80 23 40 08/07/16 01:00 80 24 88/54 97 Mechanical Ventilator 40 08/07/16 00:00 97 08/07/16 00:00 40 08/07/16 00:00 98.0 97 26 126/59 99 Mechanical Ventilator 40 08/07/16 00:00 91 126/59 08/06/16 23:14 102 169/85 08/06/16 23:00 102 26 169/85 94 Mechanical Ventilator 40 08/06/16 22:52 112 35 40 08/06/16 22:00 105 25 131/67 97 Mechanical Ventilator 40 08/06/16 21:00 102 26 166/58 97 Mechanical Ventilator 40 General Appearance: WD/WN, on vent EENT: PERRL/EOMI, other - et tube Neck: supple, no JVD Rhythm: NSR Cardiovascular: regular rhythm, no gallop/murmur Respiratory/Chest: other - bilat rhonchi Abdomen: other - soft, distended. surgical dressing midline. J drains w appx 5- 10 cc blood. BS absent Extremities: no swelling Intake and Output 08/06/16 08/07/16 19:00 07:00 Intake Total 1650.120 ml 850 ml Output Total 540 ml 535 ml Balance 1110.120 ml 315 ml Intake Free Water 30 ml IV Total 1610.120 ml 600 ml Tube Feeding 40 ml 220 ml Output Urine Total 540 ml 535 ml Laboratory Tests Test 08/07/16 03:40 08/07/16 04:00 White Blood Count 9.1 K/UL (4.8-10.8) Red Blood Count 3.20 M/UL (4.70-6.10) L Hemoglobin 10.1 G/DL (14.2-18.0) L Hematocrit 30.5 % (42.0-52.0) L Mean Corpuscular Volume 95 FL (80-99) Mean Corpuscular Hemoglobin 31.5 PG (27.0-31.0) H Mean Corpuscular Hemoglobin Concent 33.0 G/DL (32.0-36.0) Red Cell Distribution Width 13.9 % (11.6-14.8) Platelet Count 249 K/UL (150-450) Mean Platelet Volume 6.8 FL (6.5-10.1) Neutrophils (%) (Auto) % (45.0-75.0) Lymphocytes (%) (Auto) % (20.0-45.0) Monocytes (%) (Auto) % (1.0-10.0) Eosinophils (%) (Auto) % (0.0-3.0) Basophils (%) (Auto) % (0.0-2.0) Sodium Level 147 mEQ/L (135-145) H Potassium Level 4.4 mEQ/L (3.4-4.9) Chloride Level 108 mEQ/L (98-107) H Carbon Dioxide Level 29 mEQ/L (20-30) Anion Gap 10 (5-15) Blood Urea Nitrogen 15 mg/dL (7-23) Creatinine 1.0 mg/dL (0.7-1.2) Estimat Glomerular Filtration Rate > 60 mL/min (>60) Glucose Level 134 mg/dL (74-106) H Calcium Level 7.7 mg/dL (8.6-10.2) L Phosphorus Level 1.6 mg/dL (2.5-4.8) L Magnesium Level 2.0 mg/dL (1.7-2.5) Total Bilirubin 0.4 mg/dL (0.0-1.2) Aspartate Amino Transf (AST/SGOT) 27 U/L (5-40) Alanine Aminotransferase (ALT/SGPT) 14 U/L (3-41) Alkaline Phosphatase 101 U/L (40-129) Total Protein 5.4 g/dL (6.6-8.7) L Albumin 1.9 g/dL (3.5-5.2) L Globulin 3.5 g/dL Albumin/Globulin Ratio 0.5 (1.0-2.7) L Arterial Blood pH 7.360 (7.350-7.450) Arterial Blood Partial Pressure CO2 58.3 mmHg (35.0-45.0) *H Arterial Blood Partial Pressure O2 103.8 mmHg (75.0-100.0) H Arterial Blood HCO3 32.9 mmol/L (22.0-26.0) H Arterial Blood Oxygen Saturation 97.1 % (92.0-98.0) Arterial Blood Base Excess 6.2 Romero Test Positive Microbiology Date/Time Source Procedure Growth Status 08/05/16 22:00 Blood Blood Culture - Preliminary NO GROWTH AFTER 24 HOURS Resulted EYAD DONIS Aug 07, 2016 20:56
[2016-08-07] MEDS: Morphine Sulfate 2mg/ml Inj IVP PRN (22:16)
[2016-08-08] VITALS (24 sets, daily range): BP systolic 82–121; BP diastolic 52–72
[2016-08-08] MEDS: Aztreonam Inj 1 GM in NS 55 ML IVPB SCH ×3 (02:00→17:16)
[2016-08-08] MEDS: LORazepam Inj 2mg/ml 1ml IV PRN ×2 (02:31→19:48)
[2016-08-08] MEDS: D5 1/2NS w/KCl 20mEq 1,000 ML IV SCH (05:01)
[2016-08-08] MEDS: metroNIDAZOLE 500mg 100 ML IVPB SCH ×3 (05:02→22:20)
[2016-08-08 05:54] LABS: MEAN CORPUSCULAR HEMOGLOBIN 31.3 PG (27.0-31.0); MEAN CORPUSCULAR HGB CONC 32.3 G/DL (32.0-36.0); MEAN CORPUSCULAR VOLUME 97 FL (80-99); MEAN PLATELET VOLUME 7.1 FL (6.5-10.1); PLATELET COUNT 322 K/UL (150-450); RED BLOOD COUNT 3.52 M/UL (4.70-6.10); RED CELL DISTRIBUTION WIDTH 13.8 % (11.6-14.8); WHITE BLOOD COUNT 14.2 K/UL (4.8-10.8)
[2016-08-08] MEDS: Metoprolol 5mg/5ml Inj IVP SCH ×3 (06:00→17:16)
[2016-08-08] MEDS: Vancomycin 1250mg in D5W 275ml IVPB SCH ×2 (06:08→18:19)
[2016-08-08 06:15] LABS: ALANINE AMINOTRANSFERASE 11 U/L (3-41); ALBUMIN/GLOBULIN RATIO 0.5 (1.0-2.7); ANION GAP 9 (5-15); ASPARTATE AMINO TRANSFERASE 23 U/L (5-40); CALCIUM 6.8 mg/dL (8.6-10.2); CARBON DIOXIDE 28 mEQ/L (20-30); CHLORIDE 109 mEQ/L (98-107); CREATININE 1.2 mg/dL (0.7-1.2); GLOMERULAR FILTRATION RATE > 60 mL/min (>60); HEMOLYSIS 3; MAGNESIUM 1.9 mg/dL (1.7-2.5); PHOSPHORUS 3.6 mg/dL (2.5-4.8); POTASSIUM 5.5 mEQ/L (3.4-4.9); SODIUM 146 mEQ/L (135-145); TOTAL PROTEIN 5.4 g/dL (6.6-8.7)
[2016-08-08 08:04] LABS: ANISOCYTOSIS 1+; BAND NEUTROPHILS % (MANUAL) 0 % (0-8); BASOPHILS % (MANUAL) 0 % (0-2); EOSINOPHILS % (MANUAL) 0 % (0-3); HYPOCHROMASIA 1+; LYMPHOCYTES % (MANUAL) 4 % (20-45); NEUTROPHILS % (MANUAL) 89 % (45-75); PLATELET ESTIMATE ADEQUATE; PLATELET MORPHOLOGY NORMAL; TOTAL CELLS COUNTED 100
[2016-08-08 08:28] LABS: ABG ALLEN TEST POSITIVE; ABG PCO2 52.4 mmHg (35.0-45.0)
[2016-08-08] MEDS: Heparin 5000 units/ml inj SUBQ SCH ×2 (09:01→20:24)
[2016-08-08] MEDS: Pantoprazole Inj IV SCH ×2 (09:01→20:22)
[2016-08-08] MEDS: D5 1/2NS 1,000 ML IV SCH ×2 (09:45→20:23)
--- NOTE | 2016-08-08 09:50 | Pulmonolgy Critical Care Note ---
Critical Care - Asmt/Plan Problems: (1) Acute respiratory failure (2) Pneumatosis intestinalis (3) Anemia (4) ATN (acute tubular necrosis) (5) Sepsis (6) Intra-abdominal abscess (7) HIV disease Respiratory: monitor respiratory rate, adjust FIO2, CXR, other - try to wean again Cardiac: continue pressors Renal: F/U I&O, keep IV fluid, increase IV fluid, check electrolytes Infectious Disease: check cultures, continue antibiotics Gastrointestinal: continue feedings/current rate Endocrine: monitor blood sugar, continue sliding scale insulin Hematologic: monitor H/H, transfuse if hgb<8.5 Neurologic: PRN Ativan, PRN Morphine, keep patient comfortable Affect: PRN ativan Disposition: keep in ICU Time Spent (Minutes): 40 Notes Reviewed: pe manager, cardio, renal Discussed with: nurses, consultants, senior case managercommercial manager - Objective Last 24 Hour Vital Signs Date Time Temp Pulse Resp B/P Pulse Ox O2 Delivery O2 Flow Rate FiO2 08/08/16 08:30 99 34 35 08/08/16 08:00 96 08/08/16 07:10 98 30 35 08/08/16 07:00 97 34 111/65 96 Mechanical Ventilator 30 08/08/16 06:00 99 100/55 08/08/16 06:00 99 30 100/55 95 Mechanical Ventilator 30 08/08/16 05:21 105 27 35 08/08/16 05:00 97 32 101/64 95 Mechanical Ventilator 30 08/08/16 04:00 100 08/08/16 04:00 99.3 100 34 101/63 96 Mechanical Ventilator 30 08/08/16 04:00 30 08/08/16 03:20 103 32 35 08/08/16 03:00 100 29 106/65 95 Mechanical Ventilator 30 08/08/16 02:00 98 39 109/72 95 Mechanical Ventilator 30 08/08/16 01:30 98 32 35 08/08/16 01:00 100 31 108/70 95 Mechanical Ventilator 30 08/08/16 00:00 30 08/08/16 00:00 99.2 97 32 110/66 95 Mechanical Ventilator 30 08/08/16 00:00 98 08/07/16 23:17 117 36 35 08/07/16 23:00 103 30 103/64 99 Mechanical Ventilator 30 08/07/16 22:00 106 36 108/71 96 Mechanical Ventilator 30 08/07/16 21:11 113 38 35 08/07/16 21:00 97 39 129/72 95 Mechanical Ventilator 30 08/07/16 20:03 76 15 100 08/07/16 20:00 97.7 97 32 137/87 96 Mechanical Ventilator 30 08/07/16 20:00 99 08/07/16 20:00 30 08/07/16 19:00 92 31 149/70 100 Mechanical Ventilator 30 08/07/16 18:48 71 14 35 08/07/16 17:00 86 31 148/63 95 Mechanical Ventilator 35 08/07/16 16:00 35 08/07/16 16:00 99.4 78 24 94/57 96 Mechanical Ventilator 35 08/07/16 16:00 78 08/07/16 15:00 86 31 148/63 95 Mechanical Ventilator 35 08/07/16 14:46 94 35 35 08/07/16 14:00 92 33 149/79 98 Mechanical Ventilator 35 08/07/16 13:06 89 32 35 08/07/16 13:00 89 35 146/74 98 Mechanical Ventilator 35 08/07/16 12:18 97 147/69 08/07/16 12:00 97 08/07/16 12:00 99.6 97 33 147/69 97 Mechanical Ventilator 35 08/07/16 12:00 35 08/07/16 11:00 90 31 139/61 98 Mechanical Ventilator 35 08/07/16 10:59 85 34 35 08/07/16 10:00 90 36 133/74 96 Mechanical Ventilator 35 Status: sedated Condition: critical HEENT: atraumatic Neck: full ROM Heart: HR/BP stable, HR/BP unstable, regular Abdomen: feeding tube Extremities: no C/C/E, edema Decubiti: location Micro: Microbiology Date/Time Source Procedure Growth Status 08/05/16 22:00 Blood Blood Culture - Preliminary NO GROWTH AFTER 48 HOURS Resulted Accucheck: 179 Critical Care - Subjective ICU Day: 9 Intubation Day: 0 Interval Events: underwent laparotomy yesterday, with washout and closure of the surgical wound EKG Rhythm: Sinus Rhythm FI02: 30 Vent Support Breath Rate: 10 Vent Support Mode: AC Vent Tidal Volume: 500 Sputum Amount: Moderate PEEP: 5.0 PIP: 54 Fluids: d5 1/2 NS 100 cc.hour Tube Feeding Amount: 0 I&O: Intake and Output 08/07/16 08/08/16 19:00 07:00 Intake Total 841.0 ml 1913.708 ml Output Total 340 ml 551 ml Balance 501.0 ml 1362.708 ml IV Total 801.0 ml 1913.708 ml Tube Feeding 40 ml Output Urine Total 340 ml 410 ml Drainage Total 141 ml CXR: ET in good position, improving ET-Tube: 7.5 ET Position: 25 Labs: Laboratory Tests Test 08/08/16 04:35 08/08/16 08:15 White Blood Count 14.2 K/UL (4.8-10.8) #H Red Blood Count 3.52 M/UL (4.70-6.10) L Hemoglobin 11.0 G/DL (14.2-18.0) L Hematocrit 34.2 % (42.0-52.0) L Mean Corpuscular Volume 97 FL (80-99) Mean Corpuscular Hemoglobin 31.3 PG (27.0-31.0) H Mean Corpuscular Hemoglobin Concent 32.3 G/DL (32.0-36.0) Red Cell Distribution Width 13.8 % (11.6-14.8) Platelet Count 322 K/UL (150-450) Mean Platelet Volume 7.1 FL (6.5-10.1) Neutrophils (%) (Auto) % (45.0-75.0) Lymphocytes (%) (Auto) % (20.0-45.0) Monocytes (%) (Auto) % (1.0-10.0) Eosinophils (%) (Auto) % (0.0-3.0) Basophils (%) (Auto) % (0.0-2.0) Differential Total Cells Counted 100 Neutrophils % (Manual) 89 % (45-75) H Lymphocytes % (Manual) 4 % (20-45) L Monocytes % (Manual) 7 % (1-10) Eosinophils % (Manual) 0 % (0-3) Basophils % (Manual) 0 % (0-2) Band Neutrophils 0 % (0-8) Platelet Estimate Adequate Platelet Morphology Normal Hypochromasia 1+ Anisocytosis 1+ Sodium Level 146 mEQ/L (135-145) H Potassium Level 5.5 mEQ/L (3.4-4.9) H Chloride Level 109 mEQ/L (98-107) H Carbon Dioxide Level 28 mEQ/L (20-30) Anion Gap 9 (5-15) Blood Urea Nitrogen 24 mg/dL (7-23) H Creatinine 1.2 mg/dL (0.7-1.2) Estimat Glomerular Filtration Rate > 60 mL/min (>60) Glucose Level 185 mg/dL (74-106) H Calcium Level 6.8 mg/dL (8.6-10.2) L Phosphorus Level 3.6 mg/dL (2.5-4.8) Magnesium Level 1.9 mg/dL (1.7-2.5) Total Bilirubin 0.3 mg/dL (0.0-1.2) Aspartate Amino Transf (AST/SGOT) 23 U/L (5-40) Alanine Aminotransferase (ALT/SGPT) 11 U/L (3-41) Alkaline Phosphatase 87 U/L (40-129) Total Protein 5.4 g/dL (6.6-8.7) L Albumin 1.9 g/dL (3.5-5.2) L Globulin 3.5 g/dL Albumin/Globulin Ratio 0.5 (1.0-2.7) L Arterial Blood pH 7.350 (7.350-7.450) Arterial Blood Partial Pressure CO2 52.4 mmHg (35.0-45.0) H Arterial Blood Partial Pressure O2 91.6 mmHg (75.0-100.0) Arterial Blood HCO3 28.3 mmol/L (22.0-26.0) H Arterial Blood Oxygen Saturation 96.4 % (92.0-98.0) Arterial Blood Base Excess 2.0 Romero Test Positive CHAS WALLACE Aug 08, 2016 09:50
--- NOTE | 2016-08-08 10:14 | Diagnostic Imaging Report ---
Indication: DYSPNEA Technique: One view of the chest Comparison: 08/07/2016 Findings: Again demonstrated is right infrahilar opacity with suggestion of central bronchiectasis. Interim improvement of left basilar, right lateral basilar opacities. Pleural space are clear. Heart size is normal Impression: Improved bilateral basilar faint opacities, over one day, suggestive of improving infiltrates Persistent right infrahilar disease. This may represent residual acute consolidation versus chronic change.: Clinical findings
--- NOTE | 2016-08-08 11:17 | General Surgery Progress Note ---
General Surgery-Progress Note Subjective Symptoms: improved Objective Last 24 Hour Vital Signs Date Time Temp Pulse Resp B/P Pulse Ox O2 Delivery O2 Flow Rate FiO2 08/08/16 10:00 98.8 95 34 110/65 97 Mechanical Ventilator 30 08/08/16 09:00 98 34 113/69 96 Mechanical Ventilator 30 08/08/16 08:30 99 34 35 08/08/16 08:00 96 08/08/16 08:00 98 34 114/68 97 Mechanical Ventilator 30 08/08/16 08:00 30 08/08/16 07:10 98 30 35 08/08/16 07:00 97 34 111/65 96 Mechanical Ventilator 30 08/08/16 06:00 99 100/55 08/08/16 06:00 99 30 100/55 95 Mechanical Ventilator 30 08/08/16 05:21 105 27 35 08/08/16 05:00 97 32 101/64 95 Mechanical Ventilator 30 08/08/16 04:00 100 08/08/16 04:00 99.3 100 34 101/63 96 Mechanical Ventilator 30 08/08/16 04:00 30 08/08/16 03:20 103 32 35 08/08/16 03:00 100 29 106/65 95 Mechanical Ventilator 30 08/08/16 02:00 98 39 109/72 95 Mechanical Ventilator 30 08/08/16 01:30 98 32 35 08/08/16 01:00 100 31 108/70 95 Mechanical Ventilator 30 08/08/16 00:00 30 08/08/16 00:00 99.2 97 32 110/66 95 Mechanical Ventilator 30 08/08/16 00:00 98 08/07/16 23:17 117 36 35 08/07/16 23:00 103 30 103/64 99 Mechanical Ventilator 30 08/07/16 22:00 106 36 108/71 96 Mechanical Ventilator 30 08/07/16 21:11 113 38 35 08/07/16 21:00 97 39 129/72 95 Mechanical Ventilator 30 08/07/16 20:03 76 15 100 08/07/16 20:00 97.7 97 32 137/87 96 Mechanical Ventilator 30 08/07/16 20:00 99 08/07/16 20:00 30 08/07/16 19:00 92 31 149/70 100 Mechanical Ventilator 30 08/07/16 18:48 71 14 35 08/07/16 17:00 86 31 148/63 95 Mechanical Ventilator 35 08/07/16 16:00 35 08/07/16 16:00 99.4 78 24 94/57 96 Mechanical Ventilator 35 08/07/16 16:00 78 08/07/16 15:00 86 31 148/63 95 Mechanical Ventilator 35 08/07/16 14:46 94 35 35 08/07/16 14:00 92 33 149/79 98 Mechanical Ventilator 35 08/07/16 13:06 89 32 35 08/07/16 13:00 89 35 146/74 98 Mechanical Ventilator 35 08/07/16 12:18 97 147/69 08/07/16 12:00 97 08/07/16 12:00 99.6 97 33 147/69 97 Mechanical Ventilator 35 08/07/16 12:00 35 I&O Intake and Output 08/07/16 08/08/16 19:00 07:00 Intake Total 841.0 ml 1913.708 ml Output Total 340 ml 551 ml Balance 501.0 ml 1362.708 ml IV Total 801.0 ml 1913.708 ml Tube Feeding 40 ml Output Urine Total 340 ml 410 ml Drainage Total 141 ml Dressing: dry Wound: clean Drains: cade Cardiovascular: RSR Respiratory: clear Abdomen: distended Extremities: no edema Laboratory Tests Test 08/08/16 04:35 08/08/16 08:15 White Blood Count 14.2 K/UL (4.8-10.8) #H Red Blood Count 3.52 M/UL (4.70-6.10) L Hemoglobin 11.0 G/DL (14.2-18.0) L Hematocrit 34.2 % (42.0-52.0) L Mean Corpuscular Volume 97 FL (80-99) Mean Corpuscular Hemoglobin 31.3 PG (27.0-31.0) H Mean Corpuscular Hemoglobin Concent 32.3 G/DL (32.0-36.0) Red Cell Distribution Width 13.8 % (11.6-14.8) Platelet Count 322 K/UL (150-450) Mean Platelet Volume 7.1 FL (6.5-10.1) Neutrophils (%) (Auto) % (45.0-75.0) Lymphocytes (%) (Auto) % (20.0-45.0) Monocytes (%) (Auto) % (1.0-10.0) Eosinophils (%) (Auto) % (0.0-3.0) Basophils (%) (Auto) % (0.0-2.0) Differential Total Cells Counted 100 Neutrophils % (Manual) 89 % (45-75) H Lymphocytes % (Manual) 4 % (20-45) L Monocytes % (Manual) 7 % (1-10) Eosinophils % (Manual) 0 % (0-3) Basophils % (Manual) 0 % (0-2) Band Neutrophils 0 % (0-8) Platelet Estimate Adequate Platelet Morphology Normal Hypochromasia 1+ Anisocytosis 1+ Sodium Level 146 mEQ/L (135-145) H Potassium Level 5.5 mEQ/L (3.4-4.9) H Chloride Level 109 mEQ/L (98-107) H Carbon Dioxide Level 28 mEQ/L (20-30) Anion Gap 9 (5-15) Blood Urea Nitrogen 24 mg/dL (7-23) H Creatinine 1.2 mg/dL (0.7-1.2) Estimat Glomerular Filtration Rate > 60 mL/min (>60) Glucose Level 185 mg/dL (74-106) H Calcium Level 6.8 mg/dL (8.6-10.2) L Phosphorus Level 3.6 mg/dL (2.5-4.8) Magnesium Level 1.9 mg/dL (1.7-2.5) Total Bilirubin 0.3 mg/dL (0.0-1.2) Aspartate Amino Transf (AST/SGOT) 23 U/L (5-40) Alanine Aminotransferase (ALT/SGPT) 11 U/L (3-41) Alkaline Phosphatase 87 U/L (40-129) Total Protein 5.4 g/dL (6.6-8.7) L Albumin 1.9 g/dL (3.5-5.2) L Globulin 3.5 g/dL Albumin/Globulin Ratio 0.5 (1.0-2.7) L Arterial Blood pH 7.350 (7.350-7.450) Arterial Blood Partial Pressure CO2 52.4 mmHg (35.0-45.0) H Arterial Blood Partial Pressure O2 91.6 mmHg (75.0-100.0) Arterial Blood HCO3 28.3 mmol/L (22.0-26.0) H Arterial Blood Oxygen Saturation 96.4 % (92.0-98.0) Arterial Blood Base Excess 2.0 Romero Test Positive Assessment Post-op Diagnosis small bowel perforation from laparoscopic hernia repair with resulting intraabdominal abscess and partial small bowel obstruction Additional Comments Pt had a wound dehiscense, but the anastomosis was intact, no further abscesses seen. Plan Additional Comments Pt needs TPN due to protracted course of peritonitis and partial small bowel obstruction Dejuan Gilmore MD Aug 08, 2016 11:17
--- NOTE | 2016-08-08 13:06 | General Progress Note ---
Assessment/Plan Status: unchanged Assessment/Plan Status: Acute renal failure and Oliguria due to - low BP , post OP- Amikacin and VancoMycin- Ongoing sepsis RESOLVED Respiratory failure, on Vent intraabdominal abscess, small bowel obstruction, intraabdominal adhesions, small bowel perforation. Plan; TPN ? Post Op care- monitor renal parameters- Per ID- Weaning as possible- Avoid nephrotoxics Per orders Subjective ROS Limited/Unobtainable: Yes Allergies: Coded Allergies: PENICILLINS (Verified Allergy, Intermediate, 07/30/16) SULFA (SULFONAMIDE ANTIBIOTICS) (Verified Allergy, Intermediate, ITCHING, 07/30/16) Objective Last 24 Hour Vital Signs Date Time Temp Pulse Resp B/P Pulse Ox O2 Delivery O2 Flow Rate FiO2 08/08/16 12:00 30 08/08/16 12:00 95 100/54 08/08/16 12:00 98.9 98 34 101/59 96 Mechanical Ventilator 30 08/08/16 12:00 97 08/08/16 11:02 97 28 35 08/08/16 11:00 98 34 113/69 96 Mechanical Ventilator 30 08/08/16 10:00 98.8 95 34 110/65 97 Mechanical Ventilator 30 08/08/16 09:00 98 34 113/69 96 Mechanical Ventilator 30 08/08/16 08:30 99 34 35 08/08/16 08:00 96 08/08/16 08:00 98 34 114/68 97 Mechanical Ventilator 30 08/08/16 08:00 30 08/08/16 07:10 98 30 35 08/08/16 07:00 97 34 111/65 96 Mechanical Ventilator 30 08/08/16 06:00 99 100/55 08/08/16 06:00 99 30 100/55 95 Mechanical Ventilator 30 08/08/16 05:21 105 27 35 08/08/16 05:00 97 32 101/64 95 Mechanical Ventilator 30 08/08/16 04:00 100 08/08/16 04:00 99.3 100 34 101/63 96 Mechanical Ventilator 30 08/08/16 04:00 30 08/08/16 03:20 103 32 35 08/08/16 03:00 100 29 106/65 95 Mechanical Ventilator 30 08/08/16 02:00 98 39 109/72 95 Mechanical Ventilator 30 08/08/16 01:30 98 32 35 08/08/16 01:00 100 31 108/70 95 Mechanical Ventilator 30 08/08/16 00:00 30 08/08/16 00:00 99.2 97 32 110/66 95 Mechanical Ventilator 30 08/08/16 00:00 98 08/07/16 23:17 117 36 35 08/07/16 23:00 103 30 103/64 99 Mechanical Ventilator 30 08/07/16 22:00 106 36 108/71 96 Mechanical Ventilator 30 08/07/16 21:11 113 38 35 08/07/16 21:00 97 39 129/72 95 Mechanical Ventilator 30 08/07/16 20:03 76 15 100 08/07/16 20:00 97.7 97 32 137/87 96 Mechanical Ventilator 30 08/07/16 20:00 99 08/07/16 20:00 30 08/07/16 19:00 92 31 149/70 100 Mechanical Ventilator 30 08/07/16 18:48 71 14 35 08/07/16 17:00 86 31 148/63 95 Mechanical Ventilator 35 08/07/16 16:00 35 08/07/16 16:00 99.4 78 24 94/57 96 Mechanical Ventilator 35 08/07/16 16:00 78 08/07/16 15:00 86 31 148/63 95 Mechanical Ventilator 35 08/07/16 14:46 94 35 35 08/07/16 14:00 92 33 149/79 98 Mechanical Ventilator 35 08/07/16 13:06 89 32 35 Intake and Output 08/07/16 08/08/16 19:00 07:00 Intake Total 841.0 ml 1913.708 ml Output Total 340 ml 551 ml Balance 501.0 ml 1362.708 ml IV Total 801.0 ml 1913.708 ml Tube Feeding 40 ml Output Urine Total 340 ml 410 ml Drainage Total 141 ml Laboratory Tests 08/08/16 04:35: White Blood Count 14.2#H, Red Blood Count 3.52L, Hemoglobin 11.0L, Hematocrit 34.2L, Mean Corpuscular Volume 97, Mean Corpuscular Hemoglobin 31.3H, Mean Corpuscular Hemoglobin Concent 32.3, Red Cell Distribution Width 13.8, Platelet Count 322, Mean Platelet Volume 7.1, Neutrophils (%) (Auto) , Lymphocytes (%) ( Auto) , Monocytes (%) (Auto) , Eosinophils (%) (Auto) , Basophils (%) (Auto) , Differential Total Cells Counted 100, Neutrophils % (Manual) 89H, Lymphocytes % (Manual) 4L, Monocytes % (Manual) 7, Eosinophils % (Manual) 0, Basophils % ( Manual) 0, Band Neutrophils 0, Platelet Estimate Adequate, Platelet Morphology Normal, Hypochromasia 1+, Anisocytosis 1+, Sodium Level 146H, Potassium Level 5.5H, Chloride Level 109H, Carbon Dioxide Level 28, Anion Gap 9, Blood Urea Nitrogen 24H, Creatinine 1.2, Estimat Glomerular Filtration Rate > 60, Glucose Level 185H, Calcium Level 6.8L, Phosphorus Level 3.6, Magnesium Level 1.9, Total Bilirubin 0.3, Aspartate Amino Transf (AST/SGOT) 23, Alanine Aminotransferase (ALT/SGPT) 11, Alkaline Phosphatase 87, Total Protein 5.4L, Albumin 1.9L, Globulin 3.5, Albumin/Globulin Ratio 0.5L 08/08/16 08:15: Arterial Blood pH 7.350, Arterial Blood Partial Pressure CO2 52.4H, Arterial Blood Partial Pressure O2 91.6, Arterial Blood HCO3 28.3H, Arterial Blood Oxygen Saturation 96.4, Arterial Blood Base Excess 2.0, Romero Test Positive Height (Feet): 5 Height (Inches): 9.00 Weight (Pounds): 182 General Appearance: mild distress Cardiovascular: tachycardia Respiratory/Chest: decreased breath sounds Abdomen: distended Objective no other changes in PE AYDE SERNA Aug 08, 2016 13:06
--- NOTE | 2016-08-08 13:15 | GI Progress Note ---
Assessment/Plan Problems: (1) Hypoalbuminemia ICD Codes: E88.09 - Other disorders of plasma-protein metabolism, not elsewhere classified SNOMED: 360564110 (2) Anemia ICD Codes: D64.9 - Anemia, unspecified SNOMED: 055728690 (3) Pancreatitis ICD Codes: K85.90 - Acute pancreatitis without necrosis or infection, unspecified SNOMED: 78768782 Qualifiers: Qualified Codes: K85.80 - Other acute pancreatitis without necrosis or infection (4) Intra-abdominal abscess ICD Codes: K65.1 - Peritoneal abscess SNOMED: 19961475 (5) Ischemia, bowel ICD Codes: K55.9 - Vascular disorder of intestine, unspecified SNOMED: 34818995 Status: unchanged Status Narrative Discussed with Dr. Sheikh. Assessment/Plan s/p Exploratory laparotomy, drainage of abdominal abscess, lysis of adhesions, partial omentectomy and partial small-bowel resection. s/p Exploratory laparotomy, abdominal washout, abdominal closure cdiff negative defer GI procedures at this time follow surgical recs >> maintain NPO >> ordered TPN abx ppi fu labs outpatient colonoscopy Subjective Subjective limited, opens eyes Objective Last 24 Hour Vital Signs Date Time Temp Pulse Resp B/P Pulse Ox O2 Delivery O2 Flow Rate FiO2 08/08/16 12:00 30 08/08/16 12:00 95 100/54 08/08/16 12:00 98.9 98 34 101/59 96 Mechanical Ventilator 30 08/08/16 12:00 97 08/08/16 11:02 97 28 35 08/08/16 11:00 98 34 113/69 96 Mechanical Ventilator 30 08/08/16 10:00 98.8 95 34 110/65 97 Mechanical Ventilator 30 08/08/16 09:00 98 34 113/69 96 Mechanical Ventilator 30 08/08/16 08:30 99 34 35 08/08/16 08:00 96 08/08/16 08:00 98 34 114/68 97 Mechanical Ventilator 30 08/08/16 08:00 30 08/08/16 07:10 98 30 35 08/08/16 07:00 97 34 111/65 96 Mechanical Ventilator 30 08/08/16 06:00 99 100/55 08/08/16 06:00 99 30 100/55 95 Mechanical Ventilator 30 08/08/16 05:21 105 27 35 08/08/16 05:00 97 32 101/64 95 Mechanical Ventilator 30 08/08/16 04:00 100 08/08/16 04:00 99.3 100 34 101/63 96 Mechanical Ventilator 30 08/08/16 04:00 30 08/08/16 03:20 103 32 35 08/08/16 03:00 100 29 106/65 95 Mechanical Ventilator 30 08/08/16 02:00 98 39 109/72 95 Mechanical Ventilator 30 08/08/16 01:30 98 32 35 08/08/16 01:00 100 31 108/70 95 Mechanical Ventilator 30 08/08/16 00:00 30 08/08/16 00:00 99.2 97 32 110/66 95 Mechanical Ventilator 30 08/08/16 00:00 98 08/07/16 23:17 117 36 35 08/07/16 23:00 103 30 103/64 99 Mechanical Ventilator 30 08/07/16 22:00 106 36 108/71 96 Mechanical Ventilator 30 08/07/16 21:11 113 38 35 08/07/16 21:00 97 39 129/72 95 Mechanical Ventilator 30 08/07/16 20:03 76 15 100 08/07/16 20:00 97.7 97 32 137/87 96 Mechanical Ventilator 30 08/07/16 20:00 99 08/07/16 20:00 30 08/07/16 19:00 92 31 149/70 100 Mechanical Ventilator 30 08/07/16 18:48 71 14 35 08/07/16 17:00 86 31 148/63 95 Mechanical Ventilator 35 08/07/16 16:00 35 08/07/16 16:00 99.4 78 24 94/57 96 Mechanical Ventilator 35 08/07/16 16:00 78 08/07/16 15:00 86 31 148/63 95 Mechanical Ventilator 35 08/07/16 14:46 94 35 35 08/07/16 14:00 92 33 149/79 98 Mechanical Ventilator 35 Intake and Output 08/07/16 08/08/16 19:00 07:00 Intake Total 841.0 ml 1913.708 ml Output Total 340 ml 551 ml Balance 501.0 ml 1362.708 ml IV Total 801.0 ml 1913.708 ml Tube Feeding 40 ml Output Urine Total 340 ml 410 ml Drainage Total 141 ml Laboratory Tests Test 08/08/16 04:35 08/08/16 08:15 White Blood Count 14.2 K/UL (4.8-10.8) #H Red Blood Count 3.52 M/UL (4.70-6.10) L Hemoglobin 11.0 G/DL (14.2-18.0) L Hematocrit 34.2 % (42.0-52.0) L Mean Corpuscular Volume 97 FL (80-99) Mean Corpuscular Hemoglobin 31.3 PG (27.0-31.0) H Mean Corpuscular Hemoglobin Concent 32.3 G/DL (32.0-36.0) Red Cell Distribution Width 13.8 % (11.6-14.8) Platelet Count 322 K/UL (150-450) Mean Platelet Volume 7.1 FL (6.5-10.1) Neutrophils (%) (Auto) % (45.0-75.0) Lymphocytes (%) (Auto) % (20.0-45.0) Monocytes (%) (Auto) % (1.0-10.0) Eosinophils (%) (Auto) % (0.0-3.0) Basophils (%) (Auto) % (0.0-2.0) Differential Total Cells Counted 100 Neutrophils % (Manual) 89 % (45-75) H Lymphocytes % (Manual) 4 % (20-45) L Monocytes % (Manual) 7 % (1-10) Eosinophils % (Manual) 0 % (0-3) Basophils % (Manual) 0 % (0-2) Band Neutrophils 0 % (0-8) Platelet Estimate Adequate Platelet Morphology Normal Hypochromasia 1+ Anisocytosis 1+ Sodium Level 146 mEQ/L (135-145) H Potassium Level 5.5 mEQ/L (3.4-4.9) H Chloride Level 109 mEQ/L (98-107) H Carbon Dioxide Level 28 mEQ/L (20-30) Anion Gap 9 (5-15) Blood Urea Nitrogen 24 mg/dL (7-23) H Creatinine 1.2 mg/dL (0.7-1.2) Estimat Glomerular Filtration Rate > 60 mL/min (>60) Glucose Level 185 mg/dL (74-106) H Calcium Level 6.8 mg/dL (8.6-10.2) L Phosphorus Level 3.6 mg/dL (2.5-4.8) Magnesium Level 1.9 mg/dL (1.7-2.5) Total Bilirubin 0.3 mg/dL (0.0-1.2) Aspartate Amino Transf (AST/SGOT) 23 U/L (5-40) Alanine Aminotransferase (ALT/SGPT) 11 U/L (3-41) Alkaline Phosphatase 87 U/L (40-129) Total Protein 5.4 g/dL (6.6-8.7) L Albumin 1.9 g/dL (3.5-5.2) L Globulin 3.5 g/dL Albumin/Globulin Ratio 0.5 (1.0-2.7) L Arterial Blood pH 7.350 (7.350-7.450) Arterial Blood Partial Pressure CO2 52.4 mmHg (35.0-45.0) H Arterial Blood Partial Pressure O2 91.6 mmHg (75.0-100.0) Arterial Blood HCO3 28.3 mmol/L (22.0-26.0) H Arterial Blood Oxygen Saturation 96.4 % (92.0-98.0) Arterial Blood Base Excess 2.0 Romero Test Positive Height (Feet): 5 Height (Inches): 9.00 Weight (Pounds): 182 General Appearance: no apparent distress, alert Cardiovascular: normal rate Respiratory/Chest: other - mech vent Abdominal Exam: incision site - c/d/i Lita Parsons N.P. Aug 08, 2016 13:15
--- NOTE | 2016-08-08 13:18 | Infectious Diseases Prog Note ---
Assessment/Plan Assessment/Plan A: The patient is a 61-year-old male, with ?Pna :Scx: Kleb +ve Blood cx / ? 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 HIV (reportedly the patient's undetectable viral load and CD4 count was 300). PLAN: continue the patient on aztreonam, Flagyl and vancomycin d# Monitor CBC Monitor BMP. Monitor cx ( Bl, ) DW GenSx Subjective Constitutional: Denies: anorexia, chills, drenching sweats, fatigue, fever, no symptoms, other Allergies: Coded Allergies: PENICILLINS (Verified Allergy, Intermediate, 07/30/16) SULFA (SULFONAMIDE ANTIBIOTICS) (Verified Allergy, Intermediate, ITCHING, 07/30/16) Subjective on vent , WBC improving , Objective Vital Signs Last 24 Hour Vital Signs Date Time Temp Pulse Resp B/P Pulse Ox O2 Delivery O2 Flow Rate FiO2 08/08/16 12:00 30 08/08/16 12:00 95 100/54 08/08/16 12:00 98.9 98 34 101/59 96 Mechanical Ventilator 30 08/08/16 12:00 97 08/08/16 11:02 97 28 35 08/08/16 11:00 98 34 113/69 96 Mechanical Ventilator 30 08/08/16 10:00 98.8 95 34 110/65 97 Mechanical Ventilator 30 08/08/16 09:00 98 34 113/69 96 Mechanical Ventilator 30 08/08/16 08:30 99 34 35 08/08/16 08:00 96 08/08/16 08:00 98 34 114/68 97 Mechanical Ventilator 30 08/08/16 08:00 30 08/08/16 07:10 98 30 35 08/08/16 07:00 97 34 111/65 96 Mechanical Ventilator 30 08/08/16 06:00 99 100/55 08/08/16 06:00 99 30 100/55 95 Mechanical Ventilator 30 08/08/16 05:21 105 27 35 08/08/16 05:00 97 32 101/64 95 Mechanical Ventilator 30 08/08/16 04:00 100 08/08/16 04:00 99.3 100 34 101/63 96 Mechanical Ventilator 30 08/08/16 04:00 30 08/08/16 03:20 103 32 35 08/08/16 03:00 100 29 106/65 95 Mechanical Ventilator 30 08/08/16 02:00 98 39 109/72 95 Mechanical Ventilator 30 08/08/16 01:30 98 32 35 08/08/16 01:00 100 31 108/70 95 Mechanical Ventilator 30 08/08/16 00:00 30 08/08/16 00:00 99.2 97 32 110/66 95 Mechanical Ventilator 30 08/08/16 00:00 98 08/07/16 23:17 117 36 35 08/07/16 23:00 103 30 103/64 99 Mechanical Ventilator 30 08/07/16 22:00 106 36 108/71 96 Mechanical Ventilator 30 08/07/16 21:11 113 38 35 08/07/16 21:00 97 39 129/72 95 Mechanical Ventilator 30 08/07/16 20:03 76 15 100 08/07/16 20:00 97.7 97 32 137/87 96 Mechanical Ventilator 30 08/07/16 20:00 99 08/07/16 20:00 30 08/07/16 19:00 92 31 149/70 100 Mechanical Ventilator 30 08/07/16 18:48 71 14 35 08/07/16 17:00 86 31 148/63 95 Mechanical Ventilator 35 08/07/16 16:00 35 08/07/16 16:00 99.4 78 24 94/57 96 Mechanical Ventilator 35 08/07/16 16:00 78 08/07/16 15:00 86 31 148/63 95 Mechanical Ventilator 35 08/07/16 14:46 94 35 35 08/07/16 14:00 92 33 149/79 98 Mechanical Ventilator 35 Height (Feet): 5 Height (Inches): 9.00 Weight (Pounds): 182 HEENT: anicteric Respiratory/Chest: normal breath sounds Cardiovascular: regularly irregular Abdomen: non distended Skin: no lesions Microbiology Date/Time Source Procedure Growth Status 08/05/16 22:00 Blood Blood Culture - Preliminary NO GROWTH AFTER 48 HOURS Resulted Laboratory Tests Test 08/08/16 04:35 08/08/16 08:15 White Blood Count 14.2 K/UL (4.8-10.8) #H Red Blood Count 3.52 M/UL (4.70-6.10) L Hemoglobin 11.0 G/DL (14.2-18.0) L Hematocrit 34.2 % (42.0-52.0) L Mean Corpuscular Volume 97 FL (80-99) Mean Corpuscular Hemoglobin 31.3 PG (27.0-31.0) H Mean Corpuscular Hemoglobin Concent 32.3 G/DL (32.0-36.0) Red Cell Distribution Width 13.8 % (11.6-14.8) Platelet Count 322 K/UL (150-450) Mean Platelet Volume 7.1 FL (6.5-10.1) Neutrophils (%) (Auto) % (45.0-75.0) Lymphocytes (%) (Auto) % (20.0-45.0) Monocytes (%) (Auto) % (1.0-10.0) Eosinophils (%) (Auto) % (0.0-3.0) Basophils (%) (Auto) % (0.0-2.0) Differential Total Cells Counted 100 Neutrophils % (Manual) 89 % (45-75) H Lymphocytes % (Manual) 4 % (20-45) L Monocytes % (Manual) 7 % (1-10) Eosinophils % (Manual) 0 % (0-3) Basophils % (Manual) 0 % (0-2) Band Neutrophils 0 % (0-8) Platelet Estimate Adequate Platelet Morphology Normal Hypochromasia 1+ Anisocytosis 1+ Sodium Level 146 mEQ/L (135-145) H Potassium Level 5.5 mEQ/L (3.4-4.9) H Chloride Level 109 mEQ/L (98-107) H Carbon Dioxide Level 28 mEQ/L (20-30) Anion Gap 9 (5-15) Blood Urea Nitrogen 24 mg/dL (7-23) H Creatinine 1.2 mg/dL (0.7-1.2) Estimat Glomerular Filtration Rate > 60 mL/min (>60) Glucose Level 185 mg/dL (74-106) H Calcium Level 6.8 mg/dL (8.6-10.2) L Phosphorus Level 3.6 mg/dL (2.5-4.8) Magnesium Level 1.9 mg/dL (1.7-2.5) Total Bilirubin 0.3 mg/dL (0.0-1.2) Aspartate Amino Transf (AST/SGOT) 23 U/L (5-40) Alanine Aminotransferase (ALT/SGPT) 11 U/L (3-41) Alkaline Phosphatase 87 U/L (40-129) Total Protein 5.4 g/dL (6.6-8.7) L Albumin 1.9 g/dL (3.5-5.2) L Globulin 3.5 g/dL Albumin/Globulin Ratio 0.5 (1.0-2.7) L Arterial Blood pH 7.350 (7.350-7.450) Arterial Blood Partial Pressure CO2 52.4 mmHg (35.0-45.0) H Arterial Blood Partial Pressure O2 91.6 mmHg (75.0-100.0) Arterial Blood HCO3 28.3 mmol/L (22.0-26.0) H Arterial Blood Oxygen Saturation 96.4 % (92.0-98.0) Arterial Blood Base Excess 2.0 Romero Test Positive Current Medications Medications (Trade) Dose Ordered Sig/Ernie Route PRN Reason Start Time Stop Time Status Last Admin Dose Admin Aztreonam 1 gm/ Sodium Chloride 55 ml @ 110 mls/hr Q8HR@0200,1000,1800 IVPB 08/02/16 18:00 08/08/16 17:59 08/08/16 09:01 Chlorhexidine Gluconate 1 applic 1 applic Q24H TOPIC 08/08/16 21:00 09/07/16 20:59 Dextrose (Dextrose 50%) STAT PRN IV Hypoglycemia 07/30/16 21:45 08/29/16 21:44 Dextrose/Sodium Chloride 1,000 ml @ 100 mls/hr Q10H IV 08/08/16 09:45 08/08/16 20:59 08/08/16 09:45 Fat Emulsion Intravenous/Amino Acids/ Electrolytes/ Dextrose (Intralipids/Tpn) 2,040 ml @ 85 mls/hr Q24H IV 08/08/16 21:00 09/07/16 20:59 Haloperidol Lactate/Dextrose (Haldol/D5W) 56 ml @ 224 mls/hr Q4H PRN IVPB Agitation 08/05/16 09:00 09/04/16 08:59 08/07/16 15:02 Heparin Sodium (Porcine) 5000 units 5,000 units EVERY 12 HOURS SUBQ 08/04/16 21:00 09/03/16 20:59 08/08/16 09:01 Insulin Aspart (NovoLOG) No Dose Q6HR SUBQ 08/08/16 18:00 09/07/16 17:59 Lorazepam (Ativan 2mg/ml 1ml) 2 mg EVERY 2 HOURS PRN IV For Anxiety 08/07/16 21:30 08/14/16 21:29 08/08/16 02:31 Metoprolol Tartrate (Lopressor) 2.5 mg EVERY 6 HOURS IVP 08/06/16 22:00 09/05/16 21:59 08/07/16 12:18 Metronidazole 100 ml @ 100 mls/hr Q8HR IVPB 08/01/16 14:00 08/08/16 13:59 08/08/16 05:02 Morphine Sulfate (Morphine Sulfate) 2 mg EVERY 2 HOURS PRN IVP For Pain 08/07/16 21:30 08/14/16 21:29 08/07/16 22:16 Nitroglycerin (Ntg) 0.4 mg Q5M X 3 DOSES PRN SL Prn Chest Pain 07/30/16 21:45 08/29/16 21:44 Ondansetron HCl (Zofran) 4 mg Q6H PRN IVP Nausea & Vomiting 07/30/16 21:45 08/29/16 21:44 07/31/16 18:25 Pantoprazole (Protonix) 40 mg EVERY 12 HOURS IV 08/06/16 21:00 09/05/16 20:59 08/08/16 09:01 Phytonadione (Vitamin K) 10 mg Fr@2100 SUBQ 08/08/16 21:00 09/07/16 20:59 Promethazine HCl (Phenergan) 25 mg EVERY 8 HOURS PRN IV refractory nausea 07/30/16 21:45 08/29/16 21:44 Vancomycin HCl 1 ea 1 ea DAILY PRN MISC . 07/31/16 11:30 08/30/16 11:29 Vancomycin HCl/ Dextrose (Vancomycin/D5W) 275 ml @ 183.708 mls/hr Q12H IVPB 08/04/16 06:00 08/09/16 05:59 08/08/16 06:08 SANTANA HAGER M.D. Aug 08, 2016 13:18
--- NOTE | 2016-08-08 14:05 | 48 Hour Post Anesthesia Eval ---
Post Anesthesia Evaluation Procedure: Exploratory Laparotomy, Small Bowel Resection Date of Evaluation: Aug 08, 2016 Time of Evaluation: 14:03 Blood Pressure Systolic: 116 0: 58 Pulse Rate: 78 Respiratory Rate: 16 Temperature (Fahrenheit): 97.6 O2 Sat by Pulse Oximetry: 98 Airway: other - intubated on vent Nausea: No Vomiting: No Pain Intensity: 3 Hydration Status: adequate Cardiopulmonary Status: stable Mental Status/LOC: patient returned to baseline Follow-up Care/Observations: n/a Post-Anesthesia Complications: none Follow-up care needed: N/A CARLOS SINGH M.D. Aug 08, 2016 14:05
[2016-08-08] MEDS: Insulin NovoLOG Flexpen S/S (insulin sensitive) SUBQ SCH ×2 (18:21→23:33)
[2016-08-08] MEDS: Dyna-Hex 2% Top Sol 8oz TOPIC SCH (20:22)
--- NOTE | 2016-08-08 20:59 | Cardiology Progress Note ---
Assessment/Plan Problem List: (1) Paroxysmal atrial fibrillation with rapid ventricular response (2) HIV disease (3) Intra-abdominal abscess (4) Sepsis (5) Hernia, umbilical Status: unchanged, deteriorating Status Narrative Mr. Lr is s/p expl lap/ wound closure for dehiscence today. s/p partial sb resection, omentectomy few d ago WBC is increasing. Abd wound culture - + for mult bacteria. BP has decreased - ? vol depletion v sepsis He had a short episode of atrial tachyarrhythmia today Assessment/Plan will dec b blockers in view of low BP IV hydration. Vent support IV antibiotics per ID and followup final culture/sens results. Subjective ROS Limited/Unobtainable: Yes Subjective Intubated/ sedated Objective Last 24 Hour Vital Signs Date Time Temp Pulse Resp B/P Pulse Ox O2 Delivery O2 Flow Rate FiO2 08/08/16 20:00 30 08/08/16 20:00 99.0 88 35 82/52 96 Mechanical Ventilator 30 08/08/16 19:15 97 25 35 08/08/16 19:00 86 29 113/56 96 Mechanical Ventilator 30 08/08/16 18:00 94 31 102/59 99 Mechanical Ventilator 30 08/08/16 17:16 92 113/63 08/08/16 17:00 90 31 113/63 97 Mechanical Ventilator 30 08/08/16 16:32 107 27 35 08/08/16 16:00 98.8 87 27 115/68 97 Mechanical Ventilator 30 08/08/16 16:00 94 08/08/16 16:00 30 08/08/16 15:00 94 38 111/67 96 Mechanical Ventilator 30 08/08/16 14:33 97 31 35 08/08/16 14:05 78 16 98 08/08/16 14:00 73 24 121/71 96 Mechanical Ventilator 30 08/08/16 13:00 94 31 119/72 96 Mechanical Ventilator 30 08/08/16 12:45 98 30 35 08/08/16 12:00 30 08/08/16 12:00 95 100/54 08/08/16 12:00 98.9 98 34 101/59 96 Mechanical Ventilator 30 08/08/16 12:00 97 08/08/16 11:02 97 28 35 08/08/16 11:00 98 34 113/69 96 Mechanical Ventilator 30 08/08/16 10:00 98.8 95 34 110/65 97 Mechanical Ventilator 30 08/08/16 09:00 98 34 113/69 96 Mechanical Ventilator 30 08/08/16 08:30 99 34 35 08/08/16 08:00 96 08/08/16 08:00 98 34 114/68 97 Mechanical Ventilator 30 08/08/16 08:00 30 08/08/16 07:10 98 30 35 08/08/16 07:00 97 34 111/65 96 Mechanical Ventilator 30 08/08/16 06:00 99 100/55 08/08/16 06:00 99 30 100/55 95 Mechanical Ventilator 30 08/08/16 05:21 105 27 35 08/08/16 05:00 97 32 101/64 95 Mechanical Ventilator 30 08/08/16 04:00 100 08/08/16 04:00 99.3 100 34 101/63 96 Mechanical Ventilator 30 08/08/16 04:00 30 08/08/16 03:20 103 32 35 08/08/16 03:00 100 29 106/65 95 Mechanical Ventilator 30 08/08/16 02:00 98 39 109/72 95 Mechanical Ventilator 30 08/08/16 01:30 98 32 35 08/08/16 01:00 100 31 108/70 95 Mechanical Ventilator 30 08/08/16 00:00 30 08/08/16 00:00 99.2 97 32 110/66 95 Mechanical Ventilator 30 08/08/16 00:00 98 08/07/16 23:17 117 36 35 08/07/16 23:00 103 30 103/64 99 Mechanical Ventilator 30 08/07/16 22:00 106 36 108/71 96 Mechanical Ventilator 30 08/07/16 21:11 113 38 35 08/07/16 21:00 97 39 129/72 95 Mechanical Ventilator 30 General Appearance: WD/WN, on vent, other - sedated EENT: other - et tube Neck: no JVD Rhythm: NSR Cardiovascular: normal rate, regular rhythm, no gallop/murmur Respiratory/Chest: lungs clear, other - clear anteriorly Abdomen: soft, absent bowel sounds, distended, other - surgical dressing midline - dry. LEX drains w/ minimal bloody drainage ( <10 cc) Extremities: no swelling, other - scds Intake and Output 08/07/16 08/08/16 19:00 07:00 Intake Total 841.0 ml 1913.708 ml Output Total 340 ml 551 ml Balance 501.0 ml 1362.708 ml IV Total 801.0 ml 1913.708 ml Tube Feeding 40 ml Output Urine Total 340 ml 410 ml Drainage Total 141 ml Laboratory Tests Test 08/08/16 04:35 08/08/16 08:15 White Blood Count 14.2 K/UL (4.8-10.8) #H Red Blood Count 3.52 M/UL (4.70-6.10) L Hemoglobin 11.0 G/DL (14.2-18.0) L Hematocrit 34.2 % (42.0-52.0) L Mean Corpuscular Volume 97 FL (80-99) Mean Corpuscular Hemoglobin 31.3 PG (27.0-31.0) H Mean Corpuscular Hemoglobin Concent 32.3 G/DL (32.0-36.0) Red Cell Distribution Width 13.8 % (11.6-14.8) Platelet Count 322 K/UL (150-450) Mean Platelet Volume 7.1 FL (6.5-10.1) Neutrophils (%) (Auto) % (45.0-75.0) Lymphocytes (%) (Auto) % (20.0-45.0) Monocytes (%) (Auto) % (1.0-10.0) Eosinophils (%) (Auto) % (0.0-3.0) Basophils (%) (Auto) % (0.0-2.0) Differential Total Cells Counted 100 Neutrophils % (Manual) 89 % (45-75) H Lymphocytes % (Manual) 4 % (20-45) L Monocytes % (Manual) 7 % (1-10) Eosinophils % (Manual) 0 % (0-3) Basophils % (Manual) 0 % (0-2) Band Neutrophils 0 % (0-8) Platelet Estimate Adequate Platelet Morphology Normal Hypochromasia 1+ Anisocytosis 1+ Sodium Level 146 mEQ/L (135-145) H Potassium Level 5.5 mEQ/L (3.4-4.9) H Chloride Level 109 mEQ/L (98-107) H Carbon Dioxide Level 28 mEQ/L (20-30) Anion Gap 9 (5-15) Blood Urea Nitrogen 24 mg/dL (7-23) H Creatinine 1.2 mg/dL (0.7-1.2) Estimat Glomerular Filtration Rate > 60 mL/min (>60) Glucose Level 185 mg/dL (74-106) H Calcium Level 6.8 mg/dL (8.6-10.2) L Phosphorus Level 3.6 mg/dL (2.5-4.8) Magnesium Level 1.9 mg/dL (1.7-2.5) Total Bilirubin 0.3 mg/dL (0.0-1.2) Aspartate Amino Transf (AST/SGOT) 23 U/L (5-40) Alanine Aminotransferase (ALT/SGPT) 11 U/L (3-41) Alkaline Phosphatase 87 U/L (40-129) Total Protein 5.4 g/dL (6.6-8.7) L Albumin 1.9 g/dL (3.5-5.2) L Globulin 3.5 g/dL Albumin/Globulin Ratio 0.5 (1.0-2.7) L Arterial Blood pH 7.350 (7.350-7.450) Arterial Blood Partial Pressure CO2 52.4 mmHg (35.0-45.0) H Arterial Blood Partial Pressure O2 91.6 mmHg (75.0-100.0) Arterial Blood HCO3 28.3 mmol/L (22.0-26.0) H Arterial Blood Oxygen Saturation 96.4 % (92.0-98.0) Arterial Blood Base Excess 2.0 Romero Test Positive Microbiology Date/Time Source Procedure Growth Status 08/05/16 22:00 Blood Blood Culture - Preliminary NO GROWTH AFTER 48 HOURS Resulted EYAD DONIS Aug 08, 2016 20:59
[2016-08-08] MEDS ORDERED: Phytonadione 10 mg/mL 1ml amp SUBQ SCH (21:00)
[2016-08-08] MEDS: Fat Emulsion Iv 20% 240 ML in Tpn 1,800 ML IV SCH (21:30)
--- NOTE | 2016-08-08 22:15 | Operative Note - Dictated ---
DATE OF OPERATION: 08/07/2016 PREOPERATIVE DIAGNOSIS: Abdominal wound dehiscence. POSTOPERATIVE DIAGNOSIS: Abdominal wound dehiscence. OPERATION PERFORMED: 1. Exploratory laparotomy. 2. Abdominal washout. 3. Closure of abdominal wound with application of retention sutures. ATTENDING SURGEON: Luis Felipe Samuels M.D. ANESTHESIOLOGIST: Dr. Lim. ANESTHESIA: General [employer]. ESTIMATED BLOOD LOSS: 25 mL. IV FLUIDS: Please see anesthesia records. COMPLICATIONS: None. WOUND CLASSIFICATION: Class 2. COUNTS: Sponge and needle count correct x2. DRAINS: A two 19-Peruvian Bert drains placed in the abdomen for drainage of ascites fluid. ANTIBIOTICS: The patient was on scheduled IV antibiotics prior to entering the operating room. OPERATIVE FINDINGS: 1. Dehisced midline abdominal wound. 2. Friable facial tissues. 3. Bowel was run from ligament of Treitz to ileocecal valve. No abnormalities identified. 4. Small bowel anastomosis, viable and functional. 5. Significant amount of abdominal ascites fluid was evacuated. 6. Drains placed. 7. Fascia closed with retaining sutures. INDICATIONS FOR PROCEDURE: This is a 61-year-old male, who presents to the emergency department approximately a week ago with worsening abdomen pain after having a robotic left inguinal hernia repair a week prior. The patient was septic with leukocytosis, abdominal peritonitis, and fevers. The patient was taken to the operating room, at that time where a small bowel injury was identified. A large intra-abdominal abscess and leakage of bowel contents were noted. The area of the small injury was resected and anastomosed and the abdomen was washed out and source control was obtained. The patient was taken to the intensive care unit postoperatively at which time he had a typical recovery with sepsis including persistent fevers, agitation, and difficulty weaning off the respirator. Approximately a week after this operation, the patient began to drain ascites fluid out of the superior portion of his midline wound. Following this, the midline wound had completely dehisced with bowel being exposed noted on the day of reoperation. Surgery was indicated. The patient was taken back to the operating room for abdominal washout and closure. The risks, benefits, and alternatives were discussed with the patient's sister, who is his designated next of kin. Sister consented to the surgery. OPERATIVE NOTE: The patient was taken to the operating room directly from the intensive care unit and placed on the operating table in supine position. Bilateral arms out. All bony prominence were well padded with gel pads. SCDs were placed. The patient already had a Owens prior to entering the operating room. The patient was already on scheduled intravenous antibiotics for active infection prior to entering the operating room. The patient was already intubated and on a ventilator prior to entering the operating room. General anesthesia was induced. The abdomen was prepped and draped in standard surgical fashion. The prior midline suture was noted to be intact, but was from the fascia. The fascia was dehisced and the fascial tissues were noted to be significantly friable. At this time, the prior midline closure suture was removed and the abdomen was opened and reinspected. Approximately, 1 to 1.5 liters of ascites fluid was evacuated from the abdomen. The abdomen was then inspected in all four quadrants and no significant abnormalities were identified other than serous ascites fluid. Minimal amount of adhesions were dissected out and the bowel was ran from the ligament of Treitz to the ileocecal valve. Doing so some very minute serosal tears were identified and repaired using 3-0 silk sutures. The prior anastomosis was identified and noted to be healthy, viable and intact. No other abnormalities were noted within the small bowel. No abnormalities were noted in the visualized portions of the large colon. The abdomen was otherwise benign. Abdomen was washed out with 5 liters of warm normal saline. Following this, decision was made to place two 19-Peruvian LEX drains within the abdomen. One was placed through the right lower quadrant and one was placed through the left lower quadrant draining both the right and left gutters. At this time, decision was made to begin our closure. Given the patient's albumin approximately 1.7 at this time poor friable tissues and it has already dehisced decision was made to place retention sutures. A #1 nylon retention sutures were placed to the preperitoneal through the anterior and posterior rectus sheath approximately 4 to 5 cm from the midline. Approximately four retention sutures were placed. The fascia was then brought together using a 0 PDS looped suture in running fashion. Upon encountering retention sutures, retention sutures were tied down as well. Once this was completed, the abdomen was noted to be sufficiently closed without any complications. The drains were functioning appropriately. The midline wound noted to be fairly clear and was opened for the past week and was grossly reapproximated with surgical skin gely. Wound dressings were then placed and the patient was taken back to the intensive care unit in stable condition. Luis Felipe Samuels M.D. DR: LORNA JOB#: [id number] CC:
[2016-08-09] VITALS (25 sets, daily range): BP systolic 96–135; BP diastolic 46–66
[2016-08-09] MEDS: Aztreonam Inj 1 GM in NS 55 ML IVPB SCH ×3 (01:39→17:25)
[2016-08-09] MEDS: metroNIDAZOLE 500mg 100 ML IVPB SCH ×3 (05:14→21:28)
[2016-08-09] MEDS: Metoprolol 5mg/5ml Inj IVP SCH ×3 (05:31→21:27)
[2016-08-09] MEDS: Insulin NovoLOG Flexpen S/S (insulin sensitive) SUBQ SCH ×4 (05:32→23:40)
[2016-08-09] MEDS: Vancomycin 1250mg in D5W 275ml IVPB SCH ×2 (05:37→18:02)
[2016-08-09 06:31] LABS: BASOPHILS % (AUTO) 0.5 % (0.0-2.0); LYMPHOCYTES % (AUTO) 9.7 % (20.0-45.0); MEAN CORPUSCULAR HEMOGLOBIN 30.9 PG (27.0-31.0); MEAN CORPUSCULAR VOLUME 100 FL (80-99); MEAN PLATELET VOLUME 6.9 FL (6.5-10.1); MONOCYTES % (AUTO) 6.4 % (1.0-10.0); NEUTROPHILS % (AUTO) 83.4 % (45.0-75.0); PLATELET COUNT 197 K/UL (150-450); RED BLOOD COUNT 2.63 M/UL (4.70-6.10); WHITE BLOOD COUNT 6.2 K/UL (4.8-10.8)
[2016-08-09 07:09] LABS: ALANINE AMINOTRANSFERASE 9 U/L (3-41); ALBUMIN/GLOBULIN RATIO 0.5 (1.0-2.7); ANION GAP 8 (5-15); ASPARTATE AMINO TRANSFERASE 20 U/L (5-40); CALCIUM 6.8 mg/dL (8.6-10.2); CARBON DIOXIDE 30 mEQ/L (20-30); CHLORIDE 112 mEQ/L (98-107); CREATININE 1.2 mg/dL (0.7-1.2); GLOMERULAR FILTRATION RATE > 60 mL/min (>60); HEMOLYSIS 0; POTASSIUM 4.8 mEQ/L (3.4-4.9); SODIUM 150 mEQ/L (135-145); TOTAL PROTEIN 4.7 g/dL (6.6-8.7)
[2016-08-09] MEDS: Heparin 5000 units/ml inj SUBQ SCH ×2 (09:00→21:20)
--- NOTE | 2016-08-09 09:02 | General Progress Note ---
Assessment/Plan Problem List: (1) HIV disease ICD Codes: B20 - Human immunodeficiency virus [HIV] disease SNOMED: 25842260 (2) Anemia ICD Codes: D64.9 - Anemia, unspecified SNOMED: 343261985 (3) Hypoalbuminemia ICD Codes: E88.09 - Other disorders of plasma-protein metabolism, not elsewhere classified SNOMED: 780291751 (4) Ischemia, bowel ICD Codes: K55.9 - Vascular disorder of intestine, unspecified SNOMED: 18239562 (5) Paroxysmal atrial fibrillation with rapid ventricular response ICD Codes: I48.0 - Paroxysmal atrial fibrillation SNOMED: 576204183, 755967824247711 (6) Hernia, umbilical ICD Codes: K42.9 - Umbilical hernia without obstruction or gangrene SNOMED: 8007561, 105510425 Assessment/Plan s/p re exlap yesterday on low dose NGTF and TPN fu labs fu surgery recs Subjective ROS Limited/Unobtainable: No Allergies: Coded Allergies: PENICILLINS (Verified Allergy, Intermediate, 07/30/16) SULFA (SULFONAMIDE ANTIBIOTICS) (Verified Allergy, Intermediate, ITCHING, 07/30/16) Objective Last 24 Hour Vital Signs Date Time Temp Pulse Resp B/P Pulse Ox O2 Delivery O2 Flow Rate FiO2 08/09/16 08:00 98.4 66 22 103/50 100 Mechanical Ventilator 30 08/09/16 08:00 64 08/09/16 08:00 30 08/09/16 07:24 61 19 35 08/09/16 07:00 63 30 96/49 100 Mechanical Ventilator 30 08/09/16 06:30 71 31 111/54 100 Mechanical Ventilator 30 08/09/16 06:00 62 33 98/55 100 Mechanical Ventilator 30 08/09/16 05:31 77 125/61 08/09/16 05:01 74 16 35 08/09/16 05:00 61 31 125/61 98 Mechanical Ventilator 30 08/09/16 04:00 30 08/09/16 04:00 97.6 73 32 135/66 99 Mechanical Ventilator 30 08/09/16 04:00 96 08/09/16 03:00 80 29 35 08/09/16 03:00 100.0 83 32 103/54 98 Mechanical Ventilator 30 08/09/16 02:00 102.4 87 32 108/54 98 Mechanical Ventilator 30 08/09/16 01:00 85 35 96/48 98 Mechanical Ventilator 30 08/09/16 00:59 86 35 35 08/09/16 00:00 30 08/09/16 00:00 96 08/09/16 00:00 99.4 86 35 96/49 98 Mechanical Ventilator 30 08/08/16 23:09 88 36 35 08/08/16 23:00 88 36 115/56 97 Mechanical Ventilator 30 08/08/16 22:00 88 35 114/55 98 Mechanical Ventilator 30 08/08/16 21:03 86 33 35 08/08/16 21:00 86 32 118/60 98 Mechanical Ventilator 30 08/08/16 20:00 30 08/08/16 20:00 99.0 88 35 82/52 96 Mechanical Ventilator 30 08/08/16 20:00 76 08/08/16 19:15 97 25 35 08/08/16 19:00 86 29 113/56 96 Mechanical Ventilator 30 08/08/16 18:00 94 31 102/59 99 Mechanical Ventilator 30 08/08/16 17:16 92 113/63 08/08/16 17:00 90 31 113/63 97 Mechanical Ventilator 30 08/08/16 16:32 107 27 35 08/08/16 16:00 98.8 87 27 115/68 97 Mechanical Ventilator 30 08/08/16 16:00 94 08/08/16 16:00 30 08/08/16 15:00 94 38 111/67 96 Mechanical Ventilator 30 08/08/16 14:33 97 31 35 08/08/16 14:05 78 16 98 08/08/16 14:00 73 24 121/71 96 Mechanical Ventilator 30 08/08/16 13:00 94 31 119/72 96 Mechanical Ventilator 30 08/08/16 12:45 98 30 35 08/08/16 12:00 30 08/08/16 12:00 95 100/54 08/08/16 12:00 98.9 98 34 101/59 96 Mechanical Ventilator 30 08/08/16 12:00 97 08/08/16 11:02 97 28 35 08/08/16 11:00 98 34 113/69 96 Mechanical Ventilator 30 08/08/16 10:00 98.8 95 34 110/65 97 Mechanical Ventilator 30 Intake and Output 08/08/16 08/09/16 19:00 07:00 Intake Total 1642 ml 1253.7 ml Output Total 620 ml 625 ml Balance 1022 ml 628.7 ml IV Total 1612 ml 1133.7 ml Tube Feeding 10 ml 120 ml Other 20 ml Output Urine Total 550 ml 585 ml Drainage Total 70 ml 40 ml Laboratory Tests 08/09/16 03:59: White Blood Count 6.2#, Red Blood Count 2.63L, Hemoglobin 8.1L, Hematocrit 26.3L , Mean Corpuscular Volume 100H, Mean Corpuscular Hemoglobin 30.9, Mean Corpuscular Hemoglobin Concent 31.0L, Red Cell Distribution Width 14.0, Platelet Count 197, Mean Platelet Volume 6.9, Neutrophils (%) (Auto) 83.4H, Lymphocytes (%) (Auto) 9.7L, Monocytes (%) (Auto) 6.4, Eosinophils (%) (Auto) 0.0, Basophils (%) (Auto) 0.5, Sodium Level 150H, Potassium Level 4.8, Chloride Level 112H, Carbon Dioxide Level 30, Anion Gap 8, Blood Urea Nitrogen 32H, Creatinine 1.2, Estimat Glomerular Filtration Rate > 60, Glucose Level 179H, Calcium Level 6.8L, Phosphorus Level 2.0L, Magnesium Level 2.0, Total Bilirubin < 0.2, Aspartate Amino Transf (AST/SGOT) 20, Alanine Aminotransferase (ALT/SGPT ) 9, Alkaline Phosphatase 81, Total Protein 4.7L, Albumin 1.7L, Globulin 3.0, Albumin/Globulin Ratio 0.5L Height (Feet): 5 Height (Inches): 9.00 Weight (Pounds): 185 General Appearance: no apparent distress EENT: normal ENT inspection Neck: supple Cardiovascular: normal rate Respiratory/Chest: decreased breath sounds Abdomen: other - post surgical Extremities: non-tender ISRAEL FLORENCE Aug 09, 2016 09:01
[2016-08-09] MEDS: Pantoprazole Inj IV SCH ×2 (09:12→21:20)
[2016-08-09 09:26] LABS: ABG ALLEN TEST POSITIVE; ABG BASE EXCESS 4.2; ABG PCO2 46.7 mmHg (35.0-45.0)
--- NOTE | 2016-08-09 10:11 | General Surgery Progress Note ---
General Surgery-Progress Note Subjective Day of Surgery: po day 2 Procedure Performed sp repair of wound dehiscence Objective Last 24 Hour Vital Signs Date Time Temp Pulse Resp B/P Pulse Ox O2 Delivery O2 Flow Rate FiO2 08/09/16 10:00 66 28 98/50 99 Mechanical Ventilator 28 08/09/16 09:00 68 28 99/46 100 Mechanical Ventilator 35 08/09/16 08:00 98.4 66 22 103/50 100 Mechanical Ventilator 30 08/09/16 08:00 64 08/09/16 08:00 35 08/09/16 07:24 61 19 35 08/09/16 07:00 63 30 96/49 100 Mechanical Ventilator 30 08/09/16 06:30 71 31 111/54 100 Mechanical Ventilator 30 08/09/16 06:00 62 33 98/55 100 Mechanical Ventilator 30 08/09/16 05:31 77 125/61 08/09/16 05:01 74 16 35 08/09/16 05:00 61 31 125/61 98 Mechanical Ventilator 30 08/09/16 04:00 30 08/09/16 04:00 97.6 73 32 135/66 99 Mechanical Ventilator 30 08/09/16 04:00 96 08/09/16 03:00 80 29 35 08/09/16 03:00 100.0 83 32 103/54 98 Mechanical Ventilator 30 08/09/16 02:00 102.4 87 32 108/54 98 Mechanical Ventilator 30 08/09/16 01:00 85 35 96/48 98 Mechanical Ventilator 30 08/09/16 00:59 86 35 35 08/09/16 00:00 30 08/09/16 00:00 96 08/09/16 00:00 99.4 86 35 96/49 98 Mechanical Ventilator 30 08/08/16 23:09 88 36 35 08/08/16 23:00 88 36 115/56 97 Mechanical Ventilator 30 08/08/16 22:00 88 35 114/55 98 Mechanical Ventilator 30 08/08/16 21:03 86 33 35 08/08/16 21:00 86 32 118/60 98 Mechanical Ventilator 30 08/08/16 20:00 30 08/08/16 20:00 99.0 88 35 82/52 96 Mechanical Ventilator 30 08/08/16 20:00 76 08/08/16 19:15 97 25 35 08/08/16 19:00 86 29 113/56 96 Mechanical Ventilator 30 08/08/16 18:00 94 31 102/59 99 Mechanical Ventilator 30 08/08/16 17:16 92 113/63 08/08/16 17:00 90 31 113/63 97 Mechanical Ventilator 30 08/08/16 16:32 107 27 35 08/08/16 16:00 98.8 87 27 115/68 97 Mechanical Ventilator 30 08/08/16 16:00 94 08/08/16 16:00 30 08/08/16 15:00 94 38 111/67 96 Mechanical Ventilator 30 08/08/16 14:33 97 31 35 08/08/16 14:05 78 16 98 08/08/16 14:00 73 24 121/71 96 Mechanical Ventilator 30 08/08/16 13:00 94 31 119/72 96 Mechanical Ventilator 30 08/08/16 12:45 98 30 35 08/08/16 12:00 30 08/08/16 12:00 95 100/54 08/08/16 12:00 98.9 98 34 101/59 96 Mechanical Ventilator 30 08/08/16 12:00 97 08/08/16 11:02 97 28 35 08/08/16 11:00 98 34 113/69 96 Mechanical Ventilator 30 I&O Intake and Output 08/08/16 08/09/16 19:00 07:00 Intake Total 1642 ml 1253.7 ml Output Total 620 ml 625 ml Balance 1022 ml 628.7 ml IV Total 1612 ml 1133.7 ml Tube Feeding 10 ml 120 ml Other 20 ml Output Urine Total 550 ml 585 ml Drainage Total 70 ml 40 ml Dressing: dry Wound: clean Drains: cade Respiratory: clear Abdomen: soft, distended Laboratory Tests Test 08/09/16 03:59 08/09/16 09:15 White Blood Count 6.2 K/UL (4.8-10.8) # Red Blood Count 2.63 M/UL (4.70-6.10) L Hemoglobin 8.1 G/DL (14.2-18.0) L Hematocrit 26.3 % (42.0-52.0) L Mean Corpuscular Volume 100 FL (80-99) H Mean Corpuscular Hemoglobin 30.9 PG (27.0-31.0) Mean Corpuscular Hemoglobin Concent 31.0 G/DL (32.0-36.0) L Red Cell Distribution Width 14.0 % (11.6-14.8) Platelet Count 197 K/UL (150-450) Mean Platelet Volume 6.9 FL (6.5-10.1) Neutrophils (%) (Auto) 83.4 % (45.0-75.0) H Lymphocytes (%) (Auto) 9.7 % (20.0-45.0) L Monocytes (%) (Auto) 6.4 % (1.0-10.0) Eosinophils (%) (Auto) 0.0 % (0.0-3.0) Basophils (%) (Auto) 0.5 % (0.0-2.0) Sodium Level 150 mEQ/L (135-145) H Potassium Level 4.8 mEQ/L (3.4-4.9) Chloride Level 112 mEQ/L (98-107) H Carbon Dioxide Level 30 mEQ/L (20-30) Anion Gap 8 (5-15) Blood Urea Nitrogen 32 mg/dL (7-23) H Creatinine 1.2 mg/dL (0.7-1.2) Estimat Glomerular Filtration Rate > 60 mL/min (>60) Glucose Level 179 mg/dL (74-106) H Calcium Level 6.8 mg/dL (8.6-10.2) L Phosphorus Level 2.0 mg/dL (2.5-4.8) L Magnesium Level 2.0 mg/dL (1.7-2.5) Total Bilirubin < 0.2 mg/dL (0.0-1.2) Aspartate Amino Transf (AST/SGOT) 20 U/L (5-40) Alanine Aminotransferase (ALT/SGPT) 9 U/L (3-41) Alkaline Phosphatase 81 U/L (40-129) Total Protein 4.7 g/dL (6.6-8.7) L Albumin 1.7 g/dL (3.5-5.2) L Globulin 3.0 g/dL Albumin/Globulin Ratio 0.5 (1.0-2.7) L Arterial Blood pH 7.410 (7.350-7.450) Arterial Blood Partial Pressure CO2 46.7 mmHg (35.0-45.0) H Arterial Blood Partial Pressure O2 122.3 mmHg (75.0-100.0) H Arterial Blood HCO3 29.3 mmol/L (22.0-26.0) H Arterial Blood Oxygen Saturation 98.4 % (92.0-98.0) H Arterial Blood Base Excess 4.2 Romero Test Positive Assessment Additional Comments stable [post op course. advance ng tube feedings as nayely KAILYN QUIROGA Aug 09, 2016 10:11
--- NOTE | 2016-08-09 10:14 | General Progress Note ---
Assessment/Plan Status: unchanged Assessment/Plan Status: Acute renal failure and Oliguria due to - low BP , post OP- Amikacin and VancoMycin- Ongoing sepsis RESOLVED Respiratory failure, on Vent intraabdominal abscess, small bowel obstruction, intraabdominal adhesions, small bowel perforation. Plan; On TPN - Phos supplement- D5W 500 cc bollous- Post Op care- monitor renal parameters- Per ID- Weaning as possible- Avoid nephrotoxics Per orders Subjective ROS Limited/Unobtainable: Yes Allergies: Coded Allergies: PENICILLINS (Verified Allergy, Intermediate, 07/30/16) SULFA (SULFONAMIDE ANTIBIOTICS) (Verified Allergy, Intermediate, ITCHING, 07/30/16) Objective Last 24 Hour Vital Signs Date Time Temp Pulse Resp B/P Pulse Ox O2 Delivery O2 Flow Rate FiO2 08/09/16 09:00 68 28 99/46 100 Mechanical Ventilator 35 08/09/16 08:00 98.4 66 22 103/50 100 Mechanical Ventilator 30 08/09/16 08:00 64 08/09/16 08:00 35 08/09/16 07:24 61 19 35 08/09/16 07:00 63 30 96/49 100 Mechanical Ventilator 30 08/09/16 06:30 71 31 111/54 100 Mechanical Ventilator 30 08/09/16 06:00 62 33 98/55 100 Mechanical Ventilator 30 08/09/16 05:31 77 125/61 08/09/16 05:01 74 16 35 08/09/16 05:00 61 31 125/61 98 Mechanical Ventilator 30 08/09/16 04:00 30 08/09/16 04:00 97.6 73 32 135/66 99 Mechanical Ventilator 30 08/09/16 04:00 96 08/09/16 03:00 80 29 35 08/09/16 03:00 100.0 83 32 103/54 98 Mechanical Ventilator 30 08/09/16 02:00 102.4 87 32 108/54 98 Mechanical Ventilator 30 08/09/16 01:00 85 35 96/48 98 Mechanical Ventilator 30 08/09/16 00:59 86 35 35 08/09/16 00:00 30 08/09/16 00:00 96 08/09/16 00:00 99.4 86 35 96/49 98 Mechanical Ventilator 30 08/08/16 23:09 88 36 35 08/08/16 23:00 88 36 115/56 97 Mechanical Ventilator 30 08/08/16 22:00 88 35 114/55 98 Mechanical Ventilator 30 08/08/16 21:03 86 33 35 08/08/16 21:00 86 32 118/60 98 Mechanical Ventilator 30 08/08/16 20:00 30 08/08/16 20:00 99.0 88 35 82/52 96 Mechanical Ventilator 30 08/08/16 20:00 76 08/08/16 19:15 97 25 35 08/08/16 19:00 86 29 113/56 96 Mechanical Ventilator 30 08/08/16 18:00 94 31 102/59 99 Mechanical Ventilator 30 08/08/16 17:16 92 113/63 08/08/16 17:00 90 31 113/63 97 Mechanical Ventilator 30 08/08/16 16:32 107 27 35 08/08/16 16:00 98.8 87 27 115/68 97 Mechanical Ventilator 30 08/08/16 16:00 94 08/08/16 16:00 30 08/08/16 15:00 94 38 111/67 96 Mechanical Ventilator 30 08/08/16 14:33 97 31 35 08/08/16 14:05 78 16 98 08/08/16 14:00 73 24 121/71 96 Mechanical Ventilator 30 08/08/16 13:00 94 31 119/72 96 Mechanical Ventilator 30 08/08/16 12:45 98 30 35 08/08/16 12:00 30 08/08/16 12:00 95 100/54 08/08/16 12:00 98.9 98 34 101/59 96 Mechanical Ventilator 30 08/08/16 12:00 97 08/08/16 11:02 97 28 35 08/08/16 11:00 98 34 113/69 96 Mechanical Ventilator 30 Intake and Output 08/08/16 08/09/16 19:00 07:00 Intake Total 1642 ml 1253.7 ml Output Total 620 ml 625 ml Balance 1022 ml 628.7 ml IV Total 1612 ml 1133.7 ml Tube Feeding 10 ml 120 ml Other 20 ml Output Urine Total 550 ml 585 ml Drainage Total 70 ml 40 ml Laboratory Tests 08/09/16 03:59: White Blood Count 6.2#, Red Blood Count 2.63L, Hemoglobin 8.1L, Hematocrit 26.3L , Mean Corpuscular Volume 100H, Mean Corpuscular Hemoglobin 30.9, Mean Corpuscular Hemoglobin Concent 31.0L, Red Cell Distribution Width 14.0, Platelet Count 197, Mean Platelet Volume 6.9, Neutrophils (%) (Auto) 83.4H, Lymphocytes (%) (Auto) 9.7L, Monocytes (%) (Auto) 6.4, Eosinophils (%) (Auto) 0.0, Basophils (%) (Auto) 0.5, Sodium Level 150H, Potassium Level 4.8, Chloride Level 112H, Carbon Dioxide Level 30, Anion Gap 8, Blood Urea Nitrogen 32H, Creatinine 1.2, Estimat Glomerular Filtration Rate > 60, Glucose Level 179H, Calcium Level 6.8L, Phosphorus Level 2.0L, Magnesium Level 2.0, Total Bilirubin < 0.2, Aspartate Amino Transf (AST/SGOT) 20, Alanine Aminotransferase (ALT/SGPT ) 9, Alkaline Phosphatase 81, Total Protein 4.7L, Albumin 1.7L, Globulin 3.0, Albumin/Globulin Ratio 0.5L 08/09/16 09:15: Arterial Blood pH 7.410, Arterial Blood Partial Pressure CO2 46.7H, Arterial Blood Partial Pressure O2 122.3H, Arterial Blood HCO3 29.3H, Arterial Blood Oxygen Saturation 98.4H, Arterial Blood Base Excess 4.2, Romero Test Positive Height (Feet): 5 Height (Inches): 9.00 Weight (Pounds): 185 General Appearance: lethargic, mild distress EENT: other - remains on vent Respiratory/Chest: decreased breath sounds Objective no other changes in PE AYDE SERNA Aug 09, 2016 10:14
--- NOTE | 2016-08-09 11:04 | Pulmonolgy Critical Care Note ---
Critical Care - Asmt/Plan Problems: (1) Acute respiratory failure (2) Pneumatosis intestinalis (3) Anemia (4) ATN (acute tubular necrosis) (5) Sepsis (6) Intra-abdominal abscess (7) HIV disease Respiratory: monitor respiratory rate Cardiac: continue pressors, continue to monitor HR/BP Renal: F/U I&O, other Infectious Disease: check cultures Gastrointestinal: continue feedings/current rate, other - on TPN Endocrine: monitor blood sugar Hematologic: monitor H/H, transfuse if hgb<8.5 Neurologic: PRN Ativan, keep patient comfortable Disposition: keep in ICU Notes Reviewed: cardio, renal Discussed with: nurses, consultants, machine adjuster leader case trimmanager music - Objective Last 24 Hour Vital Signs Date Time Temp Pulse Resp B/P Pulse Ox O2 Delivery O2 Flow Rate FiO2 08/09/16 10:00 66 28 98/50 99 Mechanical Ventilator 28 08/09/16 09:00 68 28 99/46 100 Mechanical Ventilator 35 08/09/16 08:41 69 26 28 08/09/16 08:00 98.4 66 22 103/50 100 Mechanical Ventilator 30 08/09/16 08:00 64 08/09/16 08:00 35 08/09/16 07:24 61 19 35 08/09/16 07:00 63 30 96/49 100 Mechanical Ventilator 30 08/09/16 06:30 71 31 111/54 100 Mechanical Ventilator 30 08/09/16 06:00 62 33 98/55 100 Mechanical Ventilator 30 08/09/16 05:31 77 125/61 08/09/16 05:01 74 16 35 08/09/16 05:00 61 31 125/61 98 Mechanical Ventilator 30 08/09/16 04:00 30 08/09/16 04:00 97.6 73 32 135/66 99 Mechanical Ventilator 30 08/09/16 04:00 96 08/09/16 03:00 80 29 35 08/09/16 03:00 100.0 83 32 103/54 98 Mechanical Ventilator 30 08/09/16 02:00 102.4 87 32 108/54 98 Mechanical Ventilator 30 08/09/16 01:00 85 35 96/48 98 Mechanical Ventilator 30 08/09/16 00:59 86 35 35 08/09/16 00:00 30 08/09/16 00:00 96 08/09/16 00:00 99.4 86 35 96/49 98 Mechanical Ventilator 30 08/08/16 23:09 88 36 35 08/08/16 23:00 88 36 115/56 97 Mechanical Ventilator 30 08/08/16 22:00 88 35 114/55 98 Mechanical Ventilator 30 08/08/16 21:03 86 33 35 08/08/16 21:00 86 32 118/60 98 Mechanical Ventilator 30 08/08/16 20:00 30 08/08/16 20:00 99.0 88 35 82/52 96 Mechanical Ventilator 30 08/08/16 20:00 76 08/08/16 19:15 97 25 35 08/08/16 19:00 86 29 113/56 96 Mechanical Ventilator 30 08/08/16 18:00 94 31 102/59 99 Mechanical Ventilator 30 08/08/16 17:16 92 113/63 08/08/16 17:00 90 31 113/63 97 Mechanical Ventilator 30 08/08/16 16:32 107 27 35 08/08/16 16:00 98.8 87 27 115/68 97 Mechanical Ventilator 30 08/08/16 16:00 94 08/08/16 16:00 30 08/08/16 15:00 94 38 111/67 96 Mechanical Ventilator 30 08/08/16 14:33 97 31 35 08/08/16 14:05 78 16 98 08/08/16 14:00 73 24 121/71 96 Mechanical Ventilator 30 08/08/16 13:00 94 31 119/72 96 Mechanical Ventilator 30 08/08/16 12:45 98 30 35 08/08/16 12:00 30 08/08/16 12:00 95 100/54 08/08/16 12:00 98.9 98 34 101/59 96 Mechanical Ventilator 30 08/08/16 12:00 97 Status: awake Condition: critical HEENT: atraumatic Lungs: clear Heart: HR/BP stable, HR/BP unstable, regular Abdomen: soft, active bowel sounds, feeding tube Extremities: no C/C/E Decubiti: location Accucheck: 184 Critical Care - Subjective ROS Limited/Unobtainable: Yes Condition: critical EKG Rhythm: Sinus Rhythm FI02: 28 Vent Support Breath Rate: 10 Vent Support Mode: AC Vent Tidal Volume: 500 Sputum Amount: Moderate PEEP: 5.0 PIP: 28 Tube Feeding Amount: 20 I&O: Intake and Output 08/08/16 08/09/16 19:00 07:00 Intake Total 1642 ml 1253.7 ml Output Total 620 ml 625 ml Balance 1022 ml 628.7 ml IV Total 1612 ml 1133.7 ml Tube Feeding 10 ml 120 ml Other 20 ml Output Urine Total 550 ml 585 ml Drainage Total 70 ml 40 ml CXR: ET tube better ET-Tube: 7.5 ET Position: 25 Labs: Laboratory Tests Test 08/09/16 03:59 08/09/16 09:15 White Blood Count 6.2 K/UL (4.8-10.8) # Red Blood Count 2.63 M/UL (4.70-6.10) L Hemoglobin 8.1 G/DL (14.2-18.0) L Hematocrit 26.3 % (42.0-52.0) L Mean Corpuscular Volume 100 FL (80-99) H Mean Corpuscular Hemoglobin 30.9 PG (27.0-31.0) Mean Corpuscular Hemoglobin Concent 31.0 G/DL (32.0-36.0) L Red Cell Distribution Width 14.0 % (11.6-14.8) Platelet Count 197 K/UL (150-450) Mean Platelet Volume 6.9 FL (6.5-10.1) Neutrophils (%) (Auto) 83.4 % (45.0-75.0) H Lymphocytes (%) (Auto) 9.7 % (20.0-45.0) L Monocytes (%) (Auto) 6.4 % (1.0-10.0) Eosinophils (%) (Auto) 0.0 % (0.0-3.0) Basophils (%) (Auto) 0.5 % (0.0-2.0) Sodium Level 150 mEQ/L (135-145) H Potassium Level 4.8 mEQ/L (3.4-4.9) Chloride Level 112 mEQ/L (98-107) H Carbon Dioxide Level 30 mEQ/L (20-30) Anion Gap 8 (5-15) Blood Urea Nitrogen 32 mg/dL (7-23) H Creatinine 1.2 mg/dL (0.7-1.2) Estimat Glomerular Filtration Rate > 60 mL/min (>60) Glucose Level 179 mg/dL (74-106) H Calcium Level 6.8 mg/dL (8.6-10.2) L Phosphorus Level 2.0 mg/dL (2.5-4.8) L Magnesium Level 2.0 mg/dL (1.7-2.5) Total Bilirubin < 0.2 mg/dL (0.0-1.2) Aspartate Amino Transf (AST/SGOT) 20 U/L (5-40) Alanine Aminotransferase (ALT/SGPT) 9 U/L (3-41) Alkaline Phosphatase 81 U/L (40-129) Total Protein 4.7 g/dL (6.6-8.7) L Albumin 1.7 g/dL (3.5-5.2) L Globulin 3.0 g/dL Albumin/Globulin Ratio 0.5 (1.0-2.7) L Arterial Blood pH 7.410 (7.350-7.450) Arterial Blood Partial Pressure CO2 46.7 mmHg (35.0-45.0) H Arterial Blood Partial Pressure O2 122.3 mmHg (75.0-100.0) H Arterial Blood HCO3 29.3 mmol/L (22.0-26.0) H Arterial Blood Oxygen Saturation 98.4 % (92.0-98.0) H Arterial Blood Base Excess 4.2 Romero Test Positive CHAS WALLACE Aug 09, 2016 11:04
[2016-08-09] MEDS ORDERED: Tubing IV Secondary IV ONE (14:52)
[2016-08-09] MEDS ORDERED: NS 275ml ONE (14:52)
[2016-08-09] MEDS ORDERED: D5 1/2NS 1000ml IV ONE (14:52)
[2016-08-09] MEDS ORDERED: Sodium Phosphate 15 MM in NS 275 ML IVPB ONE (18:00)
--- NOTE | 2016-08-09 19:36 | Cardiology Progress Note ---
Assessment/Plan Assessment/Plan no evidence of a fib for last 24 hours Subjective Subjective the patient in tubated and sedated Objective Last 24 Hour Vital Signs Date Time Temp Pulse Resp B/P Pulse Ox O2 Delivery O2 Flow Rate FiO2 08/09/16 19:00 71 23 131/57 100 Mechanical Ventilator 28 08/09/16 18:48 70 25 28 08/09/16 18:00 63 27 105/53 100 Mechanical Ventilator 28 08/09/16 17:00 64 33 116/57 99 Mechanical Ventilator 28 08/09/16 16:52 63 27 28 08/09/16 16:00 99.2 67 27 96/48 99 Mechanical Ventilator 28 08/09/16 16:00 35 08/09/16 16:00 67 08/09/16 15:07 72 24 28 08/09/16 15:00 70 26 124/63 99 Mechanical Ventilator 28 08/09/16 14:00 63 19 122/54 98 Mechanical Ventilator 28 08/09/16 13:53 70 126/57 08/09/16 13:00 68 20 127/58 98 Mechanical Ventilator 28 08/09/16 12:44 75 33 28 08/09/16 12:00 98.6 71 25 101/51 99 Mechanical Ventilator 28 08/09/16 12:00 28 08/09/16 12:00 69 08/09/16 11:00 70 29 115/59 100 Mechanical Ventilator 28 08/09/16 10:38 69 34 28 08/09/16 10:00 66 28 98/50 99 Mechanical Ventilator 28 08/09/16 09:00 68 28 99/46 100 Mechanical Ventilator 35 08/09/16 08:41 69 26 28 08/09/16 08:00 98.4 66 22 103/50 100 Mechanical Ventilator 30 08/09/16 08:00 64 08/09/16 08:00 35 08/09/16 07:24 61 19 35 08/09/16 07:00 63 30 96/49 100 Mechanical Ventilator 30 08/09/16 06:30 71 31 111/54 100 Mechanical Ventilator 30 08/09/16 06:00 62 33 98/55 100 Mechanical Ventilator 30 08/09/16 05:31 77 125/61 08/09/16 05:01 74 16 35 08/09/16 05:00 61 31 125/61 98 Mechanical Ventilator 30 08/09/16 04:00 30 08/09/16 04:00 97.6 73 32 135/66 99 Mechanical Ventilator 30 08/09/16 04:00 96 08/09/16 03:00 80 29 35 08/09/16 03:00 100.0 83 32 103/54 98 Mechanical Ventilator 30 08/09/16 02:00 102.4 87 32 108/54 98 Mechanical Ventilator 30 08/09/16 01:00 85 35 96/48 98 Mechanical Ventilator 30 08/09/16 00:59 86 35 35 08/09/16 00:00 30 08/09/16 00:00 96 08/09/16 00:00 99.4 86 35 96/49 98 Mechanical Ventilator 30 08/08/16 23:09 88 36 35 08/08/16 23:00 88 36 115/56 97 Mechanical Ventilator 30 08/08/16 22:00 88 35 114/55 98 Mechanical Ventilator 30 08/08/16 21:03 86 33 35 08/08/16 21:00 86 32 118/60 98 Mechanical Ventilator 30 08/08/16 20:00 30 08/08/16 20:00 99.0 88 35 82/52 96 Mechanical Ventilator 30 08/08/16 20:00 76 General Appearance: on vent - , sedated EENT: PERRL/EOMI, TMs normal Neck: no JVD Rhythm: NSR Cardiovascular: normal rate Respiratory/Chest: crackles/rales Abdomen: distended, tender, other - drains are clear Extremities: non-pitting Intake and Output 08/08/16 08/09/16 19:00 07:00 Intake Total 1642 ml 1253.7 ml Output Total 620 ml 625 ml Balance 1022 ml 628.7 ml IV Total 1612 ml 1133.7 ml Tube Feeding 10 ml 120 ml Other 20 ml Output Urine Total 550 ml 585 ml Drainage Total 70 ml 40 ml Laboratory Tests Test 08/09/16 03:59 08/09/16 09:15 White Blood Count 6.2 K/UL (4.8-10.8) # Red Blood Count 2.63 M/UL (4.70-6.10) L Hemoglobin 8.1 G/DL (14.2-18.0) L Hematocrit 26.3 % (42.0-52.0) L Mean Corpuscular Volume 100 FL (80-99) H Mean Corpuscular Hemoglobin 30.9 PG (27.0-31.0) Mean Corpuscular Hemoglobin Concent 31.0 G/DL (32.0-36.0) L Red Cell Distribution Width 14.0 % (11.6-14.8) Platelet Count 197 K/UL (150-450) Mean Platelet Volume 6.9 FL (6.5-10.1) Neutrophils (%) (Auto) 83.4 % (45.0-75.0) H Lymphocytes (%) (Auto) 9.7 % (20.0-45.0) L Monocytes (%) (Auto) 6.4 % (1.0-10.0) Eosinophils (%) (Auto) 0.0 % (0.0-3.0) Basophils (%) (Auto) 0.5 % (0.0-2.0) Sodium Level 150 mEQ/L (135-145) H Potassium Level 4.8 mEQ/L (3.4-4.9) Chloride Level 112 mEQ/L (98-107) H Carbon Dioxide Level 30 mEQ/L (20-30) Anion Gap 8 (5-15) Blood Urea Nitrogen 32 mg/dL (7-23) H Creatinine 1.2 mg/dL (0.7-1.2) Estimat Glomerular Filtration Rate > 60 mL/min (>60) Glucose Level 179 mg/dL (74-106) H Calcium Level 6.8 mg/dL (8.6-10.2) L Phosphorus Level 2.0 mg/dL (2.5-4.8) L Magnesium Level 2.0 mg/dL (1.7-2.5) Total Bilirubin < 0.2 mg/dL (0.0-1.2) Aspartate Amino Transf (AST/SGOT) 20 U/L (5-40) Alanine Aminotransferase (ALT/SGPT) 9 U/L (3-41) Alkaline Phosphatase 81 U/L (40-129) Total Protein 4.7 g/dL (6.6-8.7) L Albumin 1.7 g/dL (3.5-5.2) L Globulin 3.0 g/dL Albumin/Globulin Ratio 0.5 (1.0-2.7) L Arterial Blood pH 7.410 (7.350-7.450) Arterial Blood Partial Pressure CO2 46.7 mmHg (35.0-45.0) H Arterial Blood Partial Pressure O2 122.3 mmHg (75.0-100.0) H Arterial Blood HCO3 29.3 mmol/L (22.0-26.0) H Arterial Blood Oxygen Saturation 98.4 % (92.0-98.0) H Arterial Blood Base Excess 4.2 Romero Test Positive JERILYN SALAS Aug 09, 2016 19:36
[2016-08-09] MEDS: Fat Emulsion Iv 20% 240 ML in Tpn 1,800 ML IV SCH (21:19)
[2016-08-09] MEDS: Dyna-Hex 2% Top Sol 8oz TOPIC SCH (21:21)
[2016-08-10] VITALS (24 sets, daily range): BP systolic 36–168; BP diastolic 54–89
[2016-08-10] MEDS: Aztreonam Inj 1 GM in NS 55 ML IVPB SCH (01:36)
[2016-08-10] MEDS: Morphine Sulfate 2mg/ml Inj IVP PRN ×3 (02:13→23:30)
[2016-08-10] MEDS: metroNIDAZOLE 500mg 100 ML IVPB SCH ×3 (05:35→21:40)
[2016-08-10] MEDS: Vancomycin 1250mg in D5W 275ml IVPB SCH ×2 (05:36→18:07)
[2016-08-10] MEDS: Metoprolol 5mg/5ml Inj IVP SCH ×3 (05:49→21:40)
[2016-08-10] MEDS: Insulin NovoLOG Flexpen S/S (insulin sensitive) SUBQ SCH ×4 (05:54→23:41)
[2016-08-10 07:37] LABS: BASOPHILS % (AUTO) 0.3 % (0.0-2.0); EOSINOPHILS % (AUTO) 0.2 % (0.0-3.0); LYMPHOCYTES % (AUTO) 8.7 % (20.0-45.0); MEAN CORPUSCULAR HEMOGLOBIN 30.1 PG (27.0-31.0); MEAN CORPUSCULAR VOLUME 97 FL (80-99); MEAN PLATELET VOLUME 7.4 FL (6.5-10.1); NEUTROPHILS % (AUTO) 84.7 % (45.0-75.0); PLATELET COUNT 209 K/UL (150-450); RED BLOOD COUNT 3.26 M/UL (4.70-6.10); RED CELL DISTRIBUTION WIDTH 13.8 % (11.6-14.8); WHITE BLOOD COUNT 6.4 K/UL (4.8-10.8)
--- NOTE | 2016-08-10 07:43 | General Progress Note ---
Assessment/Plan Problem List: (1) HIV disease ICD Codes: B20 - Human immunodeficiency virus [HIV] disease SNOMED: 07017711 (2) Anemia ICD Codes: D64.9 - Anemia, unspecified SNOMED: 954836564 (3) Hypoalbuminemia ICD Codes: E88.09 - Other disorders of plasma-protein metabolism, not elsewhere classified SNOMED: 177683280 (4) Ischemia, bowel ICD Codes: K55.9 - Vascular disorder of intestine, unspecified SNOMED: 95240735 (5) Paroxysmal atrial fibrillation with rapid ventricular response ICD Codes: I48.0 - Paroxysmal atrial fibrillation SNOMED: 431805063, 300235588912868 (6) Hernia, umbilical ICD Codes: K42.9 - Umbilical hernia without obstruction or gangrene SNOMED: 4841861, 712366976 Assessment/Plan pulm care DVT propylaxis on low dose NGTF and TPN fu labs fu surgery recs Subjective ROS Limited/Unobtainable: No Allergies: Coded Allergies: PENICILLINS (Verified Allergy, Intermediate, 07/30/16) SULFA (SULFONAMIDE ANTIBIOTICS) (Verified Allergy, Intermediate, ITCHING, 07/30/16) Objective Last 24 Hour Vital Signs Date Time Temp Pulse Resp B/P Pulse Ox O2 Delivery O2 Flow Rate FiO2 08/10/16 06:41 65 27 28 08/10/16 06:00 66 24 124/62 100 Mechanical Ventilator 28 08/10/16 05:49 71 135/61 08/10/16 05:00 72 25 135/61 100 Mechanical Ventilator 08/10/16 04:47 74 37 28 08/10/16 04:00 28 08/10/16 04:00 99.7 68 22 135/64 100 Mechanical Ventilator 28 08/10/16 04:00 68 08/10/16 03:01 83 29 28 08/10/16 03:00 80 30 113/54 98 Mechanical Ventilator 08/10/16 02:00 86 27 146/72 97 Mechanical Ventilator 28 08/10/16 01:02 68 28 28 08/10/16 01:00 69 24 128/56 100 Mechanical Ventilator 28 08/10/16 00:00 28 08/10/16 00:00 98.9 62 23 131/64 100 Mechanical Ventilator 28 08/10/16 00:00 66 08/09/16 23:00 63 26 122/57 95 Mechanical Ventilator 28 08/09/16 22:58 62 28 28 08/09/16 22:00 59 26 112/64 99 Mechanical Ventilator 28 08/09/16 21:27 64 132/66 08/09/16 21:00 67 23 132/66 100 Mechanical Ventilator 28 08/09/16 20:42 69 22 28 08/09/16 20:00 28 08/09/16 20:00 65 08/09/16 20:00 98.2 66 25 115/53 100 Mechanical Ventilator 28 08/09/16 19:00 71 23 131/57 100 Mechanical Ventilator 28 08/09/16 18:48 70 25 28 08/09/16 18:00 63 27 105/53 100 Mechanical Ventilator 28 08/09/16 17:00 64 33 116/57 99 Mechanical Ventilator 28 08/09/16 16:52 63 27 28 08/09/16 16:00 99.2 67 27 96/48 99 Mechanical Ventilator 28 08/09/16 16:00 35 08/09/16 16:00 67 08/09/16 15:07 72 24 28 08/09/16 15:00 70 26 124/63 99 Mechanical Ventilator 28 08/09/16 14:00 63 19 122/54 98 Mechanical Ventilator 28 08/09/16 13:53 70 126/57 08/09/16 13:00 68 20 127/58 98 Mechanical Ventilator 28 08/09/16 12:44 75 33 28 08/09/16 12:00 98.6 71 25 101/51 99 Mechanical Ventilator 28 08/09/16 12:00 28 08/09/16 12:00 69 08/09/16 11:00 70 29 115/59 100 Mechanical Ventilator 28 08/09/16 10:38 69 34 28 08/09/16 10:00 66 28 98/50 99 Mechanical Ventilator 28 08/09/16 09:00 68 28 99/46 100 Mechanical Ventilator 35 08/09/16 08:41 69 26 28 08/09/16 08:00 98.4 66 22 103/50 100 Mechanical Ventilator 30 08/09/16 08:00 64 08/09/16 08:00 35 Intake and Output 08/09/16 08/10/16 19:00 07:00 Intake Total 1825 ml 1985 ml Output Total 1030 ml 935 ml Balance 795 ml 1050 ml Intake Free Water 80 ml IV Total 1505 ml 1465 ml Tube Feeding 220 ml 220 ml Blood Product 300 ml Other 20 ml Output Urine Total 965 ml 900 ml Drainage Total 65 ml 35 ml # Bowel Movements 2 4 Laboratory Tests 08/09/16 09:15: Arterial Blood pH 7.410, Arterial Blood Partial Pressure CO2 46.7H, Arterial Blood Partial Pressure O2 122.3H, Arterial Blood HCO3 29.3H, Arterial Blood Oxygen Saturation 98.4H, Arterial Blood Base Excess 4.2, Romero Test Positive 08/10/16 04:00: White Blood Count [Pending], Red Blood Count [Pending], Hemoglobin [Pending], Hematocrit [Pending], Mean Corpuscular Volume [Pending], Mean Corpuscular Hemoglobin [Pending], Mean Corpuscular Hemoglobin Concent [Pending], Red Cell Distribution Width [Pending], Platelet Count [Pending], Mean Platelet Volume [ Pending], Neutrophils (%) (Auto) [Pending], Lymphocytes (%) (Auto) [Pending], Monocytes (%) (Auto) [Pending], Eosinophils (%) (Auto) [Pending], Basophils (%) (Auto) [Pending], Sodium Level [Pending], Potassium Level [Pending], Chloride Level [Pending], Carbon Dioxide Level [Pending], Blood Urea Nitrogen [Pending], Creatinine [Pending], Estimat Glomerular Filtration Rate [Pending], Glucose Level [Pending], Uric Acid [Pending], Calcium Level [Pending], Phosphorus Level [Pending], Magnesium Level [Pending], Total Bilirubin [Pending], Gamma Glutamyl Transpeptidase [Pending], Aspartate Amino Transf (AST/SGOT) [Pending], Alanine Aminotransferase (ALT/SGPT) [Pending], Alkaline Phosphatase [Pending], C- Reactive Protein, Quantitative [Pending], Pro-B-Type Natriuretic Peptide [ Pending], Total Protein [Pending], Albumin [Pending], Globulin [Pending] Height (Feet): 5 Height (Inches): 9.00 Weight (Pounds): 185 General Appearance: lethargic EENT: normal ENT inspection Neck: supple Cardiovascular: normal rate Respiratory/Chest: decreased breath sounds Abdomen: other - post surgical Extremities: non-tender VOSOGHI,ISRAEL Aug 10, 2016 07:43
[2016-08-10 08:21] LABS: ALANINE AMINOTRANSFERASE 9 U/L (3-41); ALBUMIN/GLOBULIN RATIO 0.5 (1.0-2.7); ANION GAP 11 (5-15); ASPARTATE AMINO TRANSFERASE 28 U/L (5-40); CALCIUM 7.1 mg/dL (8.6-10.2); CARBON DIOXIDE 31 mEQ/L (20-30); CHLORIDE 108 mEQ/L (98-107); CREATININE 0.8 mg/dL (0.7-1.2); CRP QUANT 6.4 mg/dL (< 0.5); GLOMERULAR FILTRATION RATE > 60 mL/min (>60); HEMOLYSIS 3; MAGNESIUM 2.1 mg/dL (1.7-2.5); PHOSPHORUS 1.8 mg/dL (2.5-4.8); POTASSIUM 3.1 mEQ/L (3.4-4.9); SODIUM 150 mEQ/L (135-145); TOTAL PROTEIN 5.2 g/dL (6.6-8.7); URIC ACID 6.3 mg/dL (3.0-7.5)
--- NOTE | 2016-08-10 08:21 | Infectious Diseases Prog Note ---
Assessment/Plan Assessment/Plan ASSESSMENT: 61-year-old male with: intra-abdominal sepsis / large abscess - Wnd Cx : CoNS , Kelb , Bacteroids, Prevotella SP laparoscopic-robotic left inguinal hernia repair six days ago Pneumatosis intestinalis ( duodenum and proximal jejunum ) SP Exploratory laparotomy, abdominal washout, abdominal closure 08/07 SP exploratory laparotomy and partial omentectomy and partial small-bowel resection Possible PNA - SCx K.pneumoniae +ve Blood cx /2 ? probable PICC infection - repeat BCx NGTD TTE(-) SBE HIV (reportedly the patient's undetectable viral load and CD4 count was 300). Leukocytosis , post op - resolved Fever - persistent Acute VDRF - intubated LUCY improved Bipolar disorder PCN, sulfa allergies Full Code PLAN: continue Flagyl and vancomycin d# 10, broaden aztreonam d# 10 to meropenem d# 1 given recurrent fevers ( aware stated PCN allergy, will monitor ) if persistent fevers, will need repeat CT A/P f/u cultures Monitor CBC Monitor BMP. vent support, wean as tolerated Subjective Allergies: Coded Allergies: PENICILLINS (Verified Allergy, Intermediate, 07/30/16) SULFA (SULFONAMIDE ANTIBIOTICS) (Verified Allergy, Intermediate, ITCHING, 07/30/16) Subjective intermittent fevers on vent Objective Vital Signs Last 24 Hour Vital Signs Date Time Temp Pulse Resp B/P Pulse Ox O2 Delivery O2 Flow Rate FiO2 08/10/16 07:00 67 21 127/64 100 Mechanical Ventilator 08/10/16 06:41 65 27 28 08/10/16 06:00 66 24 124/62 100 Mechanical Ventilator 08/10/16 05:49 71 135/61 08/10/16 05:00 72 25 135/61 100 Mechanical Ventilator 08/10/16 04:47 74 37 28 08/10/16 04:00 28 08/10/16 04:00 99.7 68 22 135/64 100 Mechanical Ventilator 08/10/16 04:00 68 08/10/16 03:01 83 29 28 08/10/16 03:00 80 30 113/54 98 Mechanical Ventilator 08/10/16 02:00 86 27 146/72 97 Mechanical Ventilator 08/10/16 01:02 68 28 28 08/10/16 01:00 69 24 128/56 100 Mechanical Ventilator 28 08/10/16 00:00 28 08/10/16 00:00 98.9 62 23 131/64 100 Mechanical Ventilator 28 08/10/16 00:00 66 08/09/16 23:00 63 26 122/57 95 Mechanical Ventilator 28 08/09/16 22:58 62 28 28 08/09/16 22:00 59 26 112/64 99 Mechanical Ventilator 28 08/09/16 21:27 64 132/66 08/09/16 21:00 67 23 132/66 100 Mechanical Ventilator 28 08/09/16 20:42 69 22 28 08/09/16 20:00 28 08/09/16 20:00 65 08/09/16 20:00 98.2 66 25 115/53 100 Mechanical Ventilator 28 08/09/16 19:00 71 23 131/57 100 Mechanical Ventilator 28 08/09/16 18:48 70 25 28 08/09/16 18:00 63 27 105/53 100 Mechanical Ventilator 28 08/09/16 17:00 64 33 116/57 99 Mechanical Ventilator 28 08/09/16 16:52 63 27 28 08/09/16 16:00 99.2 67 27 96/48 99 Mechanical Ventilator 28 08/09/16 16:00 35 08/09/16 16:00 67 08/09/16 15:07 72 24 28 08/09/16 15:00 70 26 124/63 99 Mechanical Ventilator 28 08/09/16 14:00 63 19 122/54 98 Mechanical Ventilator 28 08/09/16 13:53 70 126/57 08/09/16 13:00 68 20 127/58 98 Mechanical Ventilator 28 08/09/16 12:44 75 33 28 08/09/16 12:00 98.6 71 25 101/51 99 Mechanical Ventilator 28 08/09/16 12:00 28 08/09/16 12:00 69 08/09/16 11:00 70 29 115/59 100 Mechanical Ventilator 28 08/09/16 10:38 69 34 28 08/09/16 10:00 66 28 98/50 99 Mechanical Ventilator 28 08/09/16 09:00 68 28 99/46 100 Mechanical Ventilator 35 08/09/16 08:41 69 26 28 Height (Feet): 5 Height (Inches): 9.00 Weight (Pounds): 185 General Appearance: other - intubated Respiratory/Chest: decreased breath sounds Cardiovascular: normal rate, regular rhythm Abdomen: normal bowel sounds, soft, non tender, non distended Laboratory Tests Test 08/09/16 09:15 08/10/16 04:00 Arterial Blood pH 7.410 (7.350-7.450) Arterial Blood Partial Pressure CO2 46.7 mmHg (35.0-45.0) H Arterial Blood Partial Pressure O2 122.3 mmHg (75.0-100.0) H Arterial Blood HCO3 29.3 mmol/L (22.0-26.0) H Arterial Blood Oxygen Saturation 98.4 % (92.0-98.0) H Arterial Blood Base Excess 4.2 Romero Test Positive White Blood Count 6.4 K/UL (4.8-10.8) Red Blood Count 3.26 M/UL (4.70-6.10) L Hemoglobin 9.8 G/DL (14.2-18.0) L Hematocrit 31.6 % (42.0-52.0) L Mean Corpuscular Volume 97 FL (80-99) Mean Corpuscular Hemoglobin 30.1 PG (27.0-31.0) Mean Corpuscular Hemoglobin Concent 31.0 G/DL (32.0-36.0) L Red Cell Distribution Width 13.8 % (11.6-14.8) Platelet Count 209 K/UL (150-450) Mean Platelet Volume 7.4 FL (6.5-10.1) Neutrophils (%) (Auto) 84.7 % (45.0-75.0) H Lymphocytes (%) (Auto) 8.7 % (20.0-45.0) L Monocytes (%) (Auto) 6.0 % (1.0-10.0) Eosinophils (%) (Auto) 0.2 % (0.0-3.0) Basophils (%) (Auto) 0.3 % (0.0-2.0) Sodium Level Pending Potassium Level Pending Chloride Level Pending Carbon Dioxide Level Pending Blood Urea Nitrogen Pending Creatinine Pending Estimat Glomerular Filtration Rate Pending Glucose Level Pending Uric Acid Pending Calcium Level Pending Phosphorus Level Pending Magnesium Level Pending Total Bilirubin Pending Gamma Glutamyl Transpeptidase Pending Aspartate Amino Transf (AST/SGOT) Pending Alanine Aminotransferase (ALT/SGPT) Pending Alkaline Phosphatase Pending C-Reactive Protein, Quantitative Pending Pro-B-Type Natriuretic Peptide Pending Total Protein Pending Albumin Pending Globulin Pending Current Medications Medications (Trade) Dose Ordered Sig/Ernie Route PRN Reason Start Time Stop Time Status Last Admin Dose Admin Acetaminophen (Tylenol) 650 mg Q6H PRN ORAL Mild Pain/Temp > 100.5 08/09/16 02:00 09/08/16 01:59 Aztreonam 1 gm/ Sodium Chloride 55 ml @ 110 mls/hr Q8HR@0200,1000,1800 IVPB 08/02/16 18:00 08/13/16 17:59 08/10/16 01:36 Chlorhexidine Gluconate 1 applic 1 applic Q24H TOPIC 08/08/16 21:00 09/07/16 20:59 08/09/16 21:21 Dextrose (Dextrose 50%) STAT PRN IV Hypoglycemia 07/30/16 21:45 08/29/16 21:44 Fat Emulsion Intravenous/Amino Acids/ Electrolytes/ Dextrose (Intralipids/Tpn) 2,040 ml @ 85 mls/hr Q24H IV 08/08/16 21:00 09/07/16 20:59 08/09/16 21:19 Haloperidol Lactate/Dextrose (Haldol/D5W) 56 ml @ 224 mls/hr Q4H PRN IVPB Agitation 08/05/16 09:00 09/04/16 08:59 08/07/16 15:02 Heparin Sodium (Porcine) 5000 units 5,000 units EVERY 12 HOURS SUBQ 08/04/16 21:00 09/03/16 20:59 08/09/16 21:20 Insulin Aspart (NovoLOG) No Dose Q6HR SUBQ 08/08/16 18:00 09/07/16 17:59 08/10/16 05:54 Lorazepam (Ativan 2mg/ml 1ml) 2 mg EVERY 2 HOURS PRN IV For Anxiety 08/07/16 21:30 08/14/16 21:29 08/08/16 19:48 Metoprolol Tartrate (Lopressor) 2.5 mg EVERY 8 HOURS IVP 08/09/16 06:00 09/08/16 05:59 08/10/16 05:49 Metronidazole 100 ml @ 100 mls/hr Q8HR IVPB 08/01/16 14:00 08/13/16 13:59 08/10/16 05:35 Morphine Sulfate (Morphine Sulfate) 2 mg EVERY 2 HOURS PRN IVP For Pain 08/07/16 21:30 08/14/16 21:29 08/10/16 02:13 Nitroglycerin (Ntg) 0.4 mg Q5M X 3 DOSES PRN SL Prn Chest Pain 07/30/16 21:45 08/29/16 21:44 Ondansetron HCl (Zofran) 4 mg Q6H PRN IVP Nausea & Vomiting 07/30/16 21:45 08/29/16 21:44 07/31/16 18:25 Pantoprazole (Protonix) 40 mg EVERY 12 HOURS IV 08/06/16 21:00 09/05/16 20:59 08/09/16 21:20 Phytonadione (Vitamin K) 10 mg Fr@2100 SUBQ 08/08/16 21:00 09/07/16 20:59 08/08/16 20:22 Promethazine HCl (Phenergan) 25 mg EVERY 8 HOURS PRN IV refractory nausea 07/30/16 21:45 08/29/16 21:44 Vancomycin HCl 1 ea 1 ea DAILY PRN MISC . 07/31/16 11:30 08/30/16 11:29 Vancomycin HCl/ Dextrose (Vancomycin/D5W) 275 ml @ 183.708 mls/hr Q12H IVPB 08/04/16 06:00 08/13/16 05:59 08/10/16 05:36 OBED ROSE Aug 10, 2016 08:21
[2016-08-10] MEDS: Heparin 5000 units/ml inj SUBQ SCH ×2 (08:33→20:50)
[2016-08-10] MEDS: Pantoprazole Inj IV SCH (09:00)
--- NOTE | 2016-08-10 10:03 | General Surgery Progress Note ---
General Surgery-Progress Note Subjective Day of Surgery: po day 2 Procedure Performed s/p closure of fascial dehiscence sp ex lap drainage of intraabdominal abscess with small bowel resection Additional Comments on tube feedings at 20 cc h and TPN. nurses report copious diarrhea. Objective Last 24 Hour Vital Signs Date Time Temp Pulse Resp B/P Pulse Ox O2 Delivery O2 Flow Rate FiO2 08/10/16 08:46 66 28 28 08/10/16 07:00 67 21 127/64 100 Mechanical Ventilator 28 08/10/16 06:41 65 27 28 08/10/16 06:00 66 24 124/62 100 Mechanical Ventilator 28 08/10/16 05:49 71 135/61 08/10/16 05:00 72 25 135/61 100 Mechanical Ventilator 28 08/10/16 04:47 74 37 28 08/10/16 04:00 28 08/10/16 04:00 99.7 68 22 135/64 100 Mechanical Ventilator 28 08/10/16 04:00 68 08/10/16 03:01 83 29 28 08/10/16 03:00 80 30 113/54 98 Mechanical Ventilator 28 08/10/16 02:00 86 27 146/72 97 Mechanical Ventilator 28 08/10/16 01:02 68 28 28 08/10/16 01:00 69 24 128/56 100 Mechanical Ventilator 28 08/10/16 00:00 28 08/10/16 00:00 98.9 62 23 131/64 100 Mechanical Ventilator 28 08/10/16 00:00 66 08/09/16 23:00 63 26 122/57 95 Mechanical Ventilator 28 08/09/16 22:58 62 28 28 08/09/16 22:00 59 26 112/64 99 Mechanical Ventilator 28 08/09/16 21:27 64 132/66 08/09/16 21:00 67 23 132/66 100 Mechanical Ventilator 28 08/09/16 20:42 69 22 28 08/09/16 20:00 28 08/09/16 20:00 65 08/09/16 20:00 98.2 66 25 115/53 100 Mechanical Ventilator 28 08/09/16 19:00 71 23 131/57 100 Mechanical Ventilator 28 08/09/16 18:48 70 25 28 08/09/16 18:00 63 27 105/53 100 Mechanical Ventilator 28 08/09/16 17:00 64 33 116/57 99 Mechanical Ventilator 28 08/09/16 16:52 63 27 28 08/09/16 16:00 99.2 67 27 96/48 99 Mechanical Ventilator 28 08/09/16 16:00 35 08/09/16 16:00 67 08/09/16 15:07 72 24 28 08/09/16 15:00 70 26 124/63 99 Mechanical Ventilator 28 08/09/16 14:00 63 19 122/54 98 Mechanical Ventilator 28 08/09/16 13:53 70 126/57 08/09/16 13:00 68 20 127/58 98 Mechanical Ventilator 28 08/09/16 12:44 75 33 28 08/09/16 12:00 98.6 71 25 101/51 99 Mechanical Ventilator 28 08/09/16 12:00 28 08/09/16 12:00 69 08/09/16 11:00 70 29 115/59 100 Mechanical Ventilator 28 08/09/16 10:38 69 34 28 08/09/16 10:00 66 28 98/50 99 Mechanical Ventilator 28 I&O Intake and Output 08/09/16 08/10/16 19:00 07:00 Intake Total 1825 ml 2273 ml Output Total 1030 ml 1015 ml Balance 795 ml 1258 ml Intake Free Water 80 ml IV Total 1505 ml 1733 ml Tube Feeding 220 ml 240 ml Blood Product 300 ml Other 20 ml Output Urine Total 965 ml 980 ml Drainage Total 65 ml 35 ml # Bowel Movements 2 4 Dressing: other - some serous drainage from wound Wound: clean Drains: cade Cardiovascular: RSR Respiratory: other - on vent Abdomen: tenderness, present bowel sounds Extremities: no edema, no tenderness, no cyanosis - on vent,, assist control Laboratory Tests Test 08/10/16 04:00 White Blood Count 6.4 K/UL (4.8-10.8) Red Blood Count 3.26 M/UL (4.70-6.10) L Hemoglobin 9.8 G/DL (14.2-18.0) L Hematocrit 31.6 % (42.0-52.0) L Mean Corpuscular Volume 97 FL (80-99) Mean Corpuscular Hemoglobin 30.1 PG (27.0-31.0) Mean Corpuscular Hemoglobin Concent 31.0 G/DL (32.0-36.0) L Red Cell Distribution Width 13.8 % (11.6-14.8) Platelet Count 209 K/UL (150-450) Mean Platelet Volume 7.4 FL (6.5-10.1) Neutrophils (%) (Auto) 84.7 % (45.0-75.0) H Lymphocytes (%) (Auto) 8.7 % (20.0-45.0) L Monocytes (%) (Auto) 6.0 % (1.0-10.0) Eosinophils (%) (Auto) 0.2 % (0.0-3.0) Basophils (%) (Auto) 0.3 % (0.0-2.0) Sodium Level 150 mEQ/L (135-145) H Potassium Level 3.1 mEQ/L (3.4-4.9) L Chloride Level 108 mEQ/L (98-107) H Carbon Dioxide Level 31 mEQ/L (20-30) H Anion Gap 11 (5-15) Blood Urea Nitrogen 29 mg/dL (7-23) H Creatinine 0.8 mg/dL (0.7-1.2) Estimat Glomerular Filtration Rate > 60 mL/min (>60) Glucose Level 187 mg/dL (74-106) H Uric Acid 6.3 mg/dL (3.0-7.5) Calcium Level 7.1 mg/dL (8.6-10.2) L Phosphorus Level 1.8 mg/dL (2.5-4.8) L Magnesium Level 2.1 mg/dL (1.7-2.5) Total Bilirubin 0.2 mg/dL (0.0-1.2) Gamma Glutamyl Transpeptidase 55 U/L (8-61) Aspartate Amino Transf (AST/SGOT) 28 U/L (5-40) Alanine Aminotransferase (ALT/SGPT) 9 U/L (3-41) Alkaline Phosphatase 85 U/L (40-129) C-Reactive Protein, Quantitative 6.4 mg/dL (< 0.5) H Pro-B-Type Natriuretic Peptide 683 pg/mL (0-125) H Total Protein 5.2 g/dL (6.6-8.7) L Albumin 1.8 g/dL (3.5-5.2) L Globulin 3.4 g/dL Albumin/Globulin Ratio 0.5 (1.0-2.7) L Assessment Post-op Diagnosis joyce post- op. copious diarrhea, may need rectal tube wean as tolerated KAILYN QUIROGA Aug 10, 2016 10:03
[2016-08-10] MEDS ORDERED: NS 275ml ONE ×3 (10:08→18:50)
[2016-08-10] MEDS ORDERED: Tubing Blood Filter IV ONE (10:08)
[2016-08-10] MEDS: Meropenem 1 GM in NS 110 ML IVPB SCH ×2 (10:30→17:23)
[2016-08-10] MEDS ORDERED: Tubing IV Secondary IV ONE (10:39)
[2016-08-10] MEDS ORDERED: D5W 550ml IV ONE (10:39)
--- NOTE | 2016-08-10 10:54 | Diagnostic Imaging Report ---
Indications: DYSPNEA Technique: Portable AP chest Findings: Comparison: 08/09/16 Pulmonary inflation has decreased. Increased vascular markings persist in medial aspect of right lung base with associated downward retraction of the right major fissure. Left lung, bilateral pleural surfaces remain clear. Cardiac mediastinal silhouette stable. Lines and tubes remain in place. IMPRESSION: Persistent right lung base opacity and volume loss compatible with atelectasis. Underlying pneumonia and/or central bronchial obstruction not excludable. Consider bronchoscopy for further evaluation. No new abnormality
--- NOTE | 2016-08-10 10:59 | General Progress Note ---
Assessment/Plan Status: stable Assessment/Plan Status: Acute renal failure and Oliguria due to - low BP , post OP- Amikacin and VancoMycin- Ongoing sepsis RESOLVED Respiratory failure, on Vent intraabdominal abscess, small bowel obstruction, intraabdominal adhesions, small bowel perforation. Plan; On TPN - Phos supplement- Post Op care- monitor renal parameters- Per ID- Weaning as possible- Avoid nephrotoxics Per orders Subjective ROS Limited/Unobtainable: Yes Allergies: Coded Allergies: PENICILLINS (Verified Allergy, Intermediate, 07/30/16) SULFA (SULFONAMIDE ANTIBIOTICS) (Verified Allergy, Intermediate, ITCHING, 07/30/16) Objective Last 24 Hour Vital Signs Date Time Temp Pulse Resp B/P Pulse Ox O2 Delivery O2 Flow Rate FiO2 08/10/16 10:00 66 27 136/72 100 Mechanical Ventilator 28 08/10/16 09:00 68 21 136/69 100 Mechanical Ventilator 28 08/10/16 08:46 66 28 28 08/10/16 08:00 99.5 67 21 136/68 100 Mechanical Ventilator 28 08/10/16 08:00 28 08/10/16 08:00 67 08/10/16 07:00 67 21 127/64 100 Mechanical Ventilator 28 08/10/16 06:41 65 27 28 08/10/16 06:00 66 24 124/62 100 Mechanical Ventilator 28 08/10/16 05:49 71 135/61 08/10/16 05:00 72 25 135/61 100 Mechanical Ventilator 28 08/10/16 04:47 74 37 28 08/10/16 04:00 28 08/10/16 04:00 99.7 68 22 135/64 100 Mechanical Ventilator 28 08/10/16 04:00 68 08/10/16 03:01 83 29 28 08/10/16 03:00 80 30 113/54 98 Mechanical Ventilator 28 08/10/16 02:00 86 27 146/72 97 Mechanical Ventilator 28 08/10/16 01:02 68 28 28 08/10/16 01:00 69 24 128/56 100 Mechanical Ventilator 28 08/10/16 00:00 28 08/10/16 00:00 98.9 62 23 131/64 100 Mechanical Ventilator 28 08/10/16 00:00 66 08/09/16 23:00 63 26 122/57 95 Mechanical Ventilator 28 08/09/16 22:58 62 28 28 08/09/16 22:00 59 26 112/64 99 Mechanical Ventilator 28 08/09/16 21:27 64 132/66 08/09/16 21:00 67 23 132/66 100 Mechanical Ventilator 28 08/09/16 20:42 69 22 28 08/09/16 20:00 28 08/09/16 20:00 65 08/09/16 20:00 98.2 66 25 115/53 100 Mechanical Ventilator 28 08/09/16 19:00 71 23 131/57 100 Mechanical Ventilator 28 08/09/16 18:48 70 25 28 08/09/16 18:00 63 27 105/53 100 Mechanical Ventilator 28 08/09/16 17:00 64 33 116/57 99 Mechanical Ventilator 28 08/09/16 16:52 63 27 28 08/09/16 16:00 99.2 67 27 96/48 99 Mechanical Ventilator 28 08/09/16 16:00 35 08/09/16 16:00 67 08/09/16 15:07 72 24 28 08/09/16 15:00 70 26 124/63 99 Mechanical Ventilator 28 08/09/16 14:00 63 19 122/54 98 Mechanical Ventilator 28 08/09/16 13:53 70 126/57 08/09/16 13:00 68 20 127/58 98 Mechanical Ventilator 28 08/09/16 12:44 75 33 28 08/09/16 12:00 98.6 71 25 101/51 99 Mechanical Ventilator 28 08/09/16 12:00 28 08/09/16 12:00 69 08/09/16 11:00 70 29 115/59 100 Mechanical Ventilator 28 Intake and Output 08/09/16 08/10/16 19:00 07:00 Intake Total 1825 ml 2273 ml Output Total 1030 ml 1015 ml Balance 795 ml 1258 ml Intake Free Water 80 ml IV Total 1505 ml 1733 ml Tube Feeding 220 ml 240 ml Blood Product 300 ml Other 20 ml Output Urine Total 965 ml 980 ml Drainage Total 65 ml 35 ml # Bowel Movements 2 4 Laboratory Tests 08/10/16 04:00: White Blood Count 6.4, Red Blood Count 3.26L, Hemoglobin 9.8L, Hematocrit 31.6L , Mean Corpuscular Volume 97, Mean Corpuscular Hemoglobin 30.1, Mean Corpuscular Hemoglobin Concent 31.0L, Red Cell Distribution Width 13.8, Platelet Count 209, Mean Platelet Volume 7.4, Neutrophils (%) (Auto) 84.7H, Lymphocytes (%) (Auto) 8.7L, Monocytes (%) (Auto) 6.0, Eosinophils (%) (Auto) 0.2, Basophils (%) (Auto) 0.3, Sodium Level 150H, Potassium Level 3.1L, Chloride Level 108H, Carbon Dioxide Level 31H, Anion Gap 11, Blood Urea Nitrogen 29H, Creatinine 0.8, Estimat Glomerular Filtration Rate > 60, Glucose Level 187H, Uric Acid 6.3, Calcium Level 7.1L, Phosphorus Level 1.8L, Magnesium Level 2.1, Total Bilirubin 0.2, Gamma Glutamyl Transpeptidase 55, Aspartate Amino Transf (AST/SGOT) 28, Alanine Aminotransferase (ALT/SGPT) 9, Alkaline Phosphatase 85, C-Reactive Protein, Quantitative 6.4H, Pro-B-Type Natriuretic Peptide 683H, Total Protein 5.2L, Albumin 1.8L, Globulin 3.4, Albumin/Globulin Ratio 0.5L Height (Feet): 5 Height (Inches): 9.00 Weight (Pounds): 185 General Appearance: no apparent distress Objective no other changes in PE AYDE SERNA Aug 10, 2016 10:59
--- NOTE | 2016-08-10 11:53 | Pulmonolgy Critical Care Note ---
Critical Care - Asmt/Plan Problems: (1) Acute respiratory failure (2) Pneumatosis intestinalis (3) Anemia (4) ATN (acute tubular necrosis) (5) Sepsis (6) Intra-abdominal abscess (7) HIV disease Respiratory: monitor respiratory rate, adjust FIO2, CXR, ABG, weaning trial Cardiac: continue to monitor HR/BP Renal: F/U I&O Infectious Disease: check cultures, continue antibiotics Gastrointestinal: continue feedings/current rate, abdominal imaging, other - on TPN Endocrine: monitor blood sugar Hematologic: monitor H/H Neurologic: PRN Ativan, PRN Morphine Affect: PRN ativan Prophylaxis: Protonix, Heparin Notes Reviewed: renal Discussed with: nurses, consultants, sample case porterbingo manager - Objective Last 24 Hour Vital Signs Date Time Temp Pulse Resp B/P Pulse Ox O2 Delivery O2 Flow Rate FiO2 08/10/16 11:00 71 27 147/76 99 Mechanical Ventilator 28 08/10/16 10:58 69 27 28 08/10/16 10:00 66 27 136/72 100 Mechanical Ventilator 28 08/10/16 09:00 68 21 136/69 100 Mechanical Ventilator 28 08/10/16 08:46 66 28 28 08/10/16 08:00 99.5 67 21 136/68 100 Mechanical Ventilator 28 08/10/16 08:00 28 08/10/16 08:00 67 08/10/16 07:00 67 21 127/64 100 Mechanical Ventilator 28 08/10/16 06:41 65 27 28 08/10/16 06:00 66 24 124/62 100 Mechanical Ventilator 28 08/10/16 05:49 71 135/61 08/10/16 05:00 72 25 135/61 100 Mechanical Ventilator 28 08/10/16 04:47 74 37 28 08/10/16 04:00 28 08/10/16 04:00 99.7 68 22 135/64 100 Mechanical Ventilator 08/10/16 04:00 68 08/10/16 03:01 83 29 28 08/10/16 03:00 80 30 113/54 98 Mechanical Ventilator 28 08/10/16 02:00 86 27 146/72 97 Mechanical Ventilator 28 08/10/16 01:02 68 28 28 08/10/16 01:00 69 24 128/56 100 Mechanical Ventilator 28 08/10/16 00:00 28 08/10/16 00:00 98.9 62 23 131/64 100 Mechanical Ventilator 28 08/10/16 00:00 66 08/09/16 23:00 63 26 122/57 95 Mechanical Ventilator 28 08/09/16 22:58 62 28 28 08/09/16 22:00 59 26 112/64 99 Mechanical Ventilator 28 08/09/16 21:27 64 132/66 08/09/16 21:00 67 23 132/66 100 Mechanical Ventilator 28 08/09/16 20:42 69 22 28 08/09/16 20:00 28 08/09/16 20:00 65 08/09/16 20:00 98.2 66 25 115/53 100 Mechanical Ventilator 28 08/09/16 19:00 71 23 131/57 100 Mechanical Ventilator 28 08/09/16 18:48 70 25 28 08/09/16 18:00 63 27 105/53 100 Mechanical Ventilator 28 08/09/16 17:00 64 33 116/57 99 Mechanical Ventilator 28 08/09/16 16:52 63 27 28 08/09/16 16:00 99.2 67 27 96/48 99 Mechanical Ventilator 28 08/09/16 16:00 35 08/09/16 16:00 67 08/09/16 15:07 72 24 28 08/09/16 15:00 70 26 124/63 99 Mechanical Ventilator 28 08/09/16 14:00 63 19 122/54 98 Mechanical Ventilator 28 08/09/16 13:53 70 126/57 08/09/16 13:00 68 20 127/58 98 Mechanical Ventilator 28 08/09/16 12:44 75 33 28 08/09/16 12:00 98.6 71 25 101/51 99 Mechanical Ventilator 28 08/09/16 12:00 28 08/09/16 12:00 69 Status: awake Condition: critical HEENT: atraumatic Neck: full ROM Lungs: clear Heart: HR/BP stable, HR/BP unstable Abdomen: soft, non-tender, active bowel sounds Extremities: no C/C/E, edema Decubiti: location Accucheck: 198 Critical Care - Subjective ROS Limited/Unobtainable: No ICU Day: 11 Intubation Day: 11 Condition: critical EKG Rhythm: Sinus Rhythm FI02: 28 Vent Support Breath Rate: 10 Vent Support Mode: AC Vent Tidal Volume: 500 Sputum Amount: Small PEEP: 5.0 PIP: 25 Tube Feeding Amount: 20 I&O: Intake and Output 08/09/16 08/10/16 19:00 07:00 Intake Total 1825 ml 2273 ml Output Total 1030 ml 1015 ml Balance 795 ml 1258 ml Intake Free Water 80 ml IV Total 1505 ml 1733 ml Tube Feeding 220 ml 240 ml Blood Product 300 ml Other 20 ml Output Urine Total 965 ml 980 ml Drainage Total 65 ml 35 ml # Bowel Movements 2 4 CXR: ET in good position ET-Tube: 7.5 ET Position: 25 Labs: Laboratory Tests Test 08/10/16 04:00 White Blood Count 6.4 K/UL (4.8-10.8) Red Blood Count 3.26 M/UL (4.70-6.10) L Hemoglobin 9.8 G/DL (14.2-18.0) L Hematocrit 31.6 % (42.0-52.0) L Mean Corpuscular Volume 97 FL (80-99) Mean Corpuscular Hemoglobin 30.1 PG (27.0-31.0) Mean Corpuscular Hemoglobin Concent 31.0 G/DL (32.0-36.0) L Red Cell Distribution Width 13.8 % (11.6-14.8) Platelet Count 209 K/UL (150-450) Mean Platelet Volume 7.4 FL (6.5-10.1) Neutrophils (%) (Auto) 84.7 % (45.0-75.0) H Lymphocytes (%) (Auto) 8.7 % (20.0-45.0) L Monocytes (%) (Auto) 6.0 % (1.0-10.0) Eosinophils (%) (Auto) 0.2 % (0.0-3.0) Basophils (%) (Auto) 0.3 % (0.0-2.0) Sodium Level 150 mEQ/L (135-145) H Potassium Level 3.1 mEQ/L (3.4-4.9) L Chloride Level 108 mEQ/L (98-107) H Carbon Dioxide Level 31 mEQ/L (20-30) H Anion Gap 11 (5-15) Blood Urea Nitrogen 29 mg/dL (7-23) H Creatinine 0.8 mg/dL (0.7-1.2) Estimat Glomerular Filtration Rate > 60 mL/min (>60) Glucose Level 187 mg/dL (74-106) H Uric Acid 6.3 mg/dL (3.0-7.5) Calcium Level 7.1 mg/dL (8.6-10.2) L Phosphorus Level 1.8 mg/dL (2.5-4.8) L Magnesium Level 2.1 mg/dL (1.7-2.5) Total Bilirubin 0.2 mg/dL (0.0-1.2) Gamma Glutamyl Transpeptidase 55 U/L (8-61) Aspartate Amino Transf (AST/SGOT) 28 U/L (5-40) Alanine Aminotransferase (ALT/SGPT) 9 U/L (3-41) Alkaline Phosphatase 85 U/L (40-129) C-Reactive Protein, Quantitative 6.4 mg/dL (< 0.5) H Pro-B-Type Natriuretic Peptide 683 pg/mL (0-125) H Total Protein 5.2 g/dL (6.6-8.7) L Albumin 1.8 g/dL (3.5-5.2) L Globulin 3.4 g/dL Albumin/Globulin Ratio 0.5 (1.0-2.7) L CHAS WALLACE Aug 10, 2016 11:53
[2016-08-10] MEDS ORDERED: Potassium Phosphate 30 MM in NS 275 ML IV ONE (12:00)
--- NOTE | 2016-08-10 18:42 | Cardiology Progress Note ---
Assessment/Plan Assessment/Plan no evidence of a fib for last 24 hours Subjective Subjective the patient in tubated and sedated Objective Last 24 Hour Vital Signs Date Time Temp Pulse Resp B/P Pulse Ox O2 Delivery O2 Flow Rate FiO2 08/10/16 18:00 73 26 158/74 96 Mechanical Ventilator 28 08/10/16 17:01 70 30 28 08/10/16 17:00 72 21 147/70 100 Mechanical Ventilator 28 08/10/16 16:00 72 08/10/16 16:00 98.5 74 26 148/71 100 Mechanical Ventilator 28 08/10/16 15:05 67 28 28 08/10/16 15:00 71 22 136/75 99 Mechanical Ventilator 28 08/10/16 14:27 69 146/72 08/10/16 14:00 67 27 146/72 95 Mechanical Ventilator 28 08/10/16 13:00 69 22 149/81 99 Mechanical Ventilator 28 08/10/16 12:52 69 28 08/10/16 12:05 28 08/10/16 12:00 68 08/10/16 12:00 28 08/10/16 12:00 98.6 69 20 151/73 99 Mechanical Ventilator 28 08/10/16 11:57 69 28 08/10/16 11:00 71 27 147/76 99 Mechanical Ventilator 28 08/10/16 10:58 69 27 28 08/10/16 10:00 66 27 136/72 100 Mechanical Ventilator 28 08/10/16 09:00 68 21 136/69 100 Mechanical Ventilator 28 08/10/16 08:46 66 28 28 08/10/16 08:00 99.5 67 21 136/68 100 Mechanical Ventilator 28 08/10/16 08:00 28 08/10/16 08:00 67 08/10/16 07:00 67 21 127/64 100 Mechanical Ventilator 28 08/10/16 06:41 65 27 28 08/10/16 06:00 66 24 124/62 100 Mechanical Ventilator 28 08/10/16 05:49 71 135/61 08/10/16 05:00 72 25 135/61 100 Mechanical Ventilator 28 08/10/16 04:47 74 37 28 08/10/16 04:00 28 08/10/16 04:00 99.7 68 22 135/64 100 Mechanical Ventilator 28 08/10/16 04:00 68 08/10/16 03:01 83 29 28 08/10/16 03:00 80 30 113/54 98 Mechanical Ventilator 28 08/10/16 02:00 86 27 146/72 97 Mechanical Ventilator 28 08/10/16 01:02 68 28 28 08/10/16 01:00 69 24 128/56 100 Mechanical Ventilator 28 08/10/16 00:00 28 08/10/16 00:00 98.9 62 23 131/64 100 Mechanical Ventilator 08/10/16 00:00 66 08/09/16 23:00 63 26 122/57 95 Mechanical Ventilator 28 08/09/16 22:58 62 28 28 08/09/16 22:00 59 26 112/64 99 Mechanical Ventilator 28 08/09/16 21:27 64 132/66 08/09/16 21:00 67 23 132/66 100 Mechanical Ventilator 28 08/09/16 20:42 69 22 28 08/09/16 20:00 28 08/09/16 20:00 65 08/09/16 20:00 98.2 66 25 115/53 100 Mechanical Ventilator 08/09/16 19:00 71 23 131/57 100 Mechanical Ventilator 28 08/09/16 18:48 70 25 28 General Appearance: lethargic, on vent EENT: PERRL/EOMI Neck: no JVD Rhythm: NSR Cardiovascular: regular rhythm Respiratory/Chest: crackles/rales Abdomen: distended, tender Extremities: no swelling Intake and Output 08/09/16 08/10/16 19:00 07:00 Intake Total 1825 ml 2273 ml Output Total 1030 ml 1015 ml Balance 795 ml 1258 ml Intake Free Water 80 ml IV Total 1505 ml 1733 ml Tube Feeding 220 ml 240 ml Blood Product 300 ml Other 20 ml Output Urine Total 965 ml 980 ml Drainage Total 65 ml 35 ml # Bowel Movements 2 4 Laboratory Tests Test 08/10/16 04:00 White Blood Count 6.4 K/UL (4.8-10.8) Red Blood Count 3.26 M/UL (4.70-6.10) L Hemoglobin 9.8 G/DL (14.2-18.0) L Hematocrit 31.6 % (42.0-52.0) L Mean Corpuscular Volume 97 FL (80-99) Mean Corpuscular Hemoglobin 30.1 PG (27.0-31.0) Mean Corpuscular Hemoglobin Concent 31.0 G/DL (32.0-36.0) L Red Cell Distribution Width 13.8 % (11.6-14.8) Platelet Count 209 K/UL (150-450) Mean Platelet Volume 7.4 FL (6.5-10.1) Neutrophils (%) (Auto) 84.7 % (45.0-75.0) H Lymphocytes (%) (Auto) 8.7 % (20.0-45.0) L Monocytes (%) (Auto) 6.0 % (1.0-10.0) Eosinophils (%) (Auto) 0.2 % (0.0-3.0) Basophils (%) (Auto) 0.3 % (0.0-2.0) Sodium Level 150 mEQ/L (135-145) H Potassium Level 3.1 mEQ/L (3.4-4.9) L Chloride Level 108 mEQ/L (98-107) H Carbon Dioxide Level 31 mEQ/L (20-30) H Anion Gap 11 (5-15) Blood Urea Nitrogen 29 mg/dL (7-23) H Creatinine 0.8 mg/dL (0.7-1.2) Estimat Glomerular Filtration Rate > 60 mL/min (>60) Glucose Level 187 mg/dL (74-106) H Uric Acid 6.3 mg/dL (3.0-7.5) Calcium Level 7.1 mg/dL (8.6-10.2) L Phosphorus Level 1.8 mg/dL (2.5-4.8) L Magnesium Level 2.1 mg/dL (1.7-2.5) Total Bilirubin 0.2 mg/dL (0.0-1.2) Gamma Glutamyl Transpeptidase 55 U/L (8-61) Aspartate Amino Transf (AST/SGOT) 28 U/L (5-40) Alanine Aminotransferase (ALT/SGPT) 9 U/L (3-41) Alkaline Phosphatase 85 U/L (40-129) C-Reactive Protein, Quantitative 6.4 mg/dL (< 0.5) H Pro-B-Type Natriuretic Peptide 683 pg/mL (0-125) H Total Protein 5.2 g/dL (6.6-8.7) L Albumin 1.8 g/dL (3.5-5.2) L Globulin 3.4 g/dL Albumin/Globulin Ratio 0.5 (1.0-2.7) L JERILYN SALAS Aug 10, 2016 18:42
[2016-08-10] MEDS: Fat Emulsion Iv 20% 240 ML in Tpn 1,800 ML IV SCH (19:50)
[2016-08-10] MEDS: Dyna-Hex 2% Top Sol 8oz TOPIC SCH (20:44)
[2016-08-10] MEDS: Famotidine 20 MG/ 2ML VIAL IVP SCH (20:44)
[2016-08-10] MEDS: LORazepam Inj 2mg/ml 1ml IV PRN (21:08)
[2016-08-11] VITALS (24 sets, daily range): BP systolic 114–173; BP diastolic 50–96
[2016-08-11] MEDS: Meropenem 1 GM in NS 110 ML IVPB SCH ×3 (01:46→18:00)
[2016-08-11] MEDS: Metoprolol 5mg/5ml Inj IVP SCH ×2 (05:43→14:05)
[2016-08-11] MEDS: Vancomycin 1250mg in D5W 275ml IVPB SCH ×2 (05:44→18:04)
[2016-08-11] MEDS: metroNIDAZOLE 500mg 100 ML IVPB SCH ×3 (05:44→21:43)
[2016-08-11] MEDS: Insulin NovoLOG Flexpen S/S (insulin sensitive) SUBQ SCH ×4 (05:45→23:37)
[2016-08-11 06:11] LABS: MEAN CORPUSCULAR HEMOGLOBIN 30.3 PG (27.0-31.0); MEAN CORPUSCULAR HGB CONC 31.9 G/DL (32.0-36.0); MEAN CORPUSCULAR VOLUME 95 FL (80-99); MEAN PLATELET VOLUME 7.7 FL (6.5-10.1); PLATELET COUNT 216 K/UL (150-450); RED BLOOD COUNT 3.43 M/UL (4.70-6.10); RED CELL DISTRIBUTION WIDTH 13.6 % (11.6-14.8); WHITE BLOOD COUNT 7.2 K/UL (4.8-10.8)
[2016-08-11 06:20] LABS: ALANINE AMINOTRANSFERASE 11 U/L (3-41); ALBUMIN/GLOBULIN RATIO 0.4 (1.0-2.7); ANION GAP 11 (5-15); ASPARTATE AMINO TRANSFERASE 39 U/L (5-40); CALCIUM 7.4 mg/dL (8.6-10.2); CARBON DIOXIDE 28 mEQ/L (20-30); CHLORIDE 106 mEQ/L (98-107); CREATININE 0.6 mg/dL (0.7-1.2); CRP QUANT 5.4 mg/dL (< 0.5); GLOMERULAR FILTRATION RATE > 60 mL/min (>60); HEMOLYSIS 93; MAGNESIUM 1.9 mg/dL (1.7-2.5); PHOSPHORUS 3.1 mg/dL (2.5-4.8); POTASSIUM 3.6 mEQ/L (3.4-4.9); SODIUM 145 mEQ/L (135-145); TOTAL PROTEIN 5.5 g/dL (6.6-8.7); URIC ACID 4.6 mg/dL (3.0-7.5)
--- NOTE | 2016-08-11 08:53 | Diagnostic Imaging Report ---
Indications: DYSPNEA Technique: Portable AP chest Findings: Comparison: 08/08/16 Pulmonary inflation has decreased. Elevation apparent hemidiaphragm persists. Increased bronchovascular markings medial right lung base persists, partially obscured. No new pulmonary parenchymal or pleural abnormalities demonstrated. Cardiac mediastinal silhouette stable. Lines and tubes remain in place. IMPRESSION: Decreased pulmonary inflation No other change from one day prior
[2016-08-11 09:30] LABS: ABG ALLEN TEST POSITIVE; ABG BASE EXCESS 3.8; ABG PCO2 45.9 mmHg (35.0-45.0)
[2016-08-11] MEDS: Famotidine 20 MG/ 2ML VIAL IVP SCH ×2 (09:48→21:05)
[2016-08-11] MEDS: Heparin 5000 units/ml inj SUBQ SCH ×2 (09:50→21:10)
--- NOTE | 2016-08-11 10:45 | Pulmonolgy Critical Care Note ---
Critical Care - Asmt/Plan Problems: (1) Acute respiratory failure (2) Anemia (3) ATN (acute tubular necrosis) (4) Sepsis (5) Wound dehiscence (6) Intra-abdominal abscess (7) HIV disease Respiratory: monitor respiratory rate, adjust FIO2, CXR, weaning trial Cardiac: continue to monitor HR/BP Renal: F/U I&O, keep IV fluid, check electrolytes Infectious Disease: check cultures, continue antibiotics Gastrointestinal: continue feedings/current rate Endocrine: monitor blood sugar, continue sliding scale insulin Hematologic: monitor H/H, transfuse if hgb<8.5 Neurologic: PRN Ativan, PRN Morphine, keep patient comfortable Time Spent (Minutes): 40 Notes Reviewed: renal, ID Discussed with: nurses, consultants, 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 cutterphlebotomy manager - Objective Last 24 Hour Vital Signs Date Time Temp Pulse Resp B/P Pulse Ox O2 Delivery O2 Flow Rate FiO2 08/11/16 10:00 76 18 153/86 100 Mechanical Ventilator 28 08/11/16 09:06 75 29 28 08/11/16 09:00 74 22 153/76 99 Mechanical Ventilator 08/11/16 08:00 73 08/11/16 08:00 99.9 74 24 122/53 100 Mechanical Ventilator 28 08/11/16 08:00 28 08/11/16 07:00 70 29 138/75 100 Mechanical Ventilator 28 08/11/16 06:59 69 31 28 08/11/16 06:00 67 30 126/69 100 Mechanical Ventilator 08/11/16 05:43 76 173/89 08/11/16 05:17 78 28 28 08/11/16 05:00 80 22 173/89 98 Mechanical Ventilator 28 08/11/16 04:00 28 08/11/16 04:00 97.9 74 34 164/79 99 Mechanical Ventilator 28 08/11/16 04:00 74 08/11/16 03:03 79 31 28 08/11/16 03:00 78 27 160/70 99 Mechanical Ventilator 08/11/16 02:00 83 20 145/87 96 Mechanical Ventilator 28 08/11/16 01:04 75 37 28 08/11/16 01:00 72 31 155/78 100 Mechanical Ventilator 28 08/11/16 00:00 28 08/11/16 00:00 98.1 73 32 153/76 98 Mechanical Ventilator 28 08/11/16 00:00 73 08/10/16 23:00 79 22 168/89 99 Mechanical Ventilator 28 08/10/16 22:53 88 27 28 08/10/16 22:00 77 19 145/67 99 Mechanical Ventilator 28 08/10/16 21:40 73 159/76 08/10/16 21:06 69 24 28 08/10/16 21:00 71 22 153/76 100 Mechanical Ventilator 28 08/10/16 20:00 71 08/10/16 20:00 98.8 71 21 130/73 97 Mechanical Ventilator 28 08/10/16 19:00 66 29 129/74 100 Mechanical Ventilator 28 08/10/16 18:57 64 30 28 08/10/16 18:00 28 08/10/16 18:00 73 26 158/74 96 Mechanical Ventilator 28 08/10/16 17:01 70 30 28 08/10/16 17:00 72 21 147/70 100 Mechanical Ventilator 28 08/10/16 16:00 72 08/10/16 16:00 98.5 74 26 148/71 100 Mechanical Ventilator 28 08/10/16 16:00 28 08/10/16 15:05 67 28 28 08/10/16 15:00 71 22 136/75 99 Mechanical Ventilator 28 08/10/16 14:27 69 146/72 08/10/16 14:00 67 27 146/72 95 Mechanical Ventilator 28 08/10/16 13:00 69 22 149/81 99 Mechanical Ventilator 28 08/10/16 12:52 69 28 08/10/16 12:05 28 08/10/16 12:00 68 08/10/16 12:00 28 08/10/16 12:00 98.6 69 20 151/73 99 Mechanical Ventilator 28 08/10/16 11:57 69 28 08/10/16 11:00 71 27 147/76 99 Mechanical Ventilator 28 08/10/16 10:58 69 27 28 Status: awake Condition: critical HEENT: atraumatic Neck: full ROM Lungs: clear Heart: HR/BP stable, HR/BP unstable Abdomen: soft, non-tender, feeding tube Extremities: no C/C/E, edema Micro: Microbiology Date/Time Source Procedure Growth Status 08/09/16 12:55 Blood Blood Culture - Preliminary NO GROWTH AFTER 24 HOURS Resulted 08/09/16 12:45 Blood Blood Culture - Preliminary NO GROWTH AFTER 24 HOURS Resulted Accucheck: 137 Critical Care - Subjective ROS Limited/Unobtainable: Yes ICU Day: 12 Intubation Day: 12 Condition: critical EKG Rhythm: Sinus Rhythm FI02: 28 Vent Support Breath Rate: 10 Vent Support Mode: AC Vent Tidal Volume: 500 Sputum Amount: Small PEEP: 5.0 PIP: 20 Fluids: tpn Tube Feeding Amount: 20 I&O: Intake and Output 08/10/16 08/11/16 19:00 07:00 Intake Total 2268.7 ml 1556.3 ml Output Total 1300 ml 1075 ml Balance 968.7 ml 481.3 ml Intake Free Water 50 ml IV Total 2028.7 ml 1236.3 ml Tube Feeding 240 ml 240 ml Other 30 ml Output Urine Total 1220 ml 1020 ml Drainage Total 80 ml 55 ml # Bowel Movements 3 4 CXR: no change, ET in good position ET-Tube: 7.5 ET Position: 25 Labs: Laboratory Tests Test 08/11/16 05:15 08/11/16 09:15 White Blood Count 7.2 K/UL (4.8-10.8) Red Blood Count 3.43 M/UL (4.70-6.10) L Hemoglobin 10.4 G/DL (14.2-18.0) L Hematocrit 32.6 % (42.0-52.0) L Mean Corpuscular Volume 95 FL (80-99) Mean Corpuscular Hemoglobin 30.3 PG (27.0-31.0) Mean Corpuscular Hemoglobin Concent 31.9 G/DL (32.0-36.0) L Red Cell Distribution Width 13.6 % (11.6-14.8) Platelet Count 216 K/UL (150-450) Mean Platelet Volume 7.7 FL (6.5-10.1) Neutrophils (%) (Auto) % (45.0-75.0) Lymphocytes (%) (Auto) % (20.0-45.0) Monocytes (%) (Auto) % (1.0-10.0) Eosinophils (%) (Auto) % (0.0-3.0) Basophils (%) (Auto) % (0.0-2.0) Sodium Level 145 mEQ/L (135-145) Potassium Level 3.6 mEQ/L (3.4-4.9) Chloride Level 106 mEQ/L (98-107) Carbon Dioxide Level 28 mEQ/L (20-30) Anion Gap 11 (5-15) Blood Urea Nitrogen 20 mg/dL (7-23) Creatinine 0.6 mg/dL (0.7-1.2) L Estimat Glomerular Filtration Rate > 60 mL/min (>60) Glucose Level 150 mg/dL (74-106) H Uric Acid 4.6 mg/dL (3.0-7.5) Calcium Level 7.4 mg/dL (8.6-10.2) L Phosphorus Level 3.1 mg/dL (2.5-4.8) Magnesium Level 1.9 mg/dL (1.7-2.5) Total Bilirubin 0.3 mg/dL (0.0-1.2) Gamma Glutamyl Transpeptidase 68 U/L (8-61) H Aspartate Amino Transf (AST/SGOT) 39 U/L (5-40) Alanine Aminotransferase (ALT/SGPT) 11 U/L (3-41) Alkaline Phosphatase 99 U/L (40-129) C-Reactive Protein, Quantitative 5.4 mg/dL (< 0.5) H Pro-B-Type Natriuretic Peptide 984 pg/mL (0-125) H Total Protein 5.5 g/dL (6.6-8.7) L Albumin 1.8 g/dL (3.5-5.2) L Globulin 3.7 g/dL Albumin/Globulin Ratio 0.4 (1.0-2.7) L Arterial Blood pH 7.417 (7.350-7.450) Arterial Blood Partial Pressure CO2 45.9 mmHg (35.0-45.0) H Arterial Blood Partial Pressure O2 101.1 mmHg (75.0-100.0) H Arterial Blood HCO3 28.9 mmol/L (22.0-26.0) H Arterial Blood Oxygen Saturation 97.4 % (92.0-98.0) Arterial Blood Base Excess 3.8 Romero Test Positive CHAS WALLACE Aug 11, 2016 10:45
--- NOTE | 2016-08-11 11:40 | Diagnostic Imaging Report ---
Indication: DYSPNEA Technique: One view of the chest Comparison: 625-17 Findings: Stable satisfactory positions of endotracheal and nasogastric tubes. Increasing patchy opacity at the left lung base. The remainder of the lungs and pleural spaces are clear. The heart size is normal. Impression: New or increased left basilar patchy opacity, may reflect developing infiltrate Other stable findings as described .
--- NOTE | 2016-08-11 11:48 | General Progress Note ---
Assessment/Plan Status: stable Status Narrative from renal stand point Assessment/Plan Status: Acute renal failure and Oliguria due to - low BP , post OP- Amikacin and VancoMycin- Ongoing sepsis RESOLVED Respiratory failure, on Vent intraabdominal abscess, small bowel obstruction, intraabdominal adhesions, small bowel perforation. Plan; On TPN - Phos supplement- Post Op care- monitor renal parameters- Per ID- Weaning as possible- Avoid nephrotoxics Per orders Subjective ROS Limited/Unobtainable: Yes Allergies: Coded Allergies: PENICILLINS (Verified Allergy, Intermediate, 07/30/16) SULFA (SULFONAMIDE ANTIBIOTICS) (Verified Allergy, Intermediate, ITCHING, 07/30/16) Objective Last 24 Hour Vital Signs Date Time Temp Pulse Resp B/P Pulse Ox O2 Delivery O2 Flow Rate FiO2 08/11/16 11:00 89 17 162/81 100 Mechanical Ventilator 28 08/11/16 10:53 74 30 28 08/11/16 10:00 76 18 153/86 100 Mechanical Ventilator 28 08/11/16 09:06 75 29 28 08/11/16 09:00 74 22 153/76 99 Mechanical Ventilator 28 08/11/16 08:00 73 08/11/16 08:00 99.9 74 24 122/53 100 Mechanical Ventilator 28 08/11/16 08:00 28 08/11/16 07:00 70 29 138/75 100 Mechanical Ventilator 28 08/11/16 06:59 69 31 28 08/11/16 06:00 67 30 126/69 100 Mechanical Ventilator 28 08/11/16 05:43 76 173/89 08/11/16 05:17 78 28 28 08/11/16 05:00 80 22 173/89 98 Mechanical Ventilator 28 08/11/16 04:00 28 08/11/16 04:00 97.9 74 34 164/79 99 Mechanical Ventilator 28 08/11/16 04:00 74 08/11/16 03:03 79 31 28 08/11/16 03:00 78 27 160/70 99 Mechanical Ventilator 28 08/11/16 02:00 83 20 145/87 96 Mechanical Ventilator 28 08/11/16 01:04 75 37 28 08/11/16 01:00 72 31 155/78 100 Mechanical Ventilator 28 08/11/16 00:00 28 08/11/16 00:00 98.1 73 32 153/76 98 Mechanical Ventilator 28 08/11/16 00:00 73 08/10/16 23:00 79 22 168/89 99 Mechanical Ventilator 28 08/10/16 22:53 88 27 28 08/10/16 22:00 77 19 145/67 99 Mechanical Ventilator 28 08/10/16 21:40 73 159/76 08/10/16 21:06 69 24 28 08/10/16 21:00 71 22 153/76 100 Mechanical Ventilator 28 08/10/16 20:00 71 08/10/16 20:00 98.8 71 21 130/73 97 Mechanical Ventilator 28 08/10/16 19:00 66 29 129/74 100 Mechanical Ventilator 28 08/10/16 18:57 64 30 28 08/10/16 18:00 28 08/10/16 18:00 73 26 158/74 96 Mechanical Ventilator 28 08/10/16 17:01 70 30 28 08/10/16 17:00 72 21 147/70 100 Mechanical Ventilator 28 08/10/16 16:00 72 08/10/16 16:00 98.5 74 26 148/71 100 Mechanical Ventilator 28 08/10/16 16:00 28 08/10/16 15:05 67 28 28 08/10/16 15:00 71 22 136/75 99 Mechanical Ventilator 28 08/10/16 14:27 69 146/72 08/10/16 14:00 67 27 146/72 95 Mechanical Ventilator 28 08/10/16 13:00 69 22 149/81 99 Mechanical Ventilator 28 08/10/16 12:52 69 28 08/10/16 12:05 28 08/10/16 12:00 68 08/10/16 12:00 28 08/10/16 12:00 98.6 69 20 151/73 99 Mechanical Ventilator 28 08/10/16 11:57 69 28 Intake and Output 08/10/16 08/11/16 19:00 07:00 Intake Total 2268.7 ml 1556.3 ml Output Total 1300 ml 1075 ml Balance 968.7 ml 481.3 ml Intake Free Water 50 ml IV Total 2028.7 ml 1236.3 ml Tube Feeding 240 ml 240 ml Other 30 ml Output Urine Total 1220 ml 1020 ml Drainage Total 80 ml 55 ml # Bowel Movements 3 4 Laboratory Tests 08/11/16 05:15: White Blood Count 7.2, Red Blood Count 3.43L, Hemoglobin 10.4L, Hematocrit 32.6L , Mean Corpuscular Volume 95, Mean Corpuscular Hemoglobin 30.3, Mean Corpuscular Hemoglobin Concent 31.9L, Red Cell Distribution Width 13.6, Platelet Count 216, Mean Platelet Volume 7.7, Neutrophils (%) (Auto) , Lymphocytes (%) (Auto) , Monocytes (%) (Auto) , Eosinophils (%) (Auto) , Basophils (%) (Auto) , Sodium Level 145, Potassium Level 3.6, Chloride Level 106 , Carbon Dioxide Level 28, Anion Gap 11, Blood Urea Nitrogen 20, Creatinine 0.6L , Estimat Glomerular Filtration Rate > 60, Glucose Level 150H, Uric Acid 4.6, Calcium Level 7.4L, Phosphorus Level 3.1, Magnesium Level 1.9, Total Bilirubin 0.3, Gamma Glutamyl Transpeptidase 68H, Aspartate Amino Transf (AST/SGOT) 39, Alanine Aminotransferase (ALT/SGPT) 11, Alkaline Phosphatase 99, C-Reactive Protein, Quantitative 5.4H, Pro-B-Type Natriuretic Peptide 984H, Total Protein 5.5L, Albumin 1.8L, Globulin 3.7, Albumin/Globulin Ratio 0.4L 08/11/16 09:15: Arterial Blood pH 7.417, Arterial Blood Partial Pressure CO2 45.9H, Arterial Blood Partial Pressure O2 101.1H, Arterial Blood HCO3 28.9H, Arterial Blood Oxygen Saturation 97.4, Arterial Blood Base Excess 3.8, Romero Test Positive Height (Feet): 5 Height (Inches): 9.00 Weight (Pounds): 187 General Appearance: no apparent distress Objective no other changes in PE AYDE SERNA Aug 11, 2016 11:48
--- NOTE | 2016-08-11 12:13 | General Progress Note ---
Progress Note Progress Note surgery: patient seen and examined at bedside. doing okay. awake and responsive following commands today. low grade fever. labs improved. +soft BMs Abdomen soft, mild distention, wound clean, dry, dressing with some drainage. drains with serous output. wean vent as tolerated advance feeds as tolerated (40cc/hr today) drain and wound care Luis Felipe Samuels Aug 11, 2016 12:13
--- NOTE | 2016-08-11 13:29 | GI Progress Note ---
Assessment/Plan Problems: (1) Hypoalbuminemia ICD Codes: E88.09 - Other disorders of plasma-protein metabolism, not elsewhere classified SNOMED: 780036238 (2) Anemia ICD Codes: D64.9 - Anemia, unspecified SNOMED: 719055280 (3) Pancreatitis ICD Codes: K85.90 - Acute pancreatitis without necrosis or infection, unspecified SNOMED: 68279039 Qualifiers: Qualified Codes: K85.80 - Other acute pancreatitis without necrosis or infection (4) Intra-abdominal abscess ICD Codes: K65.1 - Peritoneal abscess SNOMED: 94215610 (5) Ischemia, bowel ICD Codes: K55.9 - Vascular disorder of intestine, unspecified SNOMED: 77720158 Status: unchanged Status Narrative Discussed with Dr. Sheikh. Assessment/Plan s/p Exploratory laparotomy, drainage of abdominal abscess, lysis of adhesions, partial omentectomy and partial small-bowel resection. s/p Exploratory laparotomy, abdominal washout, abdominal closure cdiff negative pulm care DVT propylaxis on low dose NGTF and TPN fu labs fu surgery recs Subjective Subjective limited, opens eyes Objective Last 24 Hour Vital Signs Date Time Temp Pulse Resp B/P Pulse Ox O2 Delivery O2 Flow Rate FiO2 08/11/16 13:00 72 13 133/66 100 Mechanical Ventilator 28 08/11/16 12:53 80 30 28 08/11/16 12:00 98.0 76 18 156/71 100 Mechanical Ventilator 28 08/11/16 12:00 28 08/11/16 11:00 89 17 162/81 100 Mechanical Ventilator 28 08/11/16 10:53 74 30 28 08/11/16 10:00 76 18 153/86 100 Mechanical Ventilator 28 08/11/16 09:06 75 29 28 08/11/16 09:00 74 22 153/76 99 Mechanical Ventilator 28 08/11/16 08:00 73 08/11/16 08:00 99.9 74 24 122/53 100 Mechanical Ventilator 28 08/11/16 08:00 28 08/11/16 07:00 70 29 138/75 100 Mechanical Ventilator 28 08/11/16 06:59 69 31 28 08/11/16 06:00 67 30 126/69 100 Mechanical Ventilator 28 08/11/16 05:43 76 173/89 08/11/16 05:17 78 28 28 08/11/16 05:00 80 22 173/89 98 Mechanical Ventilator 28 08/11/16 04:00 28 08/11/16 04:00 97.9 74 34 164/79 99 Mechanical Ventilator 28 08/11/16 04:00 74 08/11/16 03:03 79 31 28 08/11/16 03:00 78 27 160/70 99 Mechanical Ventilator 28 08/11/16 02:00 83 20 145/87 96 Mechanical Ventilator 28 08/11/16 01:04 75 37 28 08/11/16 01:00 72 31 155/78 100 Mechanical Ventilator 28 08/11/16 00:00 28 08/11/16 00:00 98.1 73 32 153/76 98 Mechanical Ventilator 28 08/11/16 00:00 73 08/10/16 23:00 79 22 168/89 99 Mechanical Ventilator 28 08/10/16 22:53 88 27 28 08/10/16 22:00 77 19 145/67 99 Mechanical Ventilator 28 08/10/16 21:40 73 159/76 08/10/16 21:06 69 24 28 08/10/16 21:00 71 22 153/76 100 Mechanical Ventilator 28 08/10/16 20:00 71 08/10/16 20:00 98.8 71 21 130/73 97 Mechanical Ventilator 28 08/10/16 19:00 66 29 129/74 100 Mechanical Ventilator 28 08/10/16 18:57 64 30 28 08/10/16 18:00 28 08/10/16 18:00 73 26 158/74 96 Mechanical Ventilator 28 08/10/16 17:01 70 30 28 08/10/16 17:00 72 21 147/70 100 Mechanical Ventilator 28 08/10/16 16:00 72 08/10/16 16:00 98.5 74 26 148/71 100 Mechanical Ventilator 28 08/10/16 16:00 28 08/10/16 15:05 67 28 28 08/10/16 15:00 71 22 136/75 99 Mechanical Ventilator 28 08/10/16 14:27 69 146/72 08/10/16 14:00 67 27 146/72 95 Mechanical Ventilator 28 Intake and Output 08/10/16 08/11/16 19:00 07:00 Intake Total 2268.7 ml 1556.3 ml Output Total 1300 ml 1075 ml Balance 968.7 ml 481.3 ml Intake Free Water 50 ml IV Total 2028.7 ml 1236.3 ml Tube Feeding 240 ml 240 ml Other 30 ml Output Urine Total 1220 ml 1020 ml Drainage Total 80 ml 55 ml # Bowel Movements 3 4 Laboratory Tests Test 08/11/16 05:15 08/11/16 09:15 White Blood Count 7.2 K/UL (4.8-10.8) Red Blood Count 3.43 M/UL (4.70-6.10) L Hemoglobin 10.4 G/DL (14.2-18.0) L Hematocrit 32.6 % (42.0-52.0) L Mean Corpuscular Volume 95 FL (80-99) Mean Corpuscular Hemoglobin 30.3 PG (27.0-31.0) Mean Corpuscular Hemoglobin Concent 31.9 G/DL (32.0-36.0) L Red Cell Distribution Width 13.6 % (11.6-14.8) Platelet Count 216 K/UL (150-450) Mean Platelet Volume 7.7 FL (6.5-10.1) Neutrophils (%) (Auto) % (45.0-75.0) Lymphocytes (%) (Auto) % (20.0-45.0) Monocytes (%) (Auto) % (1.0-10.0) Eosinophils (%) (Auto) % (0.0-3.0) Basophils (%) (Auto) % (0.0-2.0) Sodium Level 145 mEQ/L (135-145) Potassium Level 3.6 mEQ/L (3.4-4.9) Chloride Level 106 mEQ/L (98-107) Carbon Dioxide Level 28 mEQ/L (20-30) Anion Gap 11 (5-15) Blood Urea Nitrogen 20 mg/dL (7-23) Creatinine 0.6 mg/dL (0.7-1.2) L Estimat Glomerular Filtration Rate > 60 mL/min (>60) Glucose Level 150 mg/dL (74-106) H Uric Acid 4.6 mg/dL (3.0-7.5) Calcium Level 7.4 mg/dL (8.6-10.2) L Phosphorus Level 3.1 mg/dL (2.5-4.8) Magnesium Level 1.9 mg/dL (1.7-2.5) Total Bilirubin 0.3 mg/dL (0.0-1.2) Gamma Glutamyl Transpeptidase 68 U/L (8-61) H Aspartate Amino Transf (AST/SGOT) 39 U/L (5-40) Alanine Aminotransferase (ALT/SGPT) 11 U/L (3-41) Alkaline Phosphatase 99 U/L (40-129) C-Reactive Protein, Quantitative 5.4 mg/dL (< 0.5) H Pro-B-Type Natriuretic Peptide 984 pg/mL (0-125) H Total Protein 5.5 g/dL (6.6-8.7) L Albumin 1.8 g/dL (3.5-5.2) L Globulin 3.7 g/dL Albumin/Globulin Ratio 0.4 (1.0-2.7) L Arterial Blood pH 7.417 (7.350-7.450) Arterial Blood Partial Pressure CO2 45.9 mmHg (35.0-45.0) H Arterial Blood Partial Pressure O2 101.1 mmHg (75.0-100.0) H Arterial Blood HCO3 28.9 mmol/L (22.0-26.0) H Arterial Blood Oxygen Saturation 97.4 % (92.0-98.0) Arterial Blood Base Excess 3.8 Romero Test Positive Height (Feet): 5 Height (Inches): 9.00 Weight (Pounds): 187 General Appearance: no apparent distress, alert Cardiovascular: normal rate Respiratory/Chest: normal breath sounds, no respiratory distress Abdominal Exam: normal bowel sounds, non tender, soft Genitourinary/Rectal: normal rectal exam Extremities: normal range of motion Lita Parsons N.P. Aug 11, 2016 13:29
[2016-08-11] MEDS ORDERED: NS 275ml ONE (17:38)
[2016-08-11] MEDS: Fat Emulsion Iv 20% 240 ML in Tpn 1,800 ML IV SCH (19:51)
--- NOTE | 2016-08-11 20:20 | Cardiology Progress Note ---
Assessment/Plan Problem List: (1) Paroxysmal atrial fibrillation with rapid ventricular response (2) HIV disease (3) Intra-abdominal abscess (4) Sepsis (5) Hernia, umbilical Status: stable, progressing Status Narrative Mr. Lr is s/p expl lap/ wound closure for dehiscence last week, and s/p partial sb resection, omentectomy prior to this He is stabilizing, extubated successfully today. WBC has decreased to normal and he is afebrile. AF has not recurred. Assessment/Plan Will change metoprolol to po (per NGT ) continue to monitor rhythm on telemetry. Cont sc heparin for dvt prophylaxis, but no a-c for PAF at this point. Management of intra-abd sepsis per primary team. Subjective ROS Limited/Unobtainable: No Subjective Extubated/ awake. No c/o pain Objective Last 24 Hour Vital Signs Date Time Temp Pulse Resp B/P Pulse Ox O2 Delivery O2 Flow Rate FiO2 08/11/16 19:00 76 23 122/57 100 Nasal Cannula 3.0 08/11/16 18:00 77 26 114/58 99 Nasal Cannula 3.0 08/11/16 17:00 69 26 114/58 99 Nasal Cannula 3.0 08/11/16 16:05 3.0 08/11/16 16:00 28 08/11/16 16:00 98.2 72 24 119/96 99 Nasal Cannula 3.0 08/11/16 16:00 72 08/11/16 15:37 98 Nasal Cannula 3.0 32 08/11/16 15:36 Nasal Cannula 3.0 32 08/11/16 15:34 Nasal Cannula 3.0 32 08/11/16 15:13 77 22 28 08/11/16 15:00 72 17 133/74 100 Mechanical Ventilator 28 08/11/16 14:05 72 139/71 08/11/16 14:00 71 25 139/71 100 Mechanical Ventilator 28 08/11/16 13:00 72 13 133/66 100 Mechanical Ventilator 08/11/16 12:53 80 30 28 08/11/16 12:00 98.0 76 18 156/71 100 Mechanical Ventilator 28 08/11/16 12:00 28 08/11/16 12:00 82 08/11/16 11:00 89 17 162/81 100 Mechanical Ventilator 28 08/11/16 10:53 74 30 28 08/11/16 10:00 76 18 153/86 100 Mechanical Ventilator 28 08/11/16 09:06 75 29 28 08/11/16 09:00 74 22 153/76 99 Mechanical Ventilator 28 08/11/16 08:00 73 08/11/16 08:00 99.9 74 24 122/53 100 Mechanical Ventilator 28 08/11/16 08:00 28 08/11/16 07:00 70 29 138/75 100 Mechanical Ventilator 28 08/11/16 06:59 69 31 28 08/11/16 06:00 67 30 126/69 100 Mechanical Ventilator 28 08/11/16 05:43 76 173/89 08/11/16 05:17 78 28 28 08/11/16 05:00 80 22 173/89 98 Mechanical Ventilator 28 08/11/16 04:00 28 08/11/16 04:00 97.9 74 34 164/79 99 Mechanical Ventilator 28 08/11/16 04:00 74 08/11/16 03:03 79 31 28 08/11/16 03:00 78 27 160/70 99 Mechanical Ventilator 28 08/11/16 02:00 83 20 145/87 96 Mechanical Ventilator 28 08/11/16 01:04 75 37 28 08/11/16 01:00 72 31 155/78 100 Mechanical Ventilator 28 08/11/16 00:00 28 08/11/16 00:00 98.1 73 32 153/76 98 Mechanical Ventilator 28 08/11/16 00:00 73 08/10/16 23:00 79 22 168/89 99 Mechanical Ventilator 28 08/10/16 22:53 88 27 28 08/10/16 22:00 77 19 145/67 99 Mechanical Ventilator 28 08/10/16 21:40 73 159/76 08/10/16 21:06 69 24 28 08/10/16 21:00 71 22 153/76 100 Mechanical Ventilator 28 General Appearance: WD/WN, no apparent distress, alert EENT: other - ng tube Neck: supple, no JVD Rhythm: NSR Cardiovascular: normal rate, regular rhythm, no gallop/murmur Respiratory/Chest: no respiratory distress, other - few lower field rhonchi Abdomen: hypoactive bowel sounds, distended, other - midline surg dressing - dry. abd soft, distended Extremities: no swelling Intake and Output 08/10/16 08/11/16 19:00 07:00 Intake Total 2268.7 ml 1641.3 ml Output Total 1300 ml 1075 ml Balance 968.7 ml 566.3 ml Intake Free Water 50 ml IV Total 2028.7 ml 1321.3 ml Tube Feeding 240 ml 240 ml Other 30 ml Output Urine Total 1220 ml 1020 ml Drainage Total 80 ml 55 ml # Bowel Movements 3 4 Laboratory Tests Test 08/11/16 05:15 08/11/16 09:15 White Blood Count 7.2 K/UL (4.8-10.8) Red Blood Count 3.43 M/UL (4.70-6.10) L Hemoglobin 10.4 G/DL (14.2-18.0) L Hematocrit 32.6 % (42.0-52.0) L Mean Corpuscular Volume 95 FL (80-99) Mean Corpuscular Hemoglobin 30.3 PG (27.0-31.0) Mean Corpuscular Hemoglobin Concent 31.9 G/DL (32.0-36.0) L Red Cell Distribution Width 13.6 % (11.6-14.8) Platelet Count 216 K/UL (150-450) Mean Platelet Volume 7.7 FL (6.5-10.1) Neutrophils (%) (Auto) % (45.0-75.0) Lymphocytes (%) (Auto) % (20.0-45.0) Monocytes (%) (Auto) % (1.0-10.0) Eosinophils (%) (Auto) % (0.0-3.0) Basophils (%) (Auto) % (0.0-2.0) Sodium Level 145 mEQ/L (135-145) Potassium Level 3.6 mEQ/L (3.4-4.9) Chloride Level 106 mEQ/L (98-107) Carbon Dioxide Level 28 mEQ/L (20-30) Anion Gap 11 (5-15) Blood Urea Nitrogen 20 mg/dL (7-23) Creatinine 0.6 mg/dL (0.7-1.2) L Estimat Glomerular Filtration Rate > 60 mL/min (>60) Glucose Level 150 mg/dL (74-106) H Uric Acid 4.6 mg/dL (3.0-7.5) Calcium Level 7.4 mg/dL (8.6-10.2) L Phosphorus Level 3.1 mg/dL (2.5-4.8) Magnesium Level 1.9 mg/dL (1.7-2.5) Total Bilirubin 0.3 mg/dL (0.0-1.2) Gamma Glutamyl Transpeptidase 68 U/L (8-61) H Aspartate Amino Transf (AST/SGOT) 39 U/L (5-40) Alanine Aminotransferase (ALT/SGPT) 11 U/L (3-41) Alkaline Phosphatase 99 U/L (40-129) C-Reactive Protein, Quantitative 5.4 mg/dL (< 0.5) H Pro-B-Type Natriuretic Peptide 984 pg/mL (0-125) H Total Protein 5.5 g/dL (6.6-8.7) L Albumin 1.8 g/dL (3.5-5.2) L Globulin 3.7 g/dL Albumin/Globulin Ratio 0.4 (1.0-2.7) L Arterial Blood pH 7.417 (7.350-7.450) Arterial Blood Partial Pressure CO2 45.9 mmHg (35.0-45.0) H Arterial Blood Partial Pressure O2 101.1 mmHg (75.0-100.0) H Arterial Blood HCO3 28.9 mmol/L (22.0-26.0) H Arterial Blood Oxygen Saturation 97.4 % (92.0-98.0) Arterial Blood Base Excess 3.8 Romero Test Positive Microbiology Date/Time Source Procedure Growth Status 08/09/16 12:55 Blood Blood Culture - Preliminary NO GROWTH AFTER 24 HOURS Resulted 08/09/16 12:45 Blood Blood Culture - Preliminary NO GROWTH AFTER 24 HOURS Resulted EYAD DONIS Aug 11, 2016 20:20
--- NOTE | 2016-08-11 20:43 | Infectious Diseases Prog Note ---
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 probable PICC infection - repeat BCx NGTD TTE(-) SBE HIV (reportedly the patient's undetectable viral load and CD4 count was 300). Leukocytosis , post op - resolved Fever - improved Acute VDRF SP - extubated 08/11 LUCY improved Bipolar disorder PCN, sulfa allergies - tolerating meropenem Full Code PLAN: continue Flagyl and vancomycin d# 11 / 14-21, meropenem d# 2 ( 08/10 SP aztreonam d# 10 ) if persistent fevers, will need repeat CT A/P f/u cultures Monitor CBC Monitor BMP. Monitor CXR Subjective Allergies: Coded Allergies: PENICILLINS (Verified Allergy, Intermediate, 07/30/16) SULFA (SULFONAMIDE ANTIBIOTICS) (Verified Allergy, Intermediate, ITCHING, 07/30/16) Subjective fevers resolved extubated Objective Vital Signs Last 24 Hour Vital Signs Date Time Temp Pulse Resp B/P Pulse Ox O2 Delivery O2 Flow Rate FiO2 08/11/16 20:00 80 08/11/16 20:00 98.8 80 32 131/57 100 Nasal Cannula 3.0 08/11/16 19:00 76 23 122/57 100 Nasal Cannula 3.0 08/11/16 18:00 77 26 114/58 99 Nasal Cannula 3.0 08/11/16 17:00 69 26 114/58 99 Nasal Cannula 3.0 08/11/16 16:05 3.0 08/11/16 16:00 28 08/11/16 16:00 98.2 72 24 119/96 99 Nasal Cannula 3.0 08/11/16 16:00 72 08/11/16 15:37 98 Nasal Cannula 3.0 32 08/11/16 15:36 Nasal Cannula 3.0 32 08/11/16 15:34 Nasal Cannula 3.0 32 08/11/16 15:13 77 22 28 08/11/16 15:00 72 17 133/74 100 Mechanical Ventilator 28 08/11/16 14:05 72 139/71 08/11/16 14:00 71 25 139/71 100 Mechanical Ventilator 28 08/11/16 13:00 72 13 133/66 100 Mechanical Ventilator 28 08/11/16 12:53 80 30 28 08/11/16 12:00 98.0 76 18 156/71 100 Mechanical Ventilator 28 08/11/16 12:00 28 08/11/16 12:00 82 08/11/16 11:00 89 17 162/81 100 Mechanical Ventilator 28 08/11/16 10:53 74 30 28 08/11/16 10:00 76 18 153/86 100 Mechanical Ventilator 28 08/11/16 09:06 75 29 28 08/11/16 09:00 74 22 153/76 99 Mechanical Ventilator 28 08/11/16 08:00 73 08/11/16 08:00 99.9 74 24 122/53 100 Mechanical Ventilator 28 08/11/16 08:00 28 08/11/16 07:00 70 29 138/75 100 Mechanical Ventilator 28 08/11/16 06:59 69 31 28 08/11/16 06:00 67 30 126/69 100 Mechanical Ventilator 28 08/11/16 05:43 76 173/89 08/11/16 05:17 78 28 28 08/11/16 05:00 80 22 173/89 98 Mechanical Ventilator 28 08/11/16 04:00 28 08/11/16 04:00 97.9 74 34 164/79 99 Mechanical Ventilator 28 08/11/16 04:00 74 08/11/16 03:03 79 31 28 08/11/16 03:00 78 27 160/70 99 Mechanical Ventilator 28 08/11/16 02:00 83 20 145/87 96 Mechanical Ventilator 28 08/11/16 01:04 75 37 28 08/11/16 01:00 72 31 155/78 100 Mechanical Ventilator 28 08/11/16 00:00 28 08/11/16 00:00 98.1 73 32 153/76 98 Mechanical Ventilator 28 08/11/16 00:00 73 08/10/16 23:00 79 22 168/89 99 Mechanical Ventilator 28 08/10/16 22:53 88 27 28 08/10/16 22:00 77 19 145/67 99 Mechanical Ventilator 28 08/10/16 21:40 73 159/76 08/10/16 21:06 69 24 28 08/10/16 21:00 71 22 153/76 100 Mechanical Ventilator 28 Height (Feet): 5 Height (Inches): 9.00 Weight (Pounds): 187 General Appearance: no acute distress Respiratory/Chest: decreased breath sounds Cardiovascular: normal rate, regular rhythm Abdomen: normal bowel sounds, soft, non tender, non distended Microbiology Date/Time Source Procedure Growth Status 08/09/16 12:55 Blood Blood Culture - Preliminary NO GROWTH AFTER 24 HOURS Resulted 08/09/16 12:45 Blood Blood Culture - Preliminary NO GROWTH AFTER 24 HOURS Resulted Laboratory Tests Test 08/11/16 05:15 08/11/16 09:15 White Blood Count 7.2 K/UL (4.8-10.8) Red Blood Count 3.43 M/UL (4.70-6.10) L Hemoglobin 10.4 G/DL (14.2-18.0) L Hematocrit 32.6 % (42.0-52.0) L Mean Corpuscular Volume 95 FL (80-99) Mean Corpuscular Hemoglobin 30.3 PG (27.0-31.0) Mean Corpuscular Hemoglobin Concent 31.9 G/DL (32.0-36.0) L Red Cell Distribution Width 13.6 % (11.6-14.8) Platelet Count 216 K/UL (150-450) Mean Platelet Volume 7.7 FL (6.5-10.1) Neutrophils (%) (Auto) % (45.0-75.0) Lymphocytes (%) (Auto) % (20.0-45.0) Monocytes (%) (Auto) % (1.0-10.0) Eosinophils (%) (Auto) % (0.0-3.0) Basophils (%) (Auto) % (0.0-2.0) Sodium Level 145 mEQ/L (135-145) Potassium Level 3.6 mEQ/L (3.4-4.9) Chloride Level 106 mEQ/L (98-107) Carbon Dioxide Level 28 mEQ/L (20-30) Anion Gap 11 (5-15) Blood Urea Nitrogen 20 mg/dL (7-23) Creatinine 0.6 mg/dL (0.7-1.2) L Estimat Glomerular Filtration Rate > 60 mL/min (>60) Glucose Level 150 mg/dL (74-106) H Uric Acid 4.6 mg/dL (3.0-7.5) Calcium Level 7.4 mg/dL (8.6-10.2) L Phosphorus Level 3.1 mg/dL (2.5-4.8) Magnesium Level 1.9 mg/dL (1.7-2.5) Total Bilirubin 0.3 mg/dL (0.0-1.2) Gamma Glutamyl Transpeptidase 68 U/L (8-61) H Aspartate Amino Transf (AST/SGOT) 39 U/L (5-40) Alanine Aminotransferase (ALT/SGPT) 11 U/L (3-41) Alkaline Phosphatase 99 U/L (40-129) C-Reactive Protein, Quantitative 5.4 mg/dL (< 0.5) H Pro-B-Type Natriuretic Peptide 984 pg/mL (0-125) H Total Protein 5.5 g/dL (6.6-8.7) L Albumin 1.8 g/dL (3.5-5.2) L Globulin 3.7 g/dL Albumin/Globulin Ratio 0.4 (1.0-2.7) L Arterial Blood pH 7.417 (7.350-7.450) Arterial Blood Partial Pressure CO2 45.9 mmHg (35.0-45.0) H Arterial Blood Partial Pressure O2 101.1 mmHg (75.0-100.0) H Arterial Blood HCO3 28.9 mmol/L (22.0-26.0) H Arterial Blood Oxygen Saturation 97.4 % (92.0-98.0) Arterial Blood Base Excess 3.8 Roemro Test Positive Current Medications Medications (Trade) Dose Ordered Sig/Ernie Route PRN Reason Start Time Stop Time Status Last Admin Dose Admin Acetaminophen 650 mg 650 mg Q6H PRN ORAL Mild Pain/Temp > 100.5 08/09/16 02:00 09/08/16 01:59 Chlorhexidine Gluconate (Mame-Hex 2%) 1 applic Q24H TOPIC 08/08/16 21:00 09/07/16 20:59 08/10/16 20:44 Dextrose (Dextrose 50%) STAT PRN IV Hypoglycemia 07/30/16 21:45 08/29/16 21:44 Famotidine (Pepcid I.v.) 20 mg Q12HR IVP 08/10/16 21:00 09/09/16 20:59 08/11/16 09:48 Fat Emulsion Intravenous/Amino Acids/ Electrolytes/ Dextrose (Intralipids/Tpn) 2,040 ml @ 85 mls/hr Q24H IV 08/10/16 21:00 09/09/16 20:59 08/11/16 19:51 Haloperidol Lactate/Dextrose (Haldol/D5W) 56 ml @ 224 mls/hr Q4H PRN IVPB Agitation 08/05/16 09:00 09/04/16 08:59 08/07/16 15:02 Heparin Sodium (Porcine) 5000 units 5,000 units EVERY 12 HOURS SUBQ 08/04/16 21:00 09/03/16 20:59 08/11/16 09:50 Insulin Aspart (NovoLOG) No Dose Q6HR SUBQ 08/08/16 18:00 09/07/16 17:59 08/11/16 18:03 Lorazepam (Ativan 2mg/ml 1ml) 2 mg EVERY 2 HOURS PRN IV For Anxiety 08/07/16 21:30 08/14/16 21:29 08/10/16 21:08 Meropenem 1 gm/ Sodium Chloride 110 ml @ 220 mls/hr Q8H IVPB 08/10/16 10:00 08/15/16 09:59 08/11/16 18:00 Metoprolol Tartrate (Lopressor) 12.5 mg Q12HR ORAL 08/11/16 21:00 09/10/16 20:59 Metronidazole 100 ml @ 100 mls/hr Q8HR IVPB 08/01/16 14:00 08/13/16 13:59 08/11/16 14:04 Morphine Sulfate (Morphine Sulfate) 2 mg EVERY 2 HOURS PRN IVP For Pain 08/07/16 21:30 08/14/16 21:29 08/10/16 23:30 Nitroglycerin (Ntg) 0.4 mg Q5M X 3 DOSES PRN SL Prn Chest Pain 07/30/16 21:45 08/29/16 21:44 Ondansetron HCl (Zofran) 4 mg Q6H PRN IVP Nausea & Vomiting 07/30/16 21:45 08/29/16 21:44 07/31/16 18:25 Phytonadione (Vitamin K) 10 mg Fr@2100 SUBQ 08/08/16 21:00 09/07/16 20:59 08/08/16 20:22 Promethazine HCl (Phenergan) 25 mg EVERY 8 HOURS PRN IV refractory nausea 07/30/16 21:45 08/29/16 21:44 Vancomycin HCl 1 ea 1 ea DAILY PRN MISC . 07/31/16 11:30 08/30/16 11:29 Vancomycin HCl/ Dextrose (Vancomycin/D5W) 275 ml @ 183.708 mls/hr Q12H IVPB 08/04/16 06:00 08/13/16 05:59 08/11/16 18:04 OBED ROSE Aug 11, 2016 20:43
[2016-08-11] MEDS: Metoprolol Tartrate 12.5mg TAB ORAL SCH (21:06)
[2016-08-11] MEDS: Dyna-Hex 2% Top Sol 8oz TOPIC SCH (21:06)
[2016-08-12] VITALS (16 sets, daily range): BP systolic 116–161; BP diastolic 51–86
[2016-08-12] MEDS: Meropenem 1 GM in NS 110 ML IVPB SCH ×4 (01:50→18:50)
[2016-08-12 05:08] LABS: BASOPHILS % (AUTO) 0.2 % (0.0-2.0); EOSINOPHILS % (AUTO) 0.4 % (0.0-3.0); LYMPHOCYTES % (AUTO) 9.8 % (20.0-45.0); MEAN CORPUSCULAR HEMOGLOBIN 30.3 PG (27.0-31.0); MEAN CORPUSCULAR HGB CONC 32.6 G/DL (32.0-36.0); MEAN CORPUSCULAR VOLUME 93 FL (80-99); MONOCYTES % (AUTO) 5.5 % (1.0-10.0); NEUTROPHILS % (AUTO) 84.1 % (45.0-75.0); PLATELET COUNT 257 K/UL (150-450); RED BLOOD COUNT 2.96 M/UL (4.70-6.10); RED CELL DISTRIBUTION WIDTH 13.5 % (11.6-14.8)
[2016-08-12 05:36] LABS: ALANINE AMINOTRANSFERASE 9 U/L (3-41); ALBUMIN/GLOBULIN RATIO 0.4 (1.0-2.7); ANION GAP 11 (5-15); ASPARTATE AMINO TRANSFERASE 31 U/L (5-40); CALCIUM 7.4 mg/dL (8.6-10.2); CARBON DIOXIDE 28 mEQ/L (20-30); CHLORIDE 106 mEQ/L (98-107); CREATININE 0.7 mg/dL (0.7-1.2); GLOMERULAR FILTRATION RATE > 60 mL/min (>60); HEMOLYSIS 1; MAGNESIUM 1.7 mg/dL (1.7-2.5); PHOSPHORUS 1.8 mg/dL (2.5-4.8); POTASSIUM 2.9 mEQ/L (3.4-4.9); SODIUM 145 mEQ/L (135-145); TOTAL PROTEIN 4.7 g/dL (6.6-8.7)
[2016-08-12] MEDS: Vancomycin 1250mg in D5W 275ml IVPB SCH (05:36)
[2016-08-12] MEDS: metroNIDAZOLE 500mg 100 ML IVPB SCH ×3 (05:36→21:51)
[2016-08-12] MEDS: Insulin NovoLOG Flexpen S/S (insulin sensitive) SUBQ SCH ×2 (05:51→12:05)
--- NOTE | 2016-08-12 07:55 | General Surgery Progress Note ---
General Surgery-Progress Note Subjective Procedure Performed self extubated last night, pulled NG out this am. Comfortable, hungry Symptoms: improved Objective Last 24 Hour Vital Signs Date Time Temp Pulse Resp B/P Pulse Ox O2 Delivery O2 Flow Rate FiO2 08/12/16 06:00 77 29 130/56 95 Nasal Cannula 3.0 08/12/16 05:00 79 29 127/51 94 Nasal Cannula 3.0 08/12/16 04:00 97.7 76 29 129/61 95 Nasal Cannula 3.0 08/12/16 04:00 76 08/12/16 03:00 73 37 124/51 95 Nasal Cannula 3.0 08/12/16 02:00 73 36 130/53 96 Nasal Cannula 3.0 08/12/16 01:00 72 37 119/57 98 Nasal Cannula 3.0 08/12/16 00:00 73 08/12/16 00:00 98.7 73 29 116/57 96 Nasal Cannula 3.0 08/11/16 23:00 73 34 124/50 96 Nasal Cannula 3.0 08/11/16 22:00 73 26 121/61 98 Nasal Cannula 3.0 08/11/16 21:06 79 128/55 08/11/16 21:00 78 31 128/55 96 Nasal Cannula 3.0 08/11/16 20:00 80 08/11/16 20:00 98.8 80 32 131/57 100 Nasal Cannula 3.0 08/11/16 19:30 Nasal Cannula 3.0 32 08/11/16 19:30 98 Nasal Cannula 3.0 32 08/11/16 19:00 76 23 122/57 100 Nasal Cannula 3.0 08/11/16 18:00 77 26 114/58 99 Nasal Cannula 3.0 08/11/16 17:00 69 26 114/58 99 Nasal Cannula 3.0 08/11/16 16:05 3.0 08/11/16 16:00 28 08/11/16 16:00 98.2 72 24 119/96 99 Nasal Cannula 3.0 08/11/16 16:00 72 08/11/16 15:37 98 Nasal Cannula 3.0 32 08/11/16 15:36 Nasal Cannula 3.0 32 08/11/16 15:34 Nasal Cannula 3.0 32 08/11/16 15:13 77 22 28 08/11/16 15:00 72 17 133/74 100 Mechanical Ventilator 28 08/11/16 14:05 72 139/71 08/11/16 14:00 71 25 139/71 100 Mechanical Ventilator 28 08/11/16 13:00 72 13 133/66 100 Mechanical Ventilator 28 08/11/16 12:53 80 30 28 08/11/16 12:00 98.0 76 18 156/71 100 Mechanical Ventilator 28 08/11/16 12:00 28 08/11/16 12:00 82 08/11/16 11:00 89 17 162/81 100 Mechanical Ventilator 28 08/11/16 10:53 74 30 28 08/11/16 10:00 76 18 153/86 100 Mechanical Ventilator 28 08/11/16 09:06 75 29 28 08/11/16 09:00 74 22 153/76 99 Mechanical Ventilator 28 08/11/16 08:00 73 08/11/16 08:00 99.9 74 24 122/53 100 Mechanical Ventilator 28 08/11/16 08:00 28 I&O Intake and Output 08/11/16 08/12/16 19:00 07:00 Intake Total 1680 ml 1490 ml Output Total 1090 ml 985 ml Balance 590 ml 505 ml Intake Free Water 100 ml IV Total 1340 ml 1145 ml Tube Feeding 230 ml 345 ml Other 10 ml Output Urine Total 995 ml 920 ml Drainage Total 95 ml 65 ml # Bowel Movements 4 5 Dressing: dry, other Wound: clean, intact - slight erythema, but no colton infection. Drains: cade - serosangiunous drainage, mild Cardiovascular: RSR Respiratory: clear, decreased breath sounds Abdomen: soft, flat Extremities: no edema Laboratory Tests Test 08/11/16 09:15 08/12/16 04:00 Arterial Blood pH 7.417 (7.350-7.450) Arterial Blood Partial Pressure CO2 45.9 mmHg (35.0-45.0) H Arterial Blood Partial Pressure O2 101.1 mmHg (75.0-100.0) H Arterial Blood HCO3 28.9 mmol/L (22.0-26.0) H Arterial Blood Oxygen Saturation 97.4 % (92.0-98.0) Arterial Blood Base Excess 3.8 Romero Test Positive White Blood Count 6.0 K/UL (4.8-10.8) Red Blood Count 2.96 M/UL (4.70-6.10) L Hemoglobin 9.0 G/DL (14.2-18.0) L Hematocrit 27.6 % (42.0-52.0) L Mean Corpuscular Volume 93 FL (80-99) Mean Corpuscular Hemoglobin 30.3 PG (27.0-31.0) Mean Corpuscular Hemoglobin Concent 32.6 G/DL (32.0-36.0) Red Cell Distribution Width 13.5 % (11.6-14.8) Platelet Count 257 K/UL (150-450) Mean Platelet Volume 8.0 FL (6.5-10.1) Neutrophils (%) (Auto) 84.1 % (45.0-75.0) H Lymphocytes (%) (Auto) 9.8 % (20.0-45.0) L Monocytes (%) (Auto) 5.5 % (1.0-10.0) Eosinophils (%) (Auto) 0.4 % (0.0-3.0) Basophils (%) (Auto) 0.2 % (0.0-2.0) Sodium Level 145 mEQ/L (135-145) Potassium Level 2.9 mEQ/L (3.4-4.9) L Chloride Level 106 mEQ/L (98-107) Carbon Dioxide Level 28 mEQ/L (20-30) Anion Gap 11 (5-15) Blood Urea Nitrogen 21 mg/dL (7-23) Creatinine 0.7 mg/dL (0.7-1.2) Estimat Glomerular Filtration Rate > 60 mL/min (>60) Glucose Level 155 mg/dL (74-106) H Calcium Level 7.4 mg/dL (8.6-10.2) L Phosphorus Level 1.8 mg/dL (2.5-4.8) L Magnesium Level 1.7 mg/dL (1.7-2.5) Total Bilirubin 0.3 mg/dL (0.0-1.2) Aspartate Amino Transf (AST/SGOT) 31 U/L (5-40) Alanine Aminotransferase (ALT/SGPT) 9 U/L (3-41) Alkaline Phosphatase 110 U/L (40-129) Total Protein 4.7 g/dL (6.6-8.7) L Albumin 1.5 g/dL (3.5-5.2) L Globulin 3.2 g/dL Albumin/Globulin Ratio 0.4 (1.0-2.7) L Additional Comments Stable s/p expl. lap for abscess, post minimally invasive surgery, postop dehiscence, now better. Assessment Additional Comments Stable, self extubated, diarrhea, cause undetermined. ( C Diff??) Surgically stable. GI function returning Plan Additional Comments BREANN gibbons RICARDO Aug 12, 2016 07:55
[2016-08-12] MEDS: Metoprolol Tartrate 12.5mg TAB ORAL SCH (08:28)
[2016-08-12] MEDS: Heparin 5000 units/ml inj SUBQ SCH ×2 (08:30→21:34)
--- NOTE | 2016-08-12 09:08 | General Progress Note ---
Assessment/Plan Status: stable Status Narrative Low K and Phos- Has diarrhea- Still on TPN Assessment/Plan Status: Acute renal failure and Oliguria due to - low BP , post OP- Amikacin and VancoMycin- Ongoing sepsis RESOLVED Respiratory failure, on Vent intraabdominal abscess, small bowel obstruction, intraabdominal adhesions, small bowel perforation. Plan; On TPN - Phos & K supplement- Post Op care- monitor renal parameters- Per ID- Weaning as possible- Avoid nephrotoxics Per orders Subjective ROS Limited/Unobtainable: No Constitutional: Reports: malaise, other - self extubated Allergies: Coded Allergies: PENICILLINS (Verified Allergy, Intermediate, 07/30/16) SULFA (SULFONAMIDE ANTIBIOTICS) (Verified Allergy, Intermediate, ITCHING, 07/30/16) Objective Last 24 Hour Vital Signs Date Time Temp Pulse Resp B/P Pulse Ox O2 Delivery O2 Flow Rate FiO2 08/12/16 08:28 78 145/64 08/12/16 08:00 78 08/12/16 08:00 98.9 78 25 145/64 99 Nasal Cannula 3.0 08/12/16 07:08 96 Nasal Cannula 3.0 32 08/12/16 07:08 Nasal Cannula 3.0 32 08/12/16 07:00 76 30 135/60 99 Nasal Cannula 3.0 08/12/16 06:00 77 29 130/56 95 Nasal Cannula 3.0 08/12/16 05:00 79 29 127/51 94 Nasal Cannula 3.0 08/12/16 04:00 97.7 76 29 129/61 95 Nasal Cannula 3.0 08/12/16 04:00 76 08/12/16 03:00 73 37 124/51 95 Nasal Cannula 3.0 08/12/16 02:00 73 36 130/53 96 Nasal Cannula 3.0 08/12/16 01:00 72 37 119/57 98 Nasal Cannula 3.0 08/12/16 00:00 73 08/12/16 00:00 98.7 73 29 116/57 96 Nasal Cannula 3.0 08/11/16 23:00 73 34 124/50 96 Nasal Cannula 3.0 08/11/16 22:00 73 26 121/61 98 Nasal Cannula 3.0 08/11/16 21:06 79 128/55 08/11/16 21:00 78 31 128/55 96 Nasal Cannula 3.0 08/11/16 20:00 80 08/11/16 20:00 98.8 80 32 131/57 100 Nasal Cannula 3.0 08/11/16 19:30 Nasal Cannula 3.0 32 08/11/16 19:30 98 Nasal Cannula 3.0 32 08/11/16 19:00 76 23 122/57 100 Nasal Cannula 3.0 08/11/16 18:00 77 26 114/58 99 Nasal Cannula 3.0 08/11/16 17:00 69 26 114/58 99 Nasal Cannula 3.0 08/11/16 16:05 3.0 08/11/16 16:00 28 08/11/16 16:00 98.2 72 24 119/96 99 Nasal Cannula 3.0 08/11/16 16:00 72 08/11/16 15:37 98 Nasal Cannula 3.0 32 08/11/16 15:36 Nasal Cannula 3.0 32 08/11/16 15:34 Nasal Cannula 3.0 32 08/11/16 15:13 77 22 28 08/11/16 15:00 72 17 133/74 100 Mechanical Ventilator 28 08/11/16 14:05 72 139/71 08/11/16 14:00 71 25 139/71 100 Mechanical Ventilator 28 08/11/16 13:00 72 13 133/66 100 Mechanical Ventilator 28 08/11/16 12:53 80 30 28 08/11/16 12:00 98.0 76 18 156/71 100 Mechanical Ventilator 28 08/11/16 12:00 28 08/11/16 12:00 82 08/11/16 11:00 89 17 162/81 100 Mechanical Ventilator 28 08/11/16 10:53 74 30 28 08/11/16 10:00 76 18 153/86 100 Mechanical Ventilator 28 Intake and Output 08/11/16 08/12/16 19:00 07:00 Intake Total 1680 ml 1810 ml Output Total 1090 ml 1065 ml Balance 590 ml 745 ml Free Water 100 ml IV Total 1340 ml 1430 ml Tube Feeding 230 ml 380 ml Other 10 ml Output Urine Total 995 ml 1000 ml Drainage Total 95 ml 65 ml # Bowel Movements 4 5 Laboratory Tests 08/11/16 09:15: Arterial Blood pH 7.417, Arterial Blood Partial Pressure CO2 45.9H, Arterial Blood Partial Pressure O2 101.1H, Arterial Blood HCO3 28.9H, Arterial Blood Oxygen Saturation 97.4, Arterial Blood Base Excess 3.8, Romero Test Positive 08/12/16 04:00: White Blood Count 6.0, Red Blood Count 2.96L, Hemoglobin 9.0L, Hematocrit 27.6L , Mean Corpuscular Volume 93, Mean Corpuscular Hemoglobin 30.3, Mean Corpuscular Hemoglobin Concent 32.6, Red Cell Distribution Width 13.5, Platelet Count 257, Mean Platelet Volume 8.0, Neutrophils (%) (Auto) 84.1H, Lymphocytes ( %) (Auto) 9.8L, Monocytes (%) (Auto) 5.5, Eosinophils (%) (Auto) 0.4, Basophils (%) (Auto) 0.2, Sodium Level 145, Potassium Level 2.9L, Chloride Level 106, Carbon Dioxide Level 28, Anion Gap 11, Blood Urea Nitrogen 21, Creatinine 0.7, Estimat Glomerular Filtration Rate > 60, Glucose Level 155H, Calcium Level 7.4L , Phosphorus Level 1.8L, Magnesium Level 1.7, Total Bilirubin 0.3, Aspartate Amino Transf (AST/SGOT) 31, Alanine Aminotransferase (ALT/SGPT) 9, Alkaline Phosphatase 110, Total Protein 4.7L, Albumin 1.5L, Globulin 3.2, Albumin/ Globulin Ratio 0.4L Height (Feet): 5 Height (Inches): 9.00 Weight (Pounds): 188 General Appearance: no apparent distress EENT: other - now extubated Objective no other changes in PE AYDE SERNA Aug 12, 2016 09:08
[2016-08-12] MEDS: Famotidine 20 MG/ 2ML VIAL IVP SCH ×2 (09:24→21:48)
[2016-08-12 09:29] LABS: ABG PCO2 35.2 mmHg (35.0-45.0)
--- NOTE | 2016-08-12 09:42 | Pulmonolgy Critical Care Note ---
Critical Care - Asmt/Plan Problems: (1) Acute respiratory failure (2) Anemia (3) ATN (acute tubular necrosis) (4) Sepsis (5) Wound dehiscence (6) Intra-abdominal abscess (7) HIV disease Respiratory: monitor respiratory rate, adjust FIO2, CXR Cardiac: continue to monitor HR/BP Renal: F/U I&O, keep IV fluid Infectious Disease: check cultures Gastrointestinal: continue feedings/current rate Endocrine: continue sliding scale insulin Hematologic: transfuse if hgb<8.5 Neurologic: PRN Ativan, PRN Morphine, keep patient comfortable Affect: PRN ativan Prophylaxis: Protonix, Heparin Time Spent (Minutes): 40 Notes Reviewed: renal Discussed with: nurses, consultants, immigration case workerinternational marketing manager - Objective Last 24 Hour Vital Signs Date Time Temp Pulse Resp B/P Pulse Ox O2 Delivery O2 Flow Rate FiO2 08/12/16 09:00 72 30 148/67 98 Nasal Cannula 3.0 08/12/16 08:28 78 145/64 08/12/16 08:00 78 08/12/16 08:00 98.9 78 25 145/64 99 Nasal Cannula 3.0 08/12/16 07:08 96 Nasal Cannula 3.0 32 08/12/16 07:08 Nasal Cannula 3.0 32 08/12/16 07:00 76 30 135/60 99 Nasal Cannula 3.0 08/12/16 06:00 77 29 130/56 95 Nasal Cannula 3.0 08/12/16 05:00 79 29 127/51 94 Nasal Cannula 3.0 08/12/16 04:00 97.7 76 29 129/61 95 Nasal Cannula 3.0 08/12/16 04:00 76 08/12/16 03:00 73 37 124/51 95 Nasal Cannula 3.0 08/12/16 02:00 73 36 130/53 96 Nasal Cannula 3.0 08/12/16 01:00 72 37 119/57 98 Nasal Cannula 3.0 08/12/16 00:00 73 08/12/16 00:00 98.7 73 29 116/57 96 Nasal Cannula 3.0 08/11/16 23:00 73 34 124/50 96 Nasal Cannula 3.0 08/11/16 22:00 73 26 121/61 98 Nasal Cannula 3.0 08/11/16 21:06 79 128/55 08/11/16 21:00 78 31 128/55 96 Nasal Cannula 3.0 08/11/16 20:00 80 08/11/16 20:00 98.8 80 32 131/57 100 Nasal Cannula 3.0 08/11/16 19:30 Nasal Cannula 3.0 32 08/11/16 19:30 98 Nasal Cannula 3.0 32 08/11/16 19:00 76 23 122/57 100 Nasal Cannula 3.0 08/11/16 18:00 77 26 114/58 99 Nasal Cannula 3.0 08/11/16 17:00 69 26 114/58 99 Nasal Cannula 3.0 08/11/16 16:05 3.0 08/11/16 16:00 28 08/11/16 16:00 98.2 72 24 119/96 99 Nasal Cannula 3.0 08/11/16 16:00 72 08/11/16 15:37 98 Nasal Cannula 3.0 32 08/11/16 15:36 Nasal Cannula 3.0 32 08/11/16 15:34 Nasal Cannula 3.0 32 08/11/16 15:13 77 22 28 08/11/16 15:00 72 17 133/74 100 Mechanical Ventilator 28 08/11/16 14:05 72 139/71 08/11/16 14:00 71 25 139/71 100 Mechanical Ventilator 28 08/11/16 13:00 72 13 133/66 100 Mechanical Ventilator 28 08/11/16 12:53 80 30 28 08/11/16 12:00 98.0 76 18 156/71 100 Mechanical Ventilator 28 08/11/16 12:00 28 08/11/16 12:00 82 08/11/16 11:00 89 17 162/81 100 Mechanical Ventilator 28 08/11/16 10:53 74 30 28 08/11/16 10:00 76 18 153/86 100 Mechanical Ventilator 28 Status: awake Condition: improving HEENT: atraumatic Neck: full ROM Lungs: clear Heart: HR/BP stable, HR/BP unstable, regular Abdomen: soft, active bowel sounds, feeding tube Extremities: edema Decubiti: location Micro: Microbiology Date/Time Source Procedure Growth Status 08/10/16 09:40 Blood Blood Culture - Preliminary NO GROWTH AFTER 24 HOURS Resulted 08/10/16 09:30 Blood Blood Culture - Preliminary NO GROWTH AFTER 24 HOURS Resulted 08/09/16 12:55 Blood Blood Culture - Preliminary NO GROWTH AFTER 48 HOURS Resulted 08/09/16 12:45 Blood Blood Culture - Preliminary NO GROWTH AFTER 48 HOURS Resulted Accucheck: 151 Critical Care - Subjective ROS Limited/Unobtainable: No ICU Day: 14 Intubation Day: self extubated Condition: critical, improving EKG Rhythm: Sinus Rhythm FI02: 32 Vent Support Breath Rate: 10 Vent Support Mode: AC Vent Tidal Volume: 500 Sputum Amount: Moderate PEEP: 5.0 PIP: 21 Fluids: tpn Tube Feeding Amount: 35 I&O: Intake and Output 08/11/16 08/12/16 19:00 07:00 Intake Total 1680 ml 1810 ml Output Total 1090 ml 1065 ml Balance 590 ml 745 ml Free Water 100 ml IV Total 1340 ml 1430 ml Tube Feeding 230 ml 380 ml Other 10 ml Output Urine Total 995 ml 1000 ml Drainage Total 95 ml 65 ml # Bowel Movements 4 5 CXR: no acute infiltrate ET-Tube: 7.5 ET Position: 26 Labs: Laboratory Tests Test 08/12/16 04:00 08/12/16 09:18 White Blood Count 6.0 K/UL (4.8-10.8) Red Blood Count 2.96 M/UL (4.70-6.10) L Hemoglobin 9.0 G/DL (14.2-18.0) L Hematocrit 27.6 % (42.0-52.0) L Mean Corpuscular Volume 93 FL (80-99) Mean Corpuscular Hemoglobin 30.3 PG (27.0-31.0) Mean Corpuscular Hemoglobin Concent 32.6 G/DL (32.0-36.0) Red Cell Distribution Width 13.5 % (11.6-14.8) Platelet Count 257 K/UL (150-450) Mean Platelet Volume 8.0 FL (6.5-10.1) Neutrophils (%) (Auto) 84.1 % (45.0-75.0) H Lymphocytes (%) (Auto) 9.8 % (20.0-45.0) L Monocytes (%) (Auto) 5.5 % (1.0-10.0) Eosinophils (%) (Auto) 0.4 % (0.0-3.0) Basophils (%) (Auto) 0.2 % (0.0-2.0) Sodium Level 145 mEQ/L (135-145) Potassium Level 2.9 mEQ/L (3.4-4.9) L Chloride Level 106 mEQ/L (98-107) Carbon Dioxide Level 28 mEQ/L (20-30) Anion Gap 11 (5-15) Blood Urea Nitrogen 21 mg/dL (7-23) Creatinine 0.7 mg/dL (0.7-1.2) Estimat Glomerular Filtration Rate > 60 mL/min (>60) Glucose Level 155 mg/dL (74-106) H Calcium Level 7.4 mg/dL (8.6-10.2) L Phosphorus Level 1.8 mg/dL (2.5-4.8) L Magnesium Level 1.7 mg/dL (1.7-2.5) Total Bilirubin 0.3 mg/dL (0.0-1.2) Aspartate Amino Transf (AST/SGOT) 31 U/L (5-40) Alanine Aminotransferase (ALT/SGPT) 9 U/L (3-41) Alkaline Phosphatase 110 U/L (40-129) Total Protein 4.7 g/dL (6.6-8.7) L Albumin 1.5 g/dL (3.5-5.2) L Globulin 3.2 g/dL Albumin/Globulin Ratio 0.4 (1.0-2.7) L Arterial Blood pH 7.550 (7.350-7.450) Arterial Blood Partial Pressure CO2 35.2 mmHg (35.0-45.0) Arterial Blood Partial Pressure O2 77.0 mmHg (75.0-100.0) Arterial Blood HCO3 30.0 mmol/L (22.0-26.0) H Arterial Blood Oxygen Saturation 95.0 % (92.0-98.0) Arterial Blood Base Excess 7.0 CHAS Malave Aug 12, 2016 09:42
--- NOTE | 2016-08-12 11:02 | Diagnostic Imaging Report ---
Indications: DYSPNEA Technique: Portable AP chest Findings: Comparison: 08/11/16 Endotracheal and nasogastric tubes have been removed. PICC remains in place. Inspiratory effort has decreased. Size of cardiac silhouette has apparently increased. Pulmonary vascular redistribution, bilateral interstitial infiltrates have developed. Linear densities persist in right lung base, increased. Right costophrenic angle mildly blunted; left sharp. IMPRESSION: Development of bilateral congestive changes Persistent subsegmental atelectasis right lung base Nasogastric and endotracheal extubation
[2016-08-12] MEDS ORDERED: acetaZOLAMIDE 500mg Inj IVP SCH (12:00)
[2016-08-12] MEDS ORDERED: Sodium Phosphate 30 MM in NS 275 ML IVPB ONE (12:00)
[2016-08-12] MEDS ORDERED: Nitroglycerin Subl 0.4mg tab (Bottle Of 25) SL PRN (13:15)
[2016-08-12] MEDS ORDERED: Morphine Sulfate 2mg/ml Inj IVP PRN (14:00)
[2016-08-12] MEDS ORDERED: LORazepam Inj 2mg/ml 1ml IV PRN (14:00)
[2016-08-12] MEDS ORDERED: Tubing IV Secondary IV ONE (15:30)
[2016-08-12] MEDS ORDERED: NS 275ml ONE (15:30)
--- NOTE | 2016-08-12 15:55 | GI Progress Note ---
Assessment/Plan Problems: (1) Hypoalbuminemia ICD Codes: E88.09 - Other disorders of plasma-protein metabolism, not elsewhere classified SNOMED: 429852823 (2) Anemia ICD Codes: D64.9 - Anemia, unspecified SNOMED: 327788235 (3) Pancreatitis ICD Codes: K85.90 - Acute pancreatitis without necrosis or infection, unspecified SNOMED: 09861303 Qualifiers: Qualified Codes: K85.80 - Other acute pancreatitis without necrosis or infection (4) Intra-abdominal abscess ICD Codes: K65.1 - Peritoneal abscess SNOMED: 07095921 (5) Ischemia, bowel ICD Codes: K55.9 - Vascular disorder of intestine, unspecified SNOMED: 86219197 Status: stable Status Narrative Discussed with Dr. Sheikh. Assessment/Plan s/p Exploratory laparotomy, drainage of abdominal abscess, lysis of adhesions, partial omentectomy and partial small-bowel resection. s/p Exploratory laparotomy, abdominal washout, abdominal closure cdiff negative self extubated Imodium prn DVT prophylaxis CLD + TPN cont H2B fu labs fu surgery recs Subjective Subjective limited, more awake now denies any symptoms Objective Last 24 Hour Vital Signs Date Time Temp Pulse Resp B/P Pulse Ox O2 Delivery O2 Flow Rate FiO2 08/12/16 13:00 98.2 75 20 161/86 96 Nasal Cannula 3.0 08/12/16 12:00 72 08/12/16 12:00 98.5 72 30 123/60 97 Nasal Cannula 3.0 08/12/16 11:00 74 22 140/63 99 Nasal Cannula 3.0 08/12/16 10:00 71 28 146/70 99 Nasal Cannula 3.0 08/12/16 09:00 72 30 148/67 98 Nasal Cannula 3.0 08/12/16 08:28 78 145/64 08/12/16 08:00 78 08/12/16 08:00 98.9 78 25 145/64 99 Nasal Cannula 3.0 08/12/16 07:08 96 Nasal Cannula 3.0 32 08/12/16 07:08 Nasal Cannula 3.0 32 08/12/16 07:00 76 30 135/60 99 Nasal Cannula 3.0 08/12/16 06:00 77 29 130/56 95 Nasal Cannula 3.0 08/12/16 05:00 79 29 127/51 94 Nasal Cannula 3.0 08/12/16 04:00 97.7 76 29 129/61 95 Nasal Cannula 3.0 08/12/16 04:00 76 08/12/16 03:00 73 37 124/51 95 Nasal Cannula 3.0 08/12/16 02:00 73 36 130/53 96 Nasal Cannula 3.0 08/12/16 01:00 72 37 119/57 98 Nasal Cannula 3.0 08/12/16 00:00 73 08/12/16 00:00 98.7 73 29 116/57 96 Nasal Cannula 3.0 08/11/16 23:00 73 34 124/50 96 Nasal Cannula 3.0 08/11/16 22:00 73 26 121/61 98 Nasal Cannula 3.0 08/11/16 21:06 79 128/55 08/11/16 21:00 78 31 128/55 96 Nasal Cannula 3.0 08/11/16 20:00 80 08/11/16 20:00 98.8 80 32 131/57 100 Nasal Cannula 3.0 08/11/16 19:30 Nasal Cannula 3.0 32 08/11/16 19:30 98 Nasal Cannula 3.0 32 08/11/16 19:00 76 23 122/57 100 Nasal Cannula 3.0 08/11/16 18:00 77 26 114/58 99 Nasal Cannula 3.0 08/11/16 17:00 69 26 114/58 99 Nasal Cannula 3.0 08/11/16 16:05 3.0 08/11/16 16:00 28 08/11/16 16:00 98.2 72 24 119/96 99 Nasal Cannula 3.0 08/11/16 16:00 72 Intake and Output 08/11/16 08/12/16 19:00 07:00 Intake Total 1680 ml 1810 ml Output Total 1090 ml 1065 ml Balance 590 ml 745 ml Free Water 100 ml IV Total 1340 ml 1430 ml Tube Feeding 230 ml 380 ml Other 10 ml Output Urine Total 995 ml 1000 ml Drainage Total 95 ml 65 ml # Bowel Movements 4 5 Laboratory Tests Test 08/12/16 04:00 08/12/16 09:18 White Blood Count 6.0 K/UL (4.8-10.8) Red Blood Count 2.96 M/UL (4.70-6.10) L Hemoglobin 9.0 G/DL (14.2-18.0) L Hematocrit 27.6 % (42.0-52.0) L Mean Corpuscular Volume 93 FL (80-99) Mean Corpuscular Hemoglobin 30.3 PG (27.0-31.0) Mean Corpuscular Hemoglobin Concent 32.6 G/DL (32.0-36.0) Red Cell Distribution Width 13.5 % (11.6-14.8) Platelet Count 257 K/UL (150-450) Mean Platelet Volume 8.0 FL (6.5-10.1) Neutrophils (%) (Auto) 84.1 % (45.0-75.0) H Lymphocytes (%) (Auto) 9.8 % (20.0-45.0) L Monocytes (%) (Auto) 5.5 % (1.0-10.0) Eosinophils (%) (Auto) 0.4 % (0.0-3.0) Basophils (%) (Auto) 0.2 % (0.0-2.0) Sodium Level 145 mEQ/L (135-145) Potassium Level 2.9 mEQ/L (3.4-4.9) L Chloride Level 106 mEQ/L (98-107) Carbon Dioxide Level 28 mEQ/L (20-30) Anion Gap 11 (5-15) Blood Urea Nitrogen 21 mg/dL (7-23) Creatinine 0.7 mg/dL (0.7-1.2) Estimat Glomerular Filtration Rate > 60 mL/min (>60) Glucose Level 155 mg/dL (74-106) H Calcium Level 7.4 mg/dL (8.6-10.2) L Phosphorus Level 1.8 mg/dL (2.5-4.8) L Magnesium Level 1.7 mg/dL (1.7-2.5) Total Bilirubin 0.3 mg/dL (0.0-1.2) Aspartate Amino Transf (AST/SGOT) 31 U/L (5-40) Alanine Aminotransferase (ALT/SGPT) 9 U/L (3-41) Alkaline Phosphatase 110 U/L (40-129) Total Protein 4.7 g/dL (6.6-8.7) L Albumin 1.5 g/dL (3.5-5.2) L Globulin 3.2 g/dL Albumin/Globulin Ratio 0.4 (1.0-2.7) L Arterial Blood pH 7.550 (7.350-7.450) Arterial Blood Partial Pressure CO2 35.2 mmHg (35.0-45.0) Arterial Blood Partial Pressure O2 77.0 mmHg (75.0-100.0) Arterial Blood HCO3 30.0 mmol/L (22.0-26.0) H Arterial Blood Oxygen Saturation 95.0 % (92.0-98.0) Arterial Blood Base Excess 7.0 Romero Test Height (Feet): 5 Height (Inches): 9.00 Weight (Pounds): 188 General Appearance: no apparent distress, alert Cardiovascular: normal rate Respiratory/Chest: normal breath sounds, no respiratory distress Abdominal Exam: normal bowel sounds, non tender, soft Extremities: normal range of motion Lita Parsons N.P. Aug 12, 2016 15:55
[2016-08-12] MEDS ORDERED: Loperamide 2mg cap ORAL PRN (16:00)
[2016-08-12] MEDS: Vancomycin 1.25 GM in D5W 275 ML IVPB SCH (16:42)
[2016-08-12] MEDS ORDERED: Haloperidol Lactate 5 MG in D5W 55 ML IVPB PRN (17:00)
[2016-08-12] MEDS: NovoLOG Insulin Flexpen SUBQ SCH ×2 (17:37→23:57)
--- NOTE | 2016-08-12 19:34 | Infectious Diseases Prog Note ---
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 probable PICC infection - repeat BCx NGTD TTE(-) SBE HIV (reportedly the patient's undetectable viral load and CD4 count was 300). Negative C.difficile 08/11 Leukocytosis , post op - resolved Fever - improved Acute VDRF SP - self-extubated 08/11 LUCY improved Bipolar disorder PCN, sulfa allergies - tolerating meropenem Full Code PLAN: continue Flagyl and vancomycin d# 12 / 14-21, meropenem d# 3 ( 08/10 SP aztreonam d# 10 ) if persistent fevers, will need repeat CT A/P f/u cultures Monitor CBC Monitor BMP. Monitor CXR Subjective Allergies: Coded Allergies: PENICILLINS (Verified Allergy, Intermediate, 07/30/16) SULFA (SULFONAMIDE ANTIBIOTICS) (Verified Allergy, Intermediate, ITCHING, 07/30/16) Subjective remains afebrile transferred to [facility] Objective Vital Signs Last 24 Hour Vital Signs Date Time Temp Pulse Resp B/P Pulse Ox O2 Delivery O2 Flow Rate FiO2 08/12/16 16:00 74 08/12/16 16:00 99.3 74 20 155/80 97 Nasal Cannula 3.0 08/12/16 13:00 73 08/12/16 13:00 98.2 75 20 161/86 96 Nasal Cannula 3.0 08/12/16 12:00 72 08/12/16 12:00 98.5 72 30 123/60 97 Nasal Cannula 3.0 08/12/16 11:00 74 22 140/63 99 Nasal Cannula 3.0 08/12/16 10:00 71 28 146/70 99 Nasal Cannula 3.0 08/12/16 09:00 72 30 148/67 98 Nasal Cannula 3.0 08/12/16 08:28 78 145/64 08/12/16 08:00 78 08/12/16 08:00 98.9 78 25 145/64 99 Nasal Cannula 3.0 08/12/16 07:08 96 Nasal Cannula 3.0 32 08/12/16 07:08 Nasal Cannula 3.0 32 08/12/16 07:00 76 30 135/60 99 Nasal Cannula 3.0 08/12/16 06:00 77 29 130/56 95 Nasal Cannula 3.0 08/12/16 05:00 79 29 127/51 94 Nasal Cannula 3.0 08/12/16 04:00 97.7 76 29 129/61 95 Nasal Cannula 3.0 08/12/16 04:00 76 08/12/16 03:00 73 37 124/51 95 Nasal Cannula 3.0 08/12/16 02:00 73 36 130/53 96 Nasal Cannula 3.0 08/12/16 01:00 72 37 119/57 98 Nasal Cannula 3.0 08/12/16 00:00 73 08/12/16 00:00 98.7 73 29 116/57 96 Nasal Cannula 3.0 08/11/16 23:00 73 34 124/50 96 Nasal Cannula 3.0 08/11/16 22:00 73 26 121/61 98 Nasal Cannula 3.0 08/11/16 21:06 79 128/55 08/11/16 21:00 78 31 128/55 96 Nasal Cannula 3.0 08/11/16 20:00 80 08/11/16 20:00 98.8 80 32 131/57 100 Nasal Cannula 3.0 Height (Feet): 5 Height (Inches): 9.00 Weight (Pounds): 188 General Appearance: no acute distress Respiratory/Chest: no respiratory distress Cardiovascular: normal rate, regular rhythm Abdomen: normal bowel sounds, soft, non tender, non distended Microbiology Date/Time Source Procedure Growth Status 08/10/16 09:40 Blood Blood Culture - Preliminary NO GROWTH AFTER 24 HOURS Resulted 08/10/16 09:30 Blood Blood Culture - Preliminary NO GROWTH AFTER 24 HOURS Resulted 08/11/16 05:00 Stool Clostridium difficile Toxin Assay - Final Complete Laboratory Tests Test 08/12/16 04:00 08/12/16 09:18 White Blood Count 6.0 K/UL (4.8-10.8) Red Blood Count 2.96 M/UL (4.70-6.10) L Hemoglobin 9.0 G/DL (14.2-18.0) L Hematocrit 27.6 % (42.0-52.0) L Mean Corpuscular Volume 93 FL (80-99) Mean Corpuscular Hemoglobin 30.3 PG (27.0-31.0) Mean Corpuscular Hemoglobin Concent 32.6 G/DL (32.0-36.0) Red Cell Distribution Width 13.5 % (11.6-14.8) Platelet Count 257 K/UL (150-450) Mean Platelet Volume 8.0 FL (6.5-10.1) Neutrophils (%) (Auto) 84.1 % (45.0-75.0) H Lymphocytes (%) (Auto) 9.8 % (20.0-45.0) L Monocytes (%) (Auto) 5.5 % (1.0-10.0) Eosinophils (%) (Auto) 0.4 % (0.0-3.0) Basophils (%) (Auto) 0.2 % (0.0-2.0) Sodium Level 145 mEQ/L (135-145) Potassium Level 2.9 mEQ/L (3.4-4.9) L Chloride Level 106 mEQ/L (98-107) Carbon Dioxide Level 28 mEQ/L (20-30) Anion Gap 11 (5-15) Blood Urea Nitrogen 21 mg/dL (7-23) Creatinine 0.7 mg/dL (0.7-1.2) Estimat Glomerular Filtration Rate > 60 mL/min (>60) Glucose Level 155 mg/dL (74-106) H Calcium Level 7.4 mg/dL (8.6-10.2) L Phosphorus Level 1.8 mg/dL (2.5-4.8) L Magnesium Level 1.7 mg/dL (1.7-2.5) Total Bilirubin 0.3 mg/dL (0.0-1.2) Aspartate Amino Transf (AST/SGOT) 31 U/L (5-40) Alanine Aminotransferase (ALT/SGPT) 9 U/L (3-41) Alkaline Phosphatase 110 U/L (40-129) Total Protein 4.7 g/dL (6.6-8.7) L Albumin 1.5 g/dL (3.5-5.2) L Globulin 3.2 g/dL Albumin/Globulin Ratio 0.4 (1.0-2.7) L Arterial Blood pH 7.550 (7.350-7.450) Arterial Blood Partial Pressure CO2 35.2 mmHg (35.0-45.0) Arterial Blood Partial Pressure O2 77.0 mmHg (75.0-100.0) Arterial Blood HCO3 30.0 mmol/L (22.0-26.0) H Arterial Blood Oxygen Saturation 95.0 % (92.0-98.0) Arterial Blood Base Excess 7.0 Romero Test Current Medications Medications (Trade) Dose Ordered Sig/Ernie Route PRN Reason Start Time Stop Time Status Last Admin Dose Admin Acetaminophen (Tylenol) 650 mg Q6H PRN ORAL Mild Pain/Temp > 100.5 08/12/16 14:00 09/11/16 13:59 Acetazolamide (Diamox 500mg Inj) 250 mg EVERY 12 HOURS IVP 08/12/16 21:00 09/11/16 20:59 Chlorhexidine Gluconate (Mame-Hex 2%) 1 applic Q24H TOPIC 08/12/16 21:00 09/11/16 20:59 Dextrose (Dextrose 50%) STAT PRN IV Hypoglycemia 08/12/16 21:45 09/11/16 21:44 Famotidine (Pepcid I.v.) 20 mg Q12HR IVP 08/12/16 21:00 09/11/16 20:59 Fat Emulsion Intravenous 240 ml/Amino Acids/ Electrolytes/ Dextrose 2,040 ml @ 85 mls/hr Q24H IV 08/10/16 21:00 08/12/16 20:59 08/11/16 19:51 Fat Emulsion Intravenous 240 ml/Amino Acids/ Electrolytes/ Dextrose 2,040 ml @ 85 mls/hr Q24H IV 08/12/16 21:00 09/11/16 20:59 Haloperidol Lactate 5 mg/ Dextrose 56 ml @ 224 mls/hr Q4H PRN IVPB Agitation 08/12/16 17:00 09/11/16 16:59 Heparin Sodium (Porcine) (Heparin 5000 units/ml) 5,000 units EVERY 12 HOURS SUBQ 08/12/16 21:00 09/11/16 20:59 Insulin Aspart (NovoLOG) No Dose Q6HR SUBQ 08/12/16 18:00 09/11/16 17:59 08/12/16 17:37 Loperamide HCl (Imodium) 2 mg Q4H PRN ORAL Diarrhea 08/12/16 16:00 09/11/16 15:59 Lorazepam (Ativan 2mg/ml 1ml) 2 mg EVERY 2 HOURS PRN IV For Anxiety 08/12/16 14:00 08/19/16 13:59 Meropenem 1 gm/ Sodium Chloride 110 ml @ 220 mls/hr Q8H IVPB 08/12/16 18:00 08/17/16 17:59 08/12/16 18:00 Metoprolol Tartrate (Lopressor) 12.5 mg Q12HR ORAL 08/12/16 21:00 09/11/16 20:59 Metronidazole 100 ml @ 100 mls/hr Q8HR IVPB 08/12/16 14:00 08/19/16 13:59 08/12/16 15:23 Morphine Sulfate (Morphine Sulfate) 2 mg EVERY 2 HOURS PRN IVP For Pain 08/12/16 14:00 08/19/16 13:59 Nitroglycerin (Ntg) 0.4 mg Q5M X 3 DOSES PRN SL Prn Chest Pain 08/12/16 13:15 09/11/16 13:14 Ondansetron HCl (Zofran) 4 mg Q6H PRN IVP Nausea & Vomiting 08/12/16 15:45 09/11/16 15:44 Phytonadione (Vitamin K) 10 mg Fr@2100 SUBQ 08/15/16 21:00 09/14/16 20:59 Promethazine HCl (Phenergan) 25 mg EVERY 8 HOURS PRN IV refractory nausea 08/12/16 14:00 09/11/16 13:59 Vancomycin HCl (Vanco rx to dose) 1 ea DAILY PRN MISC . 08/13/16 09:00 09/12/16 08:59 Vancomycin HCl/ Dextrose (Vancomycin/D5W) 275 ml @ 183.708 mls/hr Q12HR@0400,1600 IVPB 08/12/16 16:00 08/17/16 15:59 08/12/16 16:42 OBED ROSE Aug 12, 2016 19:34
--- NOTE | 2016-08-12 20:16 | Cardiology Progress Note ---
Assessment/Plan Problem List: (1) Paroxysmal atrial fibrillation with rapid ventricular response (2) HIV disease (3) Intra-abdominal abscess (4) Sepsis (5) Hernia, umbilical (6) Hypertension Status: stable, progressing Status Narrative Mr. Lr is s/p expl lap/ wound closure for dehiscence last week, and expl lap , s/p partial sb resection, omentectomy prior to this. Initiating po diet. cardiac status is stable. There have been no recurrences of AF. BP is elevated Assessment/Plan will increase metoprolol to 25 mg bid for BP control Continue sc heparin for dvt prevention. Management of intra abd sepsis per surgery, GI Subjective ROS Limited/Unobtainable: No Subjective Pt transferred out of ICU. No c/o abdominal pain, nausea Objective Last 24 Hour Vital Signs Date Time Temp Pulse Resp B/P Pulse Ox O2 Delivery O2 Flow Rate FiO2 08/12/16 16:00 74 08/12/16 16:00 99.3 74 20 155/80 97 Nasal Cannula 3.0 08/12/16 13:00 73 08/12/16 13:00 98.2 75 20 161/86 96 Nasal Cannula 3.0 08/12/16 12:00 72 08/12/16 12:00 98.5 72 30 123/60 97 Nasal Cannula 3.0 08/12/16 11:00 74 22 140/63 99 Nasal Cannula 3.0 08/12/16 10:00 71 28 146/70 99 Nasal Cannula 3.0 08/12/16 09:00 72 30 148/67 98 Nasal Cannula 3.0 08/12/16 08:28 78 145/64 08/12/16 08:00 78 08/12/16 08:00 98.9 78 25 145/64 99 Nasal Cannula 3.0 08/12/16 07:08 96 Nasal Cannula 3.0 32 08/12/16 07:08 Nasal Cannula 3.0 32 08/12/16 07:00 76 30 135/60 99 Nasal Cannula 3.0 08/12/16 06:00 77 29 130/56 95 Nasal Cannula 3.0 08/12/16 05:00 79 29 127/51 94 Nasal Cannula 3.0 08/12/16 04:00 97.7 76 29 129/61 95 Nasal Cannula 3.0 08/12/16 04:00 76 08/12/16 03:00 73 37 124/51 95 Nasal Cannula 3.0 08/12/16 02:00 73 36 130/53 96 Nasal Cannula 3.0 08/12/16 01:00 72 37 119/57 98 Nasal Cannula 3.0 08/12/16 00:00 73 08/12/16 00:00 98.7 73 29 116/57 96 Nasal Cannula 3.0 08/11/16 23:00 73 34 124/50 96 Nasal Cannula 3.0 08/11/16 22:00 73 26 121/61 98 Nasal Cannula 3.0 08/11/16 21:06 79 128/55 08/11/16 21:00 78 31 128/55 96 Nasal Cannula 3.0 General Appearance: WD/WN, no apparent distress, alert EENT: PERRL/EOMI Neck: supple, no JVD Rhythm: NSR Cardiovascular: normal rate, regular rhythm, systolic murmur - i/vi SIDNEY along LSB Respiratory/Chest: lungs clear Abdomen: soft, distended, other - abd dressing dry, midline. 2 LEX drains R w/ appx 5-10 cc and L w/ 20cc serosang fluid Extremities: non-tender, no swelling, other - scd s in place Intake and Output 08/11/16 08/12/16 19:00 07:00 Intake Total 1680 ml 1810 ml Output Total 1090 ml 1065 ml Balance 590 ml 745 ml Free Water 100 ml IV Total 1340 ml 1430 ml Tube Feeding 230 ml 380 ml Other 10 ml Output Urine Total 995 ml 1000 ml Drainage Total 95 ml 65 ml # Bowel Movements 4 5 Laboratory Tests Test 08/12/16 04:00 08/12/16 09:18 White Blood Count 6.0 K/UL (4.8-10.8) Red Blood Count 2.96 M/UL (4.70-6.10) L Hemoglobin 9.0 G/DL (14.2-18.0) L Hematocrit 27.6 % (42.0-52.0) L Mean Corpuscular Volume 93 FL (80-99) Mean Corpuscular Hemoglobin 30.3 PG (27.0-31.0) Mean Corpuscular Hemoglobin Concent 32.6 G/DL (32.0-36.0) Red Cell Distribution Width 13.5 % (11.6-14.8) Platelet Count 257 K/UL (150-450) Mean Platelet Volume 8.0 FL (6.5-10.1) Neutrophils (%) (Auto) 84.1 % (45.0-75.0) H Lymphocytes (%) (Auto) 9.8 % (20.0-45.0) L Monocytes (%) (Auto) 5.5 % (1.0-10.0) Eosinophils (%) (Auto) 0.4 % (0.0-3.0) Basophils (%) (Auto) 0.2 % (0.0-2.0) Sodium Level 145 mEQ/L (135-145) Potassium Level 2.9 mEQ/L (3.4-4.9) L Chloride Level 106 mEQ/L (98-107) Carbon Dioxide Level 28 mEQ/L (20-30) Anion Gap 11 (5-15) Blood Urea Nitrogen 21 mg/dL (7-23) Creatinine 0.7 mg/dL (0.7-1.2) Estimat Glomerular Filtration Rate > 60 mL/min (>60) Glucose Level 155 mg/dL (74-106) H Calcium Level 7.4 mg/dL (8.6-10.2) L Phosphorus Level 1.8 mg/dL (2.5-4.8) L Magnesium Level 1.7 mg/dL (1.7-2.5) Total Bilirubin 0.3 mg/dL (0.0-1.2) Aspartate Amino Transf (AST/SGOT) 31 U/L (5-40) Alanine Aminotransferase (ALT/SGPT) 9 U/L (3-41) Alkaline Phosphatase 110 U/L (40-129) Total Protein 4.7 g/dL (6.6-8.7) L Albumin 1.5 g/dL (3.5-5.2) L Globulin 3.2 g/dL Albumin/Globulin Ratio 0.4 (1.0-2.7) L Arterial Blood pH 7.550 (7.350-7.450) Arterial Blood Partial Pressure CO2 35.2 mmHg (35.0-45.0) Arterial Blood Partial Pressure O2 77.0 mmHg (75.0-100.0) Arterial Blood HCO3 30.0 mmol/L (22.0-26.0) H Arterial Blood Oxygen Saturation 95.0 % (92.0-98.0) Arterial Blood Base Excess 7.0 Romero Test Microbiology Date/Time Source Procedure Growth Status 08/10/16 09:40 Blood Blood Culture - Preliminary NO GROWTH AFTER 24 HOURS Resulted 08/10/16 09:30 Blood Blood Culture - Preliminary NO GROWTH AFTER 24 HOURS Resulted 08/11/16 05:00 Stool Clostridium difficile Toxin Assay - Final Complete EYAD DONIS Aug 12, 2016 20:16
[2016-08-12] MEDS ORDERED: Metoprolol Tartrate 12.5mg TAB ORAL SCH (21:00)
[2016-08-12] MEDS ORDERED: Fat Emulsion Iv 20% 240 ML in Tpn 1,800 ML IV SCH ×6 (21:00)
[2016-08-12] MEDS: Metoprolol 25mg tab ORAL SCH (21:41)
[2016-08-12] MEDS: acetaZOLAMIDE 500mg Inj IVP SCH (21:44)
[2016-08-12] MEDS: Dyna-Hex 2% Top Sol 8oz TOPIC SCH (21:52)
[2016-08-13] MEDS: Meropenem 1 GM in NS 110 ML IVPB SCH ×3 (01:31→17:47)
[2016-08-13] MEDS: Vancomycin 1.25 GM in D5W 275 ML IVPB SCH (04:02)
[2016-08-13] MEDS: metroNIDAZOLE 500mg 100 ML IVPB SCH (05:33)
[2016-08-13] MEDS: NovoLOG Insulin Flexpen SUBQ SCH ×4 (05:44→22:14)
[2016-08-13 05:53] LABS: BASOPHILS % (AUTO) 0.6 % (0.0-2.0); EOSINOPHILS % (AUTO) 0.2 % (0.0-3.0); LYMPHOCYTES % (AUTO) 9.6 % (20.0-45.0); MEAN CORPUSCULAR HEMOGLOBIN 30.5 PG (27.0-31.0); MEAN CORPUSCULAR HGB CONC 32.5 G/DL (32.0-36.0); MEAN CORPUSCULAR VOLUME 94 FL (80-99); MEAN PLATELET VOLUME 7.1 FL (6.5-10.1); MONOCYTES % (AUTO) 5.2 % (1.0-10.0); NEUTROPHILS % (AUTO) 84.4 % (45.0-75.0); PLATELET COUNT 257 K/UL (150-450); RED BLOOD COUNT 2.98 M/UL (4.70-6.10); RED CELL DISTRIBUTION WIDTH 13.6 % (11.6-14.8); WHITE BLOOD COUNT 6.4 K/UL (4.8-10.8)
[2016-08-13 06:15] LABS: ALANINE AMINOTRANSFERASE 12 U/L (3-41); ALBUMIN/GLOBULIN RATIO 0.3 (1.0-2.7); ANION GAP 16 (5-15); ASPARTATE AMINO TRANSFERASE 43 U/L (5-40); CARBON DIOXIDE 20 mEQ/L (20-30); CHLORIDE 107 mEQ/L (98-107); CREATININE 0.7 mg/dL (0.7-1.2); CRP QUANT 6.3 mg/dL (< 0.5); GLOMERULAR FILTRATION RATE > 60 mL/min (>60); HEMOLYSIS 55; MAGNESIUM 1.9 mg/dL (1.7-2.5); PHOSPHORUS 3.2 mg/dL (2.5-4.8); POTASSIUM 3.4 mEQ/L (3.4-4.9); SODIUM 143 mEQ/L (135-145); TOTAL PROTEIN 5.4 g/dL (6.6-8.7); URIC ACID 5.1 mg/dL (3.0-7.5)
[2016-08-13] MEDS: Heparin 5000 units/ml inj SUBQ SCH ×2 (08:24→21:59)
[2016-08-13] MEDS: Metoprolol 25mg tab ORAL SCH ×2 (08:25→21:58)
[2016-08-13] MEDS: Famotidine 20 MG/ 2ML VIAL IVP SCH ×2 (08:52→22:00)
[2016-08-13] MEDS: acetaZOLAMIDE 500mg Inj IVP SCH ×2 (09:17→22:00)
--- NOTE | 2016-08-13 09:39 | General Progress Note ---
Progress Note Progress Note Surgery: patient seen and examined at bedside. no acute events. continues to improve daily. tolerating diet. has not been out of bed yet. no n/v/f/c. Abdomen soft, incisional tenderness, drains with serous output decreasing, wound clean with mild oozing and some erythema around gely. no signs of active infection -Advance diet as tolerated -Physical therapy -out of bed and in chair and ambulatory -incentive spirometry -d/c campbell -d/c tpn Luis Felipe Samuels Aug 13, 2016 09:39
--- NOTE | 2016-08-13 11:15 | Infectious Diseases Prog Note ---
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 probable PICC infection - repeat BCx NGTD TTE(-) SBE HIV (reportedly the patient's undetectable viral load and CD4 count was 300). Negative C.difficile 08/11 Leukocytosis , post op - resolved Fever - improved Acute VDRF SP - self-extubated 08/11 LUCY improved Bipolar disorder PCN, sulfa allergies - tolerating meropenem Full Code PLAN: continue meropenem d# 4 / and upon DC will change to Invnanz to complete the courses, DC Flagyl and vancomycin d# 14 / ( 08/10 SP aztreonam d# 10 ) f/u cultures Monitor CBC Monitor BMP. Monitor CXR Subjective Constitutional: Denies: anorexia, chills, drenching sweats, fatigue, fever, no symptoms, other Allergies: Coded Allergies: PENICILLINS (Verified Allergy, Intermediate, 07/30/16) SULFA (SULFONAMIDE ANTIBIOTICS) (Verified Allergy, Intermediate, ITCHING, 07/30/16) Subjective on vent , WBC improving , Objective Vital Signs Last 24 Hour Vital Signs Date Time Temp Pulse Resp B/P Pulse Ox O2 Delivery O2 Flow Rate FiO2 08/13/16 08:25 66 152/85 08/13/16 07:57 Nasal Cannula 3.0 32 08/13/16 07:56 97 Nasal Cannula 3.0 32 08/13/16 07:51 66 08/13/16 04:46 67 08/13/16 00:00 61 08/12/16 21:41 75 134/64 08/12/16 20:56 99.0 70 20 134/64 97 Nasal Cannula 3.0 08/12/16 20:00 68 08/12/16 16:00 74 08/12/16 16:00 99.3 74 20 155/80 97 Nasal Cannula 3.0 08/12/16 13:00 73 08/12/16 13:00 98.2 75 20 161/86 96 Nasal Cannula 3.0 08/12/16 12:00 72 08/12/16 12:00 98.5 72 30 123/60 97 Nasal Cannula 3.0 Height (Feet): 5 Height (Inches): 9.00 Weight (Pounds): 183 HEENT: anicteric Cardiovascular: regular rhythm Abdomen: non distended Microbiology Date/Time Source Procedure Growth Status 08/11/16 05:00 Stool Clostridium difficile Toxin Assay - Final Complete Laboratory Tests Test 08/13/16 03:45 White Blood Count 6.4 K/UL (4.8-10.8) Red Blood Count 2.98 M/UL (4.70-6.10) L Hemoglobin 9.1 G/DL (14.2-18.0) L Hematocrit 28.0 % (42.0-52.0) L Mean Corpuscular Volume 94 FL (80-99) Mean Corpuscular Hemoglobin 30.5 PG (27.0-31.0) Mean Corpuscular Hemoglobin Concent 32.5 G/DL (32.0-36.0) Red Cell Distribution Width 13.6 % (11.6-14.8) Platelet Count 257 K/UL (150-450) Mean Platelet Volume 7.1 FL (6.5-10.1) Neutrophils (%) (Auto) 84.4 % (45.0-75.0) H Lymphocytes (%) (Auto) 9.6 % (20.0-45.0) L Monocytes (%) (Auto) 5.2 % (1.0-10.0) Eosinophils (%) (Auto) 0.2 % (0.0-3.0) Basophils (%) (Auto) 0.6 % (0.0-2.0) Sodium Level 143 mEQ/L (135-145) Potassium Level 3.4 mEQ/L (3.4-4.9) Chloride Level 107 mEQ/L (98-107) Carbon Dioxide Level 20 mEQ/L (20-30) Anion Gap 16 (5-15) H Blood Urea Nitrogen 18 mg/dL (7-23) Creatinine 0.7 mg/dL (0.7-1.2) Estimat Glomerular Filtration Rate > 60 mL/min (>60) Glucose Level 106 mg/dL (74-106) Uric Acid 5.1 mg/dL (3.0-7.5) Calcium Level 8.0 mg/dL (8.6-10.2) L Phosphorus Level 3.2 mg/dL (2.5-4.8) Magnesium Level 1.9 mg/dL (1.7-2.5) Total Bilirubin 0.3 mg/dL (0.0-1.2) Aspartate Amino Transf (AST/SGOT) 43 U/L (5-40) H Alanine Aminotransferase (ALT/SGPT) 12 U/L (3-41) Alkaline Phosphatase 99 U/L (40-129) C-Reactive Protein, Quantitative 6.3 mg/dL (< 0.5) H Pro-B-Type Natriuretic Peptide 1984 pg/mL (0-125) H Total Protein 5.4 g/dL (6.6-8.7) L Albumin 1.5 g/dL (3.5-5.2) L Globulin 3.9 g/dL Albumin/Globulin Ratio 0.3 (1.0-2.7) L Current Medications Medications (Trade) Dose Ordered Sig/Ernie Route PRN Reason Start Time Stop Time Status Last Admin Dose Admin Acetaminophen (Tylenol) 650 mg Q6H PRN ORAL Mild Pain/Temp > 100.5 08/12/16 14:00 09/11/16 13:59 08/13/16 09:07 Acetazolamide (Diamox 500mg Inj) 250 mg EVERY 12 HOURS IVP 08/12/16 21:00 09/11/16 20:59 08/13/16 09:17 Chlorhexidine Gluconate (Mame-Hex 2%) 1 applic Q24H TOPIC 08/12/16 21:00 09/11/16 20:59 08/12/16 21:52 Dextrose (Dextrose 50%) STAT PRN IV Hypoglycemia 08/12/16 21:45 09/11/16 21:44 Famotidine (Pepcid I.v.) 20 mg Q12HR IVP 08/12/16 21:00 09/11/16 20:59 08/13/16 08:52 Fat Emulsion Intravenous 240 ml/Amino Acids/ Electrolytes/ Dextrose 2,040 ml @ 85 mls/hr Q24H IV 08/12/16 21:00 08/13/16 14:30 08/12/16 21:33 Haloperidol Lactate 5 mg/ Dextrose 56 ml @ 224 mls/hr Q4H PRN IVPB Agitation 08/12/16 17:00 09/11/16 16:59 Heparin Sodium (Porcine) (Heparin 5000 units/ml) 5,000 units EVERY 12 HOURS SUBQ 08/12/16 21:00 09/11/16 20:59 08/13/16 08:24 Insulin Aspart (NovoLOG) No Dose Q6HR SUBQ 08/12/16 18:00 09/11/16 17:59 08/13/16 05:44 Loperamide HCl (Imodium) 2 mg Q4H PRN ORAL Diarrhea 08/12/16 16:00 09/11/16 15:59 08/13/16 04:02 Lorazepam (Ativan 2mg/ml 1ml) 2 mg EVERY 2 HOURS PRN IV For Anxiety 08/12/16 14:00 08/19/16 13:59 Meropenem 1 gm/ Sodium Chloride 110 ml @ 220 mls/hr Q8H IVPB 08/12/16 18:00 08/17/16 17:59 08/13/16 08:59 Metoprolol Tartrate (Lopressor) 25 mg Q12HR ORAL 08/12/16 21:00 09/11/16 20:59 08/13/16 08:25 Metronidazole 100 ml @ 100 mls/hr Q8HR IVPB 08/12/16 14:00 08/19/16 13:59 08/13/16 05:33 Morphine Sulfate (Morphine Sulfate) 2 mg EVERY 2 HOURS PRN IVP For Pain 08/12/16 14:00 08/19/16 13:59 Nitroglycerin (Ntg) 0.4 mg Q5M X 3 DOSES PRN SL Prn Chest Pain 08/12/16 13:15 09/11/16 13:14 Ondansetron HCl (Zofran) 4 mg Q6H PRN IVP Nausea & Vomiting 08/12/16 15:45 09/11/16 15:44 Phytonadione (Vitamin K) 10 mg Fr@2100 SUBQ 08/15/16 21:00 09/14/16 20:59 Promethazine HCl (Phenergan) 25 mg EVERY 8 HOURS PRN IV refractory nausea 08/12/16 14:00 09/11/16 13:59 Vancomycin HCl (Vanco rx to dose) 1 ea DAILY PRN MISC . 08/13/16 09:00 09/12/16 08:59 Vancomycin HCl/ Dextrose (Vancomycin/D5W) 275 ml @ 183.708 mls/hr Q12HR@0400,1600 IVPB 08/12/16 16:00 08/17/16 15:59 08/13/16 04:02 SANTANA HAGER M.D. Aug 13, 2016 11:15
--- NOTE | 2016-08-13 11:50 | GI Progress Note ---
Assessment/Plan Problems: (1) Hypoalbuminemia ICD Codes: E88.09 - Other disorders of plasma-protein metabolism, not elsewhere classified SNOMED: 637678548 (2) Anemia ICD Codes: D64.9 - Anemia, unspecified SNOMED: 406842156 (3) Pancreatitis ICD Codes: K85.90 - Acute pancreatitis without necrosis or infection, unspecified SNOMED: 44301126 Qualifiers: Qualified Codes: K85.80 - Other acute pancreatitis without necrosis or infection (4) Intra-abdominal abscess ICD Codes: K65.1 - Peritoneal abscess SNOMED: 42354801 (5) Ischemia, bowel ICD Codes: K55.9 - Vascular disorder of intestine, unspecified SNOMED: 66679658 Status: unchanged Status Narrative Discussed with Dr. Sheikh. Assessment/Plan s/p Exploratory laparotomy, drainage of abdominal abscess, lysis of adhesions, partial omentectomy and partial small-bowel resection. s/p Exploratory laparotomy, abdominal washout, abdominal closure cdiff negative self extubated Imodium prn DVT prophylaxis dc TPN, adv as tolerated cont H2B fu labs fu surgery recs Subjective Subjective limited, more awake now denies any symptoms Objective Last 24 Hour Vital Signs Date Time Temp Pulse Resp B/P Pulse Ox O2 Delivery O2 Flow Rate FiO2 08/13/16 08:25 66 152/85 08/13/16 07:57 Nasal Cannula 3.0 32 08/13/16 07:56 97 Nasal Cannula 3.0 32 08/13/16 07:51 66 08/13/16 04:46 67 08/13/16 00:00 61 08/12/16 21:41 75 134/64 08/12/16 20:56 99.0 70 20 134/64 97 Nasal Cannula 3.0 08/12/16 20:00 68 08/12/16 16:00 74 08/12/16 16:00 99.3 74 20 155/80 97 Nasal Cannula 3.0 08/12/16 13:00 73 08/12/16 13:00 98.2 75 20 161/86 96 Nasal Cannula 3.0 08/12/16 12:00 72 08/12/16 12:00 98.5 72 30 123/60 97 Nasal Cannula 3.0 Intake and Output 08/12/16 08/13/16 19:00 07:00 Intake Total 2765.408 ml 1420.7 ml Output Total 1793 ml Balance 972.408 ml 1420.7 ml Intake Oral 790 ml IV Total 1975.408 ml 1420.7 ml Output Urine Total 1768 ml Drainage Total 25 ml # Bowel Movements 3 4 Laboratory Tests Test 08/13/16 03:45 White Blood Count 6.4 K/UL (4.8-10.8) Red Blood Count 2.98 M/UL (4.70-6.10) L Hemoglobin 9.1 G/DL (14.2-18.0) L Hematocrit 28.0 % (42.0-52.0) L Mean Corpuscular Volume 94 FL (80-99) Mean Corpuscular Hemoglobin 30.5 PG (27.0-31.0) Mean Corpuscular Hemoglobin Concent 32.5 G/DL (32.0-36.0) Red Cell Distribution Width 13.6 % (11.6-14.8) Platelet Count 257 K/UL (150-450) Mean Platelet Volume 7.1 FL (6.5-10.1) Neutrophils (%) (Auto) 84.4 % (45.0-75.0) H Lymphocytes (%) (Auto) 9.6 % (20.0-45.0) L Monocytes (%) (Auto) 5.2 % (1.0-10.0) Eosinophils (%) (Auto) 0.2 % (0.0-3.0) Basophils (%) (Auto) 0.6 % (0.0-2.0) Sodium Level 143 mEQ/L (135-145) Potassium Level 3.4 mEQ/L (3.4-4.9) Chloride Level 107 mEQ/L (98-107) Carbon Dioxide Level 20 mEQ/L (20-30) Anion Gap 16 (5-15) H Blood Urea Nitrogen 18 mg/dL (7-23) Creatinine 0.7 mg/dL (0.7-1.2) Estimat Glomerular Filtration Rate > 60 mL/min (>60) Glucose Level 106 mg/dL (74-106) Uric Acid 5.1 mg/dL (3.0-7.5) Calcium Level 8.0 mg/dL (8.6-10.2) L Phosphorus Level 3.2 mg/dL (2.5-4.8) Magnesium Level 1.9 mg/dL (1.7-2.5) Total Bilirubin 0.3 mg/dL (0.0-1.2) Aspartate Amino Transf (AST/SGOT) 43 U/L (5-40) H Alanine Aminotransferase (ALT/SGPT) 12 U/L (3-41) Alkaline Phosphatase 99 U/L (40-129) C-Reactive Protein, Quantitative 6.3 mg/dL (< 0.5) H Pro-B-Type Natriuretic Peptide 1984 pg/mL (0-125) H Total Protein 5.4 g/dL (6.6-8.7) L Albumin 1.5 g/dL (3.5-5.2) L Globulin 3.9 g/dL Albumin/Globulin Ratio 0.3 (1.0-2.7) L Height (Feet): 5 Height (Inches): 9.00 Weight (Pounds): 183 General Appearance: no apparent distress, alert Cardiovascular: normal rate Respiratory/Chest: no respiratory distress, other - 3LNC Abdominal Exam: incision site Lita Parsons N.P. Aug 13, 2016 11:50
[2016-08-13] MEDS ORDERED: Sodium Phosphate 30 MM in NS 275 ML IVPB ONE (12:00)
--- NOTE | 2016-08-13 12:57 | General Progress Note ---
Assessment/Plan Status: stable Assessment/Plan Status: Acute renal failure and Oliguria due to - low BP , post OP- Amikacin and VancoMycin- Ongoing sepsis RESOLVED Respiratory failure, on Vent intraabdominal abscess, small bowel obstruction, intraabdominal adhesions, small bowel perforation. Plan; Phos & K supplement as needed Post Op care- monitor renal parameters- Per ID- GI , .... Avoid nephrotoxics Per orders Subjective ROS Limited/Unobtainable: No Constitutional: Reports: weakness Allergies: Coded Allergies: PENICILLINS (Verified Allergy, Intermediate, 07/30/16) SULFA (SULFONAMIDE ANTIBIOTICS) (Verified Allergy, Intermediate, ITCHING, 07/30/16) Objective Last 24 Hour Vital Signs Date Time Temp Pulse Resp B/P Pulse Ox O2 Delivery O2 Flow Rate FiO2 08/13/16 12:08 70 08/13/16 08:25 66 152/85 08/13/16 07:57 Nasal Cannula 3.0 32 08/13/16 07:56 97 Nasal Cannula 3.0 32 08/13/16 07:51 66 08/13/16 04:46 67 08/13/16 00:00 61 08/12/16 21:41 75 134/64 08/12/16 20:56 99.0 70 20 134/64 97 Nasal Cannula 3.0 08/12/16 20:00 68 08/12/16 16:00 74 08/12/16 16:00 99.3 74 20 155/80 97 Nasal Cannula 3.0 08/12/16 13:00 73 08/12/16 13:00 98.2 75 20 161/86 96 Nasal Cannula 3.0 Intake and Output 08/12/16 08/13/16 18:59 06:59 Intake Total 3085.408 ml 1420.7 ml Output Total 1873 ml Balance 1212.408 ml 1420.7 ml Intake Oral 790 ml IV Total 2260.408 ml 1420.7 ml Tube Feeding 35 ml Output Urine Total 1848 ml Drainage Total 25 ml # Bowel Movements 3 4 Laboratory Tests 08/13/16 03:45: White Blood Count 6.4, Red Blood Count 2.98L, Hemoglobin 9.1L, Hematocrit 28.0L , Mean Corpuscular Volume 94, Mean Corpuscular Hemoglobin 30.5, Mean Corpuscular Hemoglobin Concent 32.5, Red Cell Distribution Width 13.6, Platelet Count 257, Mean Platelet Volume 7.1, Neutrophils (%) (Auto) 84.4H, Lymphocytes ( %) (Auto) 9.6L, Monocytes (%) (Auto) 5.2, Eosinophils (%) (Auto) 0.2, Basophils (%) (Auto) 0.6, Sodium Level 143, Potassium Level 3.4, Chloride Level 107, Carbon Dioxide Level 20, Anion Gap 16H, Blood Urea Nitrogen 18, Creatinine 0.7, Estimat Glomerular Filtration Rate > 60, Glucose Level 106, Uric Acid 5.1, Calcium Level 8.0L, Phosphorus Level 3.2, Magnesium Level 1.9, Total Bilirubin 0.3, Aspartate Amino Transf (AST/SGOT) 43H, Alanine Aminotransferase (ALT/SGPT) 12, Alkaline Phosphatase 99, C-Reactive Protein, Quantitative 6.3H, Pro-B-Type Natriuretic Peptide 1984H, Total Protein 5.4L, Albumin 1.5L, Globulin 3.9, Albumin/Globulin Ratio 0.3L Height (Feet): 5 Height (Inches): 9.00 Weight (Pounds): 183 General Appearance: no apparent distress Cardiovascular: regular rhythm Respiratory/Chest: decreased breath sounds Abdomen: distended Objective no other changes in PE AYDE SERNA Aug 13, 2016 12:57
--- NOTE | 2016-08-13 16:58 | Pulmonology Progress Note ---
Assessment/Plan Problems: (1) Acute respiratory failure (2) Sepsis (3) Intra-abdominal abscess (4) ATN (acute tubular necrosis) (5) HIV disease Assessment/Plan tolerating extubation continue abx pt/ot check cultures advance diet as tolerated check electrolytes Subjective ROS Limited/Unobtainable: No Constitutional: Reports: no symptoms HEENT: Repors: no symptoms Respiratory: Reports: no symptoms Cardiovascular: Reports: no symptoms Gastrointestinal/Abdominal: Reports: no symptoms Allergies: Coded Allergies: PENICILLINS (Verified Allergy, Intermediate, 07/30/16) SULFA (SULFONAMIDE ANTIBIOTICS) (Verified Allergy, Intermediate, ITCHING, 07/30/16) Objective Last 24 Hour Vital Signs Date Time Temp Pulse Resp B/P Pulse Ox O2 Delivery O2 Flow Rate FiO2 08/13/16 16:00 68 08/13/16 12:08 70 08/13/16 08:25 66 152/85 08/13/16 07:57 Nasal Cannula 3.0 32 08/13/16 07:56 97 Nasal Cannula 3.0 32 08/13/16 07:51 66 08/13/16 04:46 67 08/13/16 00:00 61 08/12/16 21:41 75 134/64 08/12/16 20:56 99.0 70 20 134/64 97 Nasal Cannula 3.0 08/12/16 20:00 68 Intake and Output 08/12/16 08/13/16 19:00 07:00 Intake Total 2765.408 ml 1420.7 ml Output Total 1793 ml Balance 972.408 ml 1420.7 ml Intake Oral 790 ml IV Total 1975.408 ml 1420.7 ml Output Urine Total 1768 ml Drainage Total 25 ml # Bowel Movements 3 4 General Appearance: WD/WN HEENT: normocephalic, atraumatic Respiratory/Chest: chest wall non-tender, lungs clear Cardiovascular: normal peripheral pulses, normal rate Abdomen: normal bowel sounds, soft, non tender Genitourinary: normal external genitalia Extremities: no cyanosis, no clubbing Neurologic/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: 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 normal, no motor/sensory deficits Lymphatic: no neck adenopathy, no groin adenopathy Musculoskeletal: no effusion Microbiology Date/Time Source Procedure Growth Status 08/11/16 05:00 Stool Clostridium difficile Toxin Assay - Final Complete Laboratory Tests 08/13/16 03:45: White Blood Count 6.4, Red Blood Count 2.98L, Hemoglobin 9.1L, Hematocrit 28.0L , Mean Corpuscular Volume 94, Mean Corpuscular Hemoglobin 30.5, Mean Corpuscular Hemoglobin Concent 32.5, Red Cell Distribution Width 13.6, Platelet Count 257, Mean Platelet Volume 7.1, Neutrophils (%) (Auto) 84.4H, Lymphocytes ( %) (Auto) 9.6L, Monocytes (%) (Auto) 5.2, Eosinophils (%) (Auto) 0.2, Basophils (%) (Auto) 0.6, Sodium Level 143, Potassium Level 3.4, Chloride Level 107, Carbon Dioxide Level 20, Anion Gap 16H, Blood Urea Nitrogen 18, Creatinine 0.7, Estimat Glomerular Filtration Rate > 60, Glucose Level 106, Uric Acid 5.1, Calcium Level 8.0L, Phosphorus Level 3.2, Magnesium Level 1.9, Total Bilirubin 0.3, Aspartate Amino Transf (AST/SGOT) 43H, Alanine Aminotransferase (ALT/SGPT) 12, Alkaline Phosphatase 99, C-Reactive Protein, Quantitative 6.3H, Pro-B-Type Natriuretic Peptide 1984H, Total Protein 5.4L, Albumin 1.5L, Globulin 3.9, Albumin/Globulin Ratio 0.3L Current Medications Medications (Trade) Dose Ordered Sig/Ernie Route PRN Reason Start Time Stop Time Status Last Admin Dose Admin Acetaminophen (Tylenol) 650 mg Q6H PRN ORAL Mild Pain/Temp > 100.5 08/12/16 14:00 09/11/16 13:59 08/13/16 09:07 Acetazolamide (Diamox 500mg Inj) 250 mg EVERY 12 HOURS IVP 08/12/16 21:00 09/11/16 20:59 08/13/16 09:17 Chlorhexidine Gluconate (Mame-Hex 2%) 1 applic Q24H TOPIC 08/12/16 21:00 09/11/16 20:59 08/12/16 21:52 Dextrose (Dextrose 50%) STAT PRN IV Hypoglycemia 08/12/16 21:45 09/11/16 21:44 Famotidine (Pepcid I.v.) 20 mg Q12HR IVP 08/12/16 21:00 09/11/16 20:59 08/13/16 08:52 Haloperidol Lactate 5 mg/ Dextrose 56 ml @ 224 mls/hr Q4H PRN IVPB Agitation 08/12/16 17:00 09/11/16 16:59 Heparin Sodium (Porcine) (Heparin 5000 units/ml) 5,000 units EVERY 12 HOURS SUBQ 08/12/16 21:00 09/11/16 20:59 08/13/16 08:24 Insulin Aspart (NovoLOG) No Dose Q6HR SUBQ 08/12/16 18:00 09/11/16 17:59 08/13/16 05:44 Loperamide HCl (Imodium) 2 mg Q4H PRN ORAL Diarrhea 08/12/16 16:00 09/11/16 15:59 08/13/16 04:02 Lorazepam (Ativan 2mg/ml 1ml) 2 mg EVERY 2 HOURS PRN IV For Anxiety 08/12/16 14:00 08/19/16 13:59 Meropenem/Sodium Chloride (Merrem/Sodium Chloride) 110 ml @ 220 mls/hr Q8H IVPB 08/12/16 18:00 08/17/16 17:59 08/13/16 08:59 Metoprolol Tartrate (Lopressor) 25 mg Q12HR ORAL 08/12/16 21:00 09/11/16 20:59 08/13/16 08:25 Morphine Sulfate (Morphine Sulfate) 2 mg EVERY 2 HOURS PRN IVP For Pain 08/12/16 14:00 08/19/16 13:59 Nitroglycerin (Ntg) 0.4 mg Q5M X 3 DOSES PRN SL Prn Chest Pain 08/12/16 13:15 09/11/16 13:14 Ondansetron HCl (Zofran) 4 mg Q6H PRN IVP Nausea & Vomiting 08/12/16 15:45 09/11/16 15:44 Phytonadione (Vitamin K) 10 mg Fr@2100 SUBQ 08/15/16 21:00 09/14/16 20:59 Promethazine HCl (Phenergan) 25 mg EVERY 8 HOURS PRN IV refractory nausea 08/12/16 14:00 09/11/16 13:59 CHAS WALLACE Aug 13, 2016 16:58
[2016-08-13] MEDS: Dyna-Hex 2% Top Sol 8oz TOPIC SCH (21:53)
[2016-08-14] VITALS (7 sets, daily range): BP systolic 124–137; BP diastolic 64–82
[2016-08-14] MEDS: Meropenem 1 GM in NS 110 ML IVPB SCH ×3 (01:44→18:00)
[2016-08-14] MEDS: NovoLOG Insulin Flexpen SUBQ SCH ×3 (02:02→18:00)
[2016-08-14] MEDS: Metoprolol 25mg tab ORAL SCH ×2 (09:18→20:33)
[2016-08-14] MEDS: Heparin 5000 units/ml inj SUBQ SCH ×2 (09:19→20:35)
--- NOTE | 2016-08-14 09:47 | General Progress Note ---
Assessment/Plan Status: stable Assessment/Plan Status: Acute renal failure and Oliguria due to - low BP , post OP- Amikacin and VancoMycin- Ongoing sepsis RESOLVED Respiratory failure, on Vent intraabdominal abscess, small bowel obstruction, intraabdominal adhesions, small bowel perforation. Plan; Phos & K supplement as needed Post Op care- monitor renal parameters- Per ID- GI , .... Avoid nephrotoxics Per orders Subjective ROS Limited/Unobtainable: No Constitutional: Reports: malaise Allergies: Coded Allergies: PENICILLINS (Verified Allergy, Intermediate, 07/30/16) SULFA (SULFONAMIDE ANTIBIOTICS) (Verified Allergy, Intermediate, ITCHING, 07/30/16) Objective Last 24 Hour Vital Signs Date Time Temp Pulse Resp B/P Pulse Ox O2 Delivery O2 Flow Rate FiO2 08/14/16 09:18 92 128/64 08/14/16 08:00 98.2 67 20 128/64 99 Nasal Cannula 3.0 08/14/16 08:00 68 08/14/16 07:48 95 Nasal Cannula 3.0 32 08/14/16 07:48 Nasal Cannula 3.0 32 08/14/16 04:00 98.3 68 32 135/68 94 Nasal Cannula 3.0 08/14/16 03:25 66 08/14/16 02:00 76 08/14/16 00:00 99.5 65 28 125/68 98 Nasal Cannula 3.0 08/13/16 21:58 70 127/62 08/13/16 20:00 78 08/13/16 19:30 Nasal Cannula 3.0 32 08/13/16 19:30 96 Nasal Cannula 3.0 32 08/13/16 16:00 68 08/13/16 12:08 70 Intake and Output 08/13/16 08/14/16 19:00 07:00 Intake Total 220 ml 760 ml Output Total 2470 ml 3400 ml Balance -2250 ml -2640 ml Intake Oral 400 ml IV Total 220 ml 360 ml Output Urine Total 2400 ml 3400 ml Drainage Total 70 ml # Bowel Movements 2 Height (Feet): 5 Height (Inches): 9.00 Weight (Pounds): 176 General Appearance: no apparent distress Objective no other changes in PE AYDE SERNA Aug 14, 2016 09:47
[2016-08-14] MEDS: Famotidine 20 MG/ 2ML VIAL IVP SCH ×2 (11:52→21:56)
--- NOTE | 2016-08-14 12:16 | General Progress Note ---
Progress Note Progress Note Surgery: patient seen and examined at bedside. doing well. no acute events. recovering well and improves daily. still fairly deconditioned after long hospitalization Afebrile, HD stable, exam okay. erythema around gely from internal retention sutures. Drains with minimal serous output Drains d/c at bedside today okay to d/c to rehab follow up with me in 2 weeks as outpatient. office info given to patient. Luis Felipe Samuels Aug 14, 2016 12:16
[2016-08-14] MEDS: acetaZOLAMIDE 500mg Inj IVP SCH ×2 (12:48→22:36)
--- NOTE | 2016-08-14 13:52 | GI Progress Note ---
Assessment/Plan Problems: (1) Hypoalbuminemia ICD Codes: E88.09 - Other disorders of plasma-protein metabolism, not elsewhere classified SNOMED: 108768272 (2) Anemia ICD Codes: D64.9 - Anemia, unspecified SNOMED: 015273656 (3) Pancreatitis ICD Codes: K85.90 - Acute pancreatitis without necrosis or infection, unspecified SNOMED: 87098264 Qualifiers: Qualified Codes: K85.80 - Other acute pancreatitis without necrosis or infection (4) Intra-abdominal abscess ICD Codes: K65.1 - Peritoneal abscess SNOMED: 97192416 (5) Ischemia, bowel ICD Codes: K55.9 - Vascular disorder of intestine, unspecified SNOMED: 43549037 Status: stable, progressing Status Narrative Discussed with Dr. Sheikh. Assessment/Plan s/p Exploratory laparotomy, drainage of abdominal abscess, lysis of adhesions, partial omentectomy and partial small-bowel resection. s/p Exploratory laparotomy, abdominal washout, abdominal closure cdiff negative self extubated Imodium prn DVT prophylaxis regular diet, tolerating cont H2B fu labs fu surgery recs >> okay to d/c to rehab Subjective Subjective limited, more awake now denies any symptoms Objective Last 24 Hour Vital Signs Date Time Temp Pulse Resp B/P Pulse Ox O2 Delivery O2 Flow Rate FiO2 08/14/16 12:11 97.8 72 18 129/82 99 08/14/16 09:18 92 128/64 08/14/16 08:00 98.2 67 20 128/64 99 Nasal Cannula 3.0 08/14/16 08:00 68 08/14/16 07:48 95 Nasal Cannula 3.0 32 08/14/16 07:48 Nasal Cannula 3.0 32 08/14/16 04:00 98.3 68 32 135/68 94 Nasal Cannula 3.0 08/14/16 03:25 66 08/14/16 02:00 76 08/14/16 00:00 99.5 65 28 125/68 98 Nasal Cannula 3.0 08/13/16 21:58 70 127/62 08/13/16 20:00 78 08/13/16 19:30 Nasal Cannula 3.0 32 08/13/16 19:30 96 Nasal Cannula 3.0 32 08/13/16 16:00 68 Intake and Output 08/13/16 08/14/16 19:00 07:00 Intake Total 220 ml 760 ml Output Total 2470 ml 3400 ml Balance -2250 ml -2640 ml Intake Oral 400 ml IV Total 220 ml 360 ml Output Urine Total 2400 ml 3400 ml Drainage Total 70 ml # Bowel Movements 2 Height (Feet): 5 Height (Inches): 9.00 Weight (Pounds): 176 General Appearance: no apparent distress, alert Cardiovascular: normal rate Respiratory/Chest: other - NC Abdominal Exam: incision site Lita Parsons N.P. Aug 14, 2016 13:52
--- NOTE | 2016-08-14 20:06 | Cardiology Progress Note ---
Assessment/Plan Problem List: (1) Paroxysmal atrial fibrillation with rapid ventricular response (2) HIV disease (3) Intra-abdominal abscess (4) Sepsis (5) Hernia, umbilical (6) Hypertension Status: stable, unchanged Status Narrative Mr. Lr is s/p expl lap/ wound closure for dehiscence last week, and expl lap , s/p partial sb resection, omentectomy prior to this. Initiating po diet. He had post-op AF, which has resolved. He appears volume overloaded, based on exam, XR and inc BNP He is febrile (100.4) , wbc nl on - not checked today Assessment/Plan Will give iv lasix in am. Followup am labs - may need additional K supplement. Continue metoprolol for PAF. Management of intraabd sepsis and ? wound infection per ID Subjective ROS Limited/Unobtainable: No Subjective Events noted. Pt c/o mild dyspnea and abd discomfort. Objective Last 24 Hour Vital Signs Date Time Temp Pulse Resp B/P Pulse Ox O2 Delivery O2 Flow Rate FiO2 08/14/16 16:00 100.4 69 20 137/66 99 Nasal Cannula 2.0 08/14/16 16:00 69 08/14/16 12:11 97.8 72 18 129/82 99 08/14/16 12:00 65 08/14/16 09:18 92 128/64 08/14/16 08:00 98.2 67 20 128/64 99 Nasal Cannula 3.0 08/14/16 08:00 68 08/14/16 07:48 95 Nasal Cannula 3.0 32 08/14/16 07:48 Nasal Cannula 3.0 32 08/14/16 04:00 98.3 68 32 135/68 94 Nasal Cannula 3.0 08/14/16 03:25 66 08/14/16 02:00 76 08/14/16 00:00 99.5 65 28 125/68 98 Nasal Cannula 3.0 08/13/16 21:58 70 127/62 General Appearance: WD/WN, alert, mild distress EENT: PERRL/EOMI Neck: no JVD Rhythm: NSR Cardiovascular: normal rate, regular rhythm, no gallop/murmur Respiratory/Chest: other - dec BS at bases Abdomen: soft, decreased bowel sounds, tender, other - diffuse tenderness. Midline incision w erythema. no drainage. Rony in place. Drains have been removed. Extremities: no swelling Intake and Output 08/13/16 08/14/16 19:00 07:00 Intake Total 220 ml 760 ml Output Total 2470 ml 3400 ml Balance -2250 ml -2640 ml Intake Oral 400 ml IV Total 220 ml 360 ml Output Urine Total 2400 ml 3400 ml Drainage Total 70 ml # Bowel Movements 2 EYAD DONIS Aug 14, 2016 20:06
[2016-08-14] MEDS: Dyna-Hex 2% Top Sol 8oz TOPIC SCH (20:33)
[2016-08-14] MEDS ORDERED: NovoLOG Insulin Flexpen SUBQ SCH (21:00)
[2016-08-14] MEDS ORDERED: Nitroglycerin Subl 0.4mg tab (Bottle Of 25) SL PRN (21:30)
--- NOTE | 2016-08-14 21:45 | Infectious Diseases Prog Note ---
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 probable PICC infection - repeat BCx NGTD TTE(-) SBE HIV (reportedly the patient's undetectable viral load and CD4 count was 300). Negative C.difficile 08/11 Leukocytosis , post op - resolved Fever - improved Acute VDRF SP - self-extubated 08/11 LUCY improved Bipolar disorder PCN, sulfa allergies - tolerating meropenem Full Code PLAN: continue meropenem d# 5 / 7 and add Diflucan d# 1 / 10 ( empiric Rx ) ( 08/13 SP Flagyl and vancomycin d# 14 ) ( 08/10 SP aztreonam d# 10 ) f/u cultures Monitor CBC Monitor BMP. Monitor CXR Subjective Constitutional: Denies: anorexia, chills, drenching sweats, fatigue, fever, no symptoms, other Allergies: Coded Allergies: PENICILLINS (Verified Allergy, Intermediate, 07/30/16) SULFA (SULFONAMIDE ANTIBIOTICS) (Verified Allergy, Intermediate, ITCHING, 07/30/16) Subjective low grade fever , Objective Vital Signs Last 24 Hour Vital Signs Date Time Temp Pulse Resp B/P Pulse Ox O2 Delivery O2 Flow Rate FiO2 08/14/16 20:33 73 124/64 08/14/16 19:37 67 08/14/16 16:00 100.4 69 20 137/66 99 Nasal Cannula 2.0 08/14/16 16:00 69 08/14/16 12:11 97.8 72 18 129/82 99 08/14/16 12:00 65 08/14/16 09:18 92 128/64 08/14/16 08:00 98.2 67 20 128/64 99 Nasal Cannula 3.0 08/14/16 08:00 68 08/14/16 07:48 95 Nasal Cannula 3.0 32 08/14/16 07:48 Nasal Cannula 3.0 32 08/14/16 04:00 98.3 68 32 135/68 94 Nasal Cannula 3.0 08/14/16 03:25 66 08/14/16 02:00 76 08/14/16 00:00 99.5 65 28 125/68 98 Nasal Cannula 3.0 08/13/16 21:58 70 127/62 Height (Feet): 5 Height (Inches): 9.00 Weight (Pounds): 176 HEENT: anicteric Respiratory/Chest: normal breath sounds Cardiovascular: regular rhythm Abdomen: non distended Current Medications Medications (Trade) Dose Ordered Sig/Ernie Route PRN Reason Start Time Stop Time Status Last Admin Dose Admin Acetaminophen (Tylenol) 650 mg Q6H PRN ORAL Mild Pain/Temp > 100.5 08/15/16 02:00 09/14/16 01:59 Acetazolamide (Diamox 500mg Inj) 250 mg EVERY 12 HOURS IVP 08/14/16 21:30 09/13/16 21:29 UNV Chlorhexidine Gluconate (Mame-Hex 2%) 1 applic Q24H TOPIC 08/15/16 21:00 09/14/16 20:59 Dextrose (Dextrose 50%) STAT PRN IV Hypoglycemia 08/14/16 21:45 09/13/16 21:44 Famotidine (Pepcid I.v.) 20 mg Q12HR IVP 08/14/16 21:30 09/13/16 21:29 Furosemide (Lasix) 40 mg ONCE ONCE IV 08/15/16 08:00 08/15/16 08:01 Haloperidol Lactate 5 mg/ Dextrose 56 ml @ 224 mls/hr Q4H PRN IVPB Agitation 08/15/16 01:00 09/14/16 00:59 UNV Heparin Sodium (Porcine) (Heparin 5000 units/ml) 5,000 units EVERY 12 HOURS SUBQ 08/15/16 09:00 09/14/16 08:59 Insulin Aspart (NovoLOG) No Dose AC+HS SUBQ 08/15/16 06:30 09/14/16 06:29 UNV Loperamide HCl (Imodium) 2 mg Q4H PRN ORAL Diarrhea 08/15/16 00:00 09/14/16 00:00 Lorazepam (Ativan 2mg/ml 1ml) 2 mg EVERY 2 HOURS PRN IV For Anxiety 08/14/16 22:00 08/21/16 21:59 Meropenem/Sodium Chloride (Merrem/Sodium Chloride) 110 ml @ 220 mls/hr Q8H IVPB 08/15/16 02:00 08/20/16 01:59 Metoprolol Tartrate (Lopressor) 25 mg Q12HR ORAL 08/15/16 09:00 09/14/16 08:59 Morphine Sulfate (Morphine Sulfate) 2 mg EVERY 2 HOURS PRN IVP For Pain 08/14/16 22:00 08/21/16 21:59 Nitroglycerin (Ntg) 0.4 mg Q5M X 3 DOSES PRN SL Prn Chest Pain 08/14/16 21:30 09/13/16 21:29 Ondansetron HCl (Zofran) 4 mg Q6H PRN IVP Nausea & Vomiting 08/14/16 21:45 09/13/16 21:44 Promethazine HCl (Phenergan) 25 mg EVERY 8 HOURS PRN IV refractory nausea 08/14/16 22:00 09/13/16 21:59 SANTANA HAGER M.D. Aug 14, 2016 21:45
[2016-08-14] MEDS ORDERED: Morphine Sulfate 2mg/ml Inj IVP PRN (22:00)
[2016-08-15] VITALS: BP 129/73
[2016-08-15] MEDS ORDERED: Haloperidol Lactate 5 MG in D5W 55 ML IVPB PRN (01:00)
[2016-08-15] MEDS: Meropenem 1 GM in NS 110 ML IVPB SCH ×3 (01:37→19:25)
[2016-08-15] MEDS: LORazepam Inj 2mg/ml 1ml IV PRN ×2 (03:43→20:26)
[2016-08-15 04:00] VITALS: BP 137/71
[2016-08-15] MEDS: NovoLOG Insulin Flexpen SUBQ SCH ×2 (06:30→11:30)
[2016-08-15 07:03] LABS: PROTHROMBIN TIME 10.7 SEC (9.30-11.50)
[2016-08-15 07:09] LABS: BASOPHILS % (AUTO) 0.6 % (0.0-2.0); EOSINOPHILS % (AUTO) 0.4 % (0.0-3.0); LYMPHOCYTES % (AUTO) 22.8 % (20.0-45.0); MEAN CORPUSCULAR HEMOGLOBIN 29.4 PG (27.0-31.0); MEAN CORPUSCULAR HGB CONC 31.9 G/DL (32.0-36.0); MEAN CORPUSCULAR VOLUME 92 FL (80-99); MEAN PLATELET VOLUME 6.6 FL (6.5-10.1); MONOCYTES % (AUTO) 8.8 % (1.0-10.0); NEUTROPHILS % (AUTO) 67.5 % (45.0-75.0); PLATELET COUNT 310 K/UL (150-450); RED BLOOD COUNT 3.28 M/UL (4.70-6.10); RED CELL DISTRIBUTION WIDTH 13.6 % (11.6-14.8); WHITE BLOOD COUNT 4.9 K/UL (4.8-10.8)
--- NOTE | 2016-08-15 07:25 | Pulmonology Progress Note ---
Assessment/Plan Assessment/Plan ASSESSMENT acute respiratory failure requiring intubation s/p self- extubation 08/11 sepsis intraabdominal abscess hx of recent laparoscopic left inguinal hernia repair SB perforation 2 to recent laparoscopic hernia repair, resulting in intraabdominal abscess and SB obstruction s/p 07/31 exp lap with drainage of intraabdominal abscess, lysis of adhesions, partial omentectomy and partial SB resection wound dehiscence s/p 08/07 exploratory laparotomy, abdominal washout, .closure of abdominal wound with application of retention sutures. ARF -resolved PAF ( postop) -resolved PNA with Klebsiella/HCAP vs VAP anemia pancreatitis HIV status bipolar disorder diarrhea PLAN OF CARE [facility] floor O2 HHN prn IVF off TPN after tapering on po diet tolerates, no n/v/abdominal pain, but diarrheax 4 today stool C dif negative add Imodium surgery follows, incision healing well, drain dc 08/14 abx, ID follows sputum cx + Klebsiella fup with CXR in am peritoneal fluid + Klebsiella blood cx 1/2 SCON, likely due to PICC infection repeated blood cx X2 negative NIKKI negative for SBE ECHO with EF 60-65% cardio follows venous Duplex BLE negative BB for PAF, rate controlled,remains in sinus diuretic prn pain management nephro follows renal parameters stable ARF resolved monitor renal parameters and lytes, replace as needed avoid nephrotoxic GI follows defer any GI procedures at this time anemia work up with low iron, s/p Venofer monitor HH, transfuse prn, stable t am , no further trend down outpt colonoscopy ART therapy resume as per ID discretion DVT, GI prophylaxis will need placement, severely deconditioned case discussed and evaluated by supervising physician Subjective Allergies: Coded Allergies: PENICILLINS (Verified Allergy, Intermediate, 07/30/16) SULFA (SULFONAMIDE ANTIBIOTICS) (Verified Allergy, Intermediate, ITCHING, 07/30/16) Subjective afebrile, no leukocytosis diarrhea x 4 today Objective Last 24 Hour Vital Signs Date Time Temp Pulse Resp B/P Pulse Ox O2 Delivery O2 Flow Rate FiO2 08/15/16 04:00 97.7 64 21 137/71 99 Nasal Cannula 2.0 08/15/16 00:00 97.1 61 19 129/73 97 Nasal Cannula 2.0 08/14/16 22:00 97.6 70 17 127/72 Nasal Cannula 2.0 08/14/16 21:00 Nasal Cannula 3.0 32 08/14/16 21:00 96 Nasal Cannula 3.0 32 08/14/16 20:33 73 124/64 08/14/16 20:00 98.4 73 18 124/64 95 Nasal Cannula 2.0 08/14/16 19:37 67 08/14/16 16:00 100.4 69 20 137/66 99 Nasal Cannula 2.0 08/14/16 16:00 69 08/14/16 12:11 97.8 72 18 129/82 99 08/14/16 12:00 65 08/14/16 09:18 92 128/64 08/14/16 08:00 98.2 67 20 128/64 99 Nasal Cannula 3.0 08/14/16 08:00 68 08/14/16 07:48 95 Nasal Cannula 3.0 32 08/14/16 07:48 Nasal Cannula 3.0 32 Intake and Output 08/14/16 08/15/16 19:00 07:00 Intake Total 335 ml Output Total 100 ml 2250 ml Balance -100 ml -1915 ml Intake Oral 125 ml IV Total 210 ml Output Urine Total 100 ml 2250 ml General Appearance: no acute distress, other - A/A/O x 3, weak HEENT: normocephalic, atraumatic, mucous membranes moist Respiratory/Chest: lungs clear, no respiratory distress, no accessory muscle use Cardiovascular: normal peripheral pulses, normal rate, regular rhythm, no JVD Abdomen: normal bowel sounds, soft, non tender - incision with gely, clean , dry, Extremities: no edema, pedal pulses normal Neurologic/Psychiatric: no motor/sensory deficits, alert, oriented x 3, responsive Musculoskeletal: normal muscle bulk Laboratory Tests 08/15/16 05:00: White Blood Count 4.9, Red Blood Count 3.28L, Hemoglobin 9.6L, Hematocrit 30.2L , Mean Corpuscular Volume 92, Mean Corpuscular Hemoglobin 29.4, Mean Corpuscular Hemoglobin Concent 31.9L, Red Cell Distribution Width 13.6, Platelet Count 310, Mean Platelet Volume 6.6, Neutrophils (%) (Auto) 67.5, Lymphocytes (%) (Auto) 22.8, Monocytes (%) (Auto) 8.8, Eosinophils (%) (Auto) 0.4, Basophils (%) (Auto) 0.6, Prothrombin Time 10.7, Prothromb Time International Ratio 1.0, Activated Partial Thromboplast Time 30, Sodium Level [ Pending], Potassium Level [Pending], Chloride Level [Pending], Carbon Dioxide Level [Pending], Blood Urea Nitrogen [Pending], Creatinine [Pending], Estimat Glomerular Filtration Rate [Pending], Glucose Level [Pending], Calcium Level [ Pending], Phosphorus Level [Pending], Magnesium Level [Pending], Total Bilirubin [Pending], Aspartate Amino Transf (AST/SGOT) [Pending], Alanine Aminotransferase (ALT/SGPT) [Pending], Alkaline Phosphatase [Pending], Total Protein [Pending], Albumin [Pending], Globulin [Pending] Current Medications Medications (Trade) Dose Ordered Sig/Ernie Route PRN Reason Start Time Stop Time Status Last Admin Dose Admin Acetaminophen (Tylenol) 650 mg Q6H PRN ORAL Mild Pain/Temp > 100.5 08/15/16 02:00 09/14/16 01:59 Acetazolamide (Diamox 500mg Inj) 250 mg EVERY 12 HOURS IVP 08/15/16 09:00 09/14/16 08:59 Chlorhexidine Gluconate (Mame-Hex 2%) 1 applic Q24H TOPIC 08/15/16 21:00 09/14/16 20:59 Dextrose (Dextrose 50%) STAT PRN IV Hypoglycemia 08/14/16 21:45 09/13/16 21:44 Famotidine (Pepcid I.v.) 20 mg Q12HR IVP 08/14/16 21:30 09/13/16 21:29 08/14/16 21:56 Fluconazole/ Sodium Chloride (Diflucan 200mg/ 100ml Premix) 100 ml @ 100 mls/hr Q24H IV 08/14/16 23:00 08/21/16 22:59 08/14/16 22:48 Furosemide (Lasix) 40 mg ONCE ONCE IV 08/15/16 08:00 08/15/16 08:01 Heparin Sodium (Porcine) (Heparin 5000 units/ml) 5,000 units EVERY 12 HOURS SUBQ 08/15/16 09:00 09/14/16 08:59 Insulin Aspart (NovoLOG) No Dose AC+HS SUBQ 08/15/16 06:30 09/14/16 06:29 Loperamide HCl (Imodium) 2 mg Q4H PRN ORAL Diarrhea 08/15/16 00:00 09/14/16 00:00 Lorazepam (Ativan 2mg/ml 1ml) 2 mg EVERY 2 HOURS PRN IV For Anxiety 08/14/16 22:00 08/21/16 21:59 08/15/16 03:43 Meropenem/Sodium Chloride (Merrem/Sodium Chloride) 110 ml @ 220 mls/hr Q8H IVPB 08/15/16 02:00 08/20/16 01:59 08/15/16 01:37 Metoprolol Tartrate (Lopressor) 25 mg Q12HR ORAL 08/15/16 09:00 09/14/16 08:59 Morphine Sulfate (Morphine Sulfate) 2 mg EVERY 2 HOURS PRN IVP For Pain 08/14/16 22:00 08/21/16 21:59 Nitroglycerin (Ntg) 0.4 mg Q5M X 3 DOSES PRN SL Prn Chest Pain 08/14/16 21:30 09/13/16 21:29 Ondansetron HCl (Zofran) 4 mg Q6H PRN IVP Nausea & Vomiting 08/14/16 21:45 09/13/16 21:44 Promethazine HCl 25 mg 25 mg EVERY 8 HOURS PRN IV refractory nausea 08/14/16 22:00 09/13/16 21:59 [facility] Aug 15, 2016 07:25
[2016-08-15 08:10] LABS: ALANINE AMINOTRANSFERASE 16 U/L (3-41); ALBUMIN/GLOBULIN RATIO 0.5 (1.0-2.7); ANION GAP 13 (5-15); ASPARTATE AMINO TRANSFERASE 56 U/L (5-40); CALCIUM 7.7 mg/dL (8.6-10.2); CARBON DIOXIDE 20 mEQ/L (20-30); CHLORIDE 107 mEQ/L (98-107); CREATININE 0.8 mg/dL (0.7-1.2); GLOMERULAR FILTRATION RATE > 60 mL/min (>60); HEMOLYSIS 3; MAGNESIUM 1.9 mg/dL (1.7-2.5); PHOSPHORUS 2.7 mg/dL (2.5-4.8); POTASSIUM 3.6 mEQ/L (3.4-4.9); SODIUM 140 mEQ/L (135-145); TOTAL PROTEIN 5.9 g/dL (6.6-8.7)
[2016-08-15 08:14] VITALS: BP 126/76
[2016-08-15] MEDS: Heparin 5000 units/ml inj SUBQ SCH ×2 (08:54→20:29)
[2016-08-15] MEDS: Metoprolol 25mg tab ORAL SCH ×2 (08:56→20:26)
[2016-08-15] MEDS ORDERED: acetaZOLAMIDE 500mg Inj IVP SCH (09:00)
--- NOTE | 2016-08-15 09:04 | Infectious Diseases Prog Note ---
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 probable PICC infection - repeat BCx NGTD TTE(-) SBE HIV (reportedly the patient's undetectable viral load and CD4 count was 300). Negative C.difficile 08/11 Leukocytosis , post op - resolved Fever - improved Acute VDRF SP - self-extubated 08/11 LUCY improved Bipolar disorder PCN, sulfa allergies - tolerating meropenem Full Code PLAN: continue meropenem d# 6 / 10 and add Diflucan d# 1 / 10 ( empiric Rx ) ( 08/13 SP Flagyl and vancomycin d# 14 ) ( 08/10 SP aztreonam d# 10 ) f/u cultures ( Bl ) Monitor CBC Monitor BMP. Monitor CXR Subjective Allergies: Coded Allergies: PENICILLINS (Verified Allergy, Intermediate, 07/30/16) SULFA (SULFONAMIDE ANTIBIOTICS) (Verified Allergy, Intermediate, ITCHING, 07/30/16) Subjective low grade fever , Objective Vital Signs Last 24 Hour Vital Signs Date Time Temp Pulse Resp B/P Pulse Ox O2 Delivery O2 Flow Rate FiO2 08/15/16 08:14 97.8 70 20 126/76 99 Nasal Cannula 2.0 08/15/16 04:00 97.7 64 21 137/71 99 Nasal Cannula 2.0 08/15/16 00:00 97.1 61 19 129/73 97 Nasal Cannula 2.0 08/14/16 22:00 97.6 70 17 127/72 Nasal Cannula 2.0 08/14/16 21:00 Nasal Cannula 3.0 32 08/14/16 21:00 96 Nasal Cannula 3.0 32 08/14/16 20:33 73 124/64 08/14/16 20:00 98.4 73 18 124/64 95 Nasal Cannula 2.0 08/14/16 19:37 67 08/14/16 16:00 100.4 69 20 137/66 99 Nasal Cannula 2.0 08/14/16 16:00 69 08/14/16 12:11 97.8 72 18 129/82 99 08/14/16 12:00 65 08/14/16 09:18 92 128/64 Height (Feet): 5 Height (Inches): 9.00 Weight (Pounds): 173 Respiratory/Chest: normal breath sounds Cardiovascular: normal rate Abdomen: no organomegaly Laboratory Tests Test 08/15/16 05:00 White Blood Count 4.9 K/UL (4.8-10.8) Red Blood Count 3.28 M/UL (4.70-6.10) L Hemoglobin 9.6 G/DL (14.2-18.0) L Hematocrit 30.2 % (42.0-52.0) L Mean Corpuscular Volume 92 FL (80-99) Mean Corpuscular Hemoglobin 29.4 PG (27.0-31.0) Mean Corpuscular Hemoglobin Concent 31.9 G/DL (32.0-36.0) L Red Cell Distribution Width 13.6 % (11.6-14.8) Platelet Count 310 K/UL (150-450) Mean Platelet Volume 6.6 FL (6.5-10.1) Neutrophils (%) (Auto) 67.5 % (45.0-75.0) Lymphocytes (%) (Auto) 22.8 % (20.0-45.0) Monocytes (%) (Auto) 8.8 % (1.0-10.0) Eosinophils (%) (Auto) 0.4 % (0.0-3.0) Basophils (%) (Auto) 0.6 % (0.0-2.0) Prothrombin Time 10.7 SEC (9.30-11.50) Prothromb Time International Ratio 1.0 (0.9-1.1) Activated Partial Thromboplast Time 30 SEC (23-33) Sodium Level 140 mEQ/L (135-145) Potassium Level 3.6 mEQ/L (3.4-4.9) Chloride Level 107 mEQ/L (98-107) Carbon Dioxide Level 20 mEQ/L (20-30) Anion Gap 13 (5-15) Blood Urea Nitrogen 19 mg/dL (7-23) Creatinine 0.8 mg/dL (0.7-1.2) Estimat Glomerular Filtration Rate > 60 mL/min (>60) Glucose Level 90 mg/dL (74-106) Calcium Level 7.7 mg/dL (8.6-10.2) L Phosphorus Level 2.7 mg/dL (2.5-4.8) Magnesium Level 1.9 mg/dL (1.7-2.5) Total Bilirubin 0.3 mg/dL (0.0-1.2) Aspartate Amino Transf (AST/SGOT) 56 U/L (5-40) H Alanine Aminotransferase (ALT/SGPT) 16 U/L (3-41) Alkaline Phosphatase 147 U/L (40-129) H Total Protein 5.9 g/dL (6.6-8.7) L Albumin 2.1 g/dL (3.5-5.2) L Globulin 3.8 g/dL Albumin/Globulin Ratio 0.5 (1.0-2.7) L Current Medications Medications (Trade) Dose Ordered Sig/Ernie Route PRN Reason Start Time Stop Time Status Last Admin Dose Admin Acetaminophen (Tylenol) 650 mg Q6H PRN ORAL Mild Pain/Temp > 100.5 08/15/16 02:00 09/14/16 01:59 Acetazolamide (Diamox 500mg Inj) 250 mg EVERY 12 HOURS IVP 08/15/16 09:00 09/14/16 08:59 Chlorhexidine Gluconate (Mame-Hex 2%) 1 applic Q24H TOPIC 08/15/16 21:00 09/14/16 20:59 Dextrose (Dextrose 50%) STAT PRN IV Hypoglycemia 08/14/16 21:45 09/13/16 21:44 Famotidine (Pepcid I.v.) 20 mg Q12HR IVP 08/14/16 21:30 09/13/16 21:29 08/14/16 21:56 Fluconazole/ Sodium Chloride (Diflucan 200mg/ 100ml Premix) 100 ml @ 100 mls/hr Q24H IV 08/14/16 23:00 08/21/16 22:59 08/14/16 22:48 Heparin Sodium (Porcine) (Heparin 5000 units/ml) 5,000 units EVERY 12 HOURS SUBQ 08/15/16 09:00 09/14/16 08:59 Insulin Aspart (NovoLOG) No Dose AC+HS SUBQ 08/15/16 06:30 09/14/16 06:29 Loperamide HCl (Imodium) 2 mg Q4H PRN ORAL Diarrhea 08/15/16 00:00 09/14/16 00:00 Lorazepam (Ativan 2mg/ml 1ml) 2 mg EVERY 2 HOURS PRN IV For Anxiety 08/14/16 22:00 08/21/16 21:59 08/15/16 03:43 Meropenem/Sodium Chloride (Merrem/Sodium Chloride) 110 ml @ 220 mls/hr Q8H IVPB 08/15/16 02:00 08/20/16 01:59 08/15/16 01:37 Metoprolol Tartrate (Lopressor) 25 mg Q12HR ORAL 08/15/16 09:00 09/14/16 08:59 Morphine Sulfate (Morphine Sulfate) 2 mg EVERY 2 HOURS PRN IVP For Pain 08/14/16 22:00 08/21/16 21:59 Nitroglycerin (Ntg) 0.4 mg Q5M X 3 DOSES PRN SL Prn Chest Pain 08/14/16 21:30 09/13/16 21:29 Ondansetron HCl (Zofran) 4 mg Q6H PRN IVP Nausea & Vomiting 08/14/16 21:45 09/13/16 21:44 Promethazine HCl 25 mg 25 mg EVERY 8 HOURS PRN IV refractory nausea 08/14/16 22:00 09/13/16 21:59 SANTANA HAGER M.D. Aug 15, 2016 09:04
--- NOTE | 2016-08-15 11:29 | Cardiology Progress Note ---
Assessment/Plan Assessment/Plan Paroxysmal atrial fibrillation with rapid ventricular response HIV disease Intra-abdominal abscess Sepsis Hernia, umbilical Hypertension wound dehiscence last week, and expl lap, s/p partial sb resection, omentectomy He had post-op AF, which has resolved. He appears volume overloaded s/p diuretics puttign out clear urint now want raef0ph cth removed will try without it will use lasix prn inthenext few days now seems ok will repeat las in am upin a bed Subjective Cardiovascular: Reports: lightheadedness - first time sat up in 9 weeks he says , Denies: chest pain, palpitations Respiratory: Denies: shortness of breath - better Gastrointestinal/Abdominal: Reports: abdominal pain Genitourinary: Denies: burning - but does nto liek fer condom cath Objective Last 24 Hour Vital Signs Date Time Temp Pulse Resp B/P Pulse Ox O2 Delivery O2 Flow Rate FiO2 08/15/16 08:56 78 111/78 08/15/16 08:14 97.8 70 20 126/76 99 Nasal Cannula 2.0 08/15/16 04:00 97.7 64 21 137/71 99 Nasal Cannula 2.0 08/15/16 00:00 97.1 61 19 129/73 97 Nasal Cannula 2.0 08/14/16 22:00 97.6 70 17 127/72 Nasal Cannula 2.0 08/14/16 21:00 Nasal Cannula 3.0 32 08/14/16 21:00 96 Nasal Cannula 3.0 32 08/14/16 20:33 73 124/64 08/14/16 20:00 98.4 73 18 124/64 95 Nasal Cannula 2.0 08/14/16 19:37 67 08/14/16 16:00 100.4 69 20 137/66 99 Nasal Cannula 2.0 08/14/16 16:00 69 08/14/16 12:11 97.8 72 18 129/82 99 08/14/16 12:00 65 General Appearance: no apparent distress, alert Neck: no JVD Cardiovascular: normal rate, regular rhythm Respiratory/Chest: lungs clear Abdomen: non tender, soft Extremities: no swelling Intake and Output 08/14/16 08/15/16 19:00 07:00 Intake Total 335 ml Output Total 100 ml 2250 ml Balance -100 ml -1915 ml Intake Oral 125 ml IV Total 210 ml Output Urine Total 100 ml 2250 ml Laboratory Tests Test 08/15/16 05:00 White Blood Count 4.9 K/UL (4.8-10.8) Red Blood Count 3.28 M/UL (4.70-6.10) L Hemoglobin 9.6 G/DL (14.2-18.0) L Hematocrit 30.2 % (42.0-52.0) L Mean Corpuscular Volume 92 FL (80-99) Mean Corpuscular Hemoglobin 29.4 PG (27.0-31.0) Mean Corpuscular Hemoglobin Concent 31.9 G/DL (32.0-36.0) L Red Cell Distribution Width 13.6 % (11.6-14.8) Platelet Count 310 K/UL (150-450) Mean Platelet Volume 6.6 FL (6.5-10.1) Neutrophils (%) (Auto) 67.5 % (45.0-75.0) Lymphocytes (%) (Auto) 22.8 % (20.0-45.0) Monocytes (%) (Auto) 8.8 % (1.0-10.0) Eosinophils (%) (Auto) 0.4 % (0.0-3.0) Basophils (%) (Auto) 0.6 % (0.0-2.0) Prothrombin Time 10.7 SEC (9.30-11.50) Prothromb Time International Ratio 1.0 (0.9-1.1) Activated Partial Thromboplast Time 30 SEC (23-33) Sodium Level 140 mEQ/L (135-145) Potassium Level 3.6 mEQ/L (3.4-4.9) Chloride Level 107 mEQ/L (98-107) Carbon Dioxide Level 20 mEQ/L (20-30) Anion Gap 13 (5-15) Blood Urea Nitrogen 19 mg/dL (7-23) Creatinine 0.8 mg/dL (0.7-1.2) Estimat Glomerular Filtration Rate > 60 mL/min (>60) Glucose Level 90 mg/dL (74-106) Calcium Level 7.7 mg/dL (8.6-10.2) L Phosphorus Level 2.7 mg/dL (2.5-4.8) Magnesium Level 1.9 mg/dL (1.7-2.5) Total Bilirubin 0.3 mg/dL (0.0-1.2) Aspartate Amino Transf (AST/SGOT) 56 U/L (5-40) H Alanine Aminotransferase (ALT/SGPT) 16 U/L (3-41) Alkaline Phosphatase 147 U/L (40-129) H Total Protein 5.9 g/dL (6.6-8.7) L Albumin 2.1 g/dL (3.5-5.2) L Globulin 3.8 g/dL Albumin/Globulin Ratio 0.5 (1.0-2.7) L ANTHONY DOMÍNGUEZ Aug 15, 2016 11:29
[2016-08-15 11:47] VITALS: BP 158/90
[2016-08-15] MEDS: Famotidine 20 MG/ 2ML VIAL IVP SCH (11:53)
--- NOTE | 2016-08-15 14:24 | General Progress Note ---
Progress Note Progress Note Surgery: doing well. no acute events. comfortable. pain improved. tolerating diet. Afebrile, HD stable, labs okay, exam benign drains removed yesterday. wound improving Has done remarkably well given history. very deconditioned. will likely needs placement diet as tolerated activity as tolerated needs to follow up with me in office 2 weeks after discharge (wound check and staple removal) Luis Felipe Samuels Aug 15, 2016 14:24
--- NOTE | 2016-08-15 14:28 | GI Progress Note ---
Assessment/Plan Problems: (1) Hypoalbuminemia ICD Codes: E88.09 - Other disorders of plasma-protein metabolism, not elsewhere classified SNOMED: 331211858 (2) Anemia ICD Codes: D64.9 - Anemia, unspecified SNOMED: 800554182 (3) Pancreatitis ICD Codes: K85.90 - Acute pancreatitis without necrosis or infection, unspecified SNOMED: 98559445 Qualifiers: Qualified Codes: K85.80 - Other acute pancreatitis without necrosis or infection (4) Intra-abdominal abscess ICD Codes: K65.1 - Peritoneal abscess SNOMED: 00013524 (5) Ischemia, bowel ICD Codes: K55.9 - Vascular disorder of intestine, unspecified SNOMED: 12710017 Status: stable Status Narrative Discussed with Dr. Sheikh. Assessment/Plan s/p Exploratory laparotomy, drainage of abdominal abscess, lysis of adhesions, partial omentectomy and partial small-bowel resection. s/p Exploratory laparotomy, abdominal washout, abdominal closure cdiff negative self extubated Imodium prn DVT prophylaxis regular diet, tolerating cont H2B fu labs fu surgery recs >> okay to d/c to rehab Subjective Subjective limited, more awake now denies any symptoms Objective Last 24 Hour Vital Signs Date Time Temp Pulse Resp B/P Pulse Ox O2 Delivery O2 Flow Rate FiO2 08/15/16 11:47 97.6 69 20 158/90 99 Nasal Cannula 2.0 08/15/16 08:56 78 111/78 08/15/16 08:14 97.8 70 20 126/76 99 Nasal Cannula 2.0 08/15/16 04:00 97.7 64 21 137/71 99 Nasal Cannula 2.0 08/15/16 00:00 97.1 61 19 129/73 97 Nasal Cannula 2.0 08/14/16 22:00 97.6 70 17 127/72 Nasal Cannula 2.0 08/14/16 21:00 Nasal Cannula 3.0 32 08/14/16 21:00 96 Nasal Cannula 3.0 32 08/14/16 20:33 73 124/64 08/14/16 20:00 98.4 73 18 124/64 95 Nasal Cannula 2.0 08/14/16 19:37 67 08/14/16 16:00 100.4 69 20 137/66 99 Nasal Cannula 2.0 08/14/16 16:00 69 Intake and Output 08/14/16 08/15/16 19:00 07:00 Intake Total 335 ml Output Total 100 ml 2250 ml Balance -100 ml -1915 ml Intake Oral 125 ml IV Total 210 ml Output Urine Total 100 ml 2250 ml Laboratory Tests Test 08/15/16 05:00 White Blood Count 4.9 K/UL (4.8-10.8) Red Blood Count 3.28 M/UL (4.70-6.10) L Hemoglobin 9.6 G/DL (14.2-18.0) L Hematocrit 30.2 % (42.0-52.0) L Mean Corpuscular Volume 92 FL (80-99) Mean Corpuscular Hemoglobin 29.4 PG (27.0-31.0) Mean Corpuscular Hemoglobin Concent 31.9 G/DL (32.0-36.0) L Red Cell Distribution Width 13.6 % (11.6-14.8) Platelet Count 310 K/UL (150-450) Mean Platelet Volume 6.6 FL (6.5-10.1) Neutrophils (%) (Auto) 67.5 % (45.0-75.0) Lymphocytes (%) (Auto) 22.8 % (20.0-45.0) Monocytes (%) (Auto) 8.8 % (1.0-10.0) Eosinophils (%) (Auto) 0.4 % (0.0-3.0) Basophils (%) (Auto) 0.6 % (0.0-2.0) Prothrombin Time 10.7 SEC (9.30-11.50) Prothromb Time International Ratio 1.0 (0.9-1.1) Activated Partial Thromboplast Time 30 SEC (23-33) Sodium Level 140 mEQ/L (135-145) Potassium Level 3.6 mEQ/L (3.4-4.9) Chloride Level 107 mEQ/L (98-107) Carbon Dioxide Level 20 mEQ/L (20-30) Anion Gap 13 (5-15) Blood Urea Nitrogen 19 mg/dL (7-23) Creatinine 0.8 mg/dL (0.7-1.2) Estimat Glomerular Filtration Rate > 60 mL/min (>60) Glucose Level 90 mg/dL (74-106) Calcium Level 7.7 mg/dL (8.6-10.2) L Phosphorus Level 2.7 mg/dL (2.5-4.8) Magnesium Level 1.9 mg/dL (1.7-2.5) Total Bilirubin 0.3 mg/dL (0.0-1.2) Aspartate Amino Transf (AST/SGOT) 56 U/L (5-40) H Alanine Aminotransferase (ALT/SGPT) 16 U/L (3-41) Alkaline Phosphatase 147 U/L (40-129) H Total Protein 5.9 g/dL (6.6-8.7) L Albumin 2.1 g/dL (3.5-5.2) L Globulin 3.8 g/dL Albumin/Globulin Ratio 0.5 (1.0-2.7) L Height (Feet): 5 Height (Inches): 9.00 Weight (Pounds): 173 General Appearance: no apparent distress, alert Cardiovascular: normal rate Respiratory/Chest: other - 2LNC Abdominal Exam: incision site Lita Parsons N.P. Aug 15, 2016 14:28
--- NOTE | 2016-08-15 14:29 | General Progress Note ---
Assessment/Plan Status: stable Status Narrative renal parameters stable Assessment/Plan Status: Acute renal failure and Oliguria due to - low BP , post OP- Amikacin and VancoMycin- Ongoing sepsis RESOLVED Respiratory failure, on Vent intraabdominal abscess, small bowel obstruction, intraabdominal adhesions, small bowel perforation. Plan; Phos & K supplement as needed Post Op care- monitor renal parameters- Per ID- GI , .... Avoid nephrotoxics Per orders Subjective ROS Limited/Unobtainable: No Constitutional: Reports: malaise Allergies: Coded Allergies: PENICILLINS (Verified Allergy, Intermediate, 07/30/16) SULFA (SULFONAMIDE ANTIBIOTICS) (Verified Allergy, Intermediate, ITCHING, 07/30/16) Objective Last 24 Hour Vital Signs Date Time Temp Pulse Resp B/P Pulse Ox O2 Delivery O2 Flow Rate FiO2 08/15/16 11:47 97.6 69 20 158/90 99 Nasal Cannula 2.0 08/15/16 08:56 78 111/78 08/15/16 08:14 97.8 70 20 126/76 99 Nasal Cannula 2.0 08/15/16 04:00 97.7 64 21 137/71 99 Nasal Cannula 2.0 08/15/16 00:00 97.1 61 19 129/73 97 Nasal Cannula 2.0 08/14/16 22:00 97.6 70 17 127/72 Nasal Cannula 2.0 08/14/16 21:00 Nasal Cannula 3.0 32 08/14/16 21:00 96 Nasal Cannula 3.0 32 08/14/16 20:33 73 124/64 08/14/16 20:00 98.4 73 18 124/64 95 Nasal Cannula 2.0 08/14/16 19:37 67 08/14/16 16:00 100.4 69 20 137/66 99 Nasal Cannula 2.0 08/14/16 16:00 69 Intake and Output 08/14/16 08/15/16 19:00 07:00 Intake Total 335 ml Output Total 100 ml 2250 ml Balance -100 ml -1915 ml Intake Oral 125 ml IV Total 210 ml Output Urine Total 100 ml 2250 ml Laboratory Tests 08/15/16 05:00: White Blood Count 4.9, Red Blood Count 3.28L, Hemoglobin 9.6L, Hematocrit 30.2L , Mean Corpuscular Volume 92, Mean Corpuscular Hemoglobin 29.4, Mean Corpuscular Hemoglobin Concent 31.9L, Red Cell Distribution Width 13.6, Platelet Count 310, Mean Platelet Volume 6.6, Neutrophils (%) (Auto) 67.5, Lymphocytes (%) (Auto) 22.8, Monocytes (%) (Auto) 8.8, Eosinophils (%) (Auto) 0.4, Basophils (%) (Auto) 0.6, Prothrombin Time 10.7, Prothromb Time International Ratio 1.0, Activated Partial Thromboplast Time 30, Sodium Level 140, Potassium Level 3.6, Chloride Level 107, Carbon Dioxide Level 20, Anion Gap 13, Blood Urea Nitrogen 19, Creatinine 0.8, Estimat Glomerular Filtration Rate > 60, Glucose Level 90, Calcium Level 7.7L, Phosphorus Level 2.7, Magnesium Level 1.9, Total Bilirubin 0.3, Aspartate Amino Transf (AST/SGOT) 56H , Alanine Aminotransferase (ALT/SGPT) 16, Alkaline Phosphatase 147H, Total Protein 5.9L, Albumin 2.1L, Globulin 3.8, Albumin/Globulin Ratio 0.5L Height (Feet): 5 Height (Inches): 9.00 Weight (Pounds): 173 General Appearance: no apparent distress Objective no other changes in PE AYDE SERNA Aug 15, 2016 14:29
[2016-08-15 16:05] VITALS: BP 149/86
[2016-08-15] MEDS ORDERED: Loperamide 2mg cap ORAL PRN ×2 (16:45)
--- NOTE | 2016-08-15 19:19 | Cardiology Report ---
APPROVED REPORT EKG Measurement Heart [id number] Normal sinus rhythm Prolonged QT Abnormal ECG
[2016-08-15 20:00] VITALS: BP_SYST 123; BP_SYST 127; BP_DIAS 70; BP_DIAS 72
[2016-08-15] MEDS ORDERED: Phytonadione 10 mg/mL 1ml amp SUBQ SCH (21:00)
[2016-08-15] MEDS: Dyna-Hex 2% Top Sol 8oz TOPIC SCH (21:08)
[2016-08-16] VITALS: BP 112/67
[2016-08-16] MEDS: Meropenem 1 GM in NS 110 ML IVPB SCH ×3 (01:47→18:31)
[2016-08-16 04:00] VITALS: BP 140/70
[2016-08-16 06:42] LABS: BASOPHILS % (AUTO) 0.8 % (0.0-2.0); EOSINOPHILS % (AUTO) 0.1 % (0.0-3.0); LYMPHOCYTES % (AUTO) 24.2 % (20.0-45.0); MEAN CORPUSCULAR HEMOGLOBIN 28.9 PG (27.0-31.0); MEAN CORPUSCULAR HGB CONC 31.1 G/DL (32.0-36.0); MEAN CORPUSCULAR VOLUME 93 FL (80-99); MEAN PLATELET VOLUME 6.5 FL (6.5-10.1); MONOCYTES % (AUTO) 7.3 % (1.0-10.0); NEUTROPHILS % (AUTO) 67.7 % (45.0-75.0); PLATELET COUNT 306 K/UL (150-450); RED BLOOD COUNT 3.44 M/UL (4.70-6.10); RED CELL DISTRIBUTION WIDTH 13.7 % (11.6-14.8); WHITE BLOOD COUNT 4.4 K/UL (4.8-10.8)
--- NOTE | 2016-08-16 07:17 | General Surgery Progress Note ---
General Surgery-Progress Note Subjective Symptoms: improved Objective Last 24 Hour Vital Signs Date Time Temp Pulse Resp B/P Pulse Ox O2 Delivery O2 Flow Rate FiO2 08/16/16 04:00 97.5 62 18 140/70 93 Nasal Cannula 2.0 08/16/16 00:00 97.7 60 18 112/67 Nasal Cannula 2.0 08/15/16 20:26 72 127/72 08/15/16 20:00 97.7 72 20 127/72 94 Nasal Cannula 2.0 08/15/16 20:00 97.7 69 18 123/70 95 Nasal Cannula 2.0 08/15/16 16:05 98.2 72 20 149/86 99 Nasal Cannula 2.0 08/15/16 11:47 97.6 69 20 158/90 99 Nasal Cannula 2.0 08/15/16 08:56 78 111/78 08/15/16 08:14 97.8 70 20 126/76 99 Nasal Cannula 2.0 08/15/16 07:53 Nasal Cannula 3.0 08/15/16 07:52 97 Nasal Cannula 3.0 I&O Intake and Output 08/15/16 08/16/16 19:00 07:00 Intake Total 580 ml 1103 ml Output Total 400 ml Balance 180 ml 1103 ml Intake Oral 580 ml IV Total 1103 ml Output Urine Total 400 ml # Voids 7 4 # Bowel Movements 7 1 Dressing: dry Wound: clean Drains: none Cardiovascular: RSR Respiratory: clear Abdomen: soft Extremities: no edema Laboratory Tests Test 08/16/16 05:00 White Blood Count 4.4 K/UL (4.8-10.8) L Red Blood Count 3.44 M/UL (4.70-6.10) L Hemoglobin 9.9 G/DL (14.2-18.0) L Hematocrit 31.9 % (42.0-52.0) L Mean Corpuscular Volume 93 FL (80-99) Mean Corpuscular Hemoglobin 28.9 PG (27.0-31.0) Mean Corpuscular Hemoglobin Concent 31.1 G/DL (32.0-36.0) L Red Cell Distribution Width 13.7 % (11.6-14.8) Platelet Count 306 K/UL (150-450) Mean Platelet Volume 6.5 FL (6.5-10.1) Neutrophils (%) (Auto) 67.7 % (45.0-75.0) Lymphocytes (%) (Auto) 24.2 % (20.0-45.0) Monocytes (%) (Auto) 7.3 % (1.0-10.0) Eosinophils (%) (Auto) 0.1 % (0.0-3.0) Basophils (%) (Auto) 0.8 % (0.0-2.0) Sodium Level Pending Potassium Level Pending Chloride Level Pending Carbon Dioxide Level Pending Blood Urea Nitrogen Pending Creatinine Pending Estimat Glomerular Filtration Rate Pending Glucose Level Pending Calcium Level Pending Pro-B-Type Natriuretic Peptide Pending Assessment Post-op Diagnosis small bowel perforation from laparoscopic hernia repair with resulting intraabdominal abscess and partial small bowel obstruction Additional Comments Pt has severe deconditioning, he is able to take regular diet Plan Additional Comments May need to consider SNF placement, we can probably d/c skin gely in 1-2 days Dejuan Gilmore MD Aug 16, 2016 07:17
[2016-08-16 08:00] VITALS: BP 101/47
[2016-08-16 08:41] LABS: ANION GAP 10 (5-15); CALCIUM 7.5 mg/dL (8.6-10.2); CARBON DIOXIDE 22 mEQ/L (20-30); CHLORIDE 108 mEQ/L (98-107); CREATININE 0.8 mg/dL (0.7-1.2); GLOMERULAR FILTRATION RATE > 60 mL/min (>60); HEMOLYSIS 19; POTASSIUM 4.4 mEQ/L (3.4-4.9); SODIUM 140 mEQ/L (135-145)
[2016-08-16] MEDS: Metoprolol 25mg tab ORAL SCH ×2 (09:00→21:26)
[2016-08-16] MEDS: Heparin 5000 units/ml inj SUBQ SCH ×2 (09:38→21:28)
--- NOTE | 2016-08-16 11:14 | Cardiology Progress Note ---
Assessment/Plan Assessment/Plan Paroxysmal atrial fibrillation with rapid ventricular response HIV disease Intra-abdominal abscess Sepsis Hernia, umbilical Hypertension wound dehiscence last week, and expl lap, s/p partial sb resection, omentectomy He had post-op AF, which has resolved. He appears volume overloaded keep on diurtic today seem confused adn tachypnic bu sat are ok labs noted will reorder for tomorrow cxr Subjective ROS Limited/Unobtainable: Yes Respiratory: Reports: shortness of breath Subjective confused now as communicative as yest Objective Last 24 Hour Vital Signs Date Time Temp Pulse Resp B/P Pulse Ox O2 Delivery O2 Flow Rate FiO2 08/16/16 08:00 97.3 69 18 101/47 97 Nasal Cannula 2.0 08/16/16 06:57 Nasal Cannula 3.0 08/16/16 06:55 97 Nasal Cannula 3.0 08/16/16 04:00 97.5 62 18 140/70 93 Nasal Cannula 2.0 08/16/16 00:00 97.7 60 18 112/67 Nasal Cannula 2.0 08/15/16 20:26 72 127/72 08/15/16 20:00 97.7 72 20 127/72 94 Nasal Cannula 2.0 08/15/16 20:00 97.7 69 18 123/70 95 Nasal Cannula 2.0 08/15/16 16:05 98.2 72 20 149/86 99 Nasal Cannula 2.0 08/15/16 11:47 97.6 69 20 158/90 99 Nasal Cannula 2.0 General Appearance: other - tachypneic Neck: supple Cardiovascular: normal rate, regular rhythm Respiratory/Chest: lungs clear - ant Abdomen: normal bowel sounds, non tender, soft Extremities: no swelling Intake and Output 08/15/16 08/16/16 18:59 06:59 Intake Total 580 ml 1103 ml Output Total 400 ml Balance 180 ml 1103 ml Intake Oral 580 ml IV Total 1103 ml Output Urine Total 400 ml # Voids 7 4 # Bowel Movements 7 1 Laboratory Tests Test 08/16/16 05:00 White Blood Count 4.4 K/UL (4.8-10.8) L Red Blood Count 3.44 M/UL (4.70-6.10) L Hemoglobin 9.9 G/DL (14.2-18.0) L Hematocrit 31.9 % (42.0-52.0) L Mean Corpuscular Volume 93 FL (80-99) Mean Corpuscular Hemoglobin 28.9 PG (27.0-31.0) Mean Corpuscular Hemoglobin Concent 31.1 G/DL (32.0-36.0) L Red Cell Distribution Width 13.7 % (11.6-14.8) Platelet Count 306 K/UL (150-450) Mean Platelet Volume 6.5 FL (6.5-10.1) Neutrophils (%) (Auto) 67.7 % (45.0-75.0) Lymphocytes (%) (Auto) 24.2 % (20.0-45.0) Monocytes (%) (Auto) 7.3 % (1.0-10.0) Eosinophils (%) (Auto) 0.1 % (0.0-3.0) Basophils (%) (Auto) 0.8 % (0.0-2.0) Sodium Level 140 mEQ/L (135-145) Potassium Level 4.4 mEQ/L (3.4-4.9) Chloride Level 108 mEQ/L (98-107) H Carbon Dioxide Level 22 mEQ/L (20-30) Anion Gap 10 (5-15) Blood Urea Nitrogen 19 mg/dL (7-23) Creatinine 0.8 mg/dL (0.7-1.2) Estimat Glomerular Filtration Rate > 60 mL/min (>60) Glucose Level 96 mg/dL (74-106) Calcium Level 7.5 mg/dL (8.6-10.2) L Pro-B-Type Natriuretic Peptide 523 pg/mL (0-125) H ANTHONY DOMÍNGUEZ Aug 16, 2016 11:14
--- NOTE | 2016-08-16 11:15 | Pulmonology Progress Note ---
Assessment/Plan Assessment/Plan ASSESSMENT acute respiratory failure requiring intubation s/p self- extubation 08/11 sepsis intraabdominal abscess hx of recent laparoscopic left inguinal hernia repair SB perforation 2 to recent laparoscopic hernia repair, resulting in intraabdominal abscess and SB obstruction s/p 07/31 exp lap with drainage of intraabdominal abscess, lysis of adhesions, partial omentectomy and partial SB resection wound dehiscence s/p 08/07 exploratory laparotomy, abdominal washout, .closure of abdominal wound with application of retention sutures. ARF -resolved PAF ( postop) -resolved PNA with Klebsiella/HCAP vs VAP anemia pancreatitis HIV status bipolar disorder diarrhea PLAN OF CARE [facility] floor O2 HHN prn IVF off TPN after tapering on po diet tolerates, no n/v/abdominal pain, stool C dif negative diarrhea controlled after Imodium started surgery follows, incision healing well, drain dc 08/14 abx, ID follows sputum cx + Klebsiella fup with CXR in am peritoneal fluid + Klebsiella blood cx 1/2 SCON, likely due to PICC infection repeated blood cx X2 negative NIKKI negative for SBE ECHO with EF 60-65% cardio follows venous Duplex BLE negative BB for PAF, rate controlled,remains in sinus diuretic prn , x 1 this am as per cardio pain management nephro follows renal parameters stable ARF resolved monitor renal parameters and lytes, replace as needed avoid nephrotoxic GI follows defer any GI procedures at this time anemia work up with low iron, s/p Venofer monitor HH, transfuse prn, stable t am , no further trend down outpt colonoscopy ART therapy resume as per ID discretion DVT, GI prophylaxis will need placement, severely deconditioned case discussed and evaluated by supervising physician Subjective Allergies: Coded Allergies: PENICILLINS (Verified Allergy, Intermediate, 07/30/16) SULFA (SULFONAMIDE ANTIBIOTICS) (Verified Allergy, Intermediate, ITCHING, 07/30/16) Subjective afebrile, no leukocytosis no diarrhea this am Objective Last 24 Hour Vital Signs Date Time Temp Pulse Resp B/P Pulse Ox O2 Delivery O2 Flow Rate FiO2 08/16/16 08:00 97.3 69 18 101/47 97 Nasal Cannula 2.0 08/16/16 06:57 Nasal Cannula 3.0 08/16/16 06:55 97 Nasal Cannula 3.0 08/16/16 04:00 97.5 62 18 140/70 93 Nasal Cannula 2.0 08/16/16 00:00 97.7 60 18 112/67 Nasal Cannula 2.0 08/15/16 20:26 72 127/72 08/15/16 20:00 97.7 72 20 127/72 94 Nasal Cannula 2.0 08/15/16 20:00 97.7 69 18 123/70 95 Nasal Cannula 2.0 08/15/16 16:05 98.2 72 20 149/86 99 Nasal Cannula 2.0 08/15/16 11:47 97.6 69 20 158/90 99 Nasal Cannula 2.0 Intake and Output 08/15/16 08/16/16 19:00 07:00 Intake Total 580 ml 1103 ml Output Total 400 ml Balance 180 ml 1103 ml Intake Oral 580 ml IV Total 1103 ml Output Urine Total 400 ml # Voids 7 4 # Bowel Movements 7 1 Objective General Appearance: no acute distress, other - A/A/O x 3, weak HEENT: normocephalic, atraumatic, mucous membranes moist Respiratory/Chest: lungs clear, no respiratory distress, no accessory muscle use Cardiovascular: normal peripheral pulses, normal rate, regular rhythm, no JVD Abdomen: normal bowel sounds, soft, non tender - incision with gely, clean , dry, Extremities: no edema, pedal pulses normal Neurologic/Psychiatric: no motor/sensory deficits, alert, oriented x 3, responsive Musculoskeletal: normal muscle bulk Laboratory Tests 08/16/16 05:00: White Blood Count 4.4L, Red Blood Count 3.44L, Hemoglobin 9.9L, Hematocrit 31.9L , Mean Corpuscular Volume 93, Mean Corpuscular Hemoglobin 28.9, Mean Corpuscular Hemoglobin Concent 31.1L, Red Cell Distribution Width 13.7, Platelet Count 306, Mean Platelet Volume 6.5, Neutrophils (%) (Auto) 67.7, Lymphocytes (%) (Auto) 24.2, Monocytes (%) (Auto) 7.3, Eosinophils (%) (Auto) 0.1, Basophils (%) (Auto) 0.8, Sodium Level 140, Potassium Level 4.4, Chloride Level 108H, Carbon Dioxide Level 22, Anion Gap 10, Blood Urea Nitrogen 19, Creatinine 0.8, Estimat Glomerular Filtration Rate > 60, Glucose Level 96, Calcium Level 7.5L, Pro-B-Type Natriuretic Peptide 523H Current Medications Medications (Trade) Dose Ordered Sig/Ernie Route PRN Reason Start Time Stop Time Status Last Admin Dose Admin Acetaminophen (Tylenol) 650 mg Q6H PRN ORAL Mild Pain/Temp > 100.5 08/15/16 02:00 09/14/16 01:59 Acetazolamide (Diamox) 250 mg Q12HR ORAL 08/15/16 21:00 09/14/16 20:59 08/16/16 09:37 Chlorhexidine Gluconate (Mame-Hex 2%) 1 applic Q24H TOPIC 08/15/16 21:00 09/14/16 20:59 08/15/16 21:08 Dextrose (Dextrose 50%) STAT PRN IV Hypoglycemia 08/14/16 21:45 09/13/16 21:44 Fluconazole/ Sodium Chloride (Diflucan 200mg/ 100ml Premix) 100 ml @ 100 mls/hr Q24H IV 08/14/16 23:00 08/21/16 22:59 08/15/16 23:07 Heparin Sodium (Porcine) (Heparin 5000 units/ml) 5,000 units EVERY 12 HOURS SUBQ 08/15/16 09:00 09/14/16 08:59 08/16/16 09:38 Loperamide HCl (Imodium) 2 mg Q4H PRN ORAL Diarrhea 08/15/16 16:45 09/14/16 16:44 08/15/16 20:26 Lorazepam (Ativan 2mg/ml 1ml) 2 mg EVERY 2 HOURS PRN IV For Anxiety 08/14/16 22:00 08/21/16 21:59 08/15/16 20:26 Meropenem/Sodium Chloride (Merrem/Sodium Chloride) 110 ml @ 220 mls/hr Q8H IVPB 08/15/16 02:00 08/20/16 01:59 08/16/16 09:36 Metoprolol Tartrate (Lopressor) 25 mg Q12HR ORAL 08/15/16 09:00 09/14/16 08:59 08/15/16 20:26 Morphine Sulfate (Morphine Sulfate) 2 mg EVERY 2 HOURS PRN IVP For Pain 08/14/16 22:00 08/21/16 21:59 Nitroglycerin (Ntg) 0.4 mg Q5M X 3 DOSES PRN SL Prn Chest Pain 08/14/16 21:30 09/13/16 21:29 Ondansetron HCl (Zofran) 4 mg Q6H PRN IVP Nausea & Vomiting 08/14/16 21:45 09/13/16 21:44 Promethazine HCl 25 mg 25 mg EVERY 8 HOURS PRN IV refractory nausea 08/14/16 22:00 09/13/16 21:59 Ranitidine HCl (Zantac) 150 mg Q12HR ORAL 08/15/16 21:00 09/14/16 20:59 08/16/16 09:37 [facility] SystemLich[facility] Jackson NP Aug 16, 2016 11:15
[2016-08-16] MEDS ORDERED: Tubing IV Secondary IV ONE ×2 (11:21→22:32)
--- NOTE | 2016-08-16 11:35 | General Progress Note ---
Assessment/Plan Status: stable Assessment/Plan Status: Acute renal failure and Oliguria due to - low BP , post OP- Amikacin and VancoMycin- Ongoing sepsis RESOLVED Respiratory failure, on Vent intraabdominal abscess, small bowel obstruction, intraabdominal adhesions, small bowel perforation. Plan; Phos & K supplement as needed Post Op care- monitor renal parameters- Per ID- GI , .... Avoid nephrotoxics Per orders Subjective ROS Limited/Unobtainable: No Constitutional: Reports: malaise Allergies: Coded Allergies: PENICILLINS (Verified Allergy, Intermediate, 07/30/16) SULFA (SULFONAMIDE ANTIBIOTICS) (Verified Allergy, Intermediate, ITCHING, 07/30/16) Objective Last 24 Hour Vital Signs Date Time Temp Pulse Resp B/P Pulse Ox O2 Delivery O2 Flow Rate FiO2 08/16/16 08:00 97.3 69 18 101/47 97 Nasal Cannula 2.0 08/16/16 06:57 Nasal Cannula 3.0 08/16/16 06:55 97 Nasal Cannula 3.0 08/16/16 04:00 97.5 62 18 140/70 93 Nasal Cannula 2.0 08/16/16 00:00 97.7 60 18 112/67 Nasal Cannula 2.0 08/15/16 20:26 72 127/72 08/15/16 20:00 97.7 72 20 127/72 94 Nasal Cannula 2.0 08/15/16 20:00 97.7 69 18 123/70 95 Nasal Cannula 2.0 08/15/16 16:05 98.2 72 20 149/86 99 Nasal Cannula 2.0 08/15/16 11:47 97.6 69 20 158/90 99 Nasal Cannula 2.0 Intake and Output 08/15/16 08/16/16 19:00 07:00 Intake Total 580 ml 1103 ml Output Total 400 ml Balance 180 ml 1103 ml Intake Oral 580 ml IV Total 1103 ml Output Urine Total 400 ml # Voids 7 4 # Bowel Movements 7 1 Laboratory Tests 08/16/16 05:00: White Blood Count 4.4L, Red Blood Count 3.44L, Hemoglobin 9.9L, Hematocrit 31.9L , Mean Corpuscular Volume 93, Mean Corpuscular Hemoglobin 28.9, Mean Corpuscular Hemoglobin Concent 31.1L, Red Cell Distribution Width 13.7, Platelet Count 306, Mean Platelet Volume 6.5, Neutrophils (%) (Auto) 67.7, Lymphocytes (%) (Auto) 24.2, Monocytes (%) (Auto) 7.3, Eosinophils (%) (Auto) 0.1, Basophils (%) (Auto) 0.8, Sodium Level 140, Potassium Level 4.4, Chloride Level 108H, Carbon Dioxide Level 22, Anion Gap 10, Blood Urea Nitrogen 19, Creatinine 0.8, Estimat Glomerular Filtration Rate > 60, Glucose Level 96, Calcium Level 7.5L, Pro-B-Type Natriuretic Peptide 523H Height (Feet): 5 Height (Inches): 9.00 Weight (Pounds): 172 General Appearance: no apparent distress Objective no other changes in PE AYDE SERNA Aug 16, 2016 11:35
[2016-08-16 12:00] VITALS: BP 91/58
--- NOTE | 2016-08-16 12:36 | Infectious Diseases Prog Note ---
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 probable PICC infection - repeat BCx NGTD TTE(-) SBE HIV (reportedly the patient's undetectable viral load and CD4 count was 300). Negative C.difficile 08/11 Leukocytosis , post op - resolved Fever - improved Acute VDRF SP - self-extubated 08/11 LUCY improved Bipolar disorder PCN, sulfa allergies - tolerating meropenem Full Code PLAN: continue meropenem d# 7 / 10 and add Diflucan d# 2 / 10 ( empiric Rx ) ( 08/13 SP Flagyl and vancomycin d# 14 ) ( 08/10 SP aztreonam d# 10 ) Monitor CBC Monitor BMP. Monitor CXR Subjective Allergies: Coded Allergies: PENICILLINS (Verified Allergy, Intermediate, 07/30/16) SULFA (SULFONAMIDE ANTIBIOTICS) (Verified Allergy, Intermediate, ITCHING, 07/30/16) Subjective afebrile , Objective Vital Signs Last 24 Hour Vital Signs Date Time Temp Pulse Resp B/P Pulse Ox O2 Delivery O2 Flow Rate FiO2 08/16/16 08:00 97.3 69 18 101/47 97 Nasal Cannula 2.0 08/16/16 06:57 Nasal Cannula 3.0 08/16/16 06:55 97 Nasal Cannula 3.0 08/16/16 04:00 97.5 62 18 140/70 93 Nasal Cannula 2.0 08/16/16 00:00 97.7 60 18 112/67 Nasal Cannula 2.0 08/15/16 20:26 72 127/72 08/15/16 20:00 97.7 72 20 127/72 94 Nasal Cannula 2.0 08/15/16 20:00 97.7 69 18 123/70 95 Nasal Cannula 2.0 08/15/16 16:05 98.2 72 20 149/86 99 Nasal Cannula 2.0 Height (Feet): 5 Height (Inches): 9.00 Weight (Pounds): 172 HEENT: atraumatic Respiratory/Chest: no respiratory distress Cardiovascular: regular rhythm Abdomen: soft, non tender Laboratory Tests Test 08/16/16 05:00 White Blood Count 4.4 K/UL (4.8-10.8) L Red Blood Count 3.44 M/UL (4.70-6.10) L Hemoglobin 9.9 G/DL (14.2-18.0) L Hematocrit 31.9 % (42.0-52.0) L Mean Corpuscular Volume 93 FL (80-99) Mean Corpuscular Hemoglobin 28.9 PG (27.0-31.0) Mean Corpuscular Hemoglobin Concent 31.1 G/DL (32.0-36.0) L Red Cell Distribution Width 13.7 % (11.6-14.8) Platelet Count 306 K/UL (150-450) Mean Platelet Volume 6.5 FL (6.5-10.1) Neutrophils (%) (Auto) 67.7 % (45.0-75.0) Lymphocytes (%) (Auto) 24.2 % (20.0-45.0) Monocytes (%) (Auto) 7.3 % (1.0-10.0) Eosinophils (%) (Auto) 0.1 % (0.0-3.0) Basophils (%) (Auto) 0.8 % (0.0-2.0) Sodium Level 140 mEQ/L (135-145) Potassium Level 4.4 mEQ/L (3.4-4.9) Chloride Level 108 mEQ/L (98-107) H Carbon Dioxide Level 22 mEQ/L (20-30) Anion Gap 10 (5-15) Blood Urea Nitrogen 19 mg/dL (7-23) Creatinine 0.8 mg/dL (0.7-1.2) Estimat Glomerular Filtration Rate > 60 mL/min (>60) Glucose Level 96 mg/dL (74-106) Calcium Level 7.5 mg/dL (8.6-10.2) L Pro-B-Type Natriuretic Peptide 523 pg/mL (0-125) H Current Medications Medications (Trade) Dose Ordered Sig/Ernie Route PRN Reason Start Time Stop Time Status Last Admin Dose Admin Acetaminophen (Tylenol) 650 mg Q6H PRN ORAL Mild Pain/Temp > 100.5 08/15/16 02:00 09/14/16 01:59 Acetazolamide (Diamox) 250 mg Q12HR ORAL 08/15/16 21:00 09/14/16 20:59 08/16/16 09:37 Chlorhexidine Gluconate (Mame-Hex 2%) 1 applic Q24H TOPIC 08/15/16 21:00 09/14/16 20:59 08/15/16 21:08 Dextrose (Dextrose 50%) STAT PRN IV Hypoglycemia 08/14/16 21:45 09/13/16 21:44 Fluconazole/ Sodium Chloride (Diflucan 200mg/ 100ml Premix) 100 ml @ 100 mls/hr Q24H IV 08/14/16 23:00 08/21/16 22:59 08/15/16 23:07 Heparin Sodium (Porcine) (Heparin 5000 units/ml) 5,000 units EVERY 12 HOURS SUBQ 08/15/16 09:00 09/14/16 08:59 08/16/16 09:38 Loperamide HCl (Imodium) 2 mg Q4H PRN ORAL Diarrhea 08/15/16 16:45 09/14/16 16:44 08/15/16 20:26 Lorazepam (Ativan 2mg/ml 1ml) 2 mg EVERY 2 HOURS PRN IV For Anxiety 08/14/16 22:00 08/21/16 21:59 08/15/16 20:26 Meropenem/Sodium Chloride (Merrem/Sodium Chloride) 110 ml @ 220 mls/hr Q8H IVPB 08/15/16 02:00 08/20/16 01:59 08/16/16 09:36 Metoprolol Tartrate (Lopressor) 25 mg Q12HR ORAL 08/15/16 09:00 09/14/16 08:59 08/15/16 20:26 Morphine Sulfate (Morphine Sulfate) 2 mg EVERY 2 HOURS PRN IVP For Pain 08/14/16 22:00 08/21/16 21:59 Nitroglycerin (Ntg) 0.4 mg Q5M X 3 DOSES PRN SL Prn Chest Pain 08/14/16 21:30 09/13/16 21:29 Ondansetron HCl (Zofran) 4 mg Q6H PRN IVP Nausea & Vomiting 08/14/16 21:45 09/13/16 21:44 Promethazine HCl 25 mg 25 mg EVERY 8 HOURS PRN IV refractory nausea 08/14/16 22:00 09/13/16 21:59 Ranitidine HCl (Zantac) 150 mg Q12HR ORAL 08/15/16 21:00 09/14/16 20:59 08/16/16 09:37 SANTANA HAGER M.D. Aug 16, 2016 12:36
[2016-08-16] MEDS: LORazepam Inj 2mg/ml 1ml IV PRN (16:02)
[2016-08-16 16:09] VITALS: BP 98/58
[2016-08-16 20:00] VITALS: BP 105/65
[2016-08-16] MEDS: Dyna-Hex 2% Top Sol 8oz TOPIC SCH (21:26)
[2016-08-17 00:03] VITALS: BP 114/57
[2016-08-17] MEDS: Meropenem 1 GM in NS 110 ML IVPB SCH ×3 (01:40→17:55)
[2016-08-17 04:15] VITALS: BP 116/68
[2016-08-17 08:08] VITALS: BP 108/70
[2016-08-17 08:36] LABS: ANION GAP 17 (5-15); CARBON DIOXIDE 19 mEQ/L (20-30); CHLORIDE 103 mEQ/L (98-107); CREATININE 0.6 mg/dL (0.7-1.2); GLOMERULAR FILTRATION RATE > 60 mL/min (>60); HEMOLYSIS 7; SODIUM 139 mEQ/L (135-145)
[2016-08-17 08:40] LABS: BASOPHILS % (AUTO) 0.8 % (0.0-2.0); EOSINOPHILS % (AUTO) 0.2 % (0.0-3.0); LYMPHOCYTES % (AUTO) 30.1 % (20.0-45.0); MEAN CORPUSCULAR HEMOGLOBIN 29.9 PG (27.0-31.0); MEAN CORPUSCULAR HGB CONC 32.5 G/DL (32.0-36.0); MEAN CORPUSCULAR VOLUME 92 FL (80-99); MEAN PLATELET VOLUME 6.3 FL (6.5-10.1); MONOCYTES % (AUTO) 8.5 % (1.0-10.0); NEUTROPHILS % (AUTO) 60.4 % (45.0-75.0); PLATELET COUNT 359 K/UL (150-450); RED BLOOD COUNT 3.62 M/UL (4.70-6.10); RED CELL DISTRIBUTION WIDTH 13.5 % (11.6-14.8); WHITE BLOOD COUNT 4.5 K/UL (4.8-10.8)
[2016-08-17] MEDS: Heparin 5000 units/ml inj SUBQ SCH ×2 (08:54→20:54)
[2016-08-17] MEDS: Metoprolol 25mg tab ORAL SCH ×3 (09:00→20:53)
[2016-08-17] MEDS ORDERED: NS 275ml ONE (09:11)
[2016-08-17] MEDS ORDERED: Tubing IV Secondary IV ONE (09:11)
--- NOTE | 2016-08-17 09:19 | Diagnostic Imaging Report ---
Indication: Dyspnea Comparison: 08/12/16 A single view chest radiograph was obtained. Findings: PICC line is stable. Heart size is stable. Focal right basal atelectasis or infiltrate has resolved. Minimal atelectasis noted bilaterally at the lung bases currently. Lung volumes remain low. Impression: Mild basilar atelectasis.
--- NOTE | 2016-08-17 11:03 | General Progress Note ---
Assessment/Plan Status: stable - from renal stand Assessment/Plan Status: Acute renal failure and Oliguria due to - low BP , post OP- Amikacin and VancoMycin- Ongoing sepsis RESOLVED Respiratory failure, on Vent intraabdominal abscess, small bowel obstruction, intraabdominal adhesions, small bowel perforation. Plan; Phos & K supplement as needed Post Op care- monitor renal parameters- Per ID- GI , .... Avoid nephrotoxics Per orders Subjective ROS Limited/Unobtainable: No Allergies: Coded Allergies: PENICILLINS (Verified Allergy, Intermediate, 07/30/16) SULFA (SULFONAMIDE ANTIBIOTICS) (Verified Allergy, Intermediate, ITCHING, 07/30/16) Objective Last 24 Hour Vital Signs Date Time Temp Pulse Resp B/P Pulse Ox O2 Delivery O2 Flow Rate FiO2 08/17/16 10:06 78 108/70 08/17/16 08:08 96.2 78 18 108/70 97 Room Air 08/17/16 04:15 98.3 72 20 116/68 94 Room Air 08/17/16 00:03 98.9 71 20 114/57 95 Room Air 08/16/16 21:26 67 105/65 08/16/16 20:00 97.5 67 20 105/65 94 Nasal Cannula 2.0 08/16/16 16:09 96.2 66 20 98/58 93 Nasal Cannula 2.0 08/16/16 12:00 97.3 67 20 91/58 94 Nasal Cannula 2.0 Intake and Output 08/16/16 08/17/16 19:00 07:00 Intake Total 360 ml 530 ml Output Total 600 ml Balance -240 ml 530 ml Intake Oral 360 ml 320 ml IV Total 210 ml Output Urine Total 600 ml # Voids 4 # Bowel Movements 1 Laboratory Tests 08/17/16 05:30: White Blood Count 4.5L, Red Blood Count 3.62L, Hemoglobin 10.8L, Hematocrit 33.3L, Mean Corpuscular Volume 92, Mean Corpuscular Hemoglobin 29.9, Mean Corpuscular Hemoglobin Concent 32.5, Red Cell Distribution Width 13.5, Platelet Count 359, Mean Platelet Volume 6.3L, Neutrophils (%) (Auto) 60.4, Lymphocytes ( %) (Auto) 30.1, Monocytes (%) (Auto) 8.5, Eosinophils (%) (Auto) 0.2, Basophils (%) (Auto) 0.8, Sodium Level 139, Potassium Level 4.0, Chloride Level 103, Carbon Dioxide Level 19L, Anion Gap 17H, Blood Urea Nitrogen 18, Creatinine 0.6L , Estimat Glomerular Filtration Rate > 60, Glucose Level 82, Calcium Level 8.0L , Pro-B-Type Natriuretic Peptide 185H Height (Feet): 5 Height (Inches): 9.00 Weight (Pounds): 156 General Appearance: no apparent distress Objective no other changes in PE AYDE SERNA Aug 17, 2016 11:03
--- NOTE | 2016-08-17 11:57 | Infectious Diseases Prog Note ---
Assessment/Plan Assessment/Plan A; Intraabdominal abscess, Polymicrobial Pneumonia Small bowel perforation HIV Acute renal failure improving Anemia P; Continue Meropenem & Fluconazole Subjective ROS Limited/Unobtainable: No Respiratory: Reports: dry cough Gastrointestinal/Abdominal: Reports: no symptoms Genitourinary: Reports: no symptoms Neurologic: Reports: no symptoms Allergies: Coded Allergies: PENICILLINS (Verified Allergy, Intermediate, 07/30/16) SULFA (SULFONAMIDE ANTIBIOTICS) (Verified Allergy, Intermediate, ITCHING, 07/30/16) Objective Vital Signs Last 24 Hour Vital Signs Date Time Temp Pulse Resp B/P Pulse Ox O2 Delivery O2 Flow Rate FiO2 08/17/16 10:06 78 108/70 08/17/16 08:08 96.2 78 18 108/70 97 Room Air 08/17/16 04:15 98.3 72 20 116/68 94 Room Air 08/17/16 00:03 98.9 71 20 114/57 95 Room Air 08/16/16 21:26 67 105/65 08/16/16 20:00 97.5 67 20 105/65 94 Nasal Cannula 2.0 08/16/16 16:09 96.2 66 20 98/58 93 Nasal Cannula 2.0 08/16/16 12:00 97.3 67 20 91/58 94 Nasal Cannula 2.0 Height (Feet): 5 Height (Inches): 9.00 Weight (Pounds): 156 General Appearance: no acute distress HEENT: mucous membranes moist Respiratory/Chest: lungs clear Cardiovascular: normal rate Abdomen: soft, non tender Extremities: no edema, other - R arm PICC line Neurologic/Psychiatric: alert, oriented x 3, responsive Laboratory Tests Test 08/17/16 05:30 White Blood Count 4.5 K/UL (4.8-10.8) L Red Blood Count 3.62 M/UL (4.70-6.10) L Hemoglobin 10.8 G/DL (14.2-18.0) L Hematocrit 33.3 % (42.0-52.0) L Mean Corpuscular Volume 92 FL (80-99) Mean Corpuscular Hemoglobin 29.9 PG (27.0-31.0) Mean Corpuscular Hemoglobin Concent 32.5 G/DL (32.0-36.0) Red Cell Distribution Width 13.5 % (11.6-14.8) Platelet Count 359 K/UL (150-450) Mean Platelet Volume 6.3 FL (6.5-10.1) L Neutrophils (%) (Auto) 60.4 % (45.0-75.0) Lymphocytes (%) (Auto) 30.1 % (20.0-45.0) Monocytes (%) (Auto) 8.5 % (1.0-10.0) Eosinophils (%) (Auto) 0.2 % (0.0-3.0) Basophils (%) (Auto) 0.8 % (0.0-2.0) Sodium Level 139 mEQ/L (135-145) Potassium Level 4.0 mEQ/L (3.4-4.9) Chloride Level 103 mEQ/L (98-107) Carbon Dioxide Level 19 mEQ/L (20-30) L Anion Gap 17 (5-15) H Blood Urea Nitrogen 18 mg/dL (7-23) Creatinine 0.6 mg/dL (0.7-1.2) L Estimat Glomerular Filtration Rate > 60 mL/min (>60) Glucose Level 82 mg/dL (74-106) Calcium Level 8.0 mg/dL (8.6-10.2) L Pro-B-Type Natriuretic Peptide 185 pg/mL (0-125) H Current Medications Medications (Trade) Dose Ordered Sig/Ernie Route PRN Reason Start Time Stop Time Status Last Admin Dose Admin Acetaminophen (Tylenol) 650 mg Q6H PRN ORAL Mild Pain/Temp > 100.5 08/15/16 02:00 09/14/16 01:59 Acetazolamide (Diamox) 250 mg Q12HR ORAL 08/15/16 21:00 09/14/16 20:59 08/17/16 08:54 Chlorhexidine Gluconate (Mame-Hex 2%) 1 applic Q24H TOPIC 08/15/16 21:00 09/14/16 20:59 08/16/16 21:26 Dextrose (Dextrose 50%) STAT PRN IV Hypoglycemia 08/14/16 21:45 09/13/16 21:44 Fluconazole/ Sodium Chloride (Diflucan 200mg/ 100ml Premix) 100 ml @ 100 mls/hr Q24H IV 08/14/16 23:00 08/21/16 22:59 08/16/16 23:11 Heparin Sodium (Porcine) (Heparin 5000 units/ml) 5,000 units EVERY 12 HOURS SUBQ 08/15/16 09:00 09/14/16 08:59 08/17/16 08:54 Loperamide HCl (Imodium) 2 mg Q4H PRN ORAL Diarrhea 08/15/16 16:45 09/14/16 16:44 08/15/16 20:26 Lorazepam (Ativan 2mg/ml 1ml) 2 mg EVERY 2 HOURS PRN IV For Anxiety 08/14/16 22:00 08/21/16 21:59 08/16/16 16:02 Meropenem/Sodium Chloride (Merrem/Sodium Chloride) 110 ml @ 220 mls/hr Q8H IVPB 08/15/16 02:00 08/20/16 01:59 08/17/16 10:07 Metoprolol Tartrate (Lopressor) 25 mg Q12HR ORAL 08/15/16 09:00 09/14/16 08:59 08/17/16 10:06 Morphine Sulfate (Morphine Sulfate) 2 mg EVERY 2 HOURS PRN IVP For Pain 08/14/16 22:00 08/21/16 21:59 Nitroglycerin (Ntg) 0.4 mg Q5M X 3 DOSES PRN SL Prn Chest Pain 08/14/16 21:30 09/13/16 21:29 Ondansetron HCl (Zofran) 4 mg Q6H PRN IVP Nausea & Vomiting 08/14/16 21:45 09/13/16 21:44 Promethazine HCl 25 mg 25 mg EVERY 8 HOURS PRN IV refractory nausea 08/14/16 22:00 09/13/16 21:59 Ranitidine HCl (Zantac) 150 mg Q12HR ORAL 08/15/16 21:00 09/14/16 20:59 08/17/16 08:54 ADRIAN BAY Aug 17, 2016 11:57
[2016-08-17 12:00] VITALS: BP 114/73
--- NOTE | 2016-08-17 12:10 | Pulmonology Progress Note ---
Assessment/Plan Assessment/Plan ASSESSMENT acute respiratory failure requiring intubation s/p self- extubation 08/11 sepsis intraabdominal abscess hx of recent laparoscopic left inguinal hernia repair SB perforation 2 to recent laparoscopic hernia repair, resulting in intraabdominal abscess and SB obstruction s/p 07/31 exp lap with drainage of intraabdominal abscess, lysis of adhesions, partial omentectomy and partial SB resection wound dehiscence s/p 08/07 exploratory laparotomy, abdominal washout, .closure of abdominal wound with application of retention sutures. ARF -resolved PAF ( postop) -resolved PNA with Klebsiella/HCAP vs VAP anemia pancreatitis HIV status bipolar disorder diarrhea PLAN OF CARE [facility] floor O2 HHN prn IVF off TPN after tapering on po diet tolerates, no n/v/abdominal pain, stool C dif negative diarrhea controlled after Imodium started surgery follows, incision healing well, drain dc 08/14 abx, ID follows sputum cx + Klebsiella fup with CXR in am peritoneal fluid + Klebsiella blood cx 1/2 SCON, likely due to PICC infection repeated blood cx X2 negative NIKKI negative for SBE ECHO with EF 60-65% cardio follows venous Duplex BLE negative BB for PAF, rate controlled,remains in sinus diuretic prn , x 1 this am as per cardio pain management nephro follows renal parameters stable ARF resolved monitor renal parameters and lytes, replace as needed avoid nephrotoxic GI follows defer any GI procedures at this time anemia work up with low iron, s/p Venofer monitor HH, transfuse prn, stable t am , no further trend down outpt colonoscopy ART therapy resume as per ID discretion DVT, GI prophylaxis will need placement, severely deconditioned case discussed and evaluated by supervising physician Subjective Allergies: Coded Allergies: PENICILLINS (Verified Allergy, Intermediate, 07/30/16) SULFA (SULFONAMIDE ANTIBIOTICS) (Verified Allergy, Intermediate, ITCHING, 07/30/16) Subjective afebrile, no leukocytosis no diarrhea this am,but x 3 last night Objective Last 24 Hour Vital Signs Date Time Temp Pulse Resp B/P Pulse Ox O2 Delivery O2 Flow Rate FiO2 08/17/16 10:06 78 108/70 08/17/16 08:08 96.2 78 18 108/70 97 Room Air 08/17/16 04:15 98.3 72 20 116/68 94 Room Air 08/17/16 00:03 98.9 71 20 114/57 95 Room Air 08/16/16 21:26 67 105/65 08/16/16 20:00 97.5 67 20 105/65 94 Nasal Cannula 2.0 08/16/16 16:09 96.2 66 20 98/58 93 Nasal Cannula 2.0 Intake and Output 08/16/16 08/17/16 19:00 07:00 Intake Total 360 ml 530 ml Output Total 600 ml Balance -240 ml 530 ml Intake Oral 360 ml 320 ml IV Total 210 ml Output Urine Total 600 ml # Voids 4 # Bowel Movements 1 Objective General Appearance: no acute distress, other - A/A/O x 3, weak HEENT: normocephalic, atraumatic, mucous membranes moist Respiratory/Chest: lungs clear, no respiratory distress, no accessory muscle use Cardiovascular: normal peripheral pulses, normal rate, regular rhythm, no JVD Abdomen: normal bowel sounds, soft, non tender - incision with gely, clean , dry, Extremities: no edema, pedal pulses normal Neurologic/Psychiatric: no motor/sensory deficits, alert, oriented x 3, responsive Musculoskeletal: normal muscle bulk Laboratory Tests 08/17/16 05:30: White Blood Count 4.5L, Red Blood Count 3.62L, Hemoglobin 10.8L, Hematocrit 33.3L, Mean Corpuscular Volume 92, Mean Corpuscular Hemoglobin 29.9, Mean Corpuscular Hemoglobin Concent 32.5, Red Cell Distribution Width 13.5, Platelet Count 359, Mean Platelet Volume 6.3L, Neutrophils (%) (Auto) 60.4, Lymphocytes ( %) (Auto) 30.1, Monocytes (%) (Auto) 8.5, Eosinophils (%) (Auto) 0.2, Basophils (%) (Auto) 0.8, Sodium Level 139, Potassium Level 4.0, Chloride Level 103, Carbon Dioxide Level 19L, Anion Gap 17H, Blood Urea Nitrogen 18, Creatinine 0.6L , Estimat Glomerular Filtration Rate > 60, Glucose Level 82, Calcium Level 8.0L , Pro-B-Type Natriuretic Peptide 185H Current Medications Medications (Trade) Dose Ordered Sig/Ernie Route PRN Reason Start Time Stop Time Status Last Admin Dose Admin Acetaminophen (Tylenol) 650 mg Q6H PRN ORAL Mild Pain/Temp > 100.5 08/15/16 02:00 09/14/16 01:59 Acetazolamide (Diamox) 250 mg Q12HR ORAL 08/15/16 21:00 09/14/16 20:59 08/17/16 08:54 Chlorhexidine Gluconate (Mame-Hex 2%) 1 applic Q24H TOPIC 08/15/16 21:00 09/14/16 20:59 08/16/16 21:26 Dextrose (Dextrose 50%) STAT PRN IV Hypoglycemia 08/14/16 21:45 09/13/16 21:44 Fluconazole/ Sodium Chloride (Diflucan 200mg/ 100ml Premix) 100 ml @ 100 mls/hr Q24H IV 08/14/16 23:00 08/21/16 22:59 08/16/16 23:11 Heparin Sodium (Porcine) (Heparin 5000 units/ml) 5,000 units EVERY 12 HOURS SUBQ 08/15/16 09:00 09/14/16 08:59 08/17/16 08:54 Loperamide HCl (Imodium) 2 mg Q4H PRN ORAL Diarrhea 08/15/16 16:45 09/14/16 16:44 08/15/16 20:26 Lorazepam (Ativan 2mg/ml 1ml) 2 mg EVERY 2 HOURS PRN IV For Anxiety 08/14/16 22:00 08/21/16 21:59 08/16/16 16:02 Meropenem/Sodium Chloride (Merrem/Sodium Chloride) 110 ml @ 220 mls/hr Q8H IVPB 08/15/16 02:00 08/20/16 01:59 08/17/16 10:07 Metoprolol Tartrate (Lopressor) 25 mg Q12HR ORAL 08/15/16 09:00 09/14/16 08:59 08/17/16 10:06 Morphine Sulfate (Morphine Sulfate) 2 mg EVERY 2 HOURS PRN IVP For Pain 08/14/16 22:00 08/21/16 21:59 Nitroglycerin (Ntg) 0.4 mg Q5M X 3 DOSES PRN SL Prn Chest Pain 08/14/16 21:30 09/13/16 21:29 Ondansetron HCl (Zofran) 4 mg Q6H PRN IVP Nausea & Vomiting 08/14/16 21:45 09/13/16 21:44 Promethazine HCl 25 mg 25 mg EVERY 8 HOURS PRN IV refractory nausea 08/14/16 22:00 09/13/16 21:59 Ranitidine HCl (Zantac) 150 mg Q12HR ORAL 08/15/16 21:00 09/14/16 20:59 08/17/16 08:54 Maxime ([facility])Licha NP Aug 17, 2016 12:10
--- NOTE | 2016-08-17 14:15 | General Progress Note ---
Progress Note Progress Note Afebrile. Pt is awake and alert. He is tolerating regular diet, is having loose stools. Abdomen is soft, incision is intact. He is stable from a surgical standpoint. We will d/c skin gely tomorrow. Dejuan Gilmore MD Aug 17, 2016 14:15
[2016-08-17 16:00] VITALS: BP 97/63
[2016-08-17 20:00] VITALS: BP 110/68
[2016-08-17] MEDS: Dyna-Hex 2% Top Sol 8oz TOPIC SCH (20:54)
[2016-08-18] MEDS: Meropenem 1 GM in NS 110 ML IVPB SCH ×3 (01:18→18:00)
[2016-08-18 04:47] VITALS: BP 100/65
[2016-08-18 07:59] VITALS: BP 94/60
[2016-08-18] MEDS: Metoprolol 25mg tab ORAL SCH (09:00)
[2016-08-18] MEDS: Heparin 5000 units/ml inj SUBQ SCH (09:08)
--- NOTE | 2016-08-18 09:36 | Diagnostic Imaging Report ---
Indication: Chest pain Comparison: 08/16/2016 A single view chest radiograph was obtained. Findings: PICC line is stable. Heart is stable in size. Lungs remain clear. Bones are unremarkable Impression: PICC line in good position. No change
[2016-08-18 11:43] VITALS: BP 105/70
--- NOTE | 2016-08-18 11:50 | General Progress Note ---
Progress Note Progress Note surgery: pt seen and examined. doing well. no acute events. comfortable. awaiting rehab. afebrile, hds, exam benign labs okay gely removed at bedside. okay for rehab from surgical standpoint. Luis Felipe Samuels Aug 18, 2016 11:50
--- NOTE | 2016-08-18 12:00 | Cardiology Progress Note ---
Assessment/Plan Assessment/Plan Paroxysmal atrial fibrillation with rapid ventricular response HIV disease Intra-abdominal abscess Sepsis Hernia, umbilical Hypertension wound dehiscence last week, and expl lap, s/p partial sb resection, omentectomy He had post-op AF, which has resolved. nwo much more awake is on Diamox bp is lwo will dc Diamox orthostatic by sx related to volume or prolonged recumbent position co sob but cxr neg adn probnp not sig elevated Subjective Cardiovascular: Reports: lightheadedness, Denies: chest pain Respiratory: Reports: shortness of breath Gastrointestinal/Abdominal: Denies: abdominal pain Genitourinary: Denies: burning Objective Last 24 Hour Vital Signs Date Time Temp Pulse Resp B/P Pulse Ox O2 Delivery O2 Flow Rate FiO2 08/18/16 11:43 97.2 71 18 105/70 97 Room Air 2.0 08/18/16 09:00 74 94/60 08/18/16 07:59 74 18 94/60 97 Room Air 2.0 08/18/16 07:53 Nasal Cannula 3.0 08/18/16 07:53 95 Nasal Cannula 3.0 08/18/16 04:47 97.3 62 18 100/65 97 Room Air 2.0 08/17/16 20:53 74 110/68 08/17/16 20:07 96 Nasal Cannula 3.0 08/17/16 20:07 Nasal Cannula 3.0 08/17/16 20:00 97.7 74 20 110/68 96 Room Air 08/17/16 16:00 98.4 74 20 97/63 96 Nasal Cannula 2.0 08/17/16 12:00 97.9 64 18 114/73 96 Room Air General Appearance: no apparent distress, alert Neck: no JVD Cardiovascular: normal rate Respiratory/Chest: lungs clear, normal breath sounds Abdomen: non tender, soft Extremities: non-tender Intake and Output 08/17/16 08/18/16 19:00 07:00 Intake Total 120 ml Output Total 400 ml 450 ml Balance -280 ml -450 ml Intake Oral 120 ml Output Urine Total 400 ml 450 ml # Voids 3 # Bowel Movements 2 3 ANTHONY DOMÍNGUEZ Aug 18, 2016 12:00
[2016-08-18] MEDS ORDERED: NS 250 ML IVPB ONE (12:15)
--- NOTE | 2016-08-18 12:17 | General Progress Note ---
Assessment/Plan Status: stable Assessment/Plan Status: Acute renal failure and Oliguria due to - low BP , post OP- Amikacin and VancoMycin- Ongoing sepsis RESOLVED Respiratory failure, on Vent intraabdominal abscess, small bowel obstruction, intraabdominal adhesions, small bowel perforation. Plan; Phos & K supplement as needed Post Op care- monitor renal parameters- Per ID- GI , .... Avoid nephrotoxics Per orders Subjective ROS Limited/Unobtainable: No Allergies: Coded Allergies: PENICILLINS (Verified Allergy, Intermediate, 07/30/16) SULFA (SULFONAMIDE ANTIBIOTICS) (Verified Allergy, Intermediate, ITCHING, 07/30/16) Objective Last 24 Hour Vital Signs Date Time Temp Pulse Resp B/P Pulse Ox O2 Delivery O2 Flow Rate FiO2 08/18/16 11:43 97.2 71 18 105/70 97 Room Air 2.0 08/18/16 09:00 74 94/60 08/18/16 07:59 74 18 94/60 97 Room Air 2.0 08/18/16 07:53 Nasal Cannula 3.0 08/18/16 07:53 95 Nasal Cannula 3.0 08/18/16 04:47 97.3 62 18 100/65 97 Room Air 2.0 08/17/16 20:53 74 110/68 08/17/16 20:07 96 Nasal Cannula 3.0 08/17/16 20:07 Nasal Cannula 3.0 08/17/16 20:00 97.7 74 20 110/68 96 Room Air 08/17/16 16:00 98.4 74 20 97/63 96 Nasal Cannula 2.0 Intake and Output 08/17/16 08/18/16 19:00 07:00 Intake Total 120 ml Output Total 400 ml 450 ml Balance -280 ml -450 ml Intake Oral 120 ml Output Urine Total 400 ml 450 ml # Voids 3 # Bowel Movements 2 3 Height (Feet): 5 Height (Inches): 9.00 Weight (Pounds): 157 General Appearance: no apparent distress Objective no other changes in PE AYDE SERNA Aug 18, 2016 12:17
[2016-08-18] MEDS ORDERED: DIFLUCAN200 MG ORAL (14:13)
--- NOTE | 2016-08-18 14:15 | Pulmonology Progress Note ---
Assessment/Plan Problems: (1) Acute respiratory failure (2) Sepsis (3) Intra-abdominal abscess (4) ATN (acute tubular necrosis) (5) HIV disease Assessment/Plan improving eating well surgery cleared for discharge. continue abx pt/ot dc to rehab on Labrea Subjective ROS Limited/Unobtainable: No Interval Events: doing well Allergies: Coded Allergies: PENICILLINS (Verified Allergy, Intermediate, 07/30/16) SULFA (SULFONAMIDE ANTIBIOTICS) (Verified Allergy, Intermediate, ITCHING, 07/30/16) Objective Last 24 Hour Vital Signs Date Time Temp Pulse Resp B/P Pulse Ox O2 Delivery O2 Flow Rate FiO2 08/18/16 11:43 97.2 71 18 105/70 97 Room Air 2.0 08/18/16 09:00 74 94/60 08/18/16 07:59 74 18 94/60 97 Room Air 2.0 08/18/16 07:53 Nasal Cannula 3.0 08/18/16 07:53 95 Nasal Cannula 3.0 08/18/16 04:47 97.3 62 18 100/65 97 Room Air 2.0 08/17/16 20:53 74 110/68 08/17/16 20:07 96 Nasal Cannula 3.0 08/17/16 20:07 Nasal Cannula 3.0 08/17/16 20:00 97.7 74 20 110/68 96 Room Air 08/17/16 16:00 98.4 74 20 97/63 96 Nasal Cannula 2.0 Intake and Output 08/17/16 08/18/16 19:00 07:00 Intake Total 120 ml Output Total 400 ml 450 ml Balance -280 ml -450 ml Intake Oral 120 ml Output Urine Total 400 ml 450 ml # Voids 3 # Bowel Movements 2 3 General Appearance: cachetic Respiratory/Chest: chest wall non-tender, lungs clear Cardiovascular: normal peripheral pulses, normal rate Abdomen: normal bowel sounds, soft, non tender Extremities: no cyanosis, no clubbing Skin: no rash Neurologic/Psychiatric: 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, no motor/sensory deficits Current Medications Medications (Trade) Dose Ordered Sig/Ernie Route PRN Reason Start Time Stop Time Status Last Admin Dose Admin Acetaminophen (Tylenol) 650 mg Q6H PRN ORAL Mild Pain/Temp > 100.5 08/15/16 02:00 09/14/16 01:59 Chlorhexidine Gluconate (Mame-Hex 2%) 1 applic Q24H TOPIC 08/15/16 21:00 09/14/16 20:59 08/17/16 20:54 Dextrose (Dextrose 50%) STAT PRN IV Hypoglycemia 08/14/16 21:45 09/13/16 21:44 Fluconazole/ Sodium Chloride (Diflucan 200mg/ 100ml Premix) 100 ml @ 100 mls/hr Q24H IV 08/14/16 23:00 08/21/16 22:59 08/17/16 22:09 Heparin Sodium (Porcine) (Heparin 5000 units/ml) 5,000 units EVERY 12 HOURS SUBQ 08/15/16 09:00 09/14/16 08:59 08/18/16 09:08 Loperamide HCl (Imodium) 2 mg Q4H PRN ORAL Diarrhea 08/15/16 16:45 09/14/16 16:44 08/15/16 20:26 Lorazepam (Ativan 2mg/ml 1ml) 2 mg EVERY 2 HOURS PRN IV For Anxiety 08/14/16 22:00 08/21/16 21:59 08/16/16 16:02 Meropenem/Sodium Chloride (Merrem/Sodium Chloride) 110 ml @ 220 mls/hr Q8H IVPB 08/15/16 02:00 08/20/16 01:59 08/18/16 09:07 Metoprolol Tartrate (Lopressor) 25 mg Q12HR ORAL 08/15/16 09:00 09/14/16 08:59 08/17/16 20:53 Morphine Sulfate (Morphine Sulfate) 2 mg EVERY 2 HOURS PRN IVP For Pain 08/14/16 22:00 08/21/16 21:59 Nitroglycerin (Ntg) 0.4 mg Q5M X 3 DOSES PRN SL Prn Chest Pain 08/14/16 21:30 09/13/16 21:29 Ondansetron HCl (Zofran) 4 mg Q6H PRN IVP Nausea & Vomiting 08/14/16 21:45 09/13/16 21:44 Promethazine HCl 25 mg 25 mg EVERY 8 HOURS PRN IV refractory nausea 08/14/16 22:00 09/13/16 21:59 Ranitidine HCl (Zantac) 150 mg Q12HR ORAL 08/15/16 21:00 09/14/16 20:59 08/18/16 09:07 CHAS WALLACE Aug 18, 2016 14:15
--- NOTE | 2016-08-18 14:25 | GI Progress Note ---
Assessment/Plan Problems: (1) Hypoalbuminemia ICD Codes: E88.09 - Other disorders of plasma-protein metabolism, not elsewhere classified SNOMED: 528719884 (2) Anemia ICD Codes: D64.9 - Anemia, unspecified SNOMED: 175008655 (3) Pancreatitis ICD Codes: K85.90 - Acute pancreatitis without necrosis or infection, unspecified SNOMED: 75448249 Qualifiers: Qualified Codes: K85.80 - Other acute pancreatitis without necrosis or infection (4) Intra-abdominal abscess ICD Codes: K65.1 - Peritoneal abscess SNOMED: 10203447 (5) Ischemia, bowel ICD Codes: K55.9 - Vascular disorder of intestine, unspecified SNOMED: 34932262 Status: stable, progressing Status Narrative Discussed with Dr. Sheikh. Assessment/Plan s/p Exploratory laparotomy, drainage of abdominal abscess, lysis of adhesions, partial omentectomy and partial small-bowel resection. s/p Exploratory laparotomy, abdominal washout, abdominal closure cdiff negative self extubated Imodium prn DVT prophylaxis regular diet, tolerating cont H2B fu labs fu surgery recs >> okay to d/c to rehab, will be removing gely tomorrow. Subjective Subjective doing well denies any symptoms Objective Last 24 Hour Vital Signs Date Time Temp Pulse Resp B/P Pulse Ox O2 Delivery O2 Flow Rate FiO2 08/18/16 11:43 97.2 71 18 105/70 97 Room Air 2.0 08/18/16 09:00 74 94/60 08/18/16 07:59 74 18 94/60 97 Room Air 2.0 08/18/16 07:53 Nasal Cannula 3.0 08/18/16 07:53 95 Nasal Cannula 3.0 08/18/16 04:47 97.3 62 18 100/65 97 Room Air 2.0 08/17/16 20:53 74 110/68 08/17/16 20:07 96 Nasal Cannula 3.0 08/17/16 20:07 Nasal Cannula 3.0 08/17/16 20:00 97.7 74 20 110/68 96 Room Air 08/17/16 16:00 98.4 74 20 97/63 96 Nasal Cannula 2.0 Intake and Output 08/17/16 08/18/16 19:00 07:00 Intake Total 120 ml Output Total 400 ml 450 ml Balance -280 ml -450 ml Intake Oral 120 ml Output Urine Total 400 ml 450 ml # Voids 3 # Bowel Movements 2 3 Height (Feet): 5 Height (Inches): 9.00 Weight (Pounds): 157 General Appearance: no apparent distress, alert Cardiovascular: normal rate Respiratory/Chest: normal breath sounds, no respiratory distress Abdominal Exam: normal bowel sounds, non tender, soft, incision site Lita Parsons N.P. Aug 18, 2016 14:25
[2016-08-18 16:00] VITALS: BP 119/65
[2016-08-18] MEDS ORDERED: NS 275ml ONE (19:37)
[2016-08-18] MEDS ORDERED: Fluconazole 100mg tab ORAL SCH (21:00)
--- NOTE | 2016-08-18 21:11 | Infectious Diseases Prog Note ---
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 probable PICC infection - repeat BCx NGTD TTE(-) SBE HIV (reportedly the patient's undetectable viral load and CD4 count was 300). Negative C.difficile 08/11 Leukocytosis , post op - resolved Fever - improved Acute VDRF SP - self-extubated 08/11 LUCY improved Bipolar disorder PCN, sulfa allergies - tolerating meropenem Full Code PLAN: continue meropenem d# 9 / 10 and add Diflucan d# 4 / 10 ( empiric Rx ) , ok to DC w cont of oral Diflucan as out pt ( 08/13 SP Flagyl and vancomycin d# 14 ) ( 08/10 SP aztreonam d# 10 ) Monitor CBC Monitor BMP. Monitor CXR Subjective Allergies: Coded Allergies: PENICILLINS (Verified Allergy, Intermediate, 07/30/16) SULFA (SULFONAMIDE ANTIBIOTICS) (Verified Allergy, Intermediate, ITCHING, 07/30/16) Subjective late entry afebrile , Objective Vital Signs Last 24 Hour Vital Signs Date Time Temp Pulse Resp B/P Pulse Ox O2 Delivery O2 Flow Rate FiO2 08/18/16 16:00 98.2 69 18 119/65 97 Room Air 08/18/16 11:43 97.2 71 18 105/70 97 Room Air 08/18/16 09:00 74 94/60 08/18/16 07:59 74 18 94/60 97 Room Air 2.0 08/18/16 07:53 Nasal Cannula 3.0 08/18/16 07:53 95 Nasal Cannula 3.0 08/18/16 04:47 97.3 62 18 100/65 97 Room Air 2.0 Height (Feet): 5 Height (Inches): 9.00 Weight (Pounds): 157 HEENT: anicteric Respiratory/Chest: normal breath sounds Cardiovascular: normal rate Abdomen: soft, non tender SANTANA HAGER M.D. Aug 18, 2016 21:11
--- NOTE | 2016-08-27 11:03 | Discharge Summary ---
Discharge Summary Hospital Course Date of Admission Jul 30, 2016 at 21:05 Date of Discharge Aug 18, 2016 at 19:38 Admitting Diagnosis dehydration, colitis HPI Ger Lr is a 61 year old male who was admitted on Jul 30, 2016 at 21:05 for Dehydration, Colitis Hospital Course dc summary #[id number] Discharge Medications New Medications: Fluconazole* (Diflucan*) 200 Mg Tablet 200 MG ORAL DAILY for 7 Days, #10 TAB 0 Refills Continued Medications: Bupropion HCl (Wellbutrin) 100 Mg Tab 150 MG PO DAILY, #10 TAB Take 1 tablet by mouth every day. Hydrocodone Bit/Acetaminophen 5-325* ([place] 5-325*) 1 Each Tablet 1 TAB ORAL Q6H PRN for For Pain, #20 TAB Lamotrigine* (Lamictal*) 25 Mg Tablet 25 MG PO DAILY, #10 TAB Take 1 tablet by mouth every day. Discharge Condition Upon Discharge: stable Discharge Disposition Patient was discharged to SNF/Subacute Facility(03) Discharge Diagnoses: Maxime ([facility])Licha NP Aug 27, 2016 11:02
--- NOTE | 2016-08-27 21:40 | Discharge Summary 2 SIG ---
DATE OF ADMISSION: 07/30/2016 DATE OF DISCHARGE: 08/18/2016 REASON FOR ADMISSION: 61-year-old male, with history of HIV disease, recently undergone laparoscopic left inguinal hernia repair at [facility], presented with abdominal pain, which he developed two days after being discharged from the hospital. He also developed diffuse and watery diarrhea. Workup in the emergency room revealed that the patient was afebrile, tachycardic with sinus tachycardia, slightly hypoxemic requiring supplemental oxygen, on two liters pulse oximetry was only 90%. Mild leukocytosis- 11.1, stable hemoglobin and hematocrit. Lipase - 440. BUN -39 and creatinine- 1.8. Troponin was negative. CT of the abdomen and pelvis revealed small bowel findings suspicious for ischemia/infarction, associated portal venous gas . A loculated gas and fluid collection in the anterior peritoneal cavity which could represent a contained perforation or abscess. Minimal ascites secondary to above. Pulmonary bibasilar atelectasis. Superimposed pneumonia was not excludable. Soft tissue changes in left inguinal region compatible with given surgical history. Surgery consult was requested stat. The patient was admitted. The patient subsequently undergone emergent surgery, and since being intubated during the surgery, transferred to ICU for further management. ADMITTING DIAGNOSES: 1. Possible intra-abdominal abscess. 2. Possible ischemic bowel. 3. Pneumatosis intestinalis. 4. History of recent laparoscopic left inguinal hernia repair. 5. Acute renal failure. 6. Sepsis. HOSPITAL STAY: The patient undergone on 07/31/2016 exploratory laparotomy, drainage of abdominal abscess, lysis of adhesion, partial omentectomy and partial small bowel resection. The patient was intubated during the surgery and after surgery was transferred to ICU for further management. Ventilator support [provided. Pulmonary toilet provided. ABG and chest x-ray were followed daily. The patient was kept NPO. The patient was on the IV fluids, bowel rest with NG tube to suction. The patient was started on empiric antibiotic. ID followed. Pain management provided. DVT prophylaxis provided. Surgery closely followed the patient along with rubber tire curer. The patient developed wound dehiscence and subsequently on 08/07/2016 undergone exploratory laparotomy with abdominal washout and closure of abdominal wound with application of retention suture. Blood culture initial one out of two was positive for Staph coagulase-negative. Rest of the blood cultures were negative. Leukocytosis resolved. The highest leukocytosis was 27.1 on 08/04/2016. Urine culture were negative. Sputum culture revealed Klebsiella pneumoniae and Peggy. Stool for C. difficile was negative. Abdominal abscess revealed staph coagulase-negative, Klebsiella pneumoniae (aerobic culture) and anaerobic culture with Bacterioids and Prevotella. Stool for C. difficile x2 was negative. The patient completed treatment for pneumonia and intraabdominal abscess. ID recommended oral Diflucan for additional few days as outlined in medication reconciliation list. Pulmonary status was closely monitored. The patient had difficulty with being extubated. The patient self-extubated himself on 08/11/2016. Supplemental oxygen and pulmonary toilet provided as needed. Pulse oximetry on room air was stable prior to discharge. The patient was followed up with chest x-ray. The patient likely had aspiration pneumonia with Klebsiella, status post treatment. Chest x-ray prior to discharge revealed clear lungs. The patient initially was on the IV fluids and then on the TPN for bowel rest. Surgery and GI closely followed. As his clinical condition improved, the patient slowly started on clear liquid diet, which was advanced as tolerated with subsequent tapering off the TPN. The patient was able to tolerate oral diet. Antiemetic provided as needed. Pain management was addressed. TPN was discontinued after tapering. The patient developed diarrhea, however, stool C. difficile 2 was negative. Imodium started on an as-needed basis and diarrhea subsequently resolved. Incision was healing well. Drain was discontinued on 08/14/2016. Internal Medicine Nurse seen the patient for paroxysmal atrial fibrillation and started the patient on beta-sully. Rate was controlled. The patient remained in sinus rhythm. Diuretics given p.r.n. ProBNP trending down. Venous duplex bilateral lower extremities was negative. Echocardiogram revealed ejection fraction of 60% to 65%. NIKKI was negative for evidence of SBE. Mechanical Expert followed. Renal parameters stable. Acute renal failure resolved. Acute renal failure was likely secondary initially to sepsis and hypotension, and rubber tire curer initially recommended gentle hydration. Nephrotoxics were avoided, renal parameters and electrolytes were closely monitored. GI closely followed. Gastrointestinal specialist deferred any GI procedure at this time. Anemia workup revealed low iron. The patient status post Venofer infusion. Hemoglobin and hematocrit were closely monitored. The patient status post transfusion of one unit of packed red blood cells. Hemoglobin and hematocrit remained at the baseline. No further trend down. GI specialist recommended outpatient colonoscopy. ART therapy was resumed as per ID. According to the patient, the patient has undetectable viral load and CD4 count was 300. DVT and GI prophylaxis provided. The patient was working with physical and occupational therapists. The patient needed placement due to being severely deconditioned. Placement was found and the patient subsequently was transferred to the shelter facility. DISCHARGE DIAGNOSES: 1. Sepsis. 2. Intraabdominal abscess. 3. History of recent laparoscopic left inguinal hernia repair. 4. Small bowel perforation secondary to recent laparoscopic hernia repair- resolved 5. Acute intra-abdominal abscess 6. Small bowel obstruction. 7. Status post 07/31/2016 exploratory laparotomy with drainage of intra-abdominal abscess, lysis of adhesion, partial omentectomy, and partial small bowel resection. 8. Wound dehiscence. 9. Status post 08/07/2016 exploratory laparotomy, abdominal washout, closure of abdominal wound with application of retention suture. 10 Acute respiratory failure requiring intubation. 11. Status post self-extubation on 08/11/2016. 12. Acute renal failure, resolved ( due to sepsis and hypotension) 13. Paroxysmal atrial fibrillation, resolved. 12. Pneumonia with Klebsiella. 13. Anemia, status post blood transfusion. 14. Diarrhea-resolved 15. Human immunodeficiency virus status. DISCHARGE MEDICATIONS: See medication reconciliation list. DISCHARGE INSTRUCTIONS: The patient was discharged to the shelter facility. FOLLOWUP: Follow up with medical doctor at the facility. Amanda Brown M.D. Licha ChristianManhattan Eye, Ear And Throat HospitalManuel N.PRaghu DR: BERTHA JOB#: [id number] CC: MAYELA
== END 2016-08-18 19:38 | disposition short-term general hospital (02) | DRG 856 ==
LOC: EMR 20:50 → 4E 21:05 → EDBEDREQ 21:20 → ICU 07-31 03:19 → 2W 08-12 12:50 → 4W 08-14 21:00
PROC: 0DTS0ZZ (ICD-10-PCS; principal; 2016-07-31 01:00)
PROC: 5A1955Z Respiratory Ventilation, Greater than 96 Consecutive Hours (ICD-10-PCS; principal; 2016-07-31 01:00)
PROC: 0DTA0ZZ Resection of Jejunum, Open Approach (ICD-10-PCS; principal; 2016-07-31 01:00)
PROC: 02HV33Z Insertion of Infusion Device into Superior Vena Cava, Percutaneous Approach (ICD-10-PCS; principal; 2016-07-31 01:00)
PROC: B548ZZA Ultrasonography of Superior Vena Cava, Guidance (ICD-10-PCS; principal; 2016-07-31 01:00)
PROC: 0B21XEZ Change Endotracheal Airway in Trachea, External Approach (ICD-10-PCS; 2016-08-02)
PROC: 0WQF0ZZ Repair Abdominal Wall, Open Approach (ICD-10-PCS; 2016-08-07)
PROC: 0W9G0ZZ Drainage of Peritoneal Cavity, Open Approach (ICD-10-PCS; 2016-08-07)
DX: T81.4XXA Infection following a procedure, initial encounter (principal); J96.00 Acute respiratory failure, unspecified whether with hypoxia or hypercapnia; K75.1 Phlebitis of portal vein; N17.0 Acute kidney failure with tubular necrosis; K65.1 Peritoneal abscess; K63.1 Perforation of intestine (nontraumatic); J69.0 Pneumonitis due to inhalation of food and vomit; A41.9 Sepsis, unspecified organism; J15.0 Pneumonia due to Klebsiella pneumoniae; K85.90 Acute pancreatitis without necrosis or infection, unspecified; K56.5 Intestinal adhesions [bands] with obstruction (postinfection); T81.32XA Disruption of internal operation (surgical) wound, not elsewhere classified, initial encounter; I48.92 Unspecified atrial flutter; Z99.11 Dependence on respirator [ventilator] status; K63.89 Other specified diseases of intestine; F31.9 Bipolar disorder, unspecified; I48.0 Paroxysmal atrial fibrillation; I10 Essential (primary) hypertension; D64.9 Anemia, unspecified; R19.7 Diarrhea, unspecified; E88.09 Other disorders of plasma-protein metabolism, not elsewhere classified
CPT/HCPCS: 36415; 36569; 36600; 71010; 74176; 76937; 80048; 80053; 80061; 80150; 80202; 81001; 81003; 82140; 82150; 82550; 82607; 82728; 82747; 82803; 82962; 82977; 83036; 83540; 83550; 83605; 83690; 83735; 83880; 84100; 84443; 84478; 84484; 84550; 85007; 85025; 85610; 85730; 86140; 86850; 86900; 86901; 86920; 87040; 87070; 87075; 87081; 87086; 87181; 87205; 87324; 93005; 93306; 93970; 94002; 94003; 94150; 94760; J1815; J2250; J2405

== ENCOUNTER → 2016-09-25 | Emergency (ER) | payer MEDICARE, MEDICAID ==
[~2016-09-25] VITALS: Ht 182.9 cm; Wt 68.0 kg
[~2016-09-25] MED LIST changes: -D5 1/2NS 1,000 ML IV SCH; +DIFLUCAN200 MG ORAL
[2016-09-25 15:07] VITALS: BP 118/57
[2016-09-25 15:40] VITALS: BP 118/57
--- NOTE | 2016-09-25 17:53 | Emergency Room Report ---
History of Present Illness General Chief Complaint: General Complaint Source: Patient, Medical Record Present Illness HPI 61-year-old male presents ED for evaluation. Patient states he is here to have his suture removed from his abdomen. Patient is status post exploratory laparoscopy with abdominal washout in February 2016. Patient states he initially had a hernia repair done at [facility] and shortly after presented here with severe abdominal pain. Patient states the operating room for exploratory laparoscopy and found perforation and abscess. Patient was subsequently treated and discharged. Patient is here to have his suture removed from the top of his abdomen. Was seen by PMD and was referred to ER for evaluation. Patient denies any pain. Denies any fevers or chills. Denies nausea or vomiting. No aggravating or leading factors. Denies any other associated symptoms Allergies: Coded Allergies: PENICILLINS (Verified Allergy, Intermediate, 07/30/16) SULFA (SULFONAMIDE ANTIBIOTICS) (Verified Allergy, Intermediate, ITCHING, 07/30/16) Patient History Past Medical History: asthma, other Past Surgical History: other - exlap Pertinent Family History: none Social History: Denies: alcohol use, drug use, smoking Immunizations: UTD Reviewed Nursing Documentation: PMH: Agreed, PSxH: Agreed Nursing Documentation-PMH Past Medical History: No History, Except For Hx Cardiac Problems: No Hx Hypertension: No - Gout Hx Asthma: Yes Hx Cancer: No Hx Gastrointestinal Problems: Yes Hx Neurological Problems: No Review of Systems All Other Systems: negative except mentioned in HPI Physical Exam Vital Signs Date Time Temp Pulse Resp B/P Pulse Ox O2 Delivery O2 Flow Rate FiO2 09/25/16 15:07 98.1 89 16 118/57 98 Room Air Sp02 EP Interpretation: reviewed, normal General Appearance: no apparent distress, alert, GCS 15, non-toxic, thin Head: normocephalic, atraumatic Eyes: bilateral eye PERRL, bilateral eye normal inspection ENT: hearing grossly normal, normal pharynx, no angioedema, normal voice Neck: full range of motion, supple/symm/no masses Respiratory: chest non-tender, lungs clear, normal breath sounds, speaking full sentences Cardiovascular #1: regular rate, rhythm, no edema Cardiovascular #2: 2+ carotid (R), 2+ carotid (L), 2+ radial (R), 2+ radial (L) , 2+ dorsalis pedis (R), 2+ dorsalis pedis (L) Gastrointestinal: normal bowel sounds, non-distended, no guarding, no rebound, other - midline surgical scar C/D/I. suture noted at top of surgical scar Rectal: deferred Genitourinary: normal inspection, no CVA tenderness Musculoskeletal: back normal, gait/station normal, normal range of motion, non- tender Neurologic: alert, oriented x3, responsive, motor strength/tone normal, sensory intact, speech normal Psychiatric: judgement/insight normal, memory normal, mood/affect normal, no suicidal/homicidal ideation Reflexes: 3+ bicep (R), 3+ bicep (L), 3+ tricep (R), 3+ tricep (L), 3+ knee (R) , 3+ knee (L) Skin: normal color, no rash, warm/dry, well hydrated Lymphatic: no adenopathy Medical Decision Making Diagnostic Impression: Primary Impression: Postop check Additional Impression: S/P exploratory laparotomy ER Course 61-year-old M presents to ER for evaluation of a suture in his surgical site. Chest was exploratory laparotomy in July Patient placed on stretcher. After initial history physical exam reveals a middle-aged male in no acute distress. Surgical site is clean/dry/intact. Well -healed. Abdomen is soft. There is a clear suture noted to the top of the surgical site. No surrounding erythema or irritation. I reviewed EMR. Surgery performed by Dr. Gilmore. I paged Dr. Gilmore During this time patient eloped from ER Dr. Gilmore did return our call. I spoke to him about the patient. He is familiar with the patient. States that the suture should not be removed in the ER if he returns to have him followup in the office as outpatient Diagnosis-postop check, status post exploratory laparotomy patient eloped from ER Last Vital Signs Date Time Temp Pulse Resp B/P Pulse Ox O2 Delivery O2 Flow Rate FiO2 09/25/16 15:40 89 16 118/57 98 Room Air 09/25/16 15:07 98.1 Status: unchanged Disposition: ELOPED Condition: Stable Referrals: NON PHYSICIAN (PCP) TONY CHONG M.D. Sep 25, 2016 17:53
== END | disposition home or self-care (01) ==
LOC: EMR 16:53
DX: Z48.89 Encounter for other specified surgical aftercare (principal); R10.9 Unspecified abdominal pain; J45.909 Unspecified asthma, uncomplicated; Z88.0 Allergy status to penicillin; Z88.2 Allergy status to sulfonamides
CPT/HCPCS: 99282